=== PATIENT | female | born 1945 | race Caucasian/White ===

== ENCOUNTER → 2016-04-25 | Outpatient (CLI) | payer MEDICARE, OTHER ==
[~2016-04-25] MED LIST: ALLP100T; ALLP100T PO; ALN70T; ALN70T PO; BISO1TAB8; CHOL2000 PO; DESOXIMETASONE PO; DEXL60CA3 PO; FLC1T; FLC1T PO; HYDR-34 PO; HYDR1TAB PO; HYDR1TAB66 PO; LEFL10TA PO; LOSA100T7 PO; MTX2.5T; MTX2.5T PO; MVI; NABU500T8; NABU750T PO; NABUMETONE PO; NF-ALI300T PO; OLME1TAB22 PO; PARO20TA57; PARO25TA PO; PARO40TA2 PO; PRD10T; PRED-398 PO; PRIM50TA26 PO; PROPRANOLOL ER PO; TRAM50TA2 PO; TRIA60LO6 TOP; VERA240C2 PO; VITAMIN D; VRP240TCR
--- NOTE | 2016-04-25 10:40 | Diagnostic Imaging Report ---
3 views of the lumbar spine. INDICATION: Low back pain. FINDINGS: There is satisfactory alignment of the lumbar spine. The vertebral body heights are preserved. There is no significant disc height loss seen. There are multilevel small anterior osteophytes. No posterior osteophytes. Mild lower lumbar spine degenerative facet joint sclerotic changes seen. The sacroiliac joints demonstrate minimal degenerative changes. Surgical clips in the upper right abdomen noted. IMPRESSION: Disc and facet degenerative changes. Dictated by: Dictated on workstation # [id number]
== END ==
LOC: RAD 08:49
PROVIDERS: ATTEND Pain Medicine Pain Medicine
DX: M54.5 Low back pain (principal)
CPT/HCPCS: 72100

== ENCOUNTER → 2016-07-07 | Outpatient (CLI) | payer MEDICARE, OTHER ==
--- NOTE | 2016-07-08 08:52 | Diagnostic Imaging Report ---
Bilateral screening mammogram. The current study was also evaluated with a Computer Aided Detection (CAD) system. INDICATION: Screening. No current complaints stated on the questionnaire. COMPARISON: 06/29/2015. FINDINGS: The breasts are composed of scattered fibroglandular densities. There are occasional benign-appearing calcifications. A biopsy clip in the central aspect of the left breast is noted. There is a pacemaker projecting over the axillary tail of the left breast. No suspicious mass or calcifications noted. Allowing for technique and positional differences, no suspicious change is seen. IMPRESSION: No significant change. ACR BI-RADS Category 2: Benign findings. Result letter will be mailed to the patient. Note: At least 10% of breast cancer is not imaged by mammography. Dictated by: Dictated on workstation # [id number]
== END ==
LOC: RAD 08:58
PROVIDERS: ATTEND Nurse Practitioner
DX: Z12.31 Encounter for screening mammogram for malignant neoplasm of breast (principal)
CPT/HCPCS: 77067

== ENCOUNTER → 2016-08-25 | Outpatient (CLI) | payer MEDICARE, OTHER ==
--- NOTE | 2016-08-25 19:06 | Diagnostic Imaging Report ---
EXAMINATION: Three views of the right toes. INDICATION: Right great toe pain. FINDINGS: There is suggestion of fusion across the first MTP joint. Sclerotic changes are probably related to previous hardware and other pre-existing chronic abnormalities. The hardware has been removed. The findings are not associated with acute appearing erosive changes or bone destruction and no concerning periosteal reaction is seen to suggest infection. There is, however, adjacent soft tissue swelling. There is fusion hardware across the proximal interphalangeal joints of the second and third toes and evidence of prior osteotomy in the proximal phalanx of the fourth toe. No acute fracture. IMPRESSION: Fusion of the first metatarsophalangeal joint with background likely chronic mixed sclerotic and lucent areas with no aggressive or acute appearing bony erosion. There is prominent soft tissue swelling seen, however. Dictated by: Dictated on workstation # [id number]
== END ==
LOC: RAD 14:05
PROVIDERS: ATTEND Internal Medicine
DX: M79.674 Pain in right toe(s) (principal)
CPT/HCPCS: 73660

== ENCOUNTER → 2016-09-07 | Outpatient (CLI) | payer MEDICARE, OTHER ==
--- NOTE | 2016-09-07 17:16 | Diagnostic Imaging Report ---
PROCEDURE: CT right lower extremity without contrast. TECHNIQUE: Axially acquired CT was obtained through the right lower extremity without intravenous contrast. Coronal and sagittal reformations were also performed. INDICATION: Right great toe pain. Swelling. FINDINGS: There is advanced degenerative changes at the metatarsophalangeal joint of the great toe with complete loss of the joint space and pxid-ev-aymx appearance. There are areas of suggested joint fusion along the medial aspect with only minimal osseous bridging however seen. Background sclerosis and mixed lucent and cystic changes in the sclerotic areas around the head of the first metatarsal and proximal phalanx is seen. There are moderate osteoarthritic changes in the interphalangeal joint. There is no acute fracture. There is fusion of the proximal interphalangeal joints of the second and third and fourth toes seen with hardware in place. There is prominent osteoarthritis changes in the tarsometatarsal joints with satisfactory alignment otherwise. Prominent calcaneal spurs are seen. There is nonspecific subcutaneous tissue edema seen around the foot. IMPRESSION: There is background markedly advanced degenerative changes at the first metatarsophalangeal joints with osseous bridging seen in the medial aspect suggestive of early joint fusion. This is probably sequela to prior injury or infection. Correlate clinically. No acute fracture. Dictated by: Dictated on workstation # [id number]
== END ==
LOC: RAD 10:53
DX: M19.071 Primary osteoarthritis, right ankle and foot (principal)
CPT/HCPCS: 73700

== ENCOUNTER 2017-01-04 10:58 | Emergency (ER) | payer MEDICARE, OTHER ==
[~2017-01-04] VITALS: Ht 160 cm; Wt 94.3 kg
--- NOTE | 2017-01-04 12:01 | ED General ---
General Chief Complaint: Trauma-Non Activation Stated Complaint: FREQUENT FALLS/NEW MEDICATION Nursing Triage Note: PATIENT STARTED ON NEW MEDICATION BY NEUROLOGIST AND SINCE STARTING HAS HAD 5 FALLS IN THE LAST 2-3 DAYS R/T DIZZINESS AND LOSS OF BALANCE. Nursing Sepsis Screen: No Definite Risk Source of Information: Patient Exam Limitations: No Limitations History of Present Illness Time Seen by Provider: 11:55 Initial Comments The patient is a 71-year-old white female sent by Dr. Lewis's office/Chaim Barrera nurse practitioner. 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 This began in her 50s. She has been seeing a neurologist and was started on Klonopin last . On Monday she noted no new symptoms. On Monday she began to experience following and fell several times. She did not recall hitting her head during any of these falls. This has continued since then and she has appeared to be more intellectually slow by her . She has also hit her head and on one fall noted the onset of back pain in the lumbar region and this persists. She has continued to take the Klonopin including this morning. Timing/Duration: 4-5 Days Modifying Factors: improves with Medication Allergies and Home Medications Allergies Coded Allergies: DAVIDANo Known Allergies (Verified Allergy, Unknown, 06/24/08) Home Medications Alendronate Sodium 70 Mg Tab, 70 MG PO Mo@06, (Reported) Aliskiren Hemifumarate 300 Mg Tab, 1 TAB PO DAILY, (Reported) Allopurinol 100 Mg Tab, 100 MG PO DAILY, (Reported) Cholecalciferol 2,000 Unit Capsule, 2,000 UNIT PO DAILY, (Reported) Folic Acid 1 Mg Tab, 1 EACH PO DAILY, (Reported) Hydrocodone Bit/Acetaminophen 1 Each Tablet, 1 EACH PO NEEDED, (Reported) Hydrocodone Bit/Acetaminophen 1 Ea Tablet, 1-2 EA PO Q 4 - 6 HR PRN, #30 Ref 0 ( Reported) Leflunomide 10 Mg Tablet, 10 MG PO DAILY, (Reported) Losartan Potassium 100 Mg Tablet, 100 MG PO DAILY, (Reported) Methotrexate 2.5 Mg Tab, 2.5 MG PO Q7D, (Reported) TUES MORNING Paroxetine Hcl 40 Mg Tablet, 40 MG PO DAILY, (Reported) Prednisone 5 Mg Tablet.dr, 5 MG PO DAILY, #2 (Reported) Primidone 50 Mg Tablet, 50 MG PO BID, (Reported) Tramadol Hcl 50 Mg Tablet, 50 MG PO NEEDED, (Reported) Verapamil Hcl 240 Mg Cap24h.pel, 0.5 EACH PO BID, (Reported) [Desoximetasone] , 0.25 MG PO DAILY, (Reported) [Nabumetone] , 500 MG PO DAILY, (Reported) [Propranolol Er] , 60 MG PO DAILY, (Reported) Constitutional: see HPI EENTM: no symptoms reported Respiratory: no symptoms reported Cardiovascular: no symptoms reported Gastrointestinal: no symptoms reported Genitourinary: no symptoms reported Musculoskeletal: back pain Psychiatric/Neurological: Tremors Hematologic/Lymphatic: No Symptoms Reported Immunological/Allergic: no symptoms reported Past Txchjnu-Ojhfyx-Gkchud Hx Patient Social History Alcohol Use: Denies Use Recreational Drug Use: No Smoking Status: Never a Smoker 2nd Hand Smoke Exposure: No Recent Foreign Travel: No Contact w/Someone Who Travel: No Recent Infectious Disease Expo: No Recent Hopitalizations: No Physical Abuse: No Sexual Abuse: No Immunizations Up To Date Date of Pneumonia Vaccine: Jan 13, 2010 Date of Influenza Vaccine: Dec 23, 2011 Seasonal Allergies Seasonal Allergies: No Surgeries History of Surgeries: Yes (BUNIONECTOMY) Respiratory History of Respiratory Disorde: No Cardiovascular History of Cardiac Disorders: Yes (PACEMAKER) Reproductive System : No Hx Reproductive Disorders: Yes Genitourinary History of Genitourinary Disor: No Gastrointestinal History of Gastrointestinal Di: No Musculoskeletal History of Musculoskeletal Dis: Yes Musculoskeletal Disorders: Arthritis Endocrine History of Endocrine Disorders: No HEENT History of HEENT Disorders: No Cancer History of Cancer: No Psychosocial History of Psychiatric Problem: No Suicide Risk Score: 0 Integumentary History of Skin or Integumenta: Yes Skin/Integumentary Disorders: Psoriasis Blood Transfusions History of Blood Disorders: No Adverse Reaction to a Blood Tr: No Physical Exam Vital Signs Vital Sign - Last 12Hours 01/04/17 11:11 Pulse 62 Resp 18 B/P (MAP) 112/65 Pulse Ox 95 O2 Delivery Room Air Capillary Refill : Less Than 3 Seconds General Appearance: No Apparent Distress, WD/WN Eyes: Bilateral Eye Normal Inspection HEENT: Normal ENT Inspection Neck: Normal Inspection Respiratory: Chest Non Tender, Lungs Clear, Normal Breath Sounds, No Accessory Muscle Use, No Respiratory Distress Cardiovascular: Regular Rate, Rhythm, No Edema, No Gallop, No JVD, No Murmur, Normal Peripheral Pulses Back: No CVA Tenderness Extremity: Normal Capillary Refill, Normal Inspection, Normal Range of Motion, Non Tender, No Calf Tenderness, No Pedal Edema Neurologic/Psychiatric: Alert, Oriented x3, No Motor/Sensory Deficits, Normal Mood/Affect Skin: Normal Color, Warm/Dry Lymphatic: No Adenopathy Comments There is a tremor noted with the forearm flexed and the hands extended. This is greater on the left than the right. She is left-handed. Also noted during the course of exam was a slight head bobbing and twitching at the corners of the mouth. The voice however is not tremulous. Progress/Results/Core Measures Results/Orders My Orders Orders - RASHIDA KING MD Ct Head Wo (01/04/17 11:54) Lumbar Spine - 2-3 Views (01/04/17 11:54) Vital Signs/I&O Vital Sign - Last 12Hours 01/04/17 11:11 Pulse 62 Resp 18 B/P (MAP) 112/65 Pulse Ox 95 O2 Delivery Room Air Blood Pressure Mean: 81 Departure Impression Impression: Primary Impression: multiple falls Additional Impression: tremor disorder Disposition: 01 HOME, SELF-CARE Condition: Stable/Unchanged Departure-Patient Inst. Decision time for Depature: 13:46 Referrals: AURORA LEWIS MD (PCP/Family) Primary Care Physician Add. Discharge Instructions: All discharge instructions reviewed with patient and/or family. Voiced understanding. Stop Klonopin. See her provider next week Return here if change in condition RASHIDA KING MD Jan 04, 2017 12:00
--- NOTE | 2017-01-04 12:23 | Diagnostic Imaging Report ---
INDICATION: Recent falls. Back pain. COMPARISON: 04/25/2016 FINDINGS: Frontal and lateral radiographic views of the lumbar spine were obtained. Static alignment is preserved. There is no significant anterolisthesis or retrolisthesis. There is no evidence of jumped facets. Vertebral body heights are also maintained. There is no evidence of acute fracture. There are multilevel degenerative changes consisting of intervertebral disc height loss with multilevel endplate changes. There is also multilevel facet arthropathy. Surrounding soft tissue structures are unremarkable. Included small bowel loops are nondistended. IMPRESSION: 1. No acute fracture or dislocation lumbar spine. 2. Mild multilevel degenerative changes. Dictated by: Dictated on workstation # [id number]
--- NOTE | 2017-01-04 13:27 | Diagnostic Imaging Report ---
PROCEDURE: CT head without contrast. TECHNIQUE: Multiple contiguous axial images were obtained through the brain without the use of intravenous contrast. INDICATION: Fall. FINDINGS: There is no intracranial hemorrhage, edema or mass effect. There is periventricular and deep white hypodensities compatible with chronic microvascular ischemic changes. No hydrocephalus. No extra-axial fluid collection seen. The calvarium, the visualized portions of the paranasal sinuses and orbits appear grossly unremarkable. IMPRESSION: No acute process. Dictated by: Dictated on workstation # [id number]
[2017-01-04 14:01] VITALS: BP 126/84
== END 2017-01-04 13:56 | disposition home or self-care (01) ==
LOC: EDUNIT# 10:58 → ER 11:00
DX: R25.1 Tremor, unspecified (principal); R29.6 Repeated falls; Z95.0 Presence of cardiac pacemaker
CPT/HCPCS: 70450; 72100; 99282

== ENCOUNTER → 2017-01-05 | Outpatient (CLI) | payer MEDICARE, OTHER ==
--- NOTE | 2017-01-05 17:23 | Diagnostic Imaging Report ---
PROCEDURE: CT chest without contrast. TECHNIQUE: Multiple contiguous axial images were obtained through the chest without the use of intravenous contrast. INDICATION: Left lower chest pain, recent fall. FINDINGS: There is no pneumothorax. There is no pleural fluid or evidence for hemothorax. There is no pericardial effusion. Visualized portions of bilateral ribs revealed no identifiable fracture deformity or destructive osseous lesion. No findings of pleural hematoma. There is at least mild infrahilar and basilar partial atelectasis. No findings felt suggestive of lung contusion or pulmonary laceration. There is no mediastinal hematoma. The aorta is nonaneurysmal. The visualized upper abdomen showed no free fluid or free air. The low-density cystic nodules in the right hepatic lobe partly visualized. IMPRESSION: No acute or post-traumatic sequelae identified. Dictated by: Dictated on workstation # [id number]
--- NOTE | 2017-01-05 17:29 | Diagnostic Imaging Report ---
CLINICAL INDICATION: Patient with left ear pain, multiple falls and thoracic pain. EXAM: Axial CT scan of the thoracic spine performed without IV contrast. Sagittal and coronal reformatted images are created. COMPARISON: X-ray of the lumbar spine dated 01/04/2017. FINDINGS: The thoracic spine shows no evidence of acute fracture or dislocation. There is mild compression deformity with Schmorl's nodes involving the T10 vertebral body. There is also mild chronic appearing compression deformity of the upper endplate of the L1 vertebral body. There is a chronic appearing Schmorl's nodes seen scattered throughout the lower thoracic vertebra. There is small degenerative spurs seen throughout the mid and lower thoracic spine. There is no significant bony central spinal canal or neural foramen narrowing. Bilateral facet arthropathy is seen throughout the thoracic spine. There is no significant paraspinal soft tissue abnormality. There is mild atelectasis involving the posterior aspects of both lungs. IMPRESSION: 1: There is no evidence of acute thoracic spine fracture or dislocation. 2: There are mild chronic compression deformities of the T10 and L1 vertebral bodies which appear chronic. 3: Degenerative disease of the thoracic spine. A message regarding results of this report was left for Kathe Vazquez via the telephone on 01/05/2017 at 1725 hrs. Dictated by: Dictated on workstation # [id number]
== END ==
LOC: RAD 16:47
PROVIDERS: ATTEND Physician Assistant
DX: S29.9XXA Unspecified injury of thorax, initial encounter (principal); M47.814 Spondylosis without myelopathy or radiculopathy, thoracic region; W19.XXXA Unspecified fall, initial encounter; Y99.8 Other external cause status
CPT/HCPCS: 71250; 72128

== ENCOUNTER 2017-01-08 09:37 | Emergency (ER) | payer MEDICARE, OTHER ==
[~2017-01-08] VITALS: Ht 162.6 cm; Wt 93.0 kg
--- OUTSIDE RECORDS SUMMARY | 2017-01-08 09:41 | XMS REPORT | Continuity of Care Document ---
Author Author [employer] Organization [facility] Address Unknown Phone Unavailable Care Team Providers Care [employer] Name Role Phone [employer] Unavailable Unavailable Problems Medications Allergies, Adverse Reactions, Alerts Immunizations Results Vital Signs Encounters Location Location Details Encounter Type Encounter Number Reason For Visit Attending Provider ADM Date DC Date Status Source O Active [facility] Procedures Plan of Care Social History Assessment and Plan Family History Value Date Source Advance Directives Order Name Results Value Date Source
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
[2017-01-08] MEDS ORDERED: NS IV 500 ML 500 ML IV ONE (09:55)
--- NOTE | 2017-01-08 10:32 | ED General ---
General Chief Complaint: Dizziness/Syncope Stated Complaint: DIZZINESS/FALL Nursing Triage Note: PT REPROTS INCREASED CONFUSION, AND PT FALLING LAST NIGHT WHEN WALKING. PT IS TAKING HYDROCODONE AND BACLOFEN SINCE MONDAY FOR PREVIOUS FALL INJURY. Nursing Sepsis Screen: No Definite Risk Source of Information: Patient Exam Limitations: No Limitations History of Present Illness Time Seen by Provider: 09:49 Initial Comments Here for concerns about acting weird since about 4 a.m. this morning. Has had multiple falls including last night. Follow as night's on carpeted jurgen denies any injury or hitting head. Apparently does have a question of a hairline fracture of 2 ribs per the family. There is an old compression fracture at T10 noted on CT scan. Patient admits to feeling a little off. She was recently started on baclofen and hydrocodone for pain related to rib injury. Denies dysuria but does have constipation. Symptoms are global. reports that she's been increasingly confused this morning and this is worsening since yesterday. Timing/Duration: 12-24 Hours Severity: Moderate Associated Systoms: No Cough, No Fever/Chills, No Headaches, Malaise, Nausea/ Vomiting (small amount of vomit 1 and this morning), No Shortness of Air, Weakness Allergies and Home Medications Allergies Coded Allergies: cefazolin (Verified Allergy, Unknown, 01/08/17) latex (Verified Allergy, Unknown, 01/08/17) Home Medications Alendronate Sodium 70 Mg Tab, 70 MG PO Mo@06, (Reported) Aliskiren Hemifumarate 300 Mg Tab, 1 TAB PO DAILY, (Reported) Allopurinol 100 Mg Tab, 100 MG PO DAILY, (Reported) Cholecalciferol 2,000 Unit Capsule, 2,000 UNIT PO DAILY, (Reported) Folic Acid 1 Mg Tab, 1 EACH PO DAILY, (Reported) Hydrocodone Bit/Acetaminophen 1 Each Tablet, 1 EACH PO NEEDED, (Reported) Hydrocodone Bit/Acetaminophen 1 Ea Tablet, 1-2 EA PO Q 4 - 6 HR PRN, #30 Ref 0 ( Reported) Leflunomide 10 Mg Tablet, 10 MG PO DAILY, (Reported) Losartan Potassium 100 Mg Tablet, 100 MG PO DAILY, (Reported) Methotrexate 2.5 Mg Tab, 2.5 MG PO Q7D, (Reported) TU MORNING Paroxetine Hcl 40 Mg Tablet, 40 MG PO DAILY, (Reported) Prednisone 5 Mg Tablet.dr, 5 MG PO DAILY, #2 (Reported) Primidone 50 Mg Tablet, 50 MG PO BID, (Reported) Tramadol Hcl 50 Mg Tablet, 50 MG PO NEEDED, (Reported) Verapamil Hcl 240 Mg Cap24h.pel, 0.5 EACH PO BID, (Reported) [Desoximetasone] , 0.25 MG PO DAILY, (Reported) [Nabumetone] , 500 MG PO DAILY, (Reported) [Propranolol Er] , 60 MG PO DAILY, (Reported) Constitutional: see HPI, No chills, No fever EENTM: no symptoms reported Respiratory: no symptoms reported Cardiovascular: no symptoms reported Gastrointestinal: constipation, No diarrhea, No nausea, vomiting Genitourinary: no symptoms reported Musculoskeletal: back pain Skin: no symptoms reported Psychiatric/Neurological: See HPI, Denies Headache, Weakness All Other Systems Reviewed Negative Unless Noted: Yes Past Kqqcehw-Sqxxxh-Wpjoke Hx Patient Social History Alcohol Use: Denies Use Recreational Drug Use: No Smoking Status: Never a Smoker 2nd Hand Smoke Exposure: No Recent Foreign Travel: No Contact w/Someone Who Travel: No Recent Infectious Disease Expo: No Recent Hopitalizations: No Physical Abuse: No Sexual Abuse: No Mistreated: No Fear: No Immunizations Up To Date Date of Pneumonia Vaccine: Jan 13, 2010 Date of Influenza Vaccine: Dec 23, 2011 Seasonal Allergies Seasonal Allergies: No Surgeries History of Surgeries: Yes (BUNIONECTOMY, ROTATOR CUFF, PARATHYROID) Surgeries: Gallbladder, Hysterectomy Respiratory History of Respiratory Disorde: No Cardiovascular History of Cardiac Disorders: Yes (PACEMAKER) Cardiac Disorders: Hypertension Neurological History of Neurological Disord: Yes (TREMORS) Reproductive System Hx Reproductive Disorders: Yes Sexually Transmitted Disease: No Genitourinary History of Genitourinary Disor: No Gastrointestinal History of Gastrointestinal Di: No Musculoskeletal History of Musculoskeletal Dis: Yes Musculoskeletal Disorders: Arthritis Endocrine History of Endocrine Disorders: No HEENT History of HEENT Disorders: No Cancer History of Cancer: No Psychosocial History of Psychiatric Problem: No Suicide Risk Score: 1 Integumentary History of Skin or Integumenta: Yes Skin/Integumentary Disorders: Psoriasis Blood Transfusions History of Blood Disorders: No Adverse Reaction to a Blood Tr: No Reviewed Nursing Assessment Reviewed/Agree w Nursing PMH: Yes Family Medical History Significant Family History: No Pertinent Family Hx Physical Exam Vital Signs Vital Sign - Last 12Hours 01/08/17 10:06 Temp 97.6 Pulse 66 Resp 20 B/P (MAP) 129/73 Pulse Ox 93 Capillary Refill : Less Than 3 Seconds General Appearance: No Apparent Distress, WD/WN HEENT: PERRL/EOMI, Pharynx Normal, Other (no obvious injury noted to the head or neck.) Neck: Non Tender, Supple Respiratory: Lungs Clear, Normal Breath Sounds Cardiovascular: Regular Rate, Rhythm, No Murmur Gastrointestinal: Non Tender, Soft Back: Normal Inspection, No CVA Tenderness, No Vertebral Tenderness Extremity: Normal Range of Motion, Non Tender Neurologic/Psychiatric: Alert, Motor Weakness (mild global weakness.), Other ( flat affect and slow to answer but answers questions appropriately. Oriented to self, place but confused on time.) Skin: Normal Color, Warm/Dry Progress/Results/Core Measures Results/Orders Lab Results Laboratory Tests Test 01/08/17 10:39 01/08/17 11:21 Range/Units White Blood Count 7.1 4.3-11.0 10^3/uL Red Blood Count 3.80 L 4.35-5.85 10^6/uL Hemoglobin 12.7 11.5-16.0 G/DL Hematocrit 37 35-52 % Mean Corpuscular Volume 97 80-99 FL Mean Corpuscular Hemoglobin 33 25-34 PG Mean Corpuscular Hemoglobin Concent 34 32-36 G/DL Red Cell Distribution Width 13.9 10.0-14.5 % Platelet Count 276 130-400 10^3/uL Mean Platelet Volume 10.4 7.4-10.4 FL Neutrophils (%) (Auto) 80 H 42-75 % Lymphocytes (%) (Auto) 14 12-44 % Monocytes (%) (Auto) 5 0-12 % Eosinophils (%) (Auto) 1 0-10 % Basophils (%) (Auto) 0 0-10 % Neutrophils # (Auto) 5.7 1.8-7.8 X 10^3 Lymphocytes # (Auto) 1.0 1.0-4.0 X 10^3 Monocytes # (Auto) 0.4 0.0-1.0 X 10^3 Eosinophils # (Auto) 0.1 0.0-0.3 10^3/uL Basophils # (Auto) 0.0 0.0-0.1 10^3/uL Sodium Level 138 135-145 MMOL/L Potassium Level 3.2 L 3.6-5.0 MMOL/L Chloride Level 102 98-107 MMOL/L Carbon Dioxide Level 25 21-32 MMOL/L Anion Gap 11 5-14 MMOL/L Blood Urea Nitrogen 29 H 7-18 MG/DL Creatinine 0.98 0.60-1.30 MG/DL Estimat Glomerular Filtration Rate 56 BUN/Creatinine Ratio 30 Glucose Level 130 H 70-105 MG/DL Calcium Level 9.0 8.5-10.1 MG/DL Total Bilirubin 0.3 0.1-1.0 MG/DL Aspartate Amino Transf (AST/SGOT) 18 5-34 U/L Alanine Aminotransferase (ALT/SGPT) 18 0-55 U/L Alkaline Phosphatase 98 40-136 U/L C-Reactive Protein High Sensitivity 10.43 H 0.00-0.50 MG/DL Total Protein 7.5 6.4-8.2 GM/DL Albumin 3.7 3.2-4.5 GM/DL Urine Color YELLOW Urine Clarity CLEAR Urine pH 6.5 5-9 Urine Specific [place] 1.010 L 1.016-1.022 Urine Protein 1+ H NEGATIVE Urine Glucose (UA) NEGATIVE NEGATIVE Urine Ketones 1+ H NEGATIVE Urine Nitrite NEGATIVE NEGATIVE Urine Bilirubin 1+ H NEGATIVE Urine Urobilinogen 1 NORMAL MG/DL Urine Leukocyte Esterase 2+ H NEGATIVE Urine RBC (Auto) 1+ H NEGATIVE Urine RBC NONE /HPF Urine WBC RARE /HPF Urine Squamous Epithelial Cells RARE /HPF Urine Crystals NONE /LPF Urine Bacteria NEGATIVE /HPF Urine Casts NONE /LPF Urine Mucus NEGATIVE /LPF Urine Culture Indicated NO My Orders Orders - JENIFER CHEN MD Cbc With Automated Diff (01/08/17 09:55) Comprehensive Metabolic Panel (01/08/17 09:55) Hs C Reactive Protein (01/08/17 09:55) Ua Culture If Indicated (01/08/17 09:55) Saline Lock/Iv-Start (01/08/17 09:55) Ns Iv 500 Ml (Sodium Chloride 0.9%) (01/08/17 09:55) Chest 1 View, Ap/Pa Only (01/08/17 09:55) Monitor-Rhythm Ecg Trace Only (01/08/17 09:55) Medications Given in ED Current Medications Medications Dose Ordered Sig/Swetha Route Start Time Stop Time Status Last Admin Dose Admin Sodium Chloride 500 ml @ 0 mls/hr Q0M ONCE IV 01/08/17 09:55 01/08/17 09:56 DC 01/08/17 10:44 0 MLS/HR Vital Signs/I&O Vital Sign - Last 12Hours 01/08/17 10:06 Temp 97.6 Pulse 66 Resp 20 B/P (MAP) 129/73 Pulse Ox 93 Blood Pressure Mean: 91 Progress Note : Progress Note Seen and evaluated. IV, labs, chest x-ray, UA and normal saline 500 mL bolus ordered. Monitor patient. 1230: Overall patient is improved. Patient's CRP was elevated but there does not appear to be a focus for infection currently so we will hold on antibiotics at this time. The increasing tiredness and problems this morning may be related to back Levsin. We will stop that. Her pain has been improving. Patient does have constipation and so they will add MiraLAX to the therapy. 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 She is mentating well at this point and she and her are comfortable going home with the understanding what to return for. Discharged home with return precautions. Patient and family verbalize understanding instructions and agreement with plan. Diagnostic Imaging Diagonstic Imaging: Xray Plain Films/CT/US/NM/MRI: chest Comments NAME: [facility] REC#: [id number] PT STATUS: REG ER : 1945 PHYSICIAN: JENIFER CHEN MD ADMIT DATE: 01/08/17/ER Signed Date of Exam: 01/08/17 CHEST 1 VIEW, AP/PA ONLY INDICATION: Dizziness COMPARISON: 01/18/2016 FINDINGS: Portable view of the chest is obtained. Heart size is mildly enlarged but unchanged. Pacer device in the left chest is stable. There is no central venous congestion. There is no pneumothorax or pleural fluid suspected. There is some coarse linear atelectasis in the right midlung. The lungs are otherwise clear. IMPRESSION: There is some right-sided atelectasis, new from the prior exam. Stable borderline cardiomegaly without evidence of failure. Dictated by: Dictated on workstation # [id number] Dict: 01/08/17 1053 Trans: 01/08/171056 Interpreted by: JAMIE CAMP DO Electronically signed by: JAMIE CAMP DO 01/08/171056 Departure Impression Impression: Primary Impression: Medication side effect Qualified Codes: T88.7XXA - Unspecified adverse effect of drug or medicament, initial encounter Additional Impressions: Chest wall pain History of recent fall Disposition: HOME, SELF-CARE Condition: Improved Departure-Patient Inst. Decision time for Depature: 12:38 Referrals: AURORA CAMP MD (PCP/Family) Primary Care Physician Patient Instructions: MEDICATION REACTION Add. Discharge Instructions: All discharge instructions reviewed with patient and/or family. Voiced understanding. Stop the baclofen. Take the hydrocodone only if needed for moderate pain. Drink plenty of fluids. You may add MiraLAX or the generic one capful twice daily for the next 3 days for constipation. You may then go to once daily dosing as needed to keep stools soft. You may increase or decrease the dose to keep the stools in the normal range. Follow-up with Dr. Camp's office tomorrow. Return for worse pain, fever, vomiting, weakness, breathing problems , persistent symptoms, not getting better or other concerns as needed. Copy Copies To 1: AURORA CAMP MD, TIMOTHY D MD Jan 08, 2017 10:32
[2017-01-08 10:46] LABS: BASOPHILS % (AUTO) 0 % (0-10); EOSINOPHILS # (AUTO) 0.1 10^3/uL (0.0-0.3); EOSINOPHILS % (AUTO) 1 % (0-10); LYMPHOCYTES % (AUTO) 14 % (12-44); MEAN CORPUSCULAR HEMOGLOBIN 33 PG (25-34); MEAN CORPUSCULAR HGB CONC 34 G/DL (32-36); MEAN CORPUSCULAR VOLUME 97 FL (80-99); MEAN PLATELET VOLUME 10.4 FL (7.4-10.4); MONOCYTES # (AUTO) 0.4 X 10^3 (0.0-1.0); MONOCYTES % (AUTO) 5 % (0-12); NEUTROPHILS # (AUTO) 5.7 X 10^3 (1.8-7.8); NEUTROPHILS % (AUTO) 80 % (42-75); PLATELET COUNT 276 10^3/uL (130-400); RED CELL DISTRIBUTION WIDTH 13.9 % (10.0-14.5); WHITE BLOOD COUNT 7.1 10^3/uL (4.3-11.0)
--- NOTE | 2017-01-08 10:57 | Diagnostic Imaging Report ---
INDICATION: Dizziness COMPARISON: 01/18/2016 FINDINGS: Portable view of the chest is obtained. Heart size is mildly enlarged but unchanged. Pacer device in the left chest is stable. There is no central venous congestion. There is no pneumothorax or pleural fluid suspected. There is some coarse linear atelectasis in the right midlung. The lungs are otherwise clear. IMPRESSION: There is some right-sided atelectasis, new from the prior exam. Stable borderline cardiomegaly without evidence of failure. Dictated by: Dictated on workstation # [id number]
[2017-01-08 11:03] LABS: ALBUMIN 3.7 GM/DL (3.2-4.5); BILIRUBIN,TOTAL 0.3 MG/DL (0.1-1.0); CREATININE SERUM 0.98 MG/DL (0.60-1.30); POTASSIUM 3.2 MMOL/L (3.6-5.0); TOTAL PROTEIN 7.5 GM/DL (6.4-8.2); hs C REACTIVE PROTEIN 10.43 MG/DL (0.00-0.50)
[2017-01-08 11:27] LABS: KETONES,URINE 1+ (NEGATIVE); LEUKOCYTE ESTERASE ,URINE 2+ (NEGATIVE); NITRITE,URINE NEGATIVE (NEGATIVE); PH,URINE 6.5 (5-9); PROTEIN,URINE 1+ (NEGATIVE); UROBILINOGEN,URINE 1 MG/DL (NORMAL)
[2017-01-08 11:30] LABS: BILIRUBIN,URINE 1+ (NEGATIVE); SQUAMOUS EPITHELIAL CELL,UR RARE /HPF; WBC,URINE RARE /HPF
[2017-01-08 12:54] VITALS: BP 136/79
== END 2017-01-08 12:54 | disposition home or self-care (01) ==
LOC: EDUNIT# 09:37 → ER 09:38
DX: R07.89 Other chest pain (principal); T88.7XXA Unspecified adverse effect of drug or medicament, initial encounter; I10 Essential (primary) hypertension; Z91.81 History of falling; Z90.710 Acquired absence of both cervix and uterus; Z95.0 Presence of cardiac pacemaker
CPT/HCPCS: 36415; 71010; 80053; 81000; 85025; 86141; 93041; 96360; 96361

== ENCOUNTER → 2017-01-11 | Outpatient (CLI) | payer MEDICARE, OTHER ==
--- NOTE | 2017-01-11 11:30 | Diagnostic Imaging Report ---
EXAMINATION: Three views of the left ribs. INDICATION: Followup fracture. FINDINGS: There are minimally displaced posterior lateral left fifth and sixth rib fractures. No pneumothorax. No significant effusion. There is minimal left basilar atelectasis. A pacemaker with two cardiac leads is seen. IMPRESSION: Minimally displaced posterior lateral left fifth and sixth rib fractures. Dictated by: Dictated on workstation # [id number]
--- NOTE | 2017-01-11 11:30 | Diagnostic Imaging Report ---
EXAMINATION: PA and lateral views of the chest. INDICATION: Left rib fractures. FINDINGS: The lungs demonstrate minimal left basilar atelectasis with no focal significant consolidation. Right perihilar atelectasis previously seen on 01/08/17 exam is improved. The heart size is normal. No effusion or pneumothorax. Mediastinum and cory appear unremarkable. Pacemaker with 2 cardiac leads seen. Nondisplaced rib fracture is seen along the posterior lateral aspect of the left fifth rib. IMPRESSION: Minimal left basilar atelectasis. Dictated by: Dictated on workstation # [id number]
== END ==
LOC: RAD 10:50
PROVIDERS: ATTEND Nurse Practitioner
DX: S22.42XD Multiple fractures of ribs, left side, subsequent encounter for fracture with routine healing (principal); X58.XXXD Exposure to other specified factors, subsequent encounter; Y99.8 Other external cause status
CPT/HCPCS: 71020; 71100

== ENCOUNTER 2017-05-19 14:12 | Outpatient (RCR) | payer MEDICARE, OTHER | END 2017-05-23 | disposition home or self-care (01) | PROVIDERS: ATTEND Psychiatry & Neurology Neurology | DX: R26.9 Unspecified abnormalities of gait and mobility (principal) ==

== ENCOUNTER → 2017-12-27 | Outpatient (CLI) | payer MEDICARE, OTHER ==
[2017-12-27 10:20] LABS: CLARITY,URINE CLEAR; COLOR,URINE YELLOW; GLUCOSE, URINE (UA) NEGATIVE (NEGATIVE); KETONES,URINE 1+ (NEGATIVE); LEUKOCYTE ESTERASE ,URINE 1+ (NEGATIVE); NITRITE,URINE NEGATIVE (NEGATIVE); PH,URINE 6.5 (5-9); PROTEIN,URINE 1+ (NEGATIVE); UROBILINOGEN,URINE 1 MG/DL (NORMAL)
[2017-12-27 10:47] LABS: BACTERIA,URINE FEW /HPF; BILIRUBIN,URINE 1+ (NEGATIVE); RBC,URINE RARE /HPF; WBC,URINE 0-2 /HPF
--- NOTE | 2017-12-27 11:47 | Diagnostic Imaging Report ---
INDICATION: Preop evaluation prior to deep brain stimulator placement. TECHNIQUE: Two view chest 10:28 AM CORRELATION STUDY: 01/11/2017 FINDINGS: Right IJ Xqojfy-k-Hdlc catheter has been placed, the tip projects over the SVC. Left-sided pacemaker remains in place. Heart size and mediastinal configurations stable. The lungs are clear with no consolidating infiltrate. There is no significant pleural effusion or pneumothorax. Old left posterior lateral mid rib fracture deformities are present. Prior left rotator cuff surgery suggested with anchor screw over the humeral head. Somewhat accentuated thoracic kyphotic curvature. IMPRESSION: 1. Negative acute abnormality of the chest. Dictated by: Dictated on workstation # [id number]
== END ==
LOC: RAD 09:45
PROVIDERS: ATTEND Internal Medicine
DX: Z01.812 Encounter for preprocedural laboratory examination (principal)
CPT/HCPCS: 71046; 81000

== ENCOUNTER → 2018-05-23 | Outpatient (CLI) | payer MEDICARE, OTHER ==
--- NOTE | 2018-05-23 15:50 | Diagnostic Imaging Report ---
INDICATION: Fall with left-sided posterior rib pain. TIME OF EXAM: 03:31 p.m. Correlation is made with prior chest radiograph from 12/27/2017. FINDINGS: Cardiac pacemaker is in place. Right chest wall port with its tip overlying the SVC. There are old healed rib fractures on the left involving the left posterior fifth, sixth and seventh ribs, similar to prior examination. There also appears to be an old fracture involving the left ninth rib. No definite acute fracture is identified. No parenchymal contusion, effusion or pneumothorax is seen. IMPRESSION: Old left-sided posterior rib fractures. No acute rib fracture is detected. Dictated by: Dictated on workstation # [id number]
== END ==
LOC: RAD 15:12
PROVIDERS: ATTEND Physician Assistant
DX: R07.81 Pleurodynia (principal); W19.XXXA Unspecified fall, initial encounter; Z87.81 Personal history of (healed) traumatic fracture; Z95.828 Presence of other vascular implants and grafts
CPT/HCPCS: 71101

== ENCOUNTER → 2018-05-31 | Outpatient (CLI) | payer MEDICARE, OTHER ==
--- NOTE | 2018-06-01 08:35 | Diagnostic Imaging Report ---
PROCEDURE: CT chest without contrast. TECHNIQUE: Multiple contiguous axial images were obtained through the chest without the use of intravenous contrast. INDICATION: Fall with posterior left rib pain. FINDINGS: Left chest wall cardiac pacemaker is in place. There is also right chest wall stimulator battery pack. No pericardial or pleural fluid is detected. No pneumothorax is seen. There is some scarring or subsegmental atelectasis in the superior segment left lower lobe as well as the posterior right upper lobe. No contusions are seen. There are old healed fractures involving left 5, 6, 7, and ninth posterior ribs. No definite acute rib fracture is seen. Upper abdomen does show a cyst in the dome of the right lobe of the liver. IMPRESSION: No acute abnormality is detected. Dictated by: Dictated on workstation # [id number]
== END ==
LOC: RAD 15:56
PROVIDERS: ATTEND Physician Assistant
DX: R07.81 Pleurodynia (principal); W19.XXXA Unspecified fall, initial encounter; Z95.0 Presence of cardiac pacemaker
CPT/HCPCS: 71250

== ENCOUNTER → 2018-12-28 | Outpatient (CLI) | payer MEDICARE, OTHER ==
--- NOTE | 2018-12-28 13:01 | Diagnostic Imaging Report ---
INDICATION: Routine screening. COMPARISON: Comparison is made with prior mammograms from 07/10/2017 and 07/07/2016. TECHNIQUE: 2-D and 3-D bilateral screening mammography was performed. The current study was also evaluated with a Computer Aided Detection (CAD) system. 3-D tomosynthesis was also performed and reviewed. FINDINGS: Scattered fibroglandular densities are identified bilaterally. Battery packs overlie the axillary portions of both breasts. Benign-appearing nodules in the lateral aspect of the right breast appear stable. Biopsy clip in the central left breast and benign nodule in the lateral left breast are also noted and appear stable. No spiculated mass or malignant-appearing microcalcifications are seen. IMPRESSION: No mammographic features suspicious for malignancy are identified. ACR BI-RADS Category 2: Benign findings. Result letter will be mailed to the patient. Note: At least 10% of breast cancer is not imaged by mammography. Dictated by: Dictated on workstation # [id number]
== END ==
LOC: RAD 11:17
PROVIDERS: ATTEND Internal Medicine
DX: Z12.31 Encounter for screening mammogram for malignant neoplasm of breast (principal)
CPT/HCPCS: 77067

== ENCOUNTER 2019-02-07 09:45 | Outpatient (RCR) | payer MEDICARE, OTHER | END 2019-02-08 14:50 | disposition home or self-care (01) | PROVIDERS: ATTEND Internal Medicine | DX: N39.46 Mixed incontinence (principal) ==

== ENCOUNTER → 2019-03-11 | Outpatient (CLI) | payer MEDICARE, OTHER ==
--- NOTE | 2019-03-11 10:11 | Diagnostic Imaging Report ---
INDICATION: Chronic cough. TIME OF EXAM: 9:53 a.m. COMPARISON: Correlation is made with prior chest from 05/23/2018. FINDINGS: Cardiac pacemaker is in place. There is a battery pack overlying the lower right chest. There is a right chest wall port with tip overlying the SVC. Lungs are clear. No infiltrates are seen. There is no effusion or pneumothorax. Healed left-sided rib fractures are again noted. IMPRESSION: Stable chest. No acute cardiopulmonary process is detected. Dictated by: Dictated on workstation # [id number]
== END ==
LOC: RAD 09:32
PROVIDERS: ATTEND Nurse Practitioner
DX: R05 Cough (principal); Z95.0 Presence of cardiac pacemaker
CPT/HCPCS: 71046

== ENCOUNTER 2019-07-22 17:57 | Emergency (ER) | payer MEDICARE, OTHER ==
[~2019-07-22] VITALS: Ht 160 cm; Wt 89.4 kg
[2019-07-22] MEDS ORDERED: fentaNYL INJECTION 100 MCG/2 ML AMP IVP STA (18:21)
--- NOTE | 2019-07-22 18:32 | ED Lower Extremity ---
General Stated Complaint: L LEG PAIN Source: patient History of Present Illness Date Seen by Provider: July 22, 2019 Time Seen by Provider: 18:15 Initial Comments PT ARRIVES VIA POV FROM HOME PT STATES JUST PRIOR TO ARRIVAL, APPROXIMATELY 1730, SHE WAS SITTING AND MOVED HER LEG AND HAD SUDDEN SEVERE PAIN BEHIND LEFT KNEE NO INJURY PAIN RADIATES DOWN CALF TO ANKLE AREA NO PARESTHESIAS OR MOTOR DEFICITS, BUT HAS SEVERE PAIN WITH ANY MOVEMENT OF LEG AND CANNOT BEAR WEIGHT ON LEFT LEG NO SWELLING OF LEG NO HISTORY OF SIMILAR, BUT HAS HISTORY OF MENISCUS PROBLEMS, BUT THAT PAIN WAS NOT IN SAME AREA. ALSO HAS HISTORY OF RHEUMATOID AND PSORIATIC ARTHRITIS, AND GETS REMICADE EVERY 6 WEEKS. NO FEVER NO BRUISING OR REDNESS TO AREA. NO CHEST PAIN NO SHORTNESS OF BREATH NO DIZZINESS NO PALPITATIONS NO SYNCOPE PCP: DR. LEWIS Allergies and Home Medications Allergies Coded Allergies: cefazolin (Verified Allergy, Unknown, 01/08/17) latex (Verified Allergy, Unknown, 01/08/17) Home Medications Alendronate Sodium 70 Mg Tab, 70 MG PO Mo@06, (Reported) Aliskiren Hemifumarate 300 Mg Tab, 1 TAB PO DAILY, (Reported) Allopurinol 100 Mg Tab, 100 MG PO DAILY, (Reported) Cholecalciferol 2,000 Unit Capsule, 2,000 UNIT PO DAILY, (Reported) Folic Acid 1 Mg Tab, 1 EACH PO DAILY, (Reported) Hydrocodone Bit/Acetaminophen 1 Each Tablet, 1 EACH PO NEEDED, (Reported) Hydrocodone Bit/Acetaminophen 1 Ea Tablet, 1-2 EA PO Q 4 - 6 HR PRN, (Reported) Hydrocodone/Acetaminophen 1 Each Tablet, 1 EACH PO Q4-6 HOURS PRN for PAIN Prescribed by: LYNN BENITEZ on 07/22/191945 Leflunomide 10 Mg Tablet, 10 MG PO DAILY, (Reported) Losartan Potassium 100 Mg Tablet, 100 MG PO DAILY, (Reported) Methotrexate 2.5 Mg Tab, 2.5 MG PO Q7D, (Reported) TU MORNING Paroxetine Hcl 40 Mg Tablet, 40 MG PO DAILY, (Reported) Prednisone 5 Mg Tablet.dr, 5 MG PO DAILY, (Reported) Primidone 50 Mg Tablet, 50 MG PO BID, (Reported) Tramadol Hcl 50 Mg Tablet, 50 MG PO NEEDED, (Reported) Verapamil Hcl 240 Mg Cap24h.pel, 0.5 EACH PO BID, (Reported) [Desoximetasone] , 0.25 MG PO DAILY, (Reported) [Nabumetone] , 500 MG PO DAILY, (Reported) [Propranolol Er] , 60 MG PO DAILY, (Reported) Patient Home Medication List Home Medication List Reviewed: Yes Review of Systems Constitutional: no symptoms reported Respiratory: no symptoms reported; No dyspnea on exertion, No short of breath Cardiovascular: no symptoms reported; No chest pain, No edema, No palpitations, No syncope Gastrointestinal: no symptoms reported Musculoskeletal: see HPI; No back pain, No joint swelling, No muscle weakness, No neck pain Skin: no symptoms reported Psychiatric/Neurological: No Symptoms Reported; Denies Numbness, Denies Paresthesia, Denies Weakness Past [id number]-Ayxdaq Hx Past Med/Social Hx: Reviewed and Corrections made Patient Social History Alcohol Use: Denies Use Recreational Drug Use: No Smoking Status: Never a Smoker 2nd Hand Smoke Exposure: No Recent Foreign Travel: No Contact w/Someone Who Travel: No Recent Hopitalizations: No Immunizations Up To Date Date of Pneumonia Vaccine: Jan 13, 2010 Date of Influenza Vaccine: Dec 23, 2011 Seasonal Allergies Seasonal Allergies: No Past Medical History Surgeries: Yes (SEE BELOW) Appendectomy, Breast, Gallbladder, Hysterectomy, Oophorectomy, Orthopedic, Pacemaker, Parathyroidectomy, Thyroidectomy Respiratory: No Cardiac: Yes (PACEMAKER--NOT SURE WHY--IHSS PER [facility]) Heart Murmur, Hypertension, Syncope Neurological: Yes (TREMORS--HAS BRAIN STIMULATOR IN PLACE FOR TREMORS) Reproductive Disorders: Yes 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, Menopausal Sexually Transmitted Disease: No Genitourinary: No Gastrointestinal: Yes (MELANOSIS COLI) Chronic Constipation, Diverticulosis Musculoskeletal: Yes (RHEUMATOID AND PSORIATIC ARTHRITIS-REMICADE INFUSIONS Q 6 WEEKS) Arthritis, Rheumatoid Arthritis Endocrine: No HEENT: No Cancer: No Psychosocial: No Integumentary: Yes Psoriasis Blood Disorders: No Adverse Reaction/Blood Tranf: No Family Medical History No Pertinent Family Hx PSH: -PACEMAKER FOR SYNCOPE -PORT RIGHT CHEST FOR REMICADE INFUSIONS -RIGHT BUNIONECTOMY X 3 -PARTIAL PARATHYROIDECTOMY -THYROIDECTOMY -STEREOTACTIC LEFT BREAST BIOPSY -LAPAROSCOPIC CHOLECYSTECTOMY -HYSTERECTOMY/BILATERAL SALPINGO-OOPHORECTOMY FOR FIBROIDS -APPENDECTOMY -COLONOSCOPIES--LAST ONE 02/2012-DR. PABLO -MULTIPLE ORTHOPEDIC SURGERIES: --RIGHT KNEE SCOPE WITH PARTIAL LATERAL MENISCECTOMY/CHONDROPLASTY 03/2011 --LEFT KNEE SCOPE WITH PARTIAL LATERAL MENISCECTOMY/CHONDROPLASTY 01/2011 --LEFT SHOULDER ROTATOR CUFF REPAIR 09/2007--DR. CHÁVEZ --RIGHT ELBOW CUBITAL TUNNEL/ULNAR NERVE TRANSPOSITION SURGERY 02/[address] CHÁVEZ Physical Exam Vital Signs Vital Signs - First Documented 07/22/19 18:10 Temp 36.9 Pulse 67 Resp 20 B/P (MAP) 139/120 (126) Pulse Ox 95 O2 Delivery Room Air Capillary Refill : Height, Weight, BMI Height: 5'4.00" Weight: 205lbs. 0oz. 92.524051bi; BMI Method:Stated General Appearance: WD/WN, no apparent distress, obese, other (VERY ANXIOUS) Neck: normal inspection Cardiovascular: regular rate, rhythm, no murmur Respiratory: normal breath sounds, no respiratory distress, no accessory muscle use Hips: bilateral hip non-tender, bilateral hip normal inspection, bilateral hip normal range of motion Legs: right leg non-tender, right leg normal inspection, right leg normal range of motion, right leg no evidence of injury; left leg other (TRACE EDEMA OF LEFT LOWER LEG. TENDERNESS TO LEFT LOWER POSTERIOR/LATERAL LEG. DISTAL MOTOR/SENSORY/VASCULAR INTACT. ) Knees: right knee non-tender, right knee normal inspection, right knee normal range of motion, right knee no evidence of injury; left knee other (SEVERE TENDERNESS TO LEFT POPLITEAL AREA. NO MASSES OR SWELLING OR BRUISING OR E RYTHEMA. NO EXTERNAL EVIDENCE OF TRAUMA. LIMITED ROM DUE TO PAIN . UNABLE TO ASSESS LIGAMENT LAXITY DUE TO PAIN. TENDERNESS TO LEFT POSTERIOR/LATERAL LOWER LEG. 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 jeweler II-XII nml as tested, no motor/sensory deficits, alert, oriented x 3, other (ANXIOUS) Skin: normal color, warm/dry; No ecchymosis Procedures/Interventions Splinting and Joint Reduction : Antonio wrap: Yes Immobilizers: 24 inch Knee Progress/Results/Core Measures Results/Orders Lab Results Laboratory Tests Test 07/22/19 18:44 Range/Units White Blood Count 5.2 4.3-11.0 10^3/uL Red Blood Count 3.75 L 4.35-5.85 10^6/uL Hemoglobin 12.3 11.5-16.0 G/DL Hematocrit 37 35-52 % Mean Corpuscular Volume 98 80-99 FL Mean Corpuscular Hemoglobin 33 25-34 PG Mean Corpuscular Hemoglobin Concent 33 32-36 G/DL Red Cell Distribution Width 14.0 10.0-14.5 % Platelet Count 244 130-400 10^3/uL Mean Platelet Volume 10.4 7.4-10.4 FL Neutrophils (%) (Auto) 54 42-75 % Lymphocytes (%) (Auto) 33 12-44 % Monocytes (%) (Auto) 10 0-12 % Eosinophils (%) (Auto) 3 0-10 % Basophils (%) (Auto) 0 0-10 % Neutrophils # (Auto) 2.8 1.8-7.8 X 10^3 Lymphocytes # (Auto) 1.7 1.0-4.0 X 10^3 Monocytes # (Auto) 0.5 0.0-1.0 X 10^3 Eosinophils # (Auto) 0.1 0.0-0.3 10^3/uL Basophils # (Auto) 0.0 0.0-0.1 10^3/uL Prothrombin Time 13.5 12.2-14.7 SEC INR Comment 1.0 0.8-1.4 Activated Partial Thromboplast Time 52 H 24-35 SEC D-Dimer 0.85 H 0.00-0.49 UG/ML Sodium Level 138 135-145 MMOL/L Potassium Level 4.1 3.6-5.0 MMOL/L Chloride Level 104 98-107 MMOL/L Carbon Dioxide Level 23 21-32 MMOL/L Anion Gap 11 5-14 MMOL/L Blood Urea Nitrogen 18 7-18 MG/DL Creatinine 0.70 0.60-1.30 MG/DL Estimat Glomerular Filtration Rate > 60 BUN/Creatinine Ratio 26 Glucose Level 92 70-105 MG/DL Calcium Level 8.0 L 8.5-10.1 MG/DL Corrected Calcium 8.2 L 8.5-10.1 MG/DL Magnesium Level 1.9 1.6-2.4 MG/DL Total Bilirubin 0.3 0.1-1.0 MG/DL Aspartate Amino Transf (AST/SGOT) 18 5-34 U/L Alanine Aminotransferase (ALT/SGPT) < 6 0-55 U/L Alkaline Phosphatase 59 40-136 U/L Total Protein 6.6 6.4-8.2 GM/DL Albumin 3.8 3.2-4.5 GM/DL My Orders Orders - LYNN BENITEZ DO Ed Iv/Invasive Line Start (07/22/19 18:21) Cbc With Automated Diff (07/22/19 18:21) Comprehensive Metabolic Panel (07/22/19 18:21) Magnesium (07/22/19 18:21) Protime With Inr (07/22/19 18:21) Partial Thromboplastin Time (07/22/19 18:21) Fentanyl Injection (Sublimaze Injection (07/22/19 18:21) Fibrin Degradation Products (07/22/19 18:21) Ct Extremity Lower Left Wo (07/22/19 18:47) Knee, Left, 3 Views (07/22/19 18:47) Enoxaparin Injection (Lovenox Injection) (07/22/19 19:45) Antonio Bandage (07/22/19 19:38) Knee Immobilizer (07/22/19 19:38) Rx-Hydrocodone/Apap 5-325 Mg (Rx-Vicodin (07/22/19 20:00) Medications Given in ED Current Medications Medications Dose Ordered Sig/Swetha Route Start Time Stop Time Status Last Admin Dose Admin Acetaminophen/ Hydrocodone Bitart 1 ea Q4H PRN PO 07/22/19 20:00 07/22/19 20:02 DC 07/22/19 19:54 1 EA Enoxaparin Sodium 90 mg ONCE ONCE SC 07/22/19 19:45 07/22/19 19:46 DC 07/22/19 19:54 90 MG Vital Signs/I&O 07/22/19 07/22/19 18:10 19:56 Temp 36.9 36.9 Pulse 67 62 Resp 20 20 B/P (MAP) 139/120 (126) 151/74 (126) Pulse Ox 95 96 O2 Delivery Room Air Room Air Progress Progress Note : Progress Note GIVEN FENTANYL FOR PAIN WITH MUCH IMPROVEMENT PT STATES SHE HAS A WALKER AT HOME ANTONIO WRAP AND KNEE IMMOBILIZER PLACED, AND PT ADVISED TO USE WALKER AT ALL TIMES NO ULTRASOUND IS AVAILABLE AT THIS HOUR, WILL GIVE SINGLE DOSE OF LOVENOX AND ORDER OUTPATIENT ULTRASOUND OF LEFT LEG FOR TOMORROW. PT ADVISED TO FOLLOW UP WITH DR. LEWIS TOMORRJEANETTE FOR FURTHER CARE Diagnostic Imaging Comments CT LEFT LOWER EXTREMITY--PER RADIOLOGIST REPORT AT 1935 FINDINGS: No acute fracture is seen in the left knee. Alignment appears normal. There are severe degenerative changes in all 3 compartments. There is a joint body seen posteriorly measuring up to 1.4 cm in length. There is a small left knee joint effusion. A small cyst is seen posterior to the knee, may be ganglion or parameniscal, measuring 1.5 cm (image 97 series 2). The menisci and ligaments are not well evaluated by CT. No focal muscular atrophy is seen. IMPRESSION: 1. 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 No acute fracture is seen. 2. If there is concern for acute internal derangement of the left knee, nonemergent MRI could be considered. XRAYS LEFT KNEE--PER RADIOLOGIST REPORT AT 1943 IMPRESSION: Mild tricompartmental degenerative changes of the knee. No fracture or acute abnormality is seen. Reviewed: Reviewed by Me Departure Impression Primary Impression: Posterior left knee pain Disposition: 01 HOME, SELF-CARE Condition: Improved Departure-Patient Inst. Referrals: AURORA LEWIS MD (PCP/Family) Primary Care Physician Patient Instructions: Omalley's Cyst (DC), Knee Pain (DC) Add. Discharge Instructions: ANTONIO WRAP AND KNEE IMMOBILIZER AT ALL TIMES USE YOUR WALKER AT ALL TIMES ALTERNATE ICE AND HEAT TO AREA AT 20 MINUTE INTERVALS CALL IN THE MORNING TO SCHEDULE ULTRASOUND OF YOUR LEG FOLLOW UP WITH DR. LEWIS TOMORROW FOR FURTHER CARE--CALL IN THE MORNING FOR APPOINTMENT Scripts Hydrocodone/Acetaminophen (Hydrocodone-Acetamin 5-325 mg) 1 Each Tablet 1 EACH PO Q4-6 HOURS PRN for PAIN, #20 TAB Prov: LYNN BENITEZ DO 07/22/19 LYNN BENITEZ DO July 22, 2019 18:32
--- NOTE | 2019-07-22 18:55 | NUR ---
Recieved report from LAUREEN Gomez at this time to assume care of pt.
[2019-07-22 19:08] LABS: BASOPHILS % (AUTO) 0 % (0-10); EOSINOPHILS # (AUTO) 0.1 10^3/uL (0.0-0.3); EOSINOPHILS % (AUTO) 3 % (0-10); HEMATOCRIT 37 % (35-52); HEMOGLOBIN 12.3 G/DL (11.5-16.0); LYMPHOCYTES # (AUTO) 1.7 X 10^3 (1.0-4.0); LYMPHOCYTES % (AUTO) 33 % (12-44); MEAN CORPUSCULAR HEMOGLOBIN 33 PG (25-34); MEAN CORPUSCULAR HGB CONC 33 G/DL (32-36); MEAN CORPUSCULAR VOLUME 98 FL (80-99); MEAN PLATELET VOLUME 10.4 FL (7.4-10.4); MONOCYTES # (AUTO) 0.5 X 10^3 (0.0-1.0); MONOCYTES % (AUTO) 10 % (0-12); NEUTROPHILS # (AUTO) 2.8 X 10^3 (1.8-7.8); NEUTROPHILS % (AUTO) 54 % (42-75); PLATELET COUNT 244 10^3/uL (130-400); WHITE BLOOD COUNT 5.2 10^3/uL (4.3-11.0)
--- OUTSIDE RECORDS SUMMARY | 2019-07-22 19:14 | XMS REPORT | Clinical Summary ---
Author Author [facility] Organization [facility] Address Unknown Phone Unavailable Care Team Providers Care Gear Finisher Name Role Phone Khoa Camp MD PCP Yannick Ziegler MD Unavailable Unavailable Source Comments Some departments are not documenting in the electronic medical record. If you d o not see the information that you expected, contact Release of Information in [facility] Information Management department at [phone] for further assistan ce in locating additional records.[facility] Allergies Comments Active Allergy Reactions Severity Noted Date Per pt "felt like I was dying." Cefazolin SWOLLEN High 02/13/2017 TONGUE Falling, broke ribs Clonazepam SEE COMMENTS Low 02/13/2017 Latex RASH, ITCHING Medium 02/13/2017 Medications End Date Status Medication Sig Dispensed Refills Start Date Active folic acid (FOLVITE) 1 mg Take 1 mg by 0 11/19 tablet mouth daily. 7 Active losartan (COZAAR) 50 mg Take 50 mg by 0 tablet mouth at 7 bedtime daily. Active methotrexate sodium Take by 0 (RHEUMATREX) 2.5 mg mouth every 7 7 tablet days. Take 4 tablets (10 mg) in the morning and 4 tablets (10 mg) in the evening every 7 days on Monday. Active INFLIXIMAB (REMICADE IV) Administer 0 05/19 through vein. 8 Every 8 weeks Active PARoxetine (PAXIL) 40 mg Take 40 mg by 0 07/25 tablet mouth at 8 bedtime daily. Active propranolol LA (INDERAL Take 160 mg 0 LA) 160 mg Cs24 capsule by mouth at bedtime daily. Active primidone (MYSOLINE) 50 Take four 360 tablet 3 /201 mg tablet tablets by 9 mouth at bedtime daily. Active acetaminophen/diphenhydra Take by 0 mine (TYLENOL PM PO) mouth. Active potassium chloride Take 1 tablet 0 (K-DUR) 10 mEq tablet by mouth 0 daily. Duration for 2 weeks Active furosemide (LASIX) 20 mg Take 20 mg by 0 06/02 tablet mouth daily. 0 Duration 2 weeks Active carbidopa/levodopa Take one 120 tablet 5 02 (SINEMET) 25/100 mg tablet by 0 tablet mouth three times daily. Active Problems Problem Noted Date Essential tremor 11/06/2017 Adjustment disorder with mixed anxiety and depressed mood 10/12/2017 Encounters Care Team Description Date Type Specialty Faviola Garcia MD Essential tremor (Primary Dx); S/P deep brain stimulator placement; Gait difficulty 06/04/2019 Office Visit Neurology 06/04/2019 Travel from Last 3 Months Family History Medical History Relation Name Comments Hypertension Brother Stroke Brother Tremor Brother Cancer Father Hypertension Father Cancer Mother Hypertension Mother Parkinson's Neg Hx Relation Name Status Comments Brother Father Mother Social History Date Tobacco Use Types Packs/Day Years Used Never Smoker Smokeless Tobacco: Never Used Drinks/Week oz/Week Comments Alcohol Use No Sex Assigned at Date Recorded Female 06/04/2019 1:27 PM CDT Industry Job Start Date Occupation Not on file Not on file Not on file Travel End Travel History Travel Start No recent travel history available. Last Filed Vital Signs Reading Time Taken Comments Vital Sign 156/88 06/04/2019 1:49 PM CDT Blood Pressure 68 06/04/2019 1:49 PM CDT Pulse 37.2 C (98.9 F) 01/17/2018 12:00 PM CDT Temperature 14 06/04/2019 1:41 PM CDT Respiratory Rate 95% 01/17/2018 12:00 PM CDT Oxygen Saturation - - Inhaled Oxygen Concentration 86.5 kg (190 lb 9.6 oz) 06/04/2019 1:41 PM CDT Weight 160 cm (5' 2.99") 06/04/2019 1:41 PM CDT Height 33.77 06/04/2019 1:41 PM CDT Body Mass Index Plan of Treatment Health Maintenance Due Date Last Done Comments MEDICARE ANNUAL WELLNESS 1945 VISIT DTAP/TDAP VACCINES (1 - 07/17/1961 Tdap) HEPATITIS C SCREENING 07/17/1961 PHYSICAL (COMPREHENSIVE) 07/17/1961 EXAM COLORECTAL CANCER 07/17/1993 SCREENING SHINGLES RECOMBINANT 07/17/1993 VACCINE (1 of 2) OSTEOPOROSIS 07/17/2008 SCREENING/MONITORING PNEUMONIA (PPSV23) 07/17/2008 VACCINE (1 of 1 - PPSV23) INFLUENZA VACCINE 12/19/2019 Implants Device Identifier Shelf Expiration Date Model / Serial / L ot Implanted Type Area Manufactur er Medtronic Pacemaker 05/16/2020 [id number] / [id number] / [id number] Kit Neurostimulator 40cm Stimloc Right: Brain MEDT RONIC .5mm Space Lead - [id number] NEURO Implanted: Qty: 1 on 01/04/2018 by Carson Barcenas MD at [facility] 05/16/2020 [id number] / [id number] / [id number] Neurostimulator Implantable Stimloc Right: Skull M EDTRONIC Josué Hole Cover - [id number] NEURO Implanted: Qty: 1 on 01/04/2018 by Carson Barcenas MD at [facility] 04/16/2019 [id number] / [id number] / [id number] Neurostimulator Implantable Right: Chest MEDTRONIC 2.4inx2.2in Activa Sc 0-10.5v - NEURO [id number] Implanted: Qty: 1 on 01/17/2018 by Carson Barcenas MD at [facility] 09/18/2021 [id number] / [id number] / [id number] Extension Neurostimulator 60cm Right: Chest MEDTRO URIEL 3.8-1.3mm 1.5mm Dbs Standard - NEURO [id number] Implanted: Qty: 1 on 01/17/2018 by Carson Barcenas MD at [facility] Results Not on filefrom Last 3 Months Insurance Type Payer Benefit Subscriber ID Effective Phone Address Plan / Dates Group Medicare MEDICARE MEDICARE xxxxxxxxxxx 2008-P PART A AND resent B [employer] M[employer] OF xxxxxx-xx 2010-P REENA kelly [phone] Advance Directives 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 necessary based on Dx
--- OUTSIDE RECORDS SUMMARY | 2019-07-22 19:14 | XMS REPORT | Encounter Summary ---
Author Author [facility] Organization [facility] Address Unknown Phone Unavailable Care Team Providers Care Station Superintendent Name Role Phone Khoa Camp MD PCP Yannick Ziegler MD Unavailable Unavailable Reason for Visit * Reason Comments Tremors Encounter Details Care Team Description Date Type Department Faviola Garcia MD [address] [place] [address] Essential tremor (Primary Dx); S/P deep brain stimulator placement; Gait difficulty 06/04/2019 Office Visit [facility] [address] [place] [address] Social History Date Tobacco Use Types Packs/Day Years Used Never Smoker Smokeless Tobacco: Never Used Drinks/Week oz/Week Comments Alcohol Use No Sex Assigned at Date Recorded Female 06/04/2019 1:27 PM CDT Industry Job Start Date Occupation Not on file Not on file Not on file Travel End Travel History Travel Start No recent travel history available. documented as of this encounter Last Filed Vital Signs Reading Time Taken Comments Vital Sign 156/88 06/04/2019 1:49 PM CDT Blood Pressure 68 06/04/2019 1:49 PM CDT Pulse - - Temperature 14 06/04/2019 1:41 PM CDT Respiratory Rate - - Oxygen Saturation - - Inhaled Oxygen Concentration 86.5 kg (190 lb 9.6 oz) 06/04/2019 1:41 PM CDT Weight 160 cm (5' 2.99") 06/04/2019 1:41 PM CDT Height 33.77 06/04/2019 1:41 PM CDT Body Mass Index documented in this encounter Functional Status Date of Assessment Functional Status Response 12/06/2018 Does the patient have a hearing impairment: Yes 12/06/2018 Does the patient have a visual impairment: Yes 12/06/2018 Does the patient have impaired ambulation: Yes 12/06/2018 Does the patient have an activity of daily living No (ADL) impairment: 12/06/2018 Does the patient have an instrumental activity of No daily living (IADL) impairment: Date of Assessment Cognitive Status Response 12/06/2018 Does the patient have a cognitive impairment: No documented as of this encounter Patient Instructions * Patient Instructions* Faviola Garcia MD - 06/04/2019 2:00 PM CDT Monitor for improvement on new programming parameters on eating, drinking, writi ng. After 1 week, start sinemet 25/100 1/2 tab three times per day for 1 week, then 1 tab three times per day. Monitor for side effects including nausea, lightheadedness, drowsiness. Stay on the dose which provides benefit and is well tolerated. Take each dose of medication with full glass of water. Please call [phone] for any questions or concerns. Follow up in 4 months or early if needed documented in this encounter Progress Notes * Faviola Garcia MD - 06/04/2019 2:00 PM CDT DBS follow up: Surgeon: Dr Barcenas Device/ Location: Lead Location Lead Type Date IPG Type Date Right VIM 3389 01/04/2018 [facility] 01/17/2018 Diagnosis: Essential tremor s/p right VIM Interval history: Since last visit she has noticed increase in left hand tremor, right hand tremor is about the same. She has difficulty writing with left hand. She is noticing tremor with eating , holding a cup when drinking. Her head tremor has improved o verall. She denies gait changes, speech changes, no falls. Primidone 200 mg bedtime Propranolol 120 mg daily She gets remicade infusion for RA and psoriatic arthritis. History: Ms Hannah Romo is a 73 y.o. old female who presented today DBS progr [facility]. She has hand tremors for around 20 years, tremor is present with action and also has rest tremor. Her tremor did not respond to primidone, propranolol, topiramate and clonazepam. No improvement with sinemet up 2 tab TID which was tr ied due to her rest component. There is strong family history of tremor. She underwent DBS surgery, post surgery she has mild improvement in tremor. She denies gait or speech changes. Medications tried: Her tremor did not respond to primidone, propranolol, topiram ate and clonazepam. No improvement with sinemet up 2 tab TID which was tried due to her rest component. Medications: Reviewed in medical record Current Outpatient Medications Medication Sig Dispense Refill acetaminophen/diphenhydramine (TYLENOL PM PO) Take by mouth. folic acid (FOLVITE) 1 mg tablet Take 1 mg by mouth daily. furosemide (LASIX) 20 mg tablet Take 20 mg by mouth daily. Duration 2 weeks INFLIXIMAB (REMICADE IV) Administer through vein. Every 8 weeks losartan (COZAAR) 50 mg tablet Take 50 mg by mouth at bedtime daily. methotrexate sodium (RHEUMATREX) 2.5 mg tablet Take by mouth every 7 days. Take 4 tablets (10 mg) in the morning and 4 tablets (10 mg) in the evening every 7 days on Monday. PARoxetine (PAXIL) 40 mg tablet Take 40 mg by mouth at bedtime daily. potassium chloride (K-DUR) 10 mEq tablet Take 1 tablet by mouth daily. Durat ion for 2 weeks primidone (MYSOLINE) 50 mg tablet Take four tablets by mouth at bedtime adalgisa y. 360 tablet 3 propranolol LA (INDERAL LA) 160 mg Cs24 capsule Take 160 mg by mouth at bedt sarah daily. No current facility-administered medications for this visit. Allergies: Reviewed and unchanged since last visit Past Medical History: Reviewed and unchanged since last visit. Social History: Reviewed and unchanged since last visit Family History: Reviewed and unchanged since last visit Review of systems: Respiratory: Positive for choking. Musculoskeletal: Positive for back pain and joint swelling. Neurological: Positive for tremors and headaches. All other systems reviewed and are negative. GENERAL EXAM: Vitals: 06/04/19 1349 BP: (!) 156/88 Pulse: 68 Resp: GENERAL: well developed, well nourished, comfortable. CV: RRR Incision sites: Scalp and chest incision sites clean/dry/intact, no erythema or discharge NEUROLOGICAL EXAM: MS: Alert and oriented x 3, fluent speech, comprehension intact CN: EOMI, sensation intact over face to light touch bilaterally, face symmetric ,tongue midline, shoulder shrug symmetric MOTOR: Tone - is normal in UE and LE, No pronator drift Tremor: There is no right hand rest tremor, there is mild left hand rest tremor, she has moderate postural tremor in right hand and slight in left hand , moder ate kinetic tremor in RUE and mild in LUE Spirals: mildly tremulousness with left hand, difficulty writing and there is tr emor when she writes Mild head tremor intermittently Handwriting: write slowly with tremor SENSATION: Intact to light touch COORDINATION: Intact to FTN in UE bilaterally GAIT: Able to stand up without difficulty, equal arm swing, difficulty with tand em walking Upon interrogation of the R DBS the battery voltage was 2.98 V and impedances a re all within normal limits. Monopolar Thresholds: RIGHT Contact 0: 3.0 V (described dizziness on 06/04/2017) Contact 1: 4.0 ( no SE) Contact 2: 4.0 ( no SE) Contact 3: 4.0 ( no SE) R/L Amps (V) Pulse Width Pulse rate Comments R 0- C+ 2.5 60 130 Baseline tremor 3.0 60 130 Feeling dizzy which improved on reduced stimulation Switched to contact 1 1- C+ 2.5 60 130 Tremor not suppressed 3.0 60 130 Not much improvement 3.5 60 130 About the same 4.0 60 130 No change in tremor, feeling numbness in mouth and tongue Change stimulation to bipolar stimulation 3+0- 0- 3+ 2.5 60 160 Tremor better than baseline, but still having difficulty with writing 3.0 60 160 Tremor improved 3.5 60 160 Handwriting improved , no SE 3.5 70 160 Handwriting same, no SE 3.5 80 160 Handwriting same, spirals near normal, no postural tremor 4.0 80 160 Handwriting with further improvement slightly, no SE 4.0 90 160 Spirals better, no SE 4.5 90 160 About the same, no SE , reduced stimulation to 4.0 mA 4.0 90 185 Tremor improved - postural tremor 0, spirals - near normal, writi ng - improved able to write her name without tremor but still has issues with wo rd formation Change her to 3+0-1- 0-1- 3+ 2.5 90 160 Mild tremor , handwriting better but still having difficult y with word formation 3.0 90 160 Handwriting is better but still writing slowly 3.5 90 160 Handwriting - no tremor, but having diffiuclty with word formatio n, no clear capsular response , finger tapping is worse Reducing stimulation to 3.0 improves finger tapping 3.0 60 160 Tremor is worse , switched back to 90 PW 3.0 90 160 Tremor is better , handwriting is better Switched to group A 0- 3+ 4.0 90 185 Feeling dizzy 4.0 70 185 Dizziness resolved, handwriting smaller, no tremor DBS Initial Right: C+0-, 2.5 V , 60 , 130 Hz, DBS Final Right: Group A: 3+0-, 4.0 V ,70 , 185 Hz, range +-0.6 Volts, 1.592 oh ms, 2.6 mA Group B: 3+0-1-, 3.0 V, 90 PW, 160 Hz DBS was interrogated , total time in programming 45 mins. IMPRESSION: Essential tremor s/p right VIM DBS - Tremor has worsened in left hand and is hav ing difficulty with writing. Today multiple parameters were tried which improves her tremor but she still has difficulty with writing. Difficulty with writing p ersisted even after good tremor control as she still had difficulty with word fo rmation when she had no tremor with writing. Her handwriting was smaller. I danny mmend to try new parameters to see how she does with eating, drinking and writin g. If handwriting doesn't improve advised to try sinemet as she also had bradyki nesia in left hand although overall suspicion for parkinsonism is low. All quest ions were answered. RECOMMENDATIONS: Monitor for improvement on new programming parameters on eating, drinking, writi ng. After 1 week, start sinemet 25/100 1/2 tab three times per day for 1 week, then 1 tab three times per day. Monitor for side effects including nausea, lightheadedness, drowsiness. Stay on the dose which provides benefit and is well tolerated. Take each dose of medication with full glass of water. Please call [phone] for any questions or concerns. Follow up in 4 months or early if needed Faviola Garcia MD documented in this encounter Plan of Treatment Not on filedocumented as of this encounter Visit Diagnoses Diagnosis Essential tremor Essential and other specified forms of tremor S/P deep brain stimulator placement Gait difficulty Abnormality of gait documented in this encounter
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
--- OUTSIDE RECORDS SUMMARY | 2019-07-22 19:14 | XMS REPORT ---
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 [employer] Address [address] [place] [address] Care Team Providers Care It Infrastructure Engineer Name Role Phone AURORA LEWIS Unavailable JAMARI HOANG, MILAGRO Garcia Unavailable Unavailable GUSTAVO HOANG, JENIFER Ramirez Unavailable Unavailable MARCOS SHI, DANIELE Lau Unavailable Unavailable OTHER, UNLISTED Unavailable Unavailable AURORA LEWIS MD Unavailable Unavailable AURORA LEWIS MD Unavailable Unavailable AURORA LEWIS PCP RAMAKRISHNA DIAS APRN Unavailable Unavailable Unavailable Unavailable Unavailable Unavailable Unavailable Unavailable Allergies Normalized Allergy Reported Date of Reaction(s) Care Provider Facility Allergy Type classification allergen Allergy Onset MA (19 Unclassified NKANo Known 06-24-2008 - no information MILAGRO KAUFFMAN , Not Available sources.) Allergies (10811) Medications Medication Ingredient Drug Dose Dates Status Sig Sig Care Class(es) (Normalized) (Original) Provid er no Bisoprolol no 09-25-19 Complete no Bisoprolol no information Fumarate/Hc information 10 d information Fu marate/Hct name (1 source.) tz z Discontinued NOT APPLICABLE September 24, 2009 no Cholecalcif Vitamin D no no Cholecalcife no information sanaz informat information rol Active name (1 source.) ion 2000 ORAL Daily no dexlansopra Proton Pump 01-27-20 Complete no Dexlanso praz no information zole Inhibitor 11 d information ole n janae (1 source.) Discontinued 1 ORAL Daily January 26, 2011 no Hydrocodone no no no Hydrocodone no information Bit/Acetami information informat information Bit/A cetamin name (1 source.) nophen ion ophen Active 1 ORAL As Needed no Mvi no 01-11-20 Complete no Mvi no information information 11 d information Disconti nued name (1 source.) NOT APPLICABLE January 10, 2011 no Olmesartn/H no 01-11-20 Complete no Olmesartn/Hy no information ydrochlorot information [address] foster name (1 source.) hiazide azide Discontinued 0.5 ORAL Daily January 10, 2011 no predniSONE no no no Prednisone no information information informat information Active 5 name (2 ion ORAL Daily 2 sources.) 09-24-2009 Completed no Predniso no name inform ne ation Disconti nued NOT APPLICAB LE September 24, 2009 no Triamcinolo Corticoster 01-11-20 Complete no Triamcin olon no information ne oid 11 d information e Acetonide name (1 source.) Discontinued 0 TOPICAL Twice A Day January 10, 2011 no Vitamin D no 900 mg 01-11-20 Complete no Vitamin D no information 900MG information 11 d information 900MG name (1 source.) Discontinued NOT APPLICABLE January 10, 2011 Problems Active Problems Problem Normalized Date Last Normalized Normalized Provider Fa cility Classification Problem(s) Recorded Problem Problem Sta tus Duration Unclassified Acquired Episodic Active JENIFER Not Availa ble (4 sources.) absence of MD GUSTAVO (80769) both cervix and uterus Other lower Cough Episodic Active RAMAKRISHNA LARISSA [facility] Via respiratory , MELI Walker disease (5 Hospital - sources.) [place] ([address]35) Other lower Cough Episodic Active RAMAKRISHNA LARISSA Not Concepc[place] ilable respiratory (24589) disease (2 sources.) Diverticulosis Diverticulosis Chronic Active TAKAAKI KIDO , Not Available and of colon (33808) diverticulitis (without (1 source.) mention of hemorrhage) Conditions Dizziness and Episodic Active RASHIDA ODGERS Not Available associated giddMD josephine (84505) with dizziness or vertigo (9 sources.) Other Encounter for Episodic Active AURORA LEWIS [facility] Via screening for screening MD Walker suspected mammogram for Hospital - conditions malignant [place] (not mental neoplasm of (49386) disorders or breast infectious Translations: disease) (26 [ OTH SCREEN sources.) MAMMO-MALIGN NEOPLASM OF SARITA] Essential Essential Chronic Active JENIFER Not Availabl e hypertension (primary) MD GUSTAVO (23919) (4 sources.) hypertension Other injuries History of Episodic Active JENIFER Not Av ailable and conditions falling MD GUSTAVO (91895) due to external causes (4 sources.) Other Hypercalcemia Chronic Active RAMAKRISHNA DAJUAN , Not Available nutritional; DO (01641) endocrine; and metabolic disorders (1 source.) Other Hyperparathyro Chronic Active RAMAKRISHNA GRAFF , No t Available endocrine idism, DO (90549) disorders (1 unspecified source.) Spondylosis; Low back pain Episodic Active MILAGRO KAUFFMAN , Not Available intervertebral (13234) disc disorders; other back problems (5 sources.) Genitourinary Mixed Chronic Active AURORA LEWIS [facility] V ia symptoms and incontinence MD Walker ill-defined Hospital - conditions (8 [place] sources.) (99349) Other Multiple Episodic Active RAMAKRISHNA LARISSA Not Avail able fractures (5 fractures of (58732) sources.) ribs, left side, subsequent encounter for fracture with routine healing Other Pain in right Episodic Active AURORA LEWIS , Not Available connective toe(s) (01240) tissue disease (4 sources.) Other injuries Personal Episodic Active CALI Not Avai lable and conditions history of LONI CASTRO (21384) due to (healed) external traumatic causes (2 fracture sources.) Other lower Pleurodynia Episodic Active CALI Not Avai lable respiratory LONI CASTRO (91332) disease (4 sources.) Conduction Presence of Chronic Active RASHIDA ODGERS Not A vailable disorders (14 cardiac , (22446) sources.) pacemaker Other Presence of Chronic Active CALI Not Availa ble circulatory other vascular LONI CASTRO (08277) disease (2 implants and sources.) grafts Osteoarthritis Primary Chronic Active DANIELE RODRÍGUEZ Not Available (8 sources.) osteoarthritis , DPM (96123) , right ankle and foot Other Repeated falls Episodic Active RASHIDA ODGERS Not Available MD mary (36334) tissue disease (5 sources.) Spondylosis; Spondylosis Chronic Active CALI Not Concepc[place] ilable intervertebral without LONI CASTRO (63083) disc myelopathy or disorders; radiculopathy, other back thoracic problems (5 region sources.) Other nervous Tremor, Episodic Active RASHIDA ODGERS Not A vailable system unspecified , (32191) disorders (5 sources.) NEGATED Unspecified Episodic Active VIBHASH BELTRAN Not A vailable no abnormalities MD (80089) information of gait and (20 sources.) mobility Complications Unspecified Episodic Active JENIFER Not Av ailable of surgical adverse effect MD GUSTAVO (75529) procedures or of drug or medical care medicament, (4 sources.) initial encounter Other injuries Unspecified Episodic Active CALI Not A vailable and conditions injury of LONI CASTRO (10927) due to thorax, external initial causes (5 encounter sources.) Past or Other Problems Problem Normalized Date Last Normalized Normalized Provider Fa cility Classification Problem(s) Recorded Problem Problem Sta tus Duration Other Encounter for Episodic Completed MEY LUCERO Not Available aftercare (1 therapeutic , (72098) source.) drug monitoring External Exposure to no information no information RAMAKRISHNA LYDIA ON Not Available Injury - other (39695) Natural / specified Environment (5 factors, sources.) subsequent encounter Hemorrhoids (1 Internal Episodic Completed TAKAAKI KIDO , Not Available source.) hemorrhoids (83182) without mention of complication Translations: [ EXT HEMORRHOID W/O COMPL] Other Long-term Episodic Completed MEY LUCERO Not Avai lable aftercare (1 (current) use , (12721) source.) of other medications External Other external no information no information CALI Not Available Injury - cause status LONI CASTRO (91532) Unspecified (10 sources.) Other Other Episodic Completed TAKPA ÁLVAREZO , Not Avai lable gastrointestin specified (85678) al disorders disorders of (1 source.) intestine External Unspecified no information no information CALI Not Available Injury - Fall fall, initial LONI CASTRO (18144) (9 sources.) encounter Procedures The data below is from unstructured sourcesNo procedure information available. Immunizations Normalized Immunization Date Notes Care Provider Facili ty Immunization no information 01-04-2017 no information AURORA LEWIS [id number] [address] [facility] [facility] ([address]39[address]) Results The data below is from unstructured sourcesNo known relevant diagnostic tests and/or laboratory data. Vital Signs The data below is from unstructured sources Vital Response Date/Time Temperature (Fahrenheit) 97.6 degree s F (97.6 - 99.5) 01/08/2017 10:06am Temperature (Calculated Celsius) 36. 18883 degrees C (36.4 - 37.5) 01/08/2017 10:06am Temperature Source Temporal 01/08/2017 10:06am Pulse Rate (adult) 66 bpm (60 - 90) 01/08/2017 10:06am Respiratory Rate 20 bpm (12 - 24) 01/08/2017 10:06am O2 Sat by Pulse Oximetry 93 % (88 - 100) 01/08/2017 10:06am Blood Pressure 129/73 mm Hg 01/08/2017 10:06am Blood Pressure Mean 91 mm Hg 01/08/2017 10:06am Pain Numeric Pain Scale 5-Moderate Pain 01/08/2017 10:06am Height (Feet) 5 feet 10:06am Height (Inches) 4.00 inches 01/08/2017 10:06am Height (Calculated Centimeters) 162. 160376 cm 01/08/2017 10:06am Height Method Stated 10:06am Weight (Pounds) 205 pounds 01/08/2017 10:06am Weight (Ounces) 0 oz 11:11am Weight (Calculated Kilograms) 92.986 437 kilograms 01/08/2017 10:06am Weight Method Stated 10:06am Capillary Refill Capillary Refill Less Than 3 Seconds 01/08/2017 10:06am Height 5 ft 4 in 017 10:06am Weight 205 lb 01/08/2017 10:06am Body Mass Index 35.2 kg/m^2 01/08/2017 10:06am No vital signs result information available. Interventions No Information Plan of Treatment The data below is from unstructured sources Discharge Date 01/08/17 12:54pm Disposition 01 HOME, SELF-CARE Condition at Discharge Improved Instructions/Education Provided MEDI CATION REACTION Prescriptions See Medication Section Referrals AURORA LEWIS MD Order Date: Primary Care Physician Address: [address] [place] [id number] Additional Instructions/Education Al l discharge instructions reviewed with patient and/or family. Voiced understanding. Stop the baclofen. Take the hydrocodone only if needed for moderate pain. Drink plenty of fluids. You may add MiraLAX or the generic one capful twice daily for the next 3 days for constipation. You may then go to once daily dosing as needed to keep stools soft. You may increase or decrease the dose to keep the stools in the normal range. Follow-up with Dr. Lewis's office tomorrow. Return for worse pain, fever, vomiting, weakness, breathing problems, persistent symptoms, not getting better or other concerns as needed. Goals Patient Goal Desired Goal no information no information Social History Normalized Code Original Code Date Value no information no information 04-13-2011 No Sex Assigned At Sex Assigned At no information F emale Functional Status The data below is from unstructured sources Query Response Date Charly rded Comprehension Ability Understands Co ncepts January 08, 2017 10:06am No Functional Status information available Mental Status The data below is from unstructured sourcesNo Mental Status Information Available Encounters Encounter Normalized Encounter Encounter Diagnosis Care Provi irma Organization Date Type 12-27-2017 Patient encounter no information no name no or ganization name 07-10-2017 Patient encounter no information no name no or ganization name NEGATED Patient encounter no information no name no or ganization name 05-24-2017 NEGATED Patient encounter no information no name no or ganization name 05-19-2017 - 05-23-2017 05-05-2017 Patient encounter no information no name no or ganization name 05-02-2017 Patient encounter no information no name no or ganization name 04-25-2017 Patient encounter no information no name no or ganization name 04-21-2017 Patient encounter no information no name no or ganization name NEGATED Patient encounter no information no name no or ganization name 04-18-2017 03-31-2017 Patient encounter no information no name no or ganization name 03-27-2017 Patient encounter no information no name no or ganization name 03-24-2017 Patient encounter no information no name no or ganization name 02-27-2017 Patient encounter no information no name no or ganization name 02-23-2017 Patient encounter no information no name no or ganization name 02-22-2017 Patient encounter no information no name no or ganization name 01-11-2017 Patient encounter no information no name no or ganization name 09-07-2016 Patient encounter no information no name no or ganization name 08-25-2016 Patient encounter no information no name no or ganization name NEGATED Patient encounter no information no name no or ganization name 07-07-2016 04-25-2016 Patient encounter no information no name no or ganization name 01-18-2016 Patient encounter no information no name no or ganization name 06-29-2015 Patient encounter no information no name no or ganization name 06-09-2014 Patient encounter no information no name no or ganization name 05-12-2014 Patient encounter no information no name no or ganization name 05-06-2013 Patient encounter no information no name no or ganization name 02-22-2012 Patient encounter no information no name no or ganization name 02-15-2012 Patient encounter no information no name no or ganization name 01-17-2012 Patient encounter no information no name no or ganization name 07-27-2011 Patient encounter no information no name no or ganization name 03-11-2019 Patient encounter no information no name no or ganization name procedure 02-07-2019 Patient encounter no information no name no or ganization name - procedure 02-08-2019 01-22-2019 Patient encounter no information no name no or ganization name procedure 01-14-2019 Patient encounter no information no name no or ganization name procedure 12-28-2018 Patient encounter no information no name no or ganization name procedure 12-28-2018 Patient encounter no information no name no or ganization name procedure 05-31-2018 Patient encounter no information no name no or ganization name procedure 05-23-2018 Patient encounter no information no name no or ganization name procedure 03-17-2017 Patient encounter no information no name no or ganization name procedure 03-14-2017 Patient encounter no information no name no or ganization name procedure 03-07-2017 Patient encounter no information no name no or ganization name procedure 03-03-2017 Patient encounter no information no name no or ganization name procedure 01-04-2017 Patient encounter no information no name no or ganization name procedure 02-07-2019 Registered Recurring no information (no phone) As [facility]ension [facility] (no phone) no information Pre-operative no name no organization name examination, unspecified no information Encounter for no name no organization name preprocedural laboratory examination Medical Equipment The data below is from unstructured sourcesNo Medical Equipment Information available Payers Normalized Payer Value Private Health Insurance no information ([id number]) Medicare no information ([id number]) Evaluation note Note Type Note Facility Evaluation No Assessments Information Available A scension note [facility] ([address]) Advance Directives Directive Response Recor ded Date/Time Advance Directives No 10:03am Health Care Power of Health And Safety Technician Y - HU SBAND KRISTYN 01/04/17 11:19am Organ Donor No 01/04/17 11:19am Resuscitation Status Full Code 01/08/17 10:03am Advance Directive Response Recorded Date/Time Advance Directives No Gonzalez calix 2016 10:03am Health Care Power of Health And Safety Technician Andrew SIMONS January 04, 2017 11:19am Organ Donor No December 182016 11:19am Discharge Instructions No hospital discharge instruction information available. Additional Source Comments This clinical document has been generated using [employer] software that has been certified by the Office of the National Coordinator for Health Information Technology (ONC 15.99.04.3023.Diam.31.00.0.247327) and the National Committee for [place] Guide (NCQA, as an eMeasure certified technology). FOR RECORDS PERTAINING TO PATIENTS WHO ARE OR HAVE BEEN ENROLLED IN A CHEMICAL D EPENDENCY/SUBSTANCE ABUSE PROGRAM, SOME INFORMATION MAY BE OMITTED. This clinica l summary was aggregated from multiple sources. Caution should be exercised in using it in the provision of clinical care. This summary normalizes information from multiple sources, and as a consequence, information in this document may ma terially change the coding, format and clinical context of patient data. In delio tion, data may be omitted in some cases. CLINICAL DECISIONS SHOULD BE BASED ON T HE PRIMARY CLINICAL RECORDS. [employer] provides no warranty or guara ntee of the accuracy or completeness of information in this document.The followi ng information is based on time limited clinical information
--- OUTSIDE RECORDS SUMMARY | 2019-07-22 19:14 | XMS REPORT | Encounter Summary ---
Author Author [facility] Organization [facility] Address Unknown Phone Unavailable Care Team Providers Care Intensive Care Nurse Name Role Phone Khoa Camp MD PCP Yannick Ziegler MD Unavailable Unavailable Encounter Details Care Team Description Date Type Department 06/04/2019 Travel Social History Date Tobacco Use Types Packs/Day Years Used Never Smoker Smokeless Tobacco: Never Used Drinks/Week oz/Week Comments Alcohol Use No Sex Assigned at Date Recorded Female 06/04/2019 1:27 PM [employer] Industry Job Start Date Occupation Not on file Not on file Not on file Travel End Travel History Travel Start No recent travel history available. documented as of this encounter Functional Status Date of Assessment [...] impairment: No documented as of this encounter Plan of Treatment Not on filedocumented as of this encounter Visit Diagnoses Not on filedocumented in this encounter
[2019-07-22 19:18] LABS: ALBUMIN 3.8 GM/DL (3.2-4.5); FIBRIN DEGRADATION PRODUCTS 0.85 UG/ML (0.00-0.49); PROTHROMBIN TIME PATIENT 13.5 SEC (12.2-14.7)
[2019-07-22 19:19] LABS: CHLORIDE 104 MMOL/L (98-107); POTASSIUM 4.1 MMOL/L (3.6-5.0); SODIUM 138 MMOL/L (135-145)
[2019-07-22 19:21] LABS: GLUCOSE 92 MG/DL (70-105); TOTAL PROTEIN 6.6 GM/DL (6.4-8.2)
[2019-07-22 19:22] LABS: CARBON DIOXIDE 23 MMOL/L (21-32)
[2019-07-22 19:23] LABS: BILIRUBIN,TOTAL 0.3 MG/DL (0.1-1.0)
[2019-07-22 19:24] LABS: ALKALINE PHOSPHATASE 59 U/L (40-136)
[2019-07-22 19:25] LABS: GFR ESTIMATED > 60
[2019-07-22 19:26] LABS: BUN/CREATININE RATIO 26
[2019-07-22 19:27] LABS: MAGNESIUM 1.9 MG/DL (1.6-2.4)
[2019-07-22 19:28] LABS: ALANINE AMINOTRANSFERASE < 6 U/L (0-55)
--- NOTE | 2019-07-22 19:30 | Diagnostic Imaging Report ---
PROCEDURE: CT left lower extremity without contrast. TECHNIQUE: Multiple contiguous axial images were obtained through the left lower extremity without the use of intravenous contrast. Sagittal and coronal reformations were then performed. Auto Exposure Controls were utilized during the CT exam to meet ALARA standards for radiation dose reduction. INDICATION: Sudden onset of pain in the left knee. No known injury COMPARISON: None FINDINGS: No acute fracture is seen in the left knee. Alignment appears normal. There are severe degenerative changes in all 3 compartments. There is a joint body seen posteriorly measuring up to 1.4 cm in length. There is a small left knee joint effusion. A small cyst is seen posterior to the knee, may be ganglion or parameniscal, measuring 1.5 cm (image 97 series 2). The menisci and ligaments are not well evaluated by CT. No focal muscular atrophy is seen. IMPRESSION: 1. 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 No acute fracture is seen. 2. If there is concern for acute internal derangement of the left knee, nonemergent MRI could be considered. Dictated by: Dictated on workstation # [id number]
--- NOTE | 2019-07-22 19:38 | Diagnostic Imaging Report ---
INDICATION: Left knee pain FINDINGS: 3 views of the left knee show small osteophytes forming at the margin of the intraarticular surfaces. There is slight joint space narrowing. There is no fracture or dislocation. IMPRESSION: Mild tricompartmental degenerative changes of the knee. No fracture or acute abnormality is seen. Dictated by: Dictated on workstation # [id number]
[2019-07-22] MEDS ORDERED: ENOXAPARIN 100 MG/1 ML (LOVENOX) SYR SC ONE (19:45)
[2019-07-22] MEDS ORDERED: HYDR-83 PO (19:46)
[2019-07-22 19:56] VITALS: BP 151/74
[2019-07-22] MEDS ORDERED: RX-HYDROCODONE/APAP 5/325 MG #4 TAB PK PO PRN (20:00)
== END 2019-07-22 20:01 | disposition home or self-care (01) ==
LOC: EDUNIT# 17:57 → ER 17:58
DX: M25.562 Pain in left knee (principal); M06.9 Rheumatoid arthritis, unspecified; L40.50 Arthropathic psoriasis, unspecified; R25.1 Tremor, unspecified; Z95.0 Presence of cardiac pacemaker; I10 Essential (primary) hypertension; K59.09 Other constipation; Z87.19 Personal history of other diseases of the digestive system; Z79.899 Other long term (current) drug therapy
CPT/HCPCS: 36415; 73562; 73700; 80053; 83735; 85025; 85379; 85610; 85730

== ENCOUNTER → 2019-07-23 | Outpatient (CLI) | payer MEDICARE, OTHER ==
[~2019-07-23] MED LIST changes: +HYDR-83 PO
--- NOTE | 2019-07-23 11:08 | Diagnostic Imaging Report ---
PROCEDURE: US left lower extremity venous. TECHNIQUE: Multiple real-time grayscale images were obtained over the left lower extremity in various projections. Additional duplex Doppler and color Doppler images were also obtained. INDICATION: Leg pain and swelling The previous bilateral lower extremity venous Doppler exam of 07/08/2011 failed to show any sign of a deep venous stenosis of either lower extremity. There is generally good blood flow and compressibility at all levels. There is no evidence for a deep venous thrombosis. IMPRESSION: There is no evidence for a deep venous thrombosis of the left lower extremity. Dictated by: Dictated on workstation # [id number]
== END ==
LOC: RAD 09:45
PROVIDERS: ATTEND Emergency Medicine
DX: M79.662 Pain in left lower leg (principal); M25.562 Pain in left knee

== ENCOUNTER → 2020-01-15 | Outpatient (CLI) | payer MEDICARE, OTHER ==
[~2020-01-15] MED LIST changes: +ACHD5005 PO; -HYDR-83 PO
--- NOTE | 2020-01-15 12:40 | Diagnostic Imaging Report ---
INDICATION: Routine screening. COMPARISON: 12/28/2018 and 07/10/2017. TECHNIQUE: 2D and 3D bilateral screening mammography was performed with CAD. FINDINGS: Scattered fibroglandular densities are identified bilaterally. Bilateral pacemaker battery packs are again noted obscuring portions of the breasts. There is a marker clip in the left breast. The nodular density in the outer left breast is stable. No new mass or malignant appearing microcalcifications are seen. IMPRESSION: No mammographic features suspicious for malignancy are identified. ACR BI-RADS Category 2: Benign findings. Result letter will be mailed to the patient. Note: At least 10% of breast cancer is not imaged by mammography. Dictated by: Dictated on workstation # [id number]
== END ==
LOC: RAD 11:10
PROVIDERS: ATTEND Internal Medicine
DX: Z12.31 Encounter for screening mammogram for malignant neoplasm of breast (principal)
CPT/HCPCS: 77063; 77067

== ENCOUNTER → 2020-09-30 | Outpatient (CLI) | payer MEDICARE, OTHER | LOC: CARD 15:00 | PROVIDERS: ATTEND Internal Medicine Cardiovascular Disease | DX: I11.9 Hypertensive heart disease without heart failure (principal); I34.8 Other nonrheumatic mitral valve disorders; I25.10 Atherosclerotic heart disease of native coronary artery without angina pectoris | CPT/HCPCS: 93306 ==

== ENCOUNTER → 2020-11-13 | Outpatient (CLI) | payer MEDICARE, OTHER ==
--- NOTE | 2020-11-13 14:07 | Diagnostic Imaging Report ---
INDICATION: Chronic back pain. TIME OF EXAM: 1:44 p.m. Frontal, lateral and coned lumbosacral views of the lumbar spine were obtained. Curvature of the lumbar spine is normal. There is minimal anterolisthesis of L4 on L5. Vertebral body heights are maintained. No acute compression fracture is seen. There is generalized degenerative disc and facet disease. There is variable disc space narrowing and marginal spurring. No fractures are identified. IMPRESSION: Generalized lumbar spondylosis. No acute bony abnormality is detected. Dictated by: Dictated on workstation # [id number]
== END ==
LOC: RAD 13:01
PROVIDERS: ATTEND Internal Medicine Rheumatology
DX: M47.816 Spondylosis without myelopathy or radiculopathy, lumbar region (principal)
CPT/HCPCS: 72100

== ENCOUNTER → 2020-12-09 | Outpatient (CLI) | payer MEDICARE, OTHER ==
[~2020-12-09] MED LIST changes: +CATHETER FLUSH 10 ML SYR IV PRN; +REGADENOSON 0.4 MG/5 ML SYR (LEXISCAN) IV ONE
[2020-12-09 09:36] VITALS: BP 160/96
--- NOTE | 2020-12-09 15:13 | Cardiology Stress Test Report ---
Stress Test Report Date of Procedure/Referring: Date of Procedure: Dec 09, 2020 PCP J Luis Garcia MD Admitting Physician Khoa Camp MD Indications: CP Baseline Heart Rate: 71 Baseline Blood Pressure: Blood Pressure Systolic: 160 Blood Pressure Diastolic: 96 Baseline Vitals Vital Signs Date Time Temp Pulse Resp B/P (MAP) Pulse Ox O2 Delivery O2 Flow Rate FiO2 12/09/20 09:36 62 18 160/96 (117) 98 Room Air Baseline EKG: Baseline EKG: NSR Summary After explaining the procedure to the patient, she signed a consent and then brought to the stress nuclear laboratory. Patient received 0.4 mg Lexiscan for stress test, ECG, heart rate and blood pressure were monitored continuously. Resting and stress dose of radio tracer w ere injected, imaging was acquired and reviewed in short axis, horizontal long axis and vertical long axis views. TID: 0.96 SSS: 4 SDS: 1 EF: 61 1. Patient tolerated Lexiscan well 2. Mild decrease uptake at the basal to mid anterior septum which is fixed, no significant ischemia or infarction on SPECT images 3. Normal left ventricular size, EF 61% J LUIS GARCIA MD Dec 09, 2020 15:13
== END ==
LOC: CARD 08:30
PROVIDERS: ATTEND Internal Medicine Cardiovascular Disease
DX: I25.10 Atherosclerotic heart disease of native coronary artery without angina pectoris (principal); I10 Essential (primary) hypertension
CPT/HCPCS: 78452; 93017; A9502

== ENCOUNTER → 2021-01-27 | Outpatient (CLI) | payer MEDICARE, OTHER ==
[~2021-01-27] MED LIST changes: -CATHETER FLUSH 10 ML SYR IV PRN; -REGADENOSON 0.4 MG/5 ML SYR (LEXISCAN) IV ONE
--- NOTE | 2021-01-27 14:21 | Diagnostic Imaging Report ---
INDICATION: Routine screening. Comparison is made with prior mammogram 01/15/2020 and 12/28/2018. 2-D and 3-D bilateral screening mammography was performed with CAD. Both breasts are heterogeneously dense, limiting the sensitivity of mammography. Benign nodule in the outer left breast is stable. Marker clip left breast is again noted. No new mass or malignant-appearing microcalcifications are seen. Pacemaker battery packs overlie the axillae bilaterally. IMPRESSION: BI-RADS Category 2 No mammographic features suspicious for malignancy are identified. ACR BI-RADS Category 2: Benign findings. Result letter will be mailed to the patient. Note: At least 10% of breast cancer is not imaged by mammography. Dictated by: Dictated on workstation # [id number]
== END ==
LOC: RAD 11:00
PROVIDERS: ATTEND Internal Medicine
DX: Z12.31 Encounter for screening mammogram for malignant neoplasm of breast (principal)
CPT/HCPCS: 77063; 77067

== ENCOUNTER 2021-05-26 12:37 | Emergency (ER) | payer MEDICARE, OTHER ==
[~2021-05-26] VITALS: Ht 162 cm; Wt 92.0 kg
--- NOTE | 2021-05-26 13:44 | ED Neurological Problem ---
General Chief Complaint: Neurological Problems Stated Complaint: SHAKING Nursing Triage Note: PT HAS A IMPLANTED BRAIN STIMULATOR FOR TREMMORS. TODAY SHE WAS TALKING ON THE PHONE AND STATES SHE JUST STARTED HAVING TREMMORS UNCONTROLABLY. PT THINKS THE STIMULATOR IS MALFUNCTIONING. Source: patient, spouse Exam Limitations: no limitations (SHANELLE WOMACK STUDENT) History of Present Illness Date Seen by Provider: May 26, 2021 Time Seen by Provider: 01:20 Initial Comments Patient is a 75 year old female who presents to the ED with spouse with comp laints of shakiness. Reports that she was at home speaking on the phone one hour prior to presenting to the ED and starting shaking upon hanging up. Reports that she has a deep brain stimulator placed in 2018 at [facility] and follows with Dr. Garcia at . Brain stimulator placed due to essential tremors. Reports that the tremulousness is not causing her any pain. Denies chest pain, SOB, fever, dysuria, and headache. Is having some difficulty speaking due to the shaking. Reports that the battery is probably dying as lasts 3-4 years. Trying to establish care at [facility] with a new neurologist. Timing/Duration: 1-3 hours Severity: severe Associated Symptoms: denies symptoms (SHANELLE WOMACK STUDENT) Allergies and Home Medications Allergies Coded Allergies: cefazolin (Verified Allergy, Unknown, 01/08/17) latex (Verified Allergy, Unknown, 01/08/17) Patient Home Medication List Home Medication List Reviewed: Yes (MEY FIGUEREDO MD) Alendronate Sodium (Fosamax) 70 Mg Tab, 70 MG PO Mo@06, (Reported) Entered as Reported by: ANDREY SOLITARIO on 01/10/11847 Aliskiren Hemifumarate (Tekturna) 300 Mg Tab, 1 TAB PO DAILY, (Reported) Entered as Reported by: ANDREY SOLITARIO on 01/10/11847 Allopurinol (Zyloprim) 100 Mg Tab, 100 MG PO DAILY, (Reported) Entered as Reported by: ANDREY SOLITARIO on 01/10/11847 Cholecalciferol (Vitamin D) 2,000 Unit Capsule, 2,000 UNIT PO DAILY, (Reported) Entered as Reported by: ANDREY SOLITARIO on 01/10/11847 Folic Acid (Folic Acid Tab) 1 Mg Tab, 1 EACH PO DAILY, (Reported) Entered as Reported by: ANDREY SOLITARIO on 01/10/11 0848 Hydrocodone Bit/Acetaminophen (Hydrocodon-Acetaminophen 5-500) 1 Each Tablet, 1 EACH PO NEEDED, (Reported) Entered as Reported by: ANDREY SOLITARIO on 01/10/11847 Hydrocodone Bit/Acetaminophen (Lortab 7.5 Mg Tablet) 1 Ea Tablet, 1-2 EA PO Q 4 - 6 HR PRN, (Reported) Entered as Reported by: GODFREY AHN on 04/13/11 1208 Hydrocodone/Acetaminophen (Hydrocodone-Acetamin 5-325 mg) 1 Each Tablet, 1 EACH PO Q4-6 HOURS PRN for PAIN Prescribed by: LYNN BENITEZ on 07/22/191945 Leflunomide (Leflunomide) 10 Mg Tablet, 10 MG PO DAILY, (Reported) Entered as Reported by: RAHEL RAMIREZ on 02/22/12 08 Losartan Potassium (Losartan Potassium) 100 Mg Tablet, 100 MG PO DAILY, (Reported) Entered as Reported by: MAICOL HARDIN on 01/26/11 0644 Methotrexate (Methotrexate) 2.5 Mg Tab, 2.5 MG PO Q7D, (Reported) Entered as Reported by: ANDREY SOLITARIO on 01/10/1148 Paroxetine Hcl (Paroxetine Hcl) 40 Mg Tablet, 40 MG PO DAILY, (Reported) Entered as Reported by: RAHEL RAMIREZ on 02/22/12 0854 Prednisone (Pedrito) 5 Mg Tablet.dr, 5 MG PO DAILY, (Reported) Entered as Reported by: RAHEL RAMIREZ on 02/22/12 0854 Primidone (Primidone) 50 Mg Tablet, 50 MG PO BID, (Reported) Entered as Reported by: ANDREY SOLITARIO on 01/10/11 0848 Tramadol Hcl (Tramadol Hcl) 50 Mg Tablet, 50 MG PO NEEDED, (Reported) Entered as Reported by: ANDREY SOLITARIO on 01/10/11847 Verapamil Hcl (Verapamil Sr 240 Mg) 240 Mg Cap24h.pel, 0.5 EACH PO BID, (Reported) Entered as Reported by: ANDREY SOLITARIO on 01/10/11 0848 [Desoximetasone] , 0.25 MG PO DAILY, (Reported) Entered as Reported by: RAHEL RAMIREZ on 02/22/12853 [Nabumetone] , 500 MG PO DAILY, (Reported) Entered as Reported by: RAHEL RAMIREZ on 02/22/12853 [Propranolol Er] , 60 MG PO DAILY, (Reported) Entered as Reported by: RAHEL RAMIREZ on 02/22/12853 Review of Systems Review of Systems Constitutional: no symptoms reported; No chills, No diaphoresis, No fever Eyes: No Symptoms Reported; Denies Blurred Vision, Denies Pain Ears, Nose, Mouth, Throat: no symptoms reported; denies ear discharge, denies mouth pain Respiratory: no symptoms reported; No cough, No short of breath Cardiovascular: no symptoms reported; No chest pain, No edema; other Gastrointestinal: no symptoms reported; No abdominal pain, No nausea, No vomiting Genitourinary: no symptoms reported; No dysuria, No frequency Musculoskeletal: no symptoms reported; No back pain, No joint pain Skin: no symptoms reported; No change in color, No change in hair/nails Psychiatric/Neurological: No Symptoms Reported; Denies Anxiety, Denies Depressed Endocrine: No Symptoms Reported; Denies Excessive Sweating, Denies Flushing Hematologic/Lymphatic: No Symptoms Reported; Denies Easy Bleeding, Denies Easy Bruising (VUNyxoah) All Other Systems Reviewed Negative Unless Noted: Yes ([employer]UM[employer]) Past Orbllpz-Fooxnv-Rblzmr Hx Patient Social History Tobacco Use?: No Smoking Status: Never a Smoker Use of E-Cig and/or Vaping dev: No Use of E-Cig and/or Vaping Ang: Never a User Substance use?: No Alcohol Use?: No ([employer]) Immunizations Up To Date Tetanus Booster (TDap): Unknown PED Vaccines UTD: Yes First/Initial COVID19 Vaccinat: Apr 2020 modernbrittany Second COVID19 Vaccination Rock: Apr 2020 moderna COVID19 Vaccine Educational Guidance Counselor: LAUREN ([employer]) Seasonal Allergies Seasonal Allergies: No ([employer]) Past Medical History Surgeries: Yes (SEE BELOW) Appendectomy, Breast, Gallbladder, Hysterectomy, Oophorectomy, Orthopedic, Pacemaker, Parathyroidectomy, Thyroidectomy Respiratory: No Cardiac: Yes (PACEMAKER--NOT SURE WHY--IHSS PER [facility]) Heart Murmur, Hypertension, Syncope Neurological: Yes (TREMORS--HAS BRAIN STIMULATOR IN PLACE FOR TREMORS) 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: Hysterectomy, Menopausal Sexually Transmitted Disease: No Genitourinary: No Gastrointestinal: Yes (MELANOSIS COLI) Chronic Constipation, Diverticulosis Musculoskeletal: Yes (RHEUMATOID AND PSORIATIC ARTHRITIS-REMICADE INFUSIONS Q 6 WEEKS) Arthritis, Rheumatoid Arthritis Endocrine: No HEENT: No Loss of Vision: Denies Hearing Impairment: Denies Cancer: No Psychosocial: No Integumentary: Yes Psoriasis Blood Disorders: No Adverse Reaction/Blood Tranf: No (SHANELLE WOMACK MED STUDENT) Family Medical History No Pertinent Family Hx PSH: -PACEMAKER FOR SYNCOPE -PORT RIGHT CHEST FOR REMICADE INFUSIONS -RIGHT BUNIONECTOMY X 3 -PARTIAL PARATHYROIDECTOMY -THYROIDECTOMY -STEREOTACTIC LEFT BREAST BIOPSY -LAPAROSCOPIC CHOLECYSTECTOMY -HYSTERECTOMY/BILATERAL SALPINGO-OOPHORECTOMY FOR FIBROIDS -APPENDECTOMY -COLONOSCOPIES--LAST ONE 02/2012-DR. PABLO -MULTIPLE ORTHOPEDIC SURGERIES: --RIGHT KNEE SCOPE WITH PARTIAL LATERAL MENISCECTOMY/CHONDROPLASTY 03/2011 --LEFT KNEE SCOPE WITH PARTIAL LATERAL MENISCECTOMY/CHONDROPLASTY 01/2011 --LEFT SHOULDER ROTATOR CUFF REPAIR 09/2007--DR. CHÁVEZ --RIGHT ELBOW CUBITAL TUNNEL/ULNAR NERVE TRANSPOSITION SURGERY 02/[address] CHÁVEZ (SHANELLE WOMACK MED STUDENT) Physical Exam Vital Signs Vital Signs - First Documented 05/26/21 12:45 Temp 36.0 Pulse 86 Resp 16 B/P (MAP) 166/101 (122) Pulse Ox 96 O2 Delivery Room Air (MEY FIGUEREDO MD) Vital Signs Capillary Refill : Less Than 3 Seconds (SHANELLE WOMACK MED STUDENT) Height, Weight, BMI Height: 5'4.00" Weight: 205lbs. 0oz. [id number]; 35.00 BMI Method:Stated General Appearance: WD/WN, mild distress HEENT: PERRL/EOMI, pharynx normal Neck: non-tender, full range of motion Respiratory: normal breath sounds, no respiratory distress Cardiovascular: no edema, no murmur, other (100% paced rhythm per bedside monitor) Peripheral Pulses: 2+ Radial Pulses (R), 2+ Radial Pulses (L) Gastrointestinal: normal bowel sounds, soft Back: normal inspection, no vertebral tenderness Extremities: normal range of motion, non-tender, no pedal edema Neurologic/Psychiatric: alert, oriented x 3, other (Tremulosness bilateral upper extremities. Some difficulty with speeh due to tremors. ) Crainal Nerves: normal hearing Motor/Sensory: no sensory deficit Skin: normal color, warm/dry Lymphatic: no adenopathy (SHANELLE WOMACK MED STUDENT) Progress/Results/Core Measures Results/Orders Vital Signs/I&O 05/26/21 05/26/21 12:45 14:11 Temp 36.0 36.0 Pulse 86 86 Resp 16 16 B/P (MAP) 166/101 (122) 166/101 Pulse Ox 96 96 O2 Delivery Room Air Room Air (MEY FIGUEREDO MD) Blood Pressure Mean: 122 Progress Progress Note : Time: 14:00 Progress Note 75yo female with a complaint of sudden onset of tremors, significant about 30min to an hour prior to arrival. Had a deep brain stimulator placed about 3 1/2 yr ago at . In december of last year battery was down to about 35%. States sudden onset of symptoms today. No recent illness, f/c/n/v/d or urinary complaints prior to onset. No falls or trauma. No gradual worsening of tremors. I spoke with Dr Garcia's nurse - Julieta - and advised of the issue. She states he is currently out of the country but will talk to physicians covering and contact the patient later today about an appointment/referral to Neurosurgery. The patient did ask me if I would call [facility] and see if any of their Neurosurgeons take care of DBS - they do not. Advised the patient to continue her Primidone and wait for Dr Garcia's office to call. Return precautions given. (MEY FIGUEREDO MD) Departure Impression Primary Impression: Coarse tremors Additional Impression: End of battery life of deep brain stimulator Disposition: 01 HOME, SELF-CARE Condition: Stable Departure-Patient Inst. Decision time for Depature: 14:03 (MEY FIGUEREDO MD) Referrals: ROB TAPIA DO (PCP/Family) Primary Care Physician Patient Instructions: Tremor Add. Discharge Instructions: Continue all of your previously prescribed medications - especially your Primidone. Use care not to fall while you are experiencing the tremors. Dr Garcia's office should call you today by 4:30. I spoke with "Julieta" one of the nurses today about your stimulator battery. They will be putting in a a referral to Neurosurgery to schedule a battery replacement. Please come back to the ER for any new, concerning or emergent complaints. Verification and Attestation of Medical Student E/M Service A medical student performed and documented this service in my presence. I reviewed and verified all information documented by the medical student and made modifications to such information, when appropriate. I personally performed the physical exam and medical decision making. Mey Figueredo, May 26, 2021,14:06 (MEY FIGUEREDO MD) Copy Copies To 1: ROB TAPIA LUKE MED STUDENT May 26, 2021 13:44 MEY FIGUEREDO MD May 26, 2021 14:05
[2021-05-26 14:11] VITALS: BP 166/101
== END 2021-05-26 14:11 | disposition home or self-care (01) ==
LOC: EDUNIT# 12:37 → ER 12:39
DX: R25.1 Tremor, unspecified (principal); Z45.42 Encounter for adjustment and management of neurostimulator; Z91.040 Latex allergy status
CPT/HCPCS: 99281

== ENCOUNTER 2021-06-24 05:31 | Outpatient (CLI) | payer MEDICARE, OTHER ==
[~2021-06-24] VITALS: Ht 160 cm; Wt 92.3 kg
[2021-06-25] MEDS ORDERED: CALC-308 PO (09:01)
[2021-06-25] MEDS ORDERED: AMLO-250 PO (09:01)
[2021-06-25] MEDS ORDERED: LOSA100T57 PO (09:01)
[2021-06-25] MEDS ORDERED: PROP80TA3 PO (09:01)
[2021-06-25] MEDS ORDERED: [UNRECOGNIZED DRUG - OTHER] BC (09:01)
[2021-06-25] MEDS ORDERED: FOLI1TAB33 PO (09:01)
[2021-06-25] MEDS ORDERED: FLAX100032 PO (09:01)
[2021-06-25] MEDS ORDERED: [UNRECOGNIZED DRUG - OTHER] (09:03)
== END 2021-06-25 09:12 | disposition home or self-care (01) ==
LOC: PREOP 05:31
PROVIDERS: ATTEND Orthopaedic Surgery
DX: Z01.818 Encounter for other preprocedural examination (principal)

== ENCOUNTER 2021-06-30 09:25 | Day surgery (SDC) | payer MEDICARE, OTHER ==
--- NOTE | 2021-06-24 07:36 | HISTORY AND PHYSICAL ---
DATE OF SERVICE: ADMISSION HISTORY AND PHYSICAL DATE OF ADMISSION: 06/30/2021. This will be for outpatient surgery for left knee arthroscopy on 06/30/2021. HISTORY OF PRESENT ILLNESS: The patient is a 75-year-old female with complaints of progressively worsening left knee pain. She has a history of rheumatoid arthritis as well as psoriatic arthritis. She has undergone treatment with injections in the left knee without relief. She reports pain on the anterior aspect of the knee, which has been progressive in nature and is activity limiting. She does not desire total knee arthroplasty. Radiographs do reveal some significant degenerative changes in her knee and the patient understands an arthroscopy can help with her mechanical symptoms but will not alleviate her arthritic symptoms. REVIEW OF SYSTEMS: No chest pain, no shortness of breath, no dysuria. PAST MEDICAL HISTORY: Hypercalcemia, osteoarthritis, psoriatic arthritis, rheumatoid arthritis, osteopenia, essential tremor, gout, hypertension, IHSS, nephrolithiasis, coronary artery disease, and hypertension. PAST SURGICAL HISTORY: Hysterectomy, appendectomy, cholecystectomy, left rotator cuff, bilateral knee arthroscopy, ethanol ablation for IHSS, right parathyroidectomy, partial thyroidectomy, Medtronic pacemaker, right bunionectomy, right cubital tunnel, and brain stimulator for tremors. FAMILY HISTORY: Significant for stroke, arthritis, breast cancer, hypertension, and hypercholesterolemia. PRIMARY CARE PROVIDER: Dr. Garcia. MEDICATIONS: Biotin, vitamin D, calcium, verapamil, nabumetone, losartan, paroxetine, methotrexate, folic acid, inderal, triamterene/hydrochlorothiazide, Mysoline, Topamax, clonazepam, prednisone, leflunomide, tramadol, propranolol. ALLERGIES: ANCEF, CLONAZEPAM, and LATEX. SOCIAL HISTORY: The patient drinks wine socially. Denies tobacco use. PHYSICAL EXAMINATION: GENERAL: The patient is well developed, well nourished, in no acute distress. HEENT: Normocephalic and atraumatic. Pupils are equal, round and reactive to light. Oropharynx is clear. NECK: Supple, with no lymphadenopathy. LUNGS: Clear to auscultation bilaterally. HEART: Regular rate and rhythm. ABDOMEN: Soft, nontender, nondistended. EXTREMITIES: The left knee demonstrates a large effusion. She is tender along her medial femoral condyle and has pain with patellar loading. There is patellofemoral crepitus noted. Range of motion is 0/2/120. 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 PLAN: Left knee arthroscopy with partial meniscectomy and chondroplasty. The risks, benefits, options, ramifications and recovery were discussed at length with the patient. She understands and wishes to proceed. Job ID: [id number] DocumentID: [id number] Dictated Date: 06/22/2021 11:24:02 Tree Faller Date: 06/22/2021 11:50:00 Dictated By: YAHIR CHÁVEZ MD
[~2021-06-30] VITALS: Ht 160 cm; Wt 92.3 kg
[2021-06-30] VITALS (10 sets, daily range): BP systolic 86–151; BP diastolic 55–97
[~2021-06-30 09:25] MED LIST changes: +AMLO-250 PO; +CALC-308 PO; +FLAX100032 PO; +FOLI1TAB33 PO; +HYDROcodone/APAP 5 MG/325 MG (LORTAB) TAB PO PRN; +LOSA100T57 PO; +PROP80TA3 PO; +[UNRECOGNIZED DRUG - OTHER]; +[UNRECOGNIZED DRUG - OTHER] BC
--- NOTE | 2021-06-30 09:40 | Progress Note-Pre Operative ---
Pre-Operative Progress Note H&P Reviewed The H&P was reviewed, patient examined and no changes noted. Date Seen by Provider: Jun 30, 2021 Time Seen by Provider: 09:39 Date H&P Reviewed: Jun 30, 2021 Time H&P Reviewed: 07:11 Pre-Operative Diagnosis: left knee medial meniscus tear and chondromalacia YAHIR CHÁVEZ MD Jun 30, 2021 09:40
--- NOTE | 2021-06-30 09:43 | Progress Note-Post Operative ---
Post-Operative Progess Note Surgeon (s)/Plant Engineer (s) Surgeon YAHIR CHÁVEZ MD Plant Engineer: Jaiden Rodriguez Pre-Operative Diagnosis left knee medial meniscus tear and chondromalacia Post-Operative Diagnosis left knee medial meniscus tear and chondromalacia Procedure & Operative Findings Date of Procedure 06/30/21 Procedure Performed/Findings left knee arthroscopic partial medial meniscectomy and chondroplasty of Anesthesia Type GETA Estimated Blood Loss Estimated blood loss (mL): minimal Specimens/Packing Specimens Removed none Packing: none YAHIR CHÁVEZ MD Jun 30, 2021 09:43
[2021-06-30] MEDS ORDERED: CLINDAMYCIN 600 MG/50 ML IVPB 50 ML IV ONE ×2 (10:00)
[2021-06-30] MEDS ORDERED: LACTATED RINGERS 1,000 ML IV PRN (10:00)
[2021-06-30] MEDS ORDERED: morphine PF (DURAMORPH) 10 MG/10 ML AMP ONE (10:38)
[2021-06-30] MEDS ORDERED: BUPIVACAINE 0.25% 10 ML (SENSORCAINE) VIAL ONE (10:39)
[2021-06-30] MEDS ORDERED: proPOfol 200 MG/20 ML (DIPRIVAN) VIAL IV ONE (10:51)
[2021-06-30] MEDS ORDERED: LIDOCAINE PF 2% 5 ML (XYLOCAINE) VIAL ONE (10:51)
[2021-06-30] MEDS ORDERED: fentaNYL INJ 100 MCG/2 ML AMP ONE (10:51)
[2021-06-30] MEDS ORDERED: ONDANSETRON 4 MG/2 ML (SDV) Z0FRAN ONE (11:38)
[2021-06-30] MEDS ORDERED: SEVOFLURANE (ULTANE) 15 ML INHAL SOLN ONE (11:54)
[2021-06-30] MEDS ORDERED: ONDANSETRON 4 MG/2 ML (SDV) Z0FRAN IVP PRN (12:15)
[2021-06-30] MEDS ORDERED: morphine INJ 10 MG/ML 1ML (SYR OR VIAL) IVP ONE (12:15)
--- NOTE | 2021-06-30 12:45 | Anesthesia-General Post-Op ---
General Patient Condition Mental Status/LOC: Same as Preop Cardiovascular: Satisfactory Nausea/Vomiting: Absent Respiratory: Satisfactory Pain: Controlled Complications: Absent Post Op Complications Complications None Follow Up Care/Instructions Patient Instructions None needed. Anesthesia/Patient Condition Patient Condition Patient is doing well, no complaints, stable vital signs, no apparent adverse anesthesia problems. TRACE SANDOVAL DO Jun 30, 2021 12:45
--- NOTE | 2021-06-30 14:01 | Physical Therapy Ortho Eval ---
PT Orthopedic Evaluation Type of Surgery Knee Scope Prior Level of Function Current Living Status: Spouse Locomotion (Upon Admit): Independent Established Durable Medical Eq: Front Wheeled Walker Subjective Subjective Patient reports 0/10 pain currently. Reports she has a FWW at home and will have at least two "strong guys" to help her into the house. Entry Into Home: Stairs With Railing Steps Into Home: 3 Steps Accessories: Railing Present Motor Control Motor Control: Motor Control WNL ROM ROM: WFL, except focal deficit Strength Strength: Gen Weak,No Focal Deficit Transfer SCALE: Activities may be completed with or without assistive devices. 6-Czhtjxsjeq-kmlqrpp completes the activity by him/herself with no assistance from a helper. 5-Set-up or Clean-up Assistance-helper sets up or cleans up; patient completes activity. Clay assists only prior to or following the activity. 4-Supervision or Touching Assistance-helper provides verbal cues and/or touching/steadying and/or contact guard assistance as patient completes activity. Assistance may be provided throughout the activity or intermittently. 3-Partial/Moderate Assistance-helper does LESS THAN HALF the effort. Clay lifts, holds or supports trunk or limbs, but provides less than half the effort. 2-Substantial/Maximal Assistance-helper does MORE THAN HALF the effort. Clay lifts or holds trunk or limbs and provides more than half the effort. 9-Lwifkarfz-ggampf does ALL the effort. Patient does none of the effort to complete the activity. Or, the assistance of 2 or more helpers is required for the patient to complete the activity. If activity was not attempted, code reason: 7-Patient Refused. 9-Not Applicable-not attempted and the patient did not perform the activity before the current illness, exacerbation or injury. 10-Not Attempted due to Environmental Limitations-(lack of equipment, weather restraints, etc.). 88-Not Attempted due to Medical Conditions or Safety Concerns. Transfers (B, C, W/C) (QC): 4 Gait Gait Assistive Device: FWW Right Lower Extremity: Right Weight Bearing Status RLE: Full Weight Bearing Left Lower Extremity: Left Weight Bearing Status LLE: Weight Bearing/Tolerated Gait (QC): 4 Distance (QC): 1=up to 49 ft Distance: 40 Gait Level of Assist: 4 Treatment Rendered Treatment: Step Train Patient ascended/descended 1 step 3 times with FWW and Min A from PT. Assessment/Goals Goal Time Frame: 1 Visit Understands HEP: Yes Safe Ambulation: Yes Plan Treatment Plan: Discharge Time Time In: 1326 Time Out: 1350 Total Billed Treatment Time: 24 Billed Treatment Time Visit, Bev RAMÍREZ JOHN A PT Jun 30, 2021 14:01
--- NOTE | 2021-06-30 16:49 | OPERATIVE REPORT ---
DATE OF SERVICE: 06/30/2021 PREOPERATIVE DIAGNOSES: 1. Left knee medial meniscus tear. 2. Left knee chondromalacia of the medial femoral condyle. 3. Left knee chondromalacia of patella. POSTOPERATIVE DIAGNOSES: 1. Left knee medial meniscus tear. 2. Left knee lateral meniscus tear. 3. Left knee chondromalacia of the medial femoral condyle. 4. Left knee chondromalacia of the medial tibial plateau. PROCEDURES: 1. Left knee arthroscopic partial medial meniscectomy. 2. Left knee arthroscopic partial lateral meniscectomy. 3. Left knee arthroscopic chondroplasty of the medial femoral condyle. 4. Left knee arthroscopic chondroplasty of the medial tibial plateau. SURGEON: Serge Chávez MD MONUMENT CARVER: Jaiden Rodriguez, who assisted throughout the procedure and closed the incisions. ANESTHESIA: General endotracheal by Dr. Jacome. TOURNIQUET TIME: Not applicable. ESTIMATED BLOOD LOSS: Minimal. DRAINS: None. COMPLICATIONS: None. POSTOPERATIVE PLAN: Routine arthroscopy protocol. The patient was transferred to the recovery room awake and stable condition. STATEMENT OF MEDICAL NECESSITY: The patient is a 75-year-old female with complaints of left knee pain, catching, locking and swelling. The patient had known osteoarthritis of her left knee. The patient was counseled that arthroscopy would not alleviate her arthritic symptoms, but could help with her mechanical symptoms. The patient elected to proceed with surgical intervention. Examination under anesthesia revealed range of motion of 0/2/130 with negative Mela, negative anterior and posterior drawer. No varus or valgus laxity and a negative pivot shift. Arthroscopic findings, the patella demonstrated complete loss of articular cartilage throughout as did the trochlea. There was an inferior patellar osteophyte. The medial and lateral gutters were clear. The ACL and PCL were intact. The medial compartment demonstrated grade II chondral flaps of the central portion of the tibial plateau in a 10 x 10 area and grade II to III chondral flaps over the central portion of the femoral condyle medially in a 20 x 20 area. The medial meniscus demonstrated a complex tear of the posterior horn and body involving approximately 1/2 posterior horn and body. The lateral compartment demonstrated grade IV chondral loss of the posterior aspect of the tibial plateau in a 10 x 10 area with grade III chondral loss over the femoral condyle in 20 x 20 area with no unstable chondral flaps. The lateral meniscus demonstrated a degenerative tear of the posterior horn and body involving approximately 20% posterior horn and body. DESCRIPTION OF PROCEDURE: After risks and benefits of the procedure were discussed and questions were answered, an informed consent was signed and placed on chart, the operative site was confirmed in the preoperative holding area initialed by the surgeon. The patient was then transferred to the operating room and after adequate levels of general endotracheal anesthetic were obtained, a timeout was called, confirming the operative site. An examination under anesthesia was performed with above findings noted. The left lower extremity was prepped and draped in the usual sterile fashion. The knee joint was injected with 60 mL fluid and standard inferolateral portals placed with the arthroscope under direct visualization, inferior medial portal was created. The menisci and cruciates carefully probed with the above findings noted. Then, stable chondral flaps in the medial femoral condyle and medial tibial plateau were debrided with a shaver back to a stable edge. The posterior horn and body of the medial meniscus were debrided with a biter and shaver back to a stable edge. This was carefully probed with no further tearing or instability noted. The scope was then redirected into the lateral compartment where the lateral meniscus tear was debrided with a shaver back to a stable edge. This was carefully probed with no further tearing or instability noted. The knee was copiously irrigated. The portal sites were closed with 4-0 nylon in simple interrupted fashion. Knee was injected with Duramorph. Portal sites were infiltrated with plain Marcaine and soft dressing was applied. The patient was transferred to the recovery room awake and in stable condition. Job ID: [id number] DocumentID: [id number] Dictated Date: 06/30/2021 12:05:10 Telephone Lineman Date: 06/30/2021 16:49:12 Dictated By: SERGE CHÁVEZ MD
== END 2021-06-30 14:15 | disposition home or self-care (01) ==
LOC: SDC 09:25
PROVIDERS: ATTEND Orthopaedic Surgery
DX: S83.282A Other tear of lateral meniscus, current injury, left knee, initial encounter (principal); S83.242A Other tear of medial meniscus, current injury, left knee, initial encounter; M17.12 Unilateral primary osteoarthritis, left knee; L40.50 Arthropathic psoriasis, unspecified; M94.262 Chondromalacia, left knee; M10.9 Gout, unspecified; M06.9 Rheumatoid arthritis, unspecified
CPT/HCPCS: 87081

== ENCOUNTER → 2021-08-09 | Outpatient (CLI) | payer MEDICARE, OTHER ==
[~2021-08-09] VITALS: Wt 92.3 kg
[~2021-08-09] MED LIST changes: +ACETAMINOPHEN 325 MG TABLET ONE; -HYDROcodone/APAP 5 MG/325 MG (LORTAB) TAB PO PRN; +INFLIXIMAB FOR IV SCH; +NORMAL SALINE IV SCH; +diphenhydrAMINE 25 MG TAB (BENADRYL) PO ONE
[2021-08-09 10:20] VITALS: BP 109/83
[2021-08-09 10:46] LABS: BASOPHILS % (AUTO) 1 % (0-10); EOSINOPHILS # (AUTO) 0.2 10^3/uL (0.0-0.3); EOSINOPHILS % (AUTO) 3 % (0-10); HEMATOCRIT 36 % (35-52); HEMOGLOBIN 12.2 g/dL (11.5-16.0); LYMPHOCYTES # (AUTO) 1.5 10^3/uL (1.0-4.0); LYMPHOCYTES % (AUTO) 28 % (12-44); MEAN CORPUSCULAR HEMOGLOBIN 34 pg (25-34); MEAN CORPUSCULAR HGB CONC 34 g/dL (32-36); MEAN CORPUSCULAR VOLUME 100 fL (80-99); MEAN PLATELET VOLUME 9.9 fL (9.0-12.2); MONOCYTES # (AUTO) 0.5 10^3/uL (0.0-1.0); MONOCYTES % (AUTO) 10 % (0-12); NEUTROPHILS # (AUTO) 3.2 10^3/uL (1.8-7.8); NEUTROPHILS % (AUTO) 59 % (42-75); PLATELET COUNT 239 10^3/uL (130-400); WHITE BLOOD COUNT 5.4 10^3/uL (4.3-11.0)
[2021-08-09 11:09] LABS: ALBUMIN 3.6 GM/DL (3.2-4.5); BILIRUBIN,TOTAL 0.7 MG/DL (0.1-1.0); CALCIUM 8.5 MG/DL (8.5-10.1); CREATININE SERUM 0.71 MG/DL (0.60-1.30); POTASSIUM 3.7 MMOL/L (3.6-5.0); TOTAL PROTEIN 6.4 GM/DL (6.4-8.2)
[2021-08-09 12:10] VITALS: BP 109/83
[2021-08-09 13:50] VITALS: BP 151/72
== END ==
LOC: SDC 10:00
PROVIDERS: ATTEND Internal Medicine Rheumatology
DX: Z51.81 Encounter for therapeutic drug level monitoring (principal); L40.50 Arthropathic psoriasis, unspecified
CPT/HCPCS: 36415; 36591; 80053; 85025; 86141; 96365; 96366

== ENCOUNTER 2021-08-12 15:06 | Outpatient (RCR) | payer MEDICARE, OTHER ==
[~2021-08-12 15:06] MED LIST changes: -ACETAMINOPHEN 325 MG TABLET ONE; -INFLIXIMAB FOR IV SCH; -NORMAL SALINE IV SCH; -diphenhydrAMINE 25 MG TAB (BENADRYL) PO ONE
== END 2021-08-17 | disposition home or self-care (01) ==
PROVIDERS: ATTEND Orthopaedic Surgery
DX: M23.262 Derangement of other lateral meniscus due to old tear or injury, left knee (principal)

== ENCOUNTER → 2021-09-16 | Outpatient (RCR) | payer MEDICARE, OTHER | END | disposition home or self-care (01) | PROVIDERS: ATTEND Orthopaedic Surgery | DX: M23.262 Derangement of other lateral meniscus due to old tear or injury, left knee (principal); I10 Essential (primary) hypertension; Z95.0 Presence of cardiac pacemaker ==

== ENCOUNTER → 2021-10-04 | Outpatient (CLI) | payer MEDICARE, OTHER ==
[~2021-10-04] MED LIST changes: +ACETAMINOPHEN 325 MG TABLET PO ONE; +EPINEPHrine INJECTION 1 MG/ML AMP SC PRN; +diphenhydrAMINE 25 MG TAB (BENADRYL) PO ONE; +diphenhydrAMINE 50 MG/ML INJ (BENADRYL) IV PRN; +inFLIXimab 500 MG/NS 250 ML (EXCEL) IV SCH; +methylPREDNISolone 125 MG (Solu-MEDROL) VIAL IV PRN
[2021-10-04 10:28] LABS: BASOPHILS % (AUTO) 1 % (0-10); EOSINOPHILS # (AUTO) 0.1 10^3/uL (0.0-0.3); EOSINOPHILS % (AUTO) 3 % (0-10); HEMATOCRIT 38 % (35-52); HEMOGLOBIN 12.5 g/dL (11.5-16.0); LYMPHOCYTES # (AUTO) 1.5 10^3/uL (1.0-4.0); LYMPHOCYTES % (AUTO) 35 % (12-44); MEAN CORPUSCULAR HEMOGLOBIN 33 pg (25-34); MEAN CORPUSCULAR HGB CONC 33 g/dL (32-36); MEAN CORPUSCULAR VOLUME 99 fL (80-99); MEAN PLATELET VOLUME 10.2 fL (9.0-12.2); MONOCYTES # (AUTO) 0.3 10^3/uL (0.0-1.0); MONOCYTES % (AUTO) 8 % (0-12); NEUTROPHILS # (AUTO) 2.4 10^3/uL (1.8-7.8); NEUTROPHILS % (AUTO) 54 % (42-75); PLATELET COUNT 247 10^3/uL (130-400); WHITE BLOOD COUNT 4.4 10^3/uL (4.3-11.0)
[2021-10-04 10:30] VITALS: BP 128/68
[2021-10-04 10:45] LABS: ALBUMIN 3.6 GM/DL (3.2-4.5); BILIRUBIN,TOTAL 0.5 MG/DL (0.1-1.0); CALCIUM 8.6 MG/DL (8.5-10.1); CREATININE SERUM 0.77 MG/DL (0.60-1.30); POTASSIUM 3.9 MMOL/L (3.6-5.0); TOTAL PROTEIN 6.5 GM/DL (6.4-8.2)
== END ==
LOC: SDC 09:52
PROVIDERS: ATTEND Internal Medicine Rheumatology
DX: Z51.81 Encounter for therapeutic drug level monitoring (principal); L40.50 Arthropathic psoriasis, unspecified
CPT/HCPCS: 36415; 80053; 85025; 86141; 96365; 96366

== ENCOUNTER 2021-10-05 15:03 | Outpatient (RCR) | payer MEDICARE, OTHER ==
[~2021-10-05 15:03] MED LIST changes: -ACETAMINOPHEN 325 MG TABLET PO ONE; -EPINEPHrine INJECTION 1 MG/ML AMP SC PRN; -diphenhydrAMINE 25 MG TAB (BENADRYL) PO ONE; -diphenhydrAMINE 50 MG/ML INJ (BENADRYL) IV PRN; -inFLIXimab 500 MG/NS 250 ML (EXCEL) IV SCH; -methylPREDNISolone 125 MG (Solu-MEDROL) VIAL IV PRN
== END 2021-10-17 | disposition home or self-care (01) ==
PROVIDERS: ATTEND Orthopaedic Surgery
DX: M23.262 Derangement of other lateral meniscus due to old tear or injury, left knee (principal); I10 Essential (primary) hypertension; Z95.0 Presence of cardiac pacemaker

== ENCOUNTER 2021-10-25 13:45 | Outpatient (RCR) | payer MEDICARE, OTHER ==
[2021-11-04] MEDS ORDERED: VITA1CAP PO (15:12)
[2021-11-04] MEDS ORDERED: METH2.5T PO (15:12)
[2021-11-04] MEDS ORDERED: PARO40TA3 PO (15:12)
[2021-11-04] MEDS ORDERED: PRIM50TA33 PO (15:12)
[2021-11-17] MEDS ORDERED: CALC200T40 PO (06:21)
[2021-11-17] MEDS ORDERED: LOSA100T57 PO (06:21)
[2021-11-17] MEDS ORDERED: FLAX100032 PO (06:21)
[2021-11-17] MEDS ORDERED: BACL10TA PO (06:21)
[2021-11-17] MEDS ORDERED: PRIM50TA33 PO (06:21)
[2021-11-17] MEDS ORDERED: ENXP30I.3 SC (06:21)
[2021-11-17] MEDS ORDERED: VITA1CAP PO (06:21)
[2021-11-17] MEDS ORDERED: PARO40TA3 PO (06:21)
[2021-11-17] MEDS ORDERED: ASPI-1238 PO (06:21)
[2021-11-17] MEDS ORDERED: SENN1TAB76 PO (06:21)
[2021-11-17] MEDS ORDERED: ALPR.25T PO (06:21)
[2021-11-17] MEDS ORDERED: LACT20SO2 PO (06:21)
[2021-11-17] MEDS ORDERED: ACET325T49 PO (06:21)
[2021-11-17] MEDS ORDERED: OXC5T PO (06:21)
[2021-11-17] MEDS ORDERED: POTA-160 PO (06:21)
[2021-11-17] MEDS ORDERED: FOLI1TAB33 PO (06:21)
[2021-11-17] MEDS ORDERED: METH2.5T PO (06:21)
[2021-11-17] MEDS ORDERED: PROP80TA3 PO (06:21)
[2021-11-17] MEDS ORDERED: AMLO-250 PO (06:21)
== END 2021-11-17 | disposition home or self-care (01) ==
PROVIDERS: ATTEND Orthopaedic Surgery
DX: M23.262 Derangement of other lateral meniscus due to old tear or injury, left knee (principal); I10 Essential (primary) hypertension

== ENCOUNTER 2021-10-27 08:49 | Outpatient (RCR) | payer MEDICARE, OTHER ==
[~2021-10-27] VITALS: Ht 162.5 cm; Wt 93.8 kg
[2021-10-27 09:41] LABS: BASOPHILS # (AUTO) 0.1 10^3/uL (0.0-0.1); BASOPHILS % (AUTO) 1 % (0-10); EOSINOPHILS # (AUTO) 0.2 10^3/uL (0.0-0.3); EOSINOPHILS % (AUTO) 3 % (0-10); HEMATOCRIT 39 % (35-52); HEMOGLOBIN 12.9 g/dL (11.5-16.0); LYMPHOCYTES # (AUTO) 1.8 10^3/uL (1.0-4.0); LYMPHOCYTES % (AUTO) 31 % (12-44); MEAN CORPUSCULAR HEMOGLOBIN 33 pg (25-34); MEAN CORPUSCULAR HGB CONC 34 g/dL (32-36); MEAN CORPUSCULAR VOLUME 100 fL (80-99); MEAN PLATELET VOLUME 10.3 fL (9.0-12.2); MONOCYTES # (AUTO) 0.5 10^3/uL (0.0-1.0); MONOCYTES % (AUTO) 9 % (0-12); NEUTROPHILS # (AUTO) 3.2 10^3/uL (1.8-7.8); NEUTROPHILS % (AUTO) 56 % (42-75); PLATELET COUNT 264 10^3/uL (130-400); WHITE BLOOD COUNT 5.7 10^3/uL (4.3-11.0)
[2021-10-27 09:49] LABS: ALBUMIN 3.8 GM/DL (3.2-4.5); POTASSIUM 3.9 MMOL/L (3.6-5.0)
[2021-10-27 09:50] LABS: CALCIUM 8.7 MG/DL (8.5-10.1)
[2021-10-27 09:51] LABS: TOTAL PROTEIN 6.8 GM/DL (6.4-8.2)
[2021-10-27 09:53] LABS: BILIRUBIN,TOTAL 0.5 MG/DL (0.1-1.0)
[2021-10-27 09:55] LABS: CREATININE SERUM 0.82 MG/DL (0.60-1.30)
[2021-10-27 09:55] LABS: BILIRUBIN,URINE NEGATIVE (NEGATIVE); CLARITY,URINE CLEAR; COLOR,URINE YELLOW; GLUCOSE, URINE (UA) NEGATIVE (NEGATIVE); KETONES,URINE NEGATIVE (NEGATIVE); LEUKOCYTE ESTERASE ,URINE NEGATIVE (NEGATIVE); NITRITE,URINE NEGATIVE (NEGATIVE); PROTEIN,URINE NEGATIVE (NEGATIVE)
[2021-10-27 09:59] VITALS: BP 132/71
[2021-10-27 10:01] LABS: ERYTHROCYTE SEDIMENTATION RATE 11 MM/HR (0-30); INR 0.9 (0.8-1.4); PROTHROMBIN TIME PATIENT 12.9 SEC (12.2-14.7)
[2021-10-27 10:16] LABS: BACTERIA,URINE NEGATIVE /HPF; SQUAMOUS EPITHELIAL CELL,UR RARE /HPF; WBC,URINE RARE /HPF
--- NOTE | 2021-10-27 10:21 | Diagnostic Imaging Report ---
INDICATION: Preop left knee osteoarthritis PA and lateral chest There is a dual-chamber pacemaker. Right IJ Port-A-Cath tip projects over the SVC. Heart size and pulmonary vascularity are normal. Lungs are clear. There are no effusions or pneumothoraces. IMPRESSION: No acute abnormalities in the chest. Dictated by: Dictated on workstation # [id number]
== END 2021-10-28 13:31 | disposition home or self-care (01) ==
LOC: PREOP 08:49 → EDSTATUS 09:30 → PREOP 10-28 13:31
PROVIDERS: ATTEND Orthopaedic Surgery
DX: Z01.812 Encounter for preprocedural laboratory examination (principal); Z01.810 Encounter for preprocedural cardiovascular examination; M17.12 Unilateral primary osteoarthritis, left knee
CPT/HCPCS: 36415; 71046; 80053; 81000; 82308; 85025; 85610; 85652; 86850; 86900; 86901; 87081; 93005

== ENCOUNTER 2021-11-03 05:47 | Inpatient (IN) | payer MEDICARE, OTHER ==
--- NOTE | 2021-10-26 20:38 | HISTORY AND PHYSICAL ---
DATE OF SERVICE: ADMISSION HISTORY AND PHYSICAL This will be for inpatient admission on 11/03/2021 for left total knee arthroplasty. The patient will require regular inpatient admission due to pain management, need for physical therapy and her comorbidities. HISTORY OF PRESENT ILLNESS: The patient is a 76-year-old female with longstanding progressive left knee pain. She has undergone treatment with injections as well as arthroscopy, but has continued pain and activity limitations because of the knee. She has known tricompartmental osteoarthritis with complete loss of medial and patellofemoral joint spaces radiographically. Due to functional impairment and failure to improve with conservative measures, the patient elected to proceed with surgical intervention. REVIEW OF SYSTEMS: No chest pain, no shortness of breath and no dysuria. PAST MEDICAL HISTORY: Hypercalcemia, osteoarthritis, psoriatic arthritis, rheumatoid arthritis, osteopenia, essential tremor, gout, hypertension, IHSS, kidney stone, coronary artery disease, hypertension, osteoporosis, hearing. PAST SURGICAL HISTORY: Hysterectomy, appendectomy, cholecystectomy, left rotator cuff repair, bilateral knee arthroscopy. Ethanol ablation for IHSS, right parathyroidectomy, thyroid isthmusectomy, Medtronic pacemaker placement, right bunionectomy x3, right cubital tunnel release, brain stimulator for tremors, left knee arthroscopy. FAMILY HISTORY: Cerebrovascular accident, breast cancer, hypertension, hypercholesterolemia. PRIMARY CARE PROVIDER: Dr. Garcia. MEDICATIONS: Biotin, vitamin D3, calcium, verapamil, nabumetone, losartan, paroxetine, methotrexate, folic acid, Inderal, hydrochlorothiazide, Mysoline, Topamax, prednisone, leflunomide, tramadol, propranolol. ALLERGIES: ANCEF, CLONAZEPAM, AND LATEX. SOCIAL HISTORY: The patient drinks alcohol rarely and denies tobacco use. PHYSICAL EXAMINATION: GENERAL: The patient is well-developed, well-nourished, in no acute distress. HEENT: Normocephalic, atraumatic. Pupils are equal, round and reactive to light. Oropharynx is clear. NECK: Supple, no lymphadenopathy. LUNGS: Clear to auscultation bilaterally. HEART: Regular rate and rhythm. ABDOMEN: Soft, nontender, nondistended. EXTREMITIES: The left knee demonstrates varus alignment. She has a slight effusion. There is no erythema or warmth. She is tender along the medial femoral epicondyle. She has pain medially with Edinson's. There is no varus valgus laxity. Negative anterior and posterior drawer. Range of motion 0/5/120. IMPRESSION: Severe left knee osteoarthritis, unresponsive to conservative measures. PLAN: Left total knee arthroplasty. The risks, benefits, options, ramifications and recovery have been discussed at length with the patient. She understands and wishes to proceed. Job ID: [id number] DocumentID: [id number] Dictated Date: 10/18/2021 13:54:14 Physical Therapy Aides Teacher Date: 10/18/2021 14:07:53 Dictated By: YAHIR CHÁVEZ MD
[~2021-11-03] VITALS: Ht 162 cm; Wt 93.8 kg
[2021-11-03] VITALS (14 sets, daily range): BP systolic 88–186; BP diastolic 59–94
[2021-11-03] MEDS: LACTATED RINGERS 1,000 ML IV PRN ×2 (06:30→08:50)
[2021-11-03] MEDS ORDERED: ONDANSETRON 4 MG/2 ML (SDV) Z0FRAN IVP PRN ×2 (07:15→09:30)
[2021-11-03] MEDS ORDERED: morphine PCA 100 MG/100 ML BAG IV PRN (07:15)
[2021-11-03] MEDS ORDERED: diphenhydrAMINE 50 MG/ML INJ (BENADRYL) IVP PRN (07:15)
[2021-11-03] MEDS ORDERED: TRANEXAMIC ACID 100 MG/ML 10 ML INJECTION ONE (07:16)
[2021-11-03] MEDS ORDERED: fentaNYL INJ 100 MCG/2 ML AMP ONE ×2 (07:16→08:13)
[2021-11-03] MEDS ORDERED: proPOfol 200 MG/20 ML (DIPRIVAN) VIAL IV ONE (07:16)
[2021-11-03] MEDS ORDERED: SEVOFLURANE (ULTANE) 15 ML INHAL SOLN ONE ×3 (07:16→09:06)
[2021-11-03] MEDS ORDERED: CLINDAMYCIN 900 MG/50 ML IVPB 50 ML IV ONE ×2 (07:19→07:30)
[2021-11-03] MEDS ORDERED: INTRA-ARTICULAR IU ONE ×5 (07:30)
--- NOTE | 2021-11-03 07:34 | Progress Note-Pre Operative ---
Pre-Operative Progress Note Date of Available H&P: Nov 03, 2021 Date H&P Reviewed: Nov 03, 2021 Time H&P Reviewed: 07:11 Changes from last HP none Pre-Operative Diagnosis: left knee primary osteoarthritis YAHIR CHÁVEZ MD Nov 03, 2021 07:34
--- NOTE | 2021-11-03 07:35 | Progress Note-Post Operative ---
Post-Operative Progess Note Surgeon (s)/Die Out Worker (s) Surgeon YAHIR CHÁVEZ MD Die Out Worker: Jaiden Rodriguez Pre-Operative Diagnosis left knee primary osteoarthritis Post-Operative Diagnosis left knee primary osteoarthritis Procedure & Operative Findings Date of Procedure 11/03/21 Procedure Performed/Findings left total knee arthroplasty Anesthesia Type GETA Estimated Blood Loss Estimated blood loss (mL): minimal Specimens/Packing Specimens Removed none Packing: none YAHIR CHÁVEZ MD Nov 03, 2021 07:35
--- NOTE | 2021-11-03 07:37 | D/C HH Face to Face Order ---
D/C Face to Face Orders Reconcile Patient Problems Problems Reviewed?: Yes Instructions for Patient Via Denise Silverado, Patient Instructions/FollowUp: three weeks Physician to follow Patient: three weeks Discharge Diet for Home: Regular Diet Patient Data-Allergies,Ht & Wt Patient Allergies: Coded Allergies: cefazolin (Verified Allergy, Unknown, TONGUE SWELLING, 10/27/21) latex (Verified Allergy, Unknown, RASH, 10/27/21) Height (Feet): 5 Height (Inches): 4.00 Weight (Pounds): 205 Weight (Ounces): 0 Home Health Need/Face to Face Date of Face to Face: Nov 03, 2021 Clinical Findings: Muscle weakness, Pain with ambulation, Unsteady gait I have seen Pt [id number]: Yes Discharged To: Home Diagnosis/Conditions: left total knee arthroplasty Patient is Homebound due to: Muscle weakness, Pain w/ambulation Homebound Status Due to the above stated illness, injury or surgical procedure (medical condition or diagnosis) and associated clinical findings, the patient is homebound because of his/her inability to leave home except with aid of a supportive device and/or person AND leaving the home requires a considerable and taxing effort or is medically contraindicated. Pt req the following assistanc: Walker Home Health Nursing Orders Home Health Services Order: Physical Therapy-Evaluate & Treat DC left knee scooetr and apply steri strips 11/17/21 Home Health Infusion Therapy Line Start Date: Nov 03, 2021 Therapy Orders Therapy Orders: Physical Therapy, PT to assess for OT Therapy Specific Orders: Eval assistive deivces, Teach enviro modific ations/safety, Gait training, Increase strength/endurance, Provider maintenance therapy, Restore ROM Certify Stmt I certify that this patient is under my care and that I, a nurse practitioner or a physician; a sales operations assistant working with me, had a face to face encounter that - meets the physician face to face encounter requirements with this patient as dated. YAHIR CHÁVEZ MD Nov 03, 2021 07:37
[2021-11-03] MEDS ORDERED: HYDROmorphone 2 MG/ML VIAL (DILAUDID) ONE (09:24)
[2021-11-03] MEDS ORDERED: morphine INJ 10 MG/ML 1ML (SYR OR VIAL) IVP ONE (09:30)
[2021-11-03] MEDS ORDERED: HYDROmorphone 2 MG/ML VIAL (DILAUDID) IV ONE (09:30)
[2021-11-03] MEDS ORDERED: PROMETHAZINE INJ 25 MG/ML (PHENERGAN) AMP IVP ONE (09:30)
[2021-11-03] MEDS ORDERED: MEPERIDINE (DEMEROL) INJ 50 MG/ML IVP ONE (09:30)
[2021-11-03] MEDS: SENNA W/DOCUSATE (SENOKOT S) TABLET PO SCH ×2 (10:15→21:04)
[2021-11-03] MEDS ORDERED: NS IV 1000 ML 1,000 ML ONE (11:24)
[2021-11-03] MEDS: NS IV 1000 ML 1,000 ML IV SCH ×3 (11:35→22:57)
--- NOTE | 2021-11-03 12:31 | Progress Note ---
Standard Progress Note Progress Notes/Assess & Plan Date Seen by a Provider: Nov 03, 2021 Time Seen by a Provider: 11:35 Progress/Assessment & Plan post op check no complaints radiographs--HW well positioned without fracture LLE--dressing intact intact DF and PF of toes and ankle with intact sensation throughout 2 plus DP pulse with brisk cap refill s/p L TKA mobilize as able YAHIR CHVÁEZ MD Nov 03, 2021 12:31
--- NOTE | 2021-11-03 13:22 | Diagnostic Imaging Report ---
CLINICAL HISTORY: Postop left total knee arthroplasty. COMPARISON: 07/22/2019. TECHNIQUE: 2 views of the left knee. FINDINGS: Postsurgical changes of left total knee arthroplasty are visualized. The femoral and tibial components appear well seated. No periprostatic fracture. Alignment is anatomic. Skin scooter are seen overlying the left knee. IMPRESSION: 1. Expected postsurgical changes of left total knee arthroplasty. Dictated by: Dictated on workstation # [id number]
--- NOTE | 2021-11-03 13:32 | Consultation ---
PATRICIA BO 11/03/21 1332: HPI History of Present Illness: HPI/Chief Complaint 76 F with hx of OA, RA, psoriatic arthritis, and tremor s/p Lt TKA by Dr. Guzman on day one of admission. Pt was difficult to arouse due to post-op medications. She claims she is in no pain and remains comfortable sleeping in bed. PT/OT has started but cannot do much today due to sedation. Unable to obtain any other information. Per family, pt has not has any voids or BM since procedure. Source: patient, family Exam Limitations: other (post-op medication delerium ) Date Seen 11/03/21 Attending Physician Aminta Tapia DO PCP Admitting Physician: Serge Guzman MD Attending Physician: Serge Guzman MD Referring Physician Date of Admission Nov 03, 2021 at 05:47 Home Medications & Allergies Home Medications Reviewed patient Home Medication Reconciliation performed by pharmacy medication reconciliations instrument and control technician and/or nursing. Patients Allergies have been reviewed. Allergies Allergies Coded Allergies cefazolin (Verified Allergy, Unknown, TONGUE SWELLING, 10/27/21) latex (Verified Allergy, Unknown, RASH, 10/27/21) Past [place]-Ymrwoz-Stwdxp Hx Patient Social History Tobacco Use?: No Smoking Status: Never a Smoker Substance use?: No Alcohol Use?: No Pt feels they are or have been: No Immunizations Up To Date Date of Influenza Vaccine: Dec 25, 2020 First/Initial COVID19 Vaccinat: 06/2020 Second COVID19 Vaccination Rock: 06/2020 Tetanus Booster (TDap): Unknown PED Vaccines UTD: Yes Date of Pneumonia Vaccine: Jan 13, 2010 Seasonal Allergies Seasonal Allergies: No Current Status status: No status: No Advance Directives: Yes Communicates: Verbally Primary Language: Yakut Preferred Spoken Language: Yakut Is interpretation needed?: Yes Sensory deficits: Vision impairment Implanted or Applied Medical D: Pacemaker, Port-a-cath, Other Past Medical History Surgeries: Appendectomy, Breast, Gallbladder, Hysterectomy, Oophorectomy, Ort hopedic, Pacemaker, Parathyroidectomy, Thyroidectomy Currently Using CPAP: No Currently Using BIPAP: No Coronary Artery Disease, Heart Murmur, Hypertension, Syncope 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 History: Hysterectomy, Menopausal Sexually Transmitted Disease: No Chronic Constipation, Diverticulosis, Gall Bladder Disease Arthritis, Rheumatoid Arthritis Parathyroid Disease Loss of Vision: Denies Hearing Impairment: Denies Anxiety Psoriasis Blood Disorders: No Adverse Reaction/Blood Tranf: No Family Medical History No Pertinent Family Hx PSH: -PACEMAKER FOR SYNCOPE -PORT RIGHT CHEST FOR REMICADE INFUSIONS -RIGHT BUNIONECTOMY X 3 -PARTIAL PARATHYROIDECTOMY -THYROIDECTOMY -STEREOTACTIC LEFT BREAST BIOPSY -LAPAROSCOPIC CHOLECYSTECTOMY -HYSTERECTOMY/BILATERAL SALPINGO-OOPHORECTOMY FOR FIBROIDS -APPENDECTOMY -COLONOSCOPIES--LAST ONE 02/2012-DR. PABLO -MULTIPLE ORTHOPEDIC SURGERIES: --RIGHT KNEE SCOPE WITH PARTIAL LATERAL MENISCECTOMY/CHONDROPLASTY 03/2011 --LEFT KNEE SCOPE WITH PARTIAL LATERAL MENISCECTOMY/CHONDROPLASTY 01/2011 --LEFT SHOULDER ROTATOR CUFF REPAIR 09/2007--DR. GUZMAN --RIGHT ELBOW CUBITAL TUNNEL/ULNAR NERVE TRANSPOSITION SURGERY 02/[address] GUZMAN Review of Systems Constitutional: see HPI (unable to obtain ROS due to sedation) Physical Exam Physical Exam Vital Signs Vital Signs - First Documented Capillary Refill : Less Than 3 Seconds Height, Weight, BMI Height: 5'4.00" Weight: 205lbs. 0oz. 92.025482tj; 35.74 BMI Method:Stated General Appearance: No Apparent Distress, WD/WN Neck: Normal Inspection, Non Tender, Supple Respiratory: Lungs Clear, Normal Breath Sounds, No Accessory Muscle Use, No Respiratory Distress Cardiovascular: Regular Rate, Rhythm, No Edema, No Gallop, No JVD, No Murmur, Normal Peripheral Pulses Gastrointestinal: Normal Bowel Sounds, No Organomegaly, No Pulsatile Mass, Non Tender, Soft Extremity: Normal Capillary Refill, Normal Inspection, No Pedal Edema Neurologic/Psychiatric: Alert (sedation), Oriented x3 (sedation) Skin: Normal Color, Warm/Dry Results Results/Procedures Labs Patient resulted labs reviewed. Assessment/Plan Assessment and Plan Assess & Plan/Chief Complaint Continue supportive care Control pain manage comorbities monitor BP PT/OT F/U with Nasir in 3 wks Continue O2 TAPIACANDE RIVASArmando SANDERS 11/03/216: HPI History of Present Illness: Source: patient, family Exam Limitations: clinical condition Referring Physician luis eduardo Past Nkohvwe-Pmezap-Cccrgy Hx Patient Social History Marrital Status: Employed/Student: retired Smoking Status: Former Smoker Current Status Sensory deficits: Vision impairment Implanted or Applied Medical D: Pacemaker, Port-a-cath, Other Review of Systems Constitutional: see HPI (unable to obtain ROS due to sedation) Physical Exam Physical Exam General Appearance: No Apparent Distress, WD/WN, Chronically ill, Other (sedated) Respiratory: Lungs Clear, Normal Breath Sounds Cardiovascular: Regular Rate, Rhythm Neurologic/Psychiatric: Alert (sedation), Disoriented Assessment/Plan Assessment and Plan Assess & Plan/Chief Complaint Assessment: s/p knee replacement RA Essential tremor Plan: monitor labs Supervisory-Addendum Brief Verification & Attestation Participated in pt care: history, MDM, physical Personally performed: exam, history, MDM, supervision of care Care discussed with: Medical Student Procedures: n/a Results interpretation: Verified all documentation Verification and Attestation of Medical Student E/M Service A medical student performed and documented this service in my presence. I reviewed and verified all information documented by the medical student and made modifications to such information, when appropriate. I personally performed the physical exam and medical decision making. Aminta Tapia, Nov 03, 2021,21:05 PATRICIA BO Nov 03, 2021 13:32 AMINTA TAPIA DO Nov 03, 2021 21:06
--- NOTE | 2021-11-03 13:47 | Physical Therapy Evaluation ---
PT Evaluation-General Medical Diagnosis Admission Date Nov 03, 2021 at 05:47 Medical Diagnosis: left TKA Onset Date: Nov 03, 2021 Therapy Diagnosis Therapy Diagnosis: impaired mobility, ROM Height/Weight Height (Feet): 5 Height (Inches): 4.00 Weight (Pounds): 205 Weight (Ounces): 0 Weight Bear Status Left Lower Extremity: Left Weight Bearing/Tolerated Referral Physician: Michael Reason for Referral: Evaluation/Treatment Medical History Additional Medical History PAST MEDICAL HISTORY: Hypercalcemia, osteoarthritis, psoriatic arthritis, rheumatoid arthritis, osteopenia, essential tremor, gout, hypertension, IHSS, kidney stone, coronary artery disease, hypertension, osteoporosis, hearing. PAST SURGICAL HISTORY: Hysterectomy, appendectomy, cholecystectomy, left rotator cuff repair, bilateral knee arthroscopy. Ethanol ablation for IHSS, right parathyroidectomy, thyroid isthmusectomy, Medtronic pacemaker placement, right bunionectomy x3, right cubital tunnel release, brain stimulator for tremors, left knee arthroscopy. Reviewed History: Yes Social History Current Living Status: Spouse Entry Into Home: Stairs With Railing PT Steps Into Home: 2 Prior Prior Level of Function SCALE: Activities may be completed with or without assistive devices. 0-Zkhzzetevs-cmlpkrs completes the activity by him/herself with no assistance from a helper. 5-Set-up or Clean-up Assistance-helper sets up or cleans up; patient completes activity. [place] assists only prior to or following the activity. 4-Supervision or Touching Assistance-helper provides verbal cues and/or touching/steadying and/or contact guard assistance as patient completes activity. Assistance may be provided throughout the activity or intermittently. 3-Partial/Moderate Assistance-helper does LESS THAN HALF the effort. [place] lifts, holds or supports trunk or limbs, but provides less than half the effort. 2-Substantial/Maximal Assistance-helper does MORE THAN HALF the effort. [place] lifts or holds trunk or limbs and provides more than half the effort. 5-Mydbsxhgb-enaujj does ALL the effort. Patient does none of the effort to complete the activity. Or, the assistance of 2 or more helpers is required for the patient to complete the activity. If activity was not attempted, code reason: 7-Patient Refused. 9-Not Applicable-not attempted and the patient did not perform the activity before the current illness, exacerbation or injury. 10-Not Attempted due to Environmental Limitations-(lack of equipment, weather restraints, etc.). 88-Not Attempted due to Medical Conditions or Safety Concerns. Bed Mobility: 6 Transfers (B,C,W/C): 6 Gait: 6 Stairs: 6 Prior Devices Use: Walker PT Evaluation-Current Subjective Patient in bed pre tx, can wake up for a few seconds at a time but no more than that. She cannot answer any questions because she cannot stay awake long enough to answer and she has garbled speech. Her provides some info. Pt/Family Goals none stated Objective Patient Orientation: Unable to Assess ROM/Strength Strength Lower Extremities LLE knee flexion 75 degrees, extension +4 degrees Treatment LLE total knee protocol x10 (AP, QS, HS, SAQ, SLR). Mostly PROM except for AP and QS which required therapist to repeatedly wake up patient to perform 1-2 before she goes back to sleep again. Assessment/Needs Patient in bed post tx with nurse call, phone, tray, all needs met. Patient is too drowsy to really participate at all. Rehab Potential: Fair PT Penitentiary Goals Penitentiary Goals PT Suture Polisher Goals Time Frame: Nov 10, 2021 Roll Left & Right (QC): 4 Sit to Lying (QC): 4 Lying-Sitting on Side/Bed(QC): 4 Sit to Stand (QC): 4 Chair/Odn-mx-Koodl Xfer(QC): 4 Walk 10 feet (QC): 4 Walk 50ft with 2 Turns (QC): 4 PT Plan Problem List Problem List: Activity Tolerance, Functional Strength, Safety, Balance, Gait, Transfer, Bed Mobility, ROM Treatment/Plan Treatment Plan: Continue Plan of Care Treatment Plan: Bed Mobility, Education, Functional Activity Anya, Functional Strength, Gait, Safety, Therapeutic Exercise, Transfers Treatment Duration: Nov 10, 2021 Frequency: 11 times per week Estimated Hrs Per Day: .25 hour per day Patient and/or Family Agrees t: Yes Safety Risks/Education Patient Education: Correct Positioning, Safety Issues Teaching Recipient: Patient Teaching Methods: Demonstration, Discussion Response to Teaching: Reinforcement Needed Discharge Recommendations Plan Patient will perform bed mobility and transfer training, balance and endurance training, functional strengthening, stair training, gait training, and education, to improve functional mobility and independence at home. Therapy Discharge Recommendati: Home & Family, Post Acute PT Time/GCodes Time In: 1310 Time Out: 1320 Total Billed Treatment Time: 10 Total Billed Treatment 1 visit SCOTT MILES PT Nov 03, 2021 13:46
--- NOTE | 2021-11-03 13:50 | OPERATIVE REPORT ---
DATE OF SERVICE: 11/03/2021 PREOPERATIVE DIAGNOSIS: Left knee primary osteoarthritis. POSTOPERATIVE DIAGNOSIS: Left knee primary osteoarthritis. PROCEDURE: Left total knee arthroplasty. SURGEON: Serge Chávez MD TOXICS PROGRAM OFFICER: Jaiden Rodriguez, who assisted throughout the procedure and closed the incision. ANESTHESIA: General endotracheal by Darvin Rodgers CRNA. TOURNIQUET TIME: Approximately 65 minutes at 300 mmHg. ESTIMATED BLOOD LOSS: Minimal. DRAINS: None. COMPLICATIONS: None. POSTOPERATIVE PLAN: Routine total knee arthroplasty protocol. The patient was transferred to the recovery room awake and in stable condition. MATERIALS: Microport cemented size 3 femur, cemented size 3 tibia with a 12 mm insert and cemented size 29 patellar button. STATEMENT OF MEDICAL NECESSITY: The patient is a 76-year-old female with longstanding progressive left knee pain. She has undergone treatment with multiple injections as well as arthroscopy without relief. Radiographs revealed severe tricompartmental osteoarthritis. Due to functional impairment and failure to improve with conservative measures, the patient elected to proceed with surgical intervention. DESCRIPTION OF PROCEDURE: After risks and benefits of procedure were discussed and questions were answered, an informed consent was signed and placed on chart, the operative site was confirmed in the preoperative holding area initialed by the surgeon. The patient was then transferred to the operating room and after adequate levels of general endotracheal anesthetic were obtained, a timeout was called, confirming the operative site. The left lower extremity was prepped and draped in the usual sterile fashion with the leg elevated. The tourniquet was inflated to 300 mmHg. Standard anterior approach was utilized. Hemostasis was obtained with cautery. Medial parapatellar arthrotomy was performed leaving 1 cm cuff on the patella for later reattachment. A portion of the fat pad was resected. Subperiosteal release was performed on the proximal medial tibia being careful to stay on the bony surface. The ACL was resected. The intramedullary guide was passed into the femur. The distal cutting block was placed. Distal cut was made, the femur sized to a size 3. The 3 cutting block was placed parallel to the epicondylar axis and cuts were made from posterior to anterior. Subperiosteal release was then carefully performed on the posterior distal femur, being careful to stay on the bony surface. The intramedullary guide was then passed into the tibia. The cutting block was placed. The drop da transected the intermalleolar axis, and the cut was made. The three baseplate was placed and the drop da transected the intermalleolar axis. This was then prepared with the drill and keel punch. The femoral trial was placed, and the trochlear cut was made. The 12 mm insert was placed, and the patella was prepared by resecting 10 mm off the undersurface. Peg guide was placed, and peg holes were drilled. The 29 trial was placed. Knee was taken through range of motion. Full extension was easily obtained, 120 degrees of flexion with gravity was obtained. The patella tracked well. There was no anterior/posterior or medial/lateral laxity in flexion or extension. The trials were removed. The joint was irrigated with pulse lavage. The periarticular block was placed in the posterior capsule, medial and lateral retinaculum, extensor mechanism, and subcutaneous tissues. The bone ends were irrigated and dried and the tibial baseplate was cemented into position. Excessive cement was removed. The superior surface was irrigated and dried and the polyethylene insert was placed. The distal femur was irrigated and dried. The femoral prosthesis was cemented into position. Excessive cement was removed. The knee was brought out into full extension until cement had cured. The undersurface of the patella was irrigated and dried and the patella button was cemented into position. Excessive cement was removed. Once the cement had cured, the knee was taken through range of motion. Full extension was easily obtained, 120 degrees of flexion with gravity was easily obtained. The patella tracked well. There was no anterior/posterior or medial/lateral laxity in flexion or extension. The joint was further irrigated with pulse lavage. The arthrotomy was closed with #2 Tevdek in xtaanv-ux-nhsto interrupted fashion. The knee was flexed. The repair was stable. The patella tracked well. The subcutaneous tissues were irrigated using a total of 6 liters throughout the procedure. A 0 Vicryl was used for deep subcutaneous layer, 2-0 Vicryl for the superficial subcutaneous layer, scooter used on the skin. A soft dressing was applied. The patient was transferred to recovery room awake and in stable condition. Job ID: [id number] DocumentID: [id number] Dictated Date: 11/03/2021 09:17:34 Tuber Machine Cutter Date: 11/03/2021 13:49:34 Dictated By: SERGE CHÁVEZ MD
[2021-11-03] MEDS: CLINDAMYCIN 900 MG/50 ML IVPB 50 ML IV SCH (16:36)
[2021-11-03] MEDS: oxyCODONE/APAP 5/325MG (PERCOCET 5) TABLET PO PRN ×2 (17:55→23:13)
[2021-11-03] MEDS ORDERED: NS IV 500 ML 500 ML IV ONE (22:30)
[2021-11-04] VITALS (7 sets, daily range): BP systolic 103–127; BP diastolic 53–73
[2021-11-04] MEDS: CLINDAMYCIN 900 MG/50 ML IVPB 50 ML IV SCH (00:20)
[2021-11-04] MEDS: oxyCODONE/APAP 5/325MG (PERCOCET 5) TABLET PO PRN ×7 (06:31→20:45)
[2021-11-04 06:44] LABS: ALBUMIN 3.2 GM/DL (3.2-4.5); POTASSIUM 4.3 MMOL/L (3.6-5.0)
[2021-11-04 06:45] LABS: CALCIUM 7.3 MG/DL (8.5-10.1)
[2021-11-04 06:46] LABS: TOTAL PROTEIN 5.7 GM/DL (6.4-8.2)
[2021-11-04 06:48] LABS: BILIRUBIN,TOTAL 0.5 MG/DL (0.1-1.0)
[2021-11-04 06:50] LABS: CREATININE SERUM 1.26 MG/DL (0.60-1.30)
[2021-11-04 06:51] LABS: BASOPHILS % (AUTO) 0 % (0-10); EOSINOPHILS # (AUTO) 0.1 10^3/uL (0.0-0.3); EOSINOPHILS % (AUTO) 2 % (0-10); HEMATOCRIT 31 % (35-52); HEMOGLOBIN 10.1 g/dL (11.5-16.0); LYMPHOCYTES # (AUTO) 0.8 10^3/uL (1.0-4.0); LYMPHOCYTES % (AUTO) 10 % (12-44); MEAN CORPUSCULAR HEMOGLOBIN 34 pg (25-34); MEAN CORPUSCULAR HGB CONC 33 g/dL (32-36); MEAN CORPUSCULAR VOLUME 103 fL (80-99); MEAN PLATELET VOLUME 10.5 fL (9.0-12.2); MONOCYTES % (AUTO) 13 % (0-12); NEUTROPHILS % (AUTO) 75 % (42-75); PLATELET COUNT 183 10^3/uL (130-400); WHITE BLOOD COUNT 8.1 10^3/uL (4.3-11.0)
--- NOTE | 2021-11-04 08:12 | Progress Note ---
Standard Progress Note Progress Notes/Assess & Plan Date Seen by a Provider: Nov 04, 2021 Time Seen by a Provider: 08:11 Progress/Assessment & Plan post op check no complaints radiographs--HW well positioned without fracture LLE--dressing intact intact DF and PF of toes and ankle with intact sensation throughout 2 plus DP pulse with brisk cap refill s/p L TKA mobilize as able Final Diagnosis better today c/o groin pain Vital Signs Date Time Temp Pulse Resp B/P (MAP) Pulse Ox O2 Delivery O2 Flow Rate FiO2 11/04/21 03:30 36.5 63 18 112/57 (75) 95 Nasal Cannula 3.00 11/04/21 00:21 64 18 104/54 (71) 97 Nasal Cannula 3.00 11/03/21 23:12 36.0 66 20 88/62 (71) 98 Nasal Cannula 3.00 11/03/21 21:00 Nasal Cannula 3.00 11/03/21 20:00 18 11/03/21 19:35 36.7 64 20 94/62 (73) 97 Nasal Cannula 3.00 11/03/21 19:20 97 Nasal Cannula 3.00 11/03/21 15:35 36.5 70 18 125/59 (81) 97 Nasal Cannula 3.00 11/03/21 12:00 35.5 61 16 99/64 (76) 95 Nasal Cannula 3.00 11/03/21 10:30 36.5 60 17 98/65 (76) 93 Nasal Cannula 3.00 11/03/21 10:15 Nasal Cannula 3.00 11/03/21 10:15 36.7 20 114/80 (91) 95 Nasal Cannula 3.00 11/03/21 10:15 99 Nasal Cannula 3.00 11/03/21 10:10 20 120/69 (86) 95 Nasal Cannula 3.00 11/03/21 10:00 20 120/69 (86) 95 Nasal Cannula 3.00 11/03/21 10:00 Nasal Cannula 3.00 11/03/21 09:50 20 111/69 (83) 95 OxyMask 3.00 11/03/21 09:45 OxyMask 10.00 11/03/21 09:40 20 136/65 (88) 99 OxyMask 10.00 11/03/21 09:30 OxyMask 10.00 11/03/21 09:30 20 163/94 (117) 99 OxyMask 10.00 11/03/21 09:20 20 186/93 (124) 100 OxyMask 10.00 11/03/21 09:15 OxyMask 10.00 11/03/21 09:13 OxyMask 10.00 11/03/21 09:13 36.7 20 138/89 (105) 100 OxyMask 10.00 I & O 11/04/21 07:00 Intake Total 2750 ml Output Total 300 ml Balance 2450 ml Laboratory Tests Test 11/04/21 06:30 Range/Units White Blood Count 8.1 4.3-11.0 10^3/uL Red Blood Count 2.97 L 3.80-5.11 10^6/uL Hemoglobin 10.1 L 11.5-16.0 g/dL Hematocrit 31 L 35-52 % Mean Corpuscular Volume 103 H 80-99 fL Mean Corpuscular Hemoglobin 34 25-34 pg Mean Corpuscular Hemoglobin Concent 33 32-36 g/dL Red Cell Distribution Width 14.3 10.0-14.5 % Platelet Count 183 130-400 10^3/uL Mean Platelet Volume 10.5 9.0-12.2 fL Immature Granulocyte % (Auto) 1 % Neutrophils (%) (Auto) 75 42-75 % Lymphocytes (%) (Auto) 10 L 12-44 % Monocytes (%) (Auto) 13 H 0-12 % Eosinophils (%) (Auto) 2 0-10 % Basophils (%) (Auto) 0 0-10 % Neutrophils # (Auto) 6.0 1.8-7.8 10^3/uL Lymphocytes # (Auto) 0.8 L 1.0-4.0 10^3/uL Monocytes # (Auto) 1.0 0.0-1.0 10^3/uL Eosinophils # (Auto) 0.1 0.0-0.3 10^3/uL Basophils # (Auto) 0.0 0.0-0.1 10^3/uL Immature Granulocyte # (Auto) 0.0 0.0-0.1 10^3/uL Sodium Level 140 135-145 MMOL/L Potassium Level 4.3 3.6-5.0 MMOL/L Chloride Level 108 H 98-107 MMOL/L Carbon Dioxide Level 23 21-32 MMOL/L Anion Gap 9 5-14 MMOL/L Blood Urea Nitrogen 28 H 7-18 MG/DL Creatinine 1.26 0.60-1.30 MG/DL Estimat Glomerular Filtration Rate 44 BUN/Creatinine Ratio 22 Glucose Level 124 H 70-105 MG/DL Calcium Level 7.3 L 8.5-10.1 MG/DL Corrected Calcium 7.9 L 8.5-10.1 MG/DL Total Bilirubin 0.5 0.1-1.0 MG/DL Aspartate Amino Transf (AST/SGOT) 37 H 5-34 U/L Alanine Aminotransferase (ALT/SGPT) 33 0-55 U/L Alkaline Phosphatase 59 40-136 U/L Total Protein 5.7 L 6.4-8.2 GM/DL Albumin 3.2 3.2-4.5 GM/DL LLE--dresssing intact no calf tenderness neg Bautista's s/p LTKA PT/OT to IRU tomorrow? YAHIR CHÁVEZ MD Nov 04, 2021 08:12
[2021-11-04] MEDS: ENOXAPARIN INJECTION 30 MG/0.3 ML SYR SC SCH ×2 (09:11→20:45)
[2021-11-04] MEDS: SENNA W/DOCUSATE (SENOKOT S) TABLET PO SCH ×3 (09:12→20:44)
[2021-11-04] MEDS: ASPIRIN E.C. 81 MG (ECOTRIN) TAB PO SCH (09:12)
--- NOTE | 2021-11-04 09:35 | Physical Therapy Daily Note ---
PT Daily Note-Current Subjective Patient agrees to PT. Patient is very lethargic. Pain Numeric Pain Scale: 8 Location: Left Location Body Site: Knee Pain Description: Acute Mental Status Patient Orientation: Normal For Age Attachments: Oxygen, Angulo Catheter, IV Transfers SCALE: Activities may be completed with or without assistive devices. 0-Iopcqxmkwp-nnzsunc completes the activity by him/herself with no assistance from a helper. 5-Set-up or Clean-up Assistance-helper sets up or cleans up; patient completes activity. [place] assists only prior to or following the activity. 4-Supervision or Touching Assistance-helper provides verbal cues and/or touching/steadying and/or contact guard assistance as patient completes activity. Assistance may be provided throughout the activity or intermittently. 3-Partial/Moderate Assistance-helper does LESS THAN HALF the effort. [place] lifts, holds or supports trunk or limbs, but provides less than half the effort. 2-Substantial/Maximal Assistance-helper does MORE THAN HALF the effort. [place] lifts or holds trunk or limbs and provides more than half the effort. 1-Afvohgziv-gucyov does ALL the effort. Patient does none of the effort to complete the activity. Or, the assistance of 2 or more helpers is required for the patient to complete the activity. If activity was not attempted, code reason: 7-Patient Refused. 9-Not Applicable-not attempted and the patient did not perform the activity before the current illness, exacerbation or injury. 10-Not Attempted due to Environmental Limitations-(lack of equipment, weather restraints, etc.). 88-Not Attempted due to Medical Conditions or Safety Concerns. Lying to Sitting/Side of Bed(Q: 4 Sit to Stand (QC): 4 Chair/Kfw-fb-Zycck Xfer(QC): 4 Weight Bearing Left Lower Extremity: Left Weight Bearing/Tolerated Gait Training Distance: 15' Walk 10 feet (QC): 4 Gait Assistive Device: FWW slow and antalgic Exercises Supine Ex: Ankle pumps, Quad Set, Heel Slides, Straight leg raise Supine Reps: 12 Seated Therapy Exercises: Long arc quads Seated Reps: 12 Assessment Patient requires time to complete all functional tasks. Patient up in recliner with needs met. ROM improving slowly. Pain medication has been issued prior. Education on use of pain pills and MEDICAL DIRECTOR/HEAD TEAM PHYSICIAN to patient and spouse. PT Long-Term Goals Long-Term Goals PT Long-Term Goals Time Frame: Nov 10, 2021 Roll Left & Right (QC): 4 Sit to Lying (QC): 4 Lying-Sitting on Side/Bed(QC): 4 Sit to Stand (QC): 4 Chair/Cfx-vt-Jlacu Xfer(QC): 4 Walk 10 feet (QC): 4 Walk 50ft with 2 Turns (QC): 4 PT Plan Treatment/Plan Treatment Plan: Continue Plan of Care Treatment Plan: Bed Mobility, Education, Functional Activity Anya, Functional Strength, Gait, Safety, Therapeutic Exercise, Transfers Treatment Duration: Nov 10, 2021 Frequency: 11 times per week Estimated Hrs Per Day: .25 hour per day Patient and/or Family Agrees t: Yes Time/GCodes Time In: 801 Time Out: 830 Total Billed Treatment Time: 29 Total Billed Treatment 1 visit EX 20 min GT 9 min JACINTA LEMUS PT Nov 04, 2021 09:35
--- NOTE | 2021-11-04 10:24 | Anesthesia-General Post-Op ---
General Patient Condition Mental Status/LOC: Same as Preop Cardiovascular: Satisfactory Nausea/Vomiting: Absent Respiratory: Satisfactory Pain: Controlled Complications: Absent Post Op Complications Complications None Follow Up Care/Instructions Patient Instructions None needed. Anesthesia/Patient Condition Patient Condition Patient is doing well, no complaints, stable vital signs, no apparent adverse anesthesia problems. No complications reported per nursing. VIMAL ROWELL CRNA Nov 04, 2021 10:24
[2021-11-04] MEDS ORDERED: LACTULOSE SYRUP 10GM/15ML (ENULOSE) 30ML UDC PO NR (11:00)
[2021-11-04] MEDS ORDERED: SENNA W/DOCUSATE (SENOKOT S) TABLET PO NR (11:00)
[2021-11-04] MEDS: BETHANECHOL 25 MG (URECHOLINE) TAB PO SCH ×3 (11:14→20:44)
--- NOTE | 2021-11-04 11:48 | Occupational Therapy Eval ---
OT Evaluation-General/PLF Medical Diagnosis Admission Date Nov 03, 2021 at 05:47 Medical Diagnosis: left TKA Onset Date: Nov 03, 2021 Therapy Diagnosis Therapy Diagnosis: reduced adl status Height/Weight Height (Feet): 5 Height (Inches): 4.00 Weight (Pounds): 205 Weight (Ounces): 0 Precautions Precautions/Isolations: Fall Prevention, Standard Precautions Referral Physician: Michael Referral Reason: Evaluation/Treatment Medical History Additional Medical History pacemaker, brain stimulator (for tremors), Current History s/p L TKA Per patient, she lives in a single story home with her spouse, 2 steps to enter. She was indep with adls and her spouse completes all iadls. Pt is required to do all of the driving since her spouse has peripheral visual deficits. Pt was using a walker at baseline. Reviewed History: Yes Social History Home: Single Level Current Living Status: Spouse Entry Into Home: Stairs Without Railing Steps Into Home: 2 ADL-Prior Level of Function SCALE: Activities may be completed with or without assistive devices. 8-Bagydzlcgx-amybghd completes the activity by him/herself with no assistance from a helper. 5-Set-up or Clean-up Assistance-helper sets up or cleans up; patient completes activity. [place] assists only prior to or following the activity. 4-Supervision or Touching Assistance-helper provides verbal cues and/or touching/steadying and/or contact guard assistance as patient completes activity. Assistance may be provided throughout the activity or intermittently. 3-Partial/Moderate Assistance-helper does LESS THAN HALF the effort. [place] lifts, holds or supports trunk or limbs, but provides less than half the effort. 2-Substantial/Maximal Assistance-helper does MORE THAN HALF the effort. [place] lifts or holds trunk or limbs and provides more than half the effort. 8-Qyzqytuad-gstsmx does ALL the effort. Patient does none of the effort to complete the activity. Or, the assistance of 2 or more helpers is required for the patient to complete the activity. If activity was not attempted, code reason: 7-Patient Refused. 9-Not Applicable-not attempted and the patient did not perform the activity before the current illness, exacerbation or injury. 10-Not Attempted due to Environmental Limitations-(lack of equipment, weather restraints, etc.). 88-Not Attempted due to Medical Conditions or Safety Concerns. Self Care: Independent Functional Cognition: Needed Some Help DME/Equipment: Bath Chair, Grab Bars, Shower Drive Self: Yes OT Current Status Subjective Pt crying out in pain at OT arrival. reports pain as 9/10. RN in to give pain meds. Appearance Pt returned to sitting in recliner, all needs within reach. Spouse in the room. Mental Status/Objective Patient Orientation: Person, Place, Situation Attachments: IV, Oxygen Current Glasses/Contacts: Yes Hearing Aids: Yes Dentures/Partials: No Hand Dominance: Right Upper Extremity ROM WFL Upper Extremity Strength 3+/5 grossly ADL-Treatment On/Off Footwear (QC): 1 Toileting Hygiene (QC): 1 (ferrer catheter) Pt reclined in chair at OT arrival. She is crying out in pain. When OT positions chair with feet down, pt verbalizes a significant increase in pain. At this time, pt unable to tolerate Left knee in flexed position. Secondary to pain and reduced knee ROM, pt is dependent to don/doff bilateral socks. Due to pain, feet returned to elevated position. Limited assessment completed. Education to family/patient on rehab expectations as pt has been accepted to ARU. Education OT Patient Education: Correct positioning, Modified ADL techniques, Purpose of tx/functional activities, Reviewed precautions, Rehab process, Safety issues, Transfer techniques Teaching Recipient: Patient, Family Teaching Methods: Discussion Response to Teaching: Verbalize Understanding, Reinforcement Needed OT Retirement Goals Grout Pump Operator Goals Time Frame: Nov 18, 2021 Eating (QC): 5 Oral Hygiene (QC): 5 Toileting Hygiene (QC): 4 Shower/Bathe Self (QC): 4 Upper Body Dressing (QC): 5 Lower Body Dressing (QC): 4 On/Off Footwear (QC): 4 1=Demonstrate adherence to instructed precautions during ADL tasks. 2=Patient will verbalize/demonstrate understanding of assistive devices/modifications for ADL. 3=Patient will improve strength/tolerance for activity to enable patient to perform ADL's. OT Education/Plan Problem List/Assessment Assessment: Decreased Activ Tolerance, Decreased Safety Aware, Decreased UE Strength, Impaired Funct Balance, Impaired Self-Care Skills Discharge Recommendations Plan/Recommendations: Continue POC Therapy Discharge Recommendati: Post Acute OT Treatment Plan/Plan of Care Treatment,Training & Education: Yes Patient would benefit from OT for education, treatment and training to promote independence in ADL's, mobility, safety and/or upper extremity function for ADL's. Plan of Care: ADL Retraining, Functional Mobility, Group Exercise/Act as Ind, UE Funct Exercise/Act Treatment Duration: Nov 18, 2021 Frequency: 5 times per week Estimated Hrs Per Day: .25 hour per day Agreement: Yes Rehab Potential: Fair Time/GCodes Start Time: 11:09 Stop Time: 11:23 Total Time Billed (hr/min): 14 Billed Treatment Time 1 visit Itzel Burns OT Nov 04, 2021 11:48
--- NOTE | 2021-11-04 13:22 | Progress Note ---
PATRICIA BO 11/04/21 1322: Subjective Date Seen by a Provider: Nov 04, 2021 Time Seen by a Provider: 10:30 Subjective/Events-last exam 76 F with hx of OA, RA, psoriatic arthritis, and tremor s/p Lt TKA by Dr. Guzman on day 2 of admission s/p Lt TKA. Pt had a ferrer catheter place on 11/03 due to retention. Pt claims they are in pain at 8/10 for entire Lt LE and worse with ambulation. Physical therapy has started. No BM since procedure. Plans to transfer to in-pt rehab tomorrow to improve mobility and strength. Review of Systems General: No Chills, No Night Sweats HEENT: No Head Aches Pulmonary: Dyspnea, Cough Cardiovascular: No: Chest Pain, Palpitations Gastrointestinal: Constipation; No: Nausea, Vomiting Genitourinary: Retention Musculoskeletal: leg pain (Lt ) Neurological: No: Numbness, Change in speech Objective Exam Last Set of Vital Signs Vital Signs Date Time Temp Pulse Resp B/P (MAP) Pulse Ox O2 Delivery O2 Flow Rate FiO2 11/04/21 11:44 36.9 71 20 127/73 (91) 96 Nasal Cannula 3.00 Capillary Refill : Less Than 3 Seconds I&O Intake and Output 11/04/21 00:00 Intake Total 2600 ml Output Total 0 ml Balance 2600 ml Intake Oral 50 ml IV Total 2550 ml Output Urine Total 0 ml Daily Weight Change No General: Alert, Oriented X3, Cooperative, Moderate Distress HEENT: Atraumatic Neck: Supple Lungs: Other (Wheezes on expiration) Heart: Regular Rate, No Murmurs Abdomen: Soft, No Tenderness Extremities: Normal Pulses, Other (Lt LE tender to light palpation) Skin: No Rashes Neuro: Normal Speech, Normal Tone Psych/Mental Status: Mental Status NL, Mood NL Results Lab Laboratory Tests 11/04/21 06:30: White Blood Count 8.1, Red Blood Count 2.97L, Hemoglobin 10.1L, Hematocrit 31L, Mean Corpuscular Volume 103H, Mean Corpuscular Hemoglobin 34, Mean Corpuscular Hemoglobin Concent 33, Red Cell Distribution Width 14.3, Platelet Count 183, Mean Platelet Volume 10.5, Immature Granulocyte % (Auto) 1, Neutrophils (%) (Auto) 75, Lymphocytes (%) (Auto) 10L, Monocytes (%) (Auto) 13H, Eosinophils (%) (Auto) 2, Basophils (%) (Auto) 0, Neutrophils # (Auto) 6.0, Lymphocytes # (Auto) 0.8L, Monocytes # (Auto) 1.0, Eosinophils # (Auto) 0.1, Basophils # (Auto) 0.0, Immature Granulocyte # (Auto) 0.0, Sodium Level 140, Potassium Level 4.3, Chl oride Level 108H, Carbon Dioxide Level 23, Anion Gap 9, Blood Urea Nitrogen 28H, Creatinine 1.26, Estimat Glomerular Filtration Rate 44, BUN/Creatinine Ratio 22, Glucose Level 124H, Calcium Level 7.3L, Corrected Calcium 7.9L, Total Bilirubin 0.5, Aspartate Amino Transf (AST/SGOT) 37H, Alanine Aminotransferase (ALT/SGPT) 33, Alkaline Phosphatase 59, Total Protein 5.7L, Albumin 3.2 Assessment/Plan Assessment/Plan Assess & Plan/Chief Complaint Continue supportive care Control pain continue DVT prophylaxis monitor BP PT/OT Continue O2 started on senna, Bethanecol, and lactulose to relieve urinary retention and constipation Tx to in-pt rehab tomorrow AMINTA TAPIA DO 11/04/212129: Subjective Subjective/Events-last exam Labs reviewed Ferrer catheter maintained Urecholine we will start Supervisory-Addendum Brief Verification & Attestation Participated in pt care: history, MDM, physical Personally performed: exam, history, MDM, supervision of care Care discussed with: Medical Student Procedures: n/a Results interpretation: Verified all documentation Verification and Attestation of Medical Student E/M Service A medical student performed and documented this service in my presence. I reviewed and verified all information documented by the medical student and made modifications to such information, when appropriate. I personally performed the physical exam and medical decision making. Aminta Tapia Nov 04, 2021,21:30 PATRICIA BO Nov 04, 2021 13:22 AMINTA TAPIA DO Nov 04, 2021 21:30
--- NOTE | 2021-11-04 14:30 | Physical Therapy Daily Note ---
PT Daily Note-Current Subjective Patient reports she is moving to rehab tomorrow. Agrees to PT. Pain Numeric Pain Scale: 10-Worst Possible Pain Location: Left Location Body Site: Knee Pain Description: Acute Mental Status Patient Orientation: Normal For Age Attachments: Angulo Catheter, Polar Pack, IV Transfers SCALE: Activities may be completed with or without assistive devices. 9-Pwoklblqiu-cjxzfok completes the activity by him/herself with no assistance from a helper. 5-Set-up or Clean-up Assistance-helper sets up or cleans up; patient completes activity. [place] assists only prior to or following the activity. 4-Supervision or Touching Assistance-helper provides verbal cues and/or touching/steadying and/or contact guard assistance as patient completes activit y. Assistance may be provided throughout the activity or intermittently. 3-Partial/Moderate Assistance-helper does LESS THAN HALF the effort. [place] lifts, holds or supports trunk or limbs, but provides less than half the effort. 2-Substantial/Maximal Assistance-helper does MORE THAN HALF the effort. [place] lifts or holds trunk or limbs and provides more than half the effort. 5-Tntvzuyqt-fbpdki does ALL the effort. Patient does none of the effort to complete the activity. Or, the assistance of 2 or more helpers is required for the patient to complete the activity. If activity was not attempted, code reason: 7-Patient Refused. 9-Not Applicable-not attempted and the patient did not perform the activity before the current illness, exacerbation or injury. 10-Not Attempted due to Environmental Limitations-(lack of equipment, weather restraints, etc.). 88-Not Attempted due to Medical Conditions or Safety Concerns. Lying to Sitting/Side of Bed(Q: 3 Sit to Stand (QC): 3 Weight Bearing Left Lower Extremity: Left Weight Bearing/Tolerated Gait Training Distance: 50' Walk 10 feet (QC): 3 Walk 50 ft with 2 Turns(QC): 3 Gait Assistive Device: FWW very slow, antalgic, step to gait sequence Exercises Supine Ex: Ankle pumps, Quad Set, Heel Slides, Straight leg raise Supine Reps: 12 (AAROM) Seated Therapy Exercises: Long arc quads Seated Reps: 12 (AAROM) Assessment Patient progressing very slowly with treatment. Patient limits weight bearing and ROM left knee due to pain. PT to increase activity as tolerated by patient. PT Kiln Placer Goals Kiln Placer Goals PT Custodial Goals Time Frame: Nov 10, 2021 Roll Left & Right (QC): 4 Sit to Lying (QC): 4 Lying-Sitting on Side/Bed(QC): 4 Sit to Stand (QC): 4 Chair/Obf-hj-Lcgdl Xfer(QC): 4 Walk 10 feet (QC): 4 Walk 50ft with 2 Turns (QC): 4 PT Plan Treatment/Plan Treatment Plan: Continue Plan of Care Treatment Plan: Bed Mobility, Education, Functional Activity Anya, Functional Strength, Gait, Safety, Therapeutic Exercise, Transfers Treatment Duration: Nov 10, 2021 Frequency: 11 times per week Estimated Hrs Per Day: .25 hour per day Patient and/or Family Agrees t: Yes Time/GCodes Time In: 1300 Time Out: 1330 Total Billed Treatment Time: 30 Total Billed Treatment 1 visit GT 17 min EX 13 min JACINTA LEMUS PT Nov 04, 2021 14:30
[2021-11-04] MEDS ORDERED: METH2.5T PO (15:12)
[2021-11-04] MEDS ORDERED: PRIM50TA33 PO (15:12)
[2021-11-04] MEDS ORDERED: VITA1CAP PO (15:12)
[2021-11-04] MEDS ORDERED: PARO40TA3 PO (15:12)
[2021-11-04] MEDS: LACTULOSE SYRUP 10GM/15ML (ENULOSE) 30ML UDC PO SCH (20:44)
[2021-11-04] MEDS: NS IV 1000 ML 1,000 ML IV SCH ×2 (20:47→23:28)
[2021-11-05] MEDS: oxyCODONE/APAP 5/325MG (PERCOCET 5) TABLET PO PRN ×3 (02:52→09:55)
[2021-11-05 04:00] VITALS: BP 121/67
--- NOTE | 2021-11-05 04:06 | DISCHARGE SUMMARY ---
DATE OF SERVICE: DATE OF DISCHARGE: 11/05/2021 . DIAGNOSES: 1. Left knee primary osteoarthritis. 2. Hypercalcemia. 3. Psoriatic arthritis. 4. Rheumatoid arthritis. 5. Osteopenia. 6. Essential tremor. 7. Gout. 8. Hypertension. 9. IHSS. 10. Kidney stone. 11. Coronary artery disease. 12. Hypertension. 13. Hearing loss. PROCEDURE: Left total knee arthroplasty. SUMMARY: The patient is a 76-year-old female who underwent a left total knee arthroplasty on the day of admission. Postoperatively, she progressed well, but slowly. At time of discharge, her wound was clean and dry. She had no calf tenderness. Negative Homans sign. CONDITION AT DISCHARGE: Good. DISCHARGE DIET: Regular. DISPOSITION: Transferred to the inpatient rehabilitation unit for continued physical and occupational therapy. Job ID: [id number] DocumentID: [id number] Dictated Date: 11/04/2021 19:02:38 Cloth Worker Date: 11/05/2021 04:06:03 Dictated By: YAHIR CHÁVEZ MD
[2021-11-05] MEDS: BETHANECHOL 25 MG (URECHOLINE) TAB PO SCH ×2 (05:31→09:55)
[2021-11-05 05:53] LABS: BASOPHILS % (AUTO) 0 % (0-10); EOSINOPHILS # (AUTO) 0.2 10^3/uL (0.0-0.3); EOSINOPHILS % (AUTO) 2 % (0-10); HEMATOCRIT 28 % (35-52); HEMOGLOBIN 9.3 g/dL (11.5-16.0); LYMPHOCYTES % (AUTO) 11 % (12-44); MEAN CORPUSCULAR HEMOGLOBIN 34 pg (25-34); MEAN CORPUSCULAR HGB CONC 34 g/dL (32-36); MEAN CORPUSCULAR VOLUME 103 fL (80-99); MEAN PLATELET VOLUME 10.6 fL (9.0-12.2); MONOCYTES # (AUTO) 1.6 10^3/uL (0.0-1.0); MONOCYTES % (AUTO) 16 % (0-12); NEUTROPHILS # (AUTO) 6.8 10^3/uL (1.8-7.8); NEUTROPHILS % (AUTO) 71 % (42-75); PLATELET COUNT 161 10^3/uL (130-400); WHITE BLOOD COUNT 9.6 10^3/uL (4.3-11.0)
[2021-11-05 06:10] LABS: POTASSIUM 3.5 MMOL/L (3.6-5.0)
[2021-11-05 06:11] LABS: CALCIUM 7.3 MG/DL (8.5-10.1)
[2021-11-05 06:12] LABS: TOTAL PROTEIN 5.5 GM/DL (6.4-8.2)
[2021-11-05 06:14] LABS: BILIRUBIN,TOTAL 0.6 MG/DL (0.1-1.0)
[2021-11-05 06:16] LABS: CREATININE SERUM 0.84 MG/DL (0.60-1.30)
--- NOTE | 2021-11-05 07:03 | Progress Note ---
Standard Progress Note Progress Notes/Assess & Plan Date Seen by a Provider: Nov 05, 2021 Time Seen by a Provider: 07:02 Progress/Assessment & Plan post op check no complaints radiographs--HW well positioned without fracture LLE--dressing intact intact DF and PF of toes and ankle with intact sensation throughout 2 plus DP pulse with brisk cap refill s/p L TKA mobilize as able Final Diagnosis feeling better Vital Signs Date Time Temp Pulse Resp B/P (MAP) Pulse Ox O2 Delivery O2 Flow Rate FiO2 11/05/21 04:00 35.8 77 18 121/67 (85) 94 Nasal Cannula 1.00 11/04/21 23:28 36.7 75 18 105/63 (77) 97 Nasal Cannula 3.00 11/04/21 21:00 Nasal Cannula 2.00 11/04/21 21:00 18 11/04/21 19:03 37.4 69 18 115/53 (73) 96 Nasal Cannula 3.00 11/04/21 16:36 37.3 11/04/21 15:40 37.3 73 18 116/54 (74) 96 Nasal Cannula 3.00 11/04/21 11:44 36.9 71 20 127/73 (91) 96 Nasal Cannula 3.00 11/04/21 10:07 Nasal Cannula 2.00 11/04/21 09:00 95 Nasal Cannula 2.00 11/04/21 08:34 37.1 74 17 103/65 (78) 95 Nasal Cannula 3.00 I & O 11/05/21 07:00 Intake Total 1520 ml Output Total 1050 ml Balance 470 ml Laboratory Tests Test 11/05/21 05:34 11/05/21 05:55 Range/Units Sodium Level 139 135-145 MMOL/L Potassium Level 3.5 L 3.6-5.0 MMOL/L Chloride Level 109 H 98-107 MMOL/L Carbon Dioxide Level 20 L 21-32 MMOL/L Anion Gap 10 5-14 MMOL/L Blood Urea Nitrogen 22 H 7-18 MG/DL Creatinine 0.84 0.60-1.30 MG/DL Estimat Glomerular Filtration Rate 71 BUN/Creatinine Ratio 26 Glucose Level 112 H 70-105 MG/DL Calcium Level 7.3 L 8.5-10.1 MG/DL Corrected Calcium 8.1 L 8.5-10.1 MG/DL Total Bilirubin 0.6 0.1-1.0 MG/DL Aspartate Amino Transf (AST/SGOT) 29 5-34 U/L Alanine Aminotransferase (ALT/SGPT) 27 0-55 U/L Alkaline Phosphatase 47 40-136 U/L Total Protein 5.5 L 6.4-8.2 GM/DL Albumin 3.0 L 3.2-4.5 GM/DL White Blood Count 9.6 4.3-11.0 10^3/uL Red Blood Count 2.71 L 3.80-5.11 10^6/uL Hemoglobin 9.3 L 11.5-16.0 g/dL Hematocrit 28 L 35-52 % Mean Corpuscular Volume 103 H 80-99 fL Mean Corpuscular Hemoglobin 34 25-34 pg Mean Corpuscular Hemoglobin Concent 34 32-36 g/dL Red Cell Distribution Width 14.1 10.0-14.5 % Platelet Count 161 130-400 10^3/uL Mean Platelet Volume 10.6 9.0-12.2 fL Immature Granulocyte % (Auto) 0 % Neutrophils (%) (Auto) 71 42-75 % Lymphocytes (%) (Auto) 11 L 12-44 % Monocytes (%) (Auto) 16 H 0-12 % Eosinophils (%) (Auto) 2 0-10 % Basophils (%) (Auto) 0 0-10 % Neutrophils # (Auto) 6.8 1.8-7.8 10^3/uL Lymphocytes # (Auto) 1.0 1.0-4.0 10^3/uL Monocytes # (Auto) 1.6 H 0.0-1.0 10^3/uL Eosinophils # (Auto) 0.2 0.0-0.3 10^3/uL Basophils # (Auto) 0.0 0.0-0.1 10^3/uL Immature Granulocyte # (Auto) 0.0 0.0-0.1 10^3/uL LLE--incision clean and dry. No calf tenderness. Neg Karime's s/p LTKA reinforced the importance of mobility/PT/OT need to DC Angulo NICOLE medically To IR\U today YAHIR CHÁVEZ MD Nov 05, 2021 07:03
[2021-11-05] MEDS ORDERED: morphine INJ 4 MG/ML 1 ML (VIAL/SYRINGE) IVP PRN (07:15)
[2021-11-05] MEDS: ENOXAPARIN INJECTION 30 MG/0.3 ML SYR SC SCH (07:57)
[2021-11-05] MEDS: ASPIRIN E.C. 81 MG (ECOTRIN) TAB PO SCH (07:57)
[2021-11-05] MEDS: SENNA W/DOCUSATE (SENOKOT S) TABLET PO SCH ×2 (07:57)
[2021-11-05] MEDS: LACTULOSE SYRUP 10GM/15ML (ENULOSE) 30ML UDC PO SCH (07:57)
[2021-11-05 08:00] VITALS: BP 104/54
[2021-11-05 10:00] VITALS: BP 104/54
[2021-11-05] MEDS ORDERED: ONDANSETRON 4 MG/2 ML (SDV) Z0FRAN ONE (10:14)
--- NOTE | 2021-11-05 13:31 | Progress Note ---
PATRICIA BO 11/05/21 1331: Progress Note 76 F with hx of OA, RA, psoriatic arthritis, and tremor s/p Lt TKA by Dr. Guzman on 11/02/2021 was admitted for further monitoring and PT/OT. Angulo cath was placed post-op due to retention with plans to DC when no longer needed medically. Pt complained on diffuse Lt LE pain post op that has limited therapy. DVT prophylaxis labs fluidsO2 and pain control were monitored for length of stay. Per ortho, x-ray confirmed good placement and sufficient wound healing. Pt was transferred to in-pt rehab for a short course of therapy on 11/05/2021 to improve strength and ambulation.Plans to dc to home in near future. AMINTA TAPIA DO 11/05/214: Supervisory-Addendum Brief Verification & Attestation Participated in pt care: history, MDM, physical Personally performed: exam, history, MDM, supervision of care Care discussed with: Medical Student Procedures: n/a Results interpretation: Verified all documentation Verification and Attestation of Medical Student E/M Service A medical student performed and documented this service in my presence. I reviewed and verified all information documented by the medical student and made modifications to such information, when appropriate. I personally performed the physical exam and medical decision making. Aminta Tapia, Nov 05, 2021,21:14 PATRICIA BO Nov 05, 2021 13:31 AMINTA TAPIA DO Nov 05, 2021 21:14
== END 2021-11-05 10:00 | disposition home health service (06) | DRG 470 ==
LOC: 4TH 05:47 → SURG 05:48 → 4TH 11:10
PROVIDERS: ADMIT Orthopaedic Surgery; ATTEND Orthopaedic Surgery
PROC: 0SRD0J9 Replacement of Left Knee Joint with Synthetic Substitute, Cemented, Open Approach (ICD-10-PCS; principal; 2021-11-03 07:34)
DX: M17.12 Unilateral primary osteoarthritis, left knee (principal); M10.9 Gout, unspecified; I10 Essential (primary) hypertension; I25.10 Atherosclerotic heart disease of native coronary artery without angina pectoris; M81.0 Age-related osteoporosis without current pathological fracture; M06.9 Rheumatoid arthritis, unspecified; F41.9 Anxiety disorder, unspecified; K57.90 Diverticulosis of intestine, part unspecified, without perforation or abscess without bleeding; E89.0 Postprocedural hypothyroidism; G25.0 Essential tremor; E83.52 Hypercalcemia; L40.50 Arthropathic psoriasis, unspecified; M85.80 Other specified disorders of bone density and structure, unspecified site; N20.0 Calculus of kidney; H91.90 Unspecified hearing loss, unspecified ear
CPT/HCPCS: 36415; 73560; 80053; 85025; 94664

== ENCOUNTER 2021-11-05 09:45 | Inpatient (IN) | payer MEDICARE, OTHER ==
[~2021-11-05] VITALS: Ht 160 cm; Wt 95.0 kg
[~2021-11-05 09:45] MED LIST changes: +ACETAMINOPHEN 325 MG TABLET PO PRN; +BISACODYL 10 MG SUPP (DULCOLAX) PR PRN; +CALCIUM CARBONATE 500 MG (TUMS) TAB.CHEW PO PRN; +DOCUSATE SODIUM 100 MG (COLACE) CAP PO PRN; +FLEET ENEMA ADULT 1 EA BTL PR PRN; +LACTULOSE SYRUP 10GM/15ML (ENULOSE) 30ML UDC PO PRN; +LOPERAMIDE 2 MG (IMODIUM) TABLET PO PRN; +MELATONIN 3 MG TABLET PO PRN; +METH2.5T PO; +ONDANSETRON 4 MG (ZOFRAN) ORAL DISSOLVE TAB PO PRN; +PARO40TA3 PO; +PRIM50TA33 PO; +SENNA W/DOCUSATE (SENOKOT S) TABLET PO SCH; +VITA1CAP PO; +diphenhydrAMINE 25 MG TAB (BENADRYL) PO PRN; +guaiFENesin/CODEINE (ROBITUSSIN AC) 10ML UDC PO PRN
--- NOTE | 2021-11-05 10:32 | Physical Therapy Evaluation ---
PT Evaluation-General Medical Diagnosis Admission Date Medical Diagnosis: left TKA Onset Date: Nov 03, 2021 Therapy Diagnosis Therapy Diagnosis: impaired mobility, ROM Height/Weight Height (Feet): 5 Height (Inches): 4.00 Weight (Pounds): 205 Weight (Ounces): 0 Weight Bear Status Left Lower Extremity: Left Weight Bearing/Tolerated Referral Physician: Aminta Garcia DO Reason for Referral: Evaluation/Treatment Medical History Additional Medical History PAST MEDICAL HISTORY: Hypercalcemia, osteoarthritis, psoriatic arthritis, rheumatoid arthritis, osteopenia, essential tremor, gout, hypertension, IHSS, kidney stone, coronary artery disease, hypertension, osteoporosis, hearing. PAST SURGICAL HISTORY: Hysterectomy, appendectomy, cholecystectomy, left rotator cuff repair, bilateral knee arthroscopy. Ethanol ablation for IHSS, right parathyroidectomy, thyroid isthmusectomy, Medtronic pacemaker placement, right bunionectomy x3, right cubital tunnel release, brain stimulator for tremors, left knee arthroscopy. Reviewed History: Yes Social History Current Living Status: Spouse Entry Into Home: Stairs With Railing PT Steps Into Home: 2 Prior Prior Level of Function SCALE: Activities may be completed with or without assistive devices. 0-Zyebcocytg-kjgmmyv completes the activity by him/herself with no assistance from a helper. 5-Set-up or Clean-up Assistance-helper sets up or cleans up; patient completes activity. [place] assists only prior to or following the activity. 4-Supervision or Touching Assistance-helper provides verbal cues and/or touching/steadying and/or contact guard assistance as patient completes activity. Assistance may be provided throughout the activity or intermittently. 3-Partial/Moderate Assistance-helper does LESS THAN HALF the effort. [place] lifts, holds or supports trunk or limbs, but provides less than half the effort. 2-Substantial/Maximal Assistance-helper does MORE THAN HALF the effort. [place] lifts or holds trunk or limbs and provides more than half the effort. 2-Vwoeapcke-dxkljy does ALL the effort. Patient does none of the effort to complete the activity. Or, the assistance of 2 or more helpers is required for the patient to complete the activity. If activity was not attempted, code reason: 7-Patient Refused. 9-Not Applicable-not attempted and the patient did not perform the activity before the current illness, exacerbation or injury. 10-Not Attempted due to Environmental Limitations-(lack of equipment, weather restraints, etc.). 88-Not Attempted due to Medical Conditions or Safety Concerns. Bed Mobility: 6 Transfers (B,C,W/C): 6 Gait: 6 Stairs: 6 Indoor Mobility (Ambulation): Independent Stairs: Independent Prior Devices Use: Walker PT Evaluation-Current Subjective Patient in bed pre tx, agrees to PT, has 8/10 pain in left knee, nurse gives pain meds. Pt/Family Goals to be independent at home Objective Patient Orientation: Person, Place, Situation Attachments: Oxygen, Angulo Catheter ROM/Strength ROM Lower Extremities left knee extension +10 degrees, flexion 75 degrees Sensory Vision: Wears Glasses Hearing: Functional Sensation Right Lower Extremit: Intact Sensation Left Lower Extremity: Intact Transfers Roll Left & Right (QC): 3 Sit to Lying (QC): 3 Lying to Sitting/Side of Bed(Q: 3 Sit to Stand (QC): 3 Chair/Mum-wx-Xvntl Xfer(QC): 3 Toilet Transfer (QC): 3 Car Transfer (QC): 88 Patient can perform rolling and supine <-> sit mod assist, sit <-> stand and transfers min assist. Patient is not able to perform a car transfer at this time due to pain and not being able to bend her knee far enough to get into the car simulator. Patient can not bear much if any weight on her left knee and cannot bear all of her weight on her arms so has a hard time taking steps during transfers. Gait Does the Patient Walk?: Yes Mode of Locomotion: Both Anticipated Mode of Locomotion: Walk Walk 10 feet (QC): 88 Walk 50 ft with 2 Turns(QC): 88 Walk 150 ft (QC): 88 Walking 10ft/uneven surface-QC: 88 Distance: 6' Gait Assistive Device: FWW Comments/Gait Description Patient can ambulate 6' with a rolling walker with min assist, gait is very antalgic, cannot bear much weight on left leg, poor step through and foot clearance Wheelchair Training Wheel 50 ft with 2 turns (QC): 1 Wheel 150 ft (QC): 1 Stairs 1 Step (curb) (QC): 88 4 Steps (QC): 88 12 Steps (QC): 88 Balance Sitting Static: Fair Sitting Dynamic: Fair Standing Static: Fair Standing Dynamic: Poor Picking up an Object (QC): 88 Treatment seated LLE exercises x10 (LAQ, HS, AP) Assessment/Needs Patient in WC at bedside post tx, has OT right after PT, has nurse call Rehab Potential: Fair PT Short Term Goals Short Term Goals Time Frame: Nov 12, 2021 Roll Left & Right: 3 (Yovani) Sit to lyin (Yovani) Lying to sitting on side of be: 3 (Yovani) Sit to stand: 4 (CGA) Chair/zxq-gl-pdlnf transfer: 4 (CGA) Walk 10 feet: 4 (CGA) Walk 50 feet with two turns: 4 (CGA) PT Penitentiary Goals Penitentiary Goals PT Penitentiary Goals Time Frame: Nov 26, 2021 Roll Left & Right (QC): 4 (SBA) Sit to Lying (QC): 4 (SBA) Lying-Sitting on Side/Bed(QC): 4 (SBA) Sit to Stand (QC): 4 (SBA) Chair/Ezi-bo-Zrguw Xfer(QC): 4 (SBA) Toilet Transfer (QC): 4 (SBA) Car Transfer (QC): 3 (Yovani) Does the Patient Walk: Yes Walk 10 feet (QC): 4 (SBA) Walk 50ft with 2 Turns (QC): 4 (SBA) Walk 150 ft (QC): 4 (SBA) Walking 10ft on Uneven Surface: 4 (SBA) 1 Step (curb) (QC): 3 (Yovani) 4 Steps (QC): 3 (Yovani) 12 Steps (QC): 88 Picking up an Object (QC): 4 (SBA) Wheel 50 feet with 2 turns (QC: 9 Wheel 150 feet: 9 PT Plan Problem List Problem List: Activity Tolerance, Functional Strength, Safety, Balance, Gait, Transfer, Bed Mobility, ROM Treatment/Plan Treatment Plan: Continue Plan of Care Treatment Plan: Bed Mobility, Education, Functional Activity Anya, Functional Strength, Group Therapy, Gait, Safety, Therapeutic Exercise, Transfers Treatment Duration: Nov 26, 2021 Frequency: At least 5 of 7 days/Wk (IRF) Estimated Hrs Per Day: 1.5 hours per day Patient and/or Family Agrees t: Yes Safety Risks/Education Patient Education: Gait Training, Transfer Techniques, Correct Positioning, Safety Issues Teaching Recipient: Patient Teaching Methods: Demonstration, Discussion Response to Teaching: Reinforcement Needed Discharge Recommendations Plan Patient will perform bed mobility and transfer training, balance and endurance training, functional strengthening, stair training, gait training, and education, to improve functional mobility and independence at home. Therapy Discharge Recommendati: Scheduled Assistance, Home & Family, Post Acute PT Time/GCodes Time In: 45 Time Out: 1030 Total Billed Treatment Time: 45 Total Billed Treatment 1 visit EVM 15' FA 30' SCOTT MARRERO PT Nov 05, 2021 10:32
[2021-11-05 10:35] VITALS: BP 127/60
[2021-11-05 10:36] VITALS: BP 127/60
--- NOTE | 2021-11-05 11:26 | Occupational Therapy Eval ---
OT Evaluation-General/PLF Medical Diagnosis Admission Date Nov 05, 2021 at 09:45 Medical Diagnosis: left TKA Onset Date: Nov 03, 2021 Therapy Diagnosis Therapy Diagnosis: reduced adl status Height/Weight Height (Feet): 5 Height (Inches): 4.00 Weight (Pounds): 205 Weight (Ounces): 0 Precautions Precautions/Isolations: Fall Prevention, Standard Precautions Weight Bear Status Weight Bearing Restriction: Weight Bearing/Tolerated Referral Physician: Aminta Garcia DO Referral Reason: Evaluation/Treatment Medical History Pertinent Medical History: CAD, HTN, OA, Rheumatoid Arthritis Additional Medical History pacemaker, brain stimulator (for essential tremors), Current History s/p L TKA Per patient, she lives in a single story home with her spouse, 2 steps to enter. She was indep with adls and her spouse completes all iadls. Pt is required to do all of the driving since her spouse has peripheral visual deficits. Pt was using a walker at baseline. Reviewed History: Yes Social History Home: Single Level Current Living Status: Spouse Entry Into Home: Stairs Without Railing Steps Into Home: 2 ADL-Prior Level of Function SCALE: Activities may be completed with or without assistive devices. 7-Amsnoxtkea-sclzgqw completes the activity by him/herself with no assistance from a helper. 5-Set-up or Clean-up Assistance-helper sets up or cleans up; patient completes activity. [place] assists only prior to or following the activity. 4-Supervision or Touching Assistance-helper provides verbal cues and/or touching/steadying and/or contact guard assistance as patient completes activity. Assistance may be provided throughout the activity or intermittently. 3-Partial/Moderate Assistance-helper does LESS THAN HALF the effort. [place] lifts, holds or supports trunk or limbs, but provides less than half the effort. 2-Substantial/Maximal Assistance-helper does MORE THAN HALF the effort. [place] lifts or holds trunk or limbs and provides more than half the effort. 5-Ofnucgvzg-bcvepc does ALL the effort. Patient does none of the effort to complete the activity. Or, the assistance of 2 or more helpers is required for the patient to complete the activity. If activity was not attempted, code reason: 7-Patient Refused. 9-Not Applicable-not attempted and the patient did not perform the activity before the current illness, exacerbation or injury. 10-Not Attempted due to Environmental Limitations-(lack of equipment, weather restraints, etc.). 88-Not Attempted due to Medical Conditions or Safety Concerns. Self Care: Independent Functional Cognition: Needed Some Help DME/Equipment: Bath Chair, Grab Bars, Shower Drive Self: Yes OT Current Status Subjective Pt reports 9/10 pain in L knee. Reports pain meds given ~1 hour prior Appearance Pt left sitting in w/c, all needs within reach at OT departure. Mental Status/Objective Patient Orientation: Person, Place, Situation Attachments: Ferrer Catheter, IV, Oxygen (1L) Current Glasses/Contacts: Yes Hearing Aids: Yes Dentures/Partials: No Hand Dominance: Right Upper Extremity ROM WFL Upper Extremity Strength 3+/5 grossly ADL-Treatment Eating (QC): 5 Oral Hygiene (QC): 4 Shower/Bathe Self (QC): 3 Upper Body Dressing (QC): 4 Lower Body Dressing (QC): 2 On/Off Footwear (QC): 1 Toileting Hygiene (QC): 1 (ferrer catheter) Pt Requests to defer shower at this time secondary to nausea and 9/10 pain in L knee. Agreeable to sponge bath. Majority of task completed seated at sink. Pt able to wash upper body, front gaby area, and down to mid calf. Assist needed to wash from calf to toes secondary to pain and impaired knee ROM. Mod a to stand at grab bars. Pt able to alternate one hand on grab bar as other washed buttocks. Poor standing tolerance and limited weight bearing through LLE observed. Min a for balance in standing with unilateral UE support. Clothing donned seated in w/c. Max a to thread BLE's into brief/pants. Pt could benefit from instruction on use of AE until pain subsides and ROM improves. Again, pt alternated hand on grab bar when managing clothing up to waist, however due to tight fit, mod-max a required to pull up in the back. Dependent to don bilateral socks. Grooming tasks performed at w/c level, supervision/set up. Education OT Patient Education: Correct positioning, Modified ADL techniques, Purpose of tx/functional activities, Reviewed precautions, Rehab process, Safety issues, Tr ansfer techniques, W/C management Teaching Recipient: Patient Teaching Methods: Demonstration, Discussion Response to Teaching: Verbalize Understanding, Return Demonstration, Reinforcement Needed OT Short Term Goals Short Term Goals Time Frame: Nov 12, 2021 Eatin Oral hygiene: 5 Toileting hygiene: 3 Shower/bathe self: 3 Upper body dressin Lower body dressin Putting on/taking off footwear: 3 OT Marble Cutter Goals Senior Care Goals Time Frame: Nov 24, 2021 Eating (QC): 6 Oral Hygiene (QC): 6 Toileting Hygiene (QC): 6 Shower/Bathe Self (QC): 5 Upper Body Dressing (QC): 5 Lower Body Dressing (QC): 5 On/Off Footwear (QC): 4 1=Demonstrate adherence to instructed precautions during ADL tasks. 2=Patient will verbalize/demonstrate understanding of assistive devices/modifications for ADL. 3=Patient will improve strength/tolerance for activity to enable patient to perform ADL's. OT Education/Plan Problem List/Assessment Assessment: Decreased Activ Tolerance, Decreased Safety Aware, Decreased UE Strength, Edema, Impaired Cognition, Impaired Funct Balance, Impaired Self-Care Skills Discharge Recommendations Plan/Recommendations: Continue POC Therapy Discharge Recommendati: Post Acute OT Equpiment Recommendations-D/C: Residential Program Coordinator, Sock Aide, [place] Treatment Plan/Plan of Care Treatment,Training & Education: Yes Patient would benefit from OT for education, treatment and training to promote independence in ADL's, mobility, safety and/or upper extremity function for ADL's. Plan of Care: ADL Retraining, Caregiver Training, Concurrent Therapy, Functional Mobility, Group Exercise/Act as Ind, UE Funct Exercise/Act Treatment Duration: Nov 24, 2021 Frequency: At least 5 of 7 days/Wk (IRF) Estimated Hrs Per Day: 1.5 hours per day (75-90 min/day ) Agreement: Yes Rehab Potential: Fair Time/GCodes Start Time: 10:30 Stop Time: 11:30 Total Time Billed (hr/min): 60 Billed Treatment Time 1 visit EVM (10 min) ADL x3 (50 min) Itzel Lopez OT Nov 05, 2021 11:26
[2021-11-05] MEDS: DOCUSATE SODIUM 100 MG (COLACE) CAP PO SCH ×2 (12:03→20:16)
[2021-11-05] MEDS: polyethylene glycoL POWDER 17 GM (MIRALAX) PACK PO SCH ×2 (12:03→20:16)
--- NOTE | 2021-11-05 12:13 | PM&R Post Admission Assessment ---
PM&R HP Date of Visit: Nov 05, 2021 Time of Visit: 13:00 History of Present Illness CC: Left total knee replacement HPI: This is a 76yo[facility] clinic patient of mine who presents to ARU in need of strengthening following left TKR uncomplicated by Dr Guzman. Catheter remains and we will continue Urecholine another day prior to DC. Pain is severe and pain meds restarted. PLOF was independent. CC: Lt TKA HPI: 76 F day 3 post -op of TKA for continued monitoring and PT/OT. Pt climas that she has had improvemnt in her pain, but still claims its 09/26 and localized to lt knee joint. Pt is continued on fluids O2 DVT prophylaxis cathartics diuretics and pain medication . Ferrer cath still in place due to limited mobility.Denies any fever chills SOB N/V. Has not had a BM since procedure. Pt and OT are continued and pt was tx to in-pt rehab today for further therapy. ROS: no SOB/chest pain, numbness in extremities, or fever PMH: Hypercalcemia, osteoarthritis, psoriatic arthritis, rheumatoid arthritis, osteopenia, essential tremor, gout, hypertension, IHSS, kidney stone, coronary artery disease, hypertension, osteoporosis, hearing. Surg: Hysterectomy, appendectomy, cholecystectomy, left rotator cuff repair, bilateral knee arthroscopy. Ethanol ablation for IHSS, right parathyroidectomy, thyroid isthmusectomy, Medtronic pacemaker placement, right bunionectomy x3, right cubital tunnel release, brain stimulator for tremors, left knee arthroscopy. FH Cerebrovascular accident, breast cancer, hypertension, hypercholesterolemia. Meds: morphine 2mg IV PRn Urecholine 25mg ACHS PO Lactulose 10gm BID PO Senna 1 BID PO Percocet Q2HR PRN PO Lovenox 30mg Q 12H SC Aspirin 81 mg PO daily Benadryly 25 mg Q4H IV PRN Zofran 4 mg IV PRN Xanax 0.25mg Q8H PRN PO All: ANCEF, CLONAZEPAM, AND LATEX. SOCIAL HISTORY: The patient drinks alcohol rarely and denies tobacco use. PE: Vitals T: 37.0 HR 73, BP 104/54, RR 16, PO2 88 on RA General: mild distress, in pain Cardio: HRRR no murmors gallops or rubs Pulm: CTAB normal air flow, mild wheezing on expiration Abd: soft non-tender MSk: lt LE pain localized to knee. echymosis and edema noted on inspection. Dorsalis pedis pulse 2+ BL, - Homans sign Labs: CBC: Hgb 9.3 CMP: K 3.5, glucose 112 X-ray: confirmed good placement of device per ortho and radiology A/P Continue O2, pain meds, fluids, diuretics and cathartics monitor labs Increase PT/OT BETH BOULTON Nov 05, 2021 13:50 Past Dsxzqoe-Xpsevn-Klhqia Hx Past Med/Social Hx: Reviewed Nursing Past Med/Soc Hx, Reviewed and Corrections made Patient Social History Marrital Status: Employed/Student: retired Smoking Status: Former Smoker 2nd Hand Smoke Exposure: No Recent Hopitalizations: No Immunizations Up To Date Tetanus Booster (TDap): Unknown Pediatric: Yes Date of Pneumonia Vaccine: Jan 13, 2010 Date of Influenza Vaccine: Dec 25, 2020 Seasonal Allergies Seasonal Allergies: No Past Medical History Surgeries: Appendectomy, Breast, Gallbladder, Hysterectomy, Oophorectomy, Orthopedic, Pacemaker, Parathyroidectomy, Thyroidectomy Currently Using CPAP: No Currently Using BIPAP: No Cardiac: Coronary Artery Disease, Heart Murmur, Hypertension, Syncope Reproductive: No Sexually Transmitted Disease: No Hysterectomy, Menopausal Gastrointestinal: Chronic Constipation, Diverticulosis, Gall Bladder Disease Musculoskeletal: Arthritis, Rheumatoid Arthritis Endocrine: Parathyroid Disease Loss of Vision: Denies Hearing Impairment: Denies Psychosocial: Anxiety Skin/Integumentary: Psoriasis History of Blood Disorders: No Adverse Reaction to Blood Sanchez: No Family History No Pertinent Family Hx PSH: -PACEMAKER FOR SYNCOPE -PORT RIGHT CHEST FOR REMICADE INFUSIONS -RIGHT BUNIONECTOMY X 3 -PARTIAL PARATHYROIDECTOMY -THYROIDECTOMY -STEREOTACTIC LEFT BREAST BIOPSY -LAPAROSCOPIC CHOLECYSTECTOMY -HYSTERECTOMY/BILATERAL SALPINGO-OOPHORECTOMY FOR FIBROIDS -APPENDECTOMY -COLONOSCOPIES--LAST ONE 02/2012-DR. PABLO -MULTIPLE ORTHOPEDIC SURGERIES: --RIGHT KNEE SCOPE WITH PARTIAL LATERAL MENISCECTOMY/CHONDROPLASTY 03/2011 --LEFT KNEE SCOPE WITH PARTIAL LATERAL MENISCECTOMY/CHONDROPLASTY 01/2011 --LEFT SHOULDER ROTATOR CUFF REPAIR 09/2007--DR. GUZMAN --RIGHT ELBOW CUBITAL TUNNEL/ULNAR NERVE TRANSPOSITION SURGERY 02/[address] GUZMAN Prior Level of Function Bed Mobility: 6 Transfers: 6 Gait: 6 Stairs: 6 Indoor Mobility (Ambulation): Independent Stairs: Independent Prior Devices Use: Walker Self Care: Independent Functional Cognition: Needed Some Help Drive Self: Yes Current Level of Fuctioning Roll Left to Right: 3 Sit to Lyin Lying to Sitting/Side of Bed: 3 Sit to Stand: 3 Chair/Aad-hn-Iulnf Xfer: 3 Car Transfer: 88 Does the Patient Walk: Yes Mode of Locomotion: Both Anticipated Mode of Locomotion: Walk Walk 10 feet: 88 Walk 50 ft with 2 Turns: 88 Walk 150 ft: 88 Walking 10ft on uneven surface: 88 Gait Assistive Device: FWW Wheel 50 ft with 2 turns: 1 Wheel 150 ft: 1 1 Step (curb): 88 4 Steps: 88 12 Steps: 88 Picking up an Object: 88 Eatin Oral Hygiene: 4 Shower/Bathe Self: 3 Upper Body Dressin Lower Body Dressin On/Off Footwear: 1 Toileting Hygiene: 1 (ferrer catheter) PM&R Allergy/Meds/Data Review Allergies Coded Allergies: cefazolin (Verified Allergy, Unknown, TONGUE SWELLING, 10/27/21) latex (Verified Allergy, Unknown, RASH, 10/27/21) Home Medications Scheduled Amlodipine Besylate (Amlodipine Besylate), 5 MG PO DAILY, (Reported) Calcium Carbonate (Calcium), 1,000 MG PO BID, (Reported) Flaxseed Oil (Flaxseed), 1,000 MG PO BID, (Reported) Folic Acid (Folic Acid), 1 MG PO DAILY, (Reported) Losartan Potassium (Losartan Potassium), 100 MG PO HS, (Reported) Methotrexate Sodium (Methotrexate), 10 MG PO BID ON MONDAY, (Reported) Paroxetine HCl (Paroxetine HCl), 40 MG PO DAILY, (Reported) Primidone (Mysoline), 200 MG PO HS, (Reported) Propranolol HCl (Propranolol HCl), 160 MG PO BID, (Reported) Vitamin B Complex (Vitamin B Complex), 1 EACH PO DAILY, (Reported) Discontinued Medications Methotrexate (Methotrexate), 2.5 MG PO Q7D, (Reported) Discontinued Reason: Duplicate Order Paroxetine Hcl (Paroxetine Hcl), 40 MG PO DAILY, (Reported) Discontinued Reason: Duplicate Order [Tremadone], Unknown Dose, (Reported) Discontinued Reason: No Longer Taking Current Medications Current Medications Reviewed Review of Systems Constitutional: see HPI, malaise, weakness EENTM: no symptoms reported Respiratory: no symptoms reported Cardiovascular: no symptoms reported Gastrointestinal: constipation Genitourinary: other (retention ) Musculoskeletal: back pain, joint pain Skin: no symptoms reported Psychiatric/Neurological: Depressed All Other Systems Reviewed Negative Unless Noted: Yes Physical Exam Physical Exam Vital Signs Vital Signs - First Documented 11/05/21 10:36 Temp 35.6 Pulse 78 Resp 20 B/P (MAP) 127/60 (82) Pulse Ox 92 Capillary Refill : Height, Weight, BMI Height: 5'4.00" Weight: 205lbs. 0oz. [id number]; 36.48 BMI Method:Stated General Appearance: No Apparent Distress, WD/WN, Chronically ill Eyes: Bilateral Eye Normal Inspection, Bilateral Eye PERRL HEENT: PERRL/EOMI, Normal ENT Inspection, Pharynx Normal Neck: Full Range of Motion, Normal Inspection, Non Tender, Supple, Carotid Bruit Respiratory: Chest Non Tender, Lungs Clear, Normal Breath Sounds, No Accessory Muscle Use, No Respiratory Distress Cardiovascular: Regular Rate, Rhythm, No Edema, No Gallop, No JVD, No Murmur, Normal Peripheral Pulses Gastrointestinal: Normal Bowel Sounds, No Organomegaly, No Pulsatile Mass, Non Tender, Soft Back: Normal Inspection, No CVA Tenderness, No Vertebral Tenderness Extremity: Normal Capillary Refill, Normal Inspection, Normal Range of Motion, Non Tender, No Calf Tenderness, No Pedal Edema Neurologic/Psychiatric: Alert, Oriented x3, No Motor/Sensory Deficits, prn occupational therapist II- XII Norm as Tested, Abnormal Gait, Depressed Affect, Motor Weakness (left leg) Skin: Normal Color, Warm/Dry Lymphatic: No Adenopathy PM&R Medical Assessment & Plan REHAB/MEDICAL ASSESSMENT AND PLAN: REHAB IMPAIRMENT GROUP: Debility following left knee replacement ETIOLOGIC DIAGNOSIS: Debility following left knee replacement The comorbidities that impact the patients function and/or functional outcome by: advanced age, RA, Pacemaker, tremor REHAB PLAN: The patient is being admitted to our comprehensive inpatient rehabilitation facility and can tolerate the intensity of service consisting of at least: 180 minutes of therapy a day, 5 out of 7 days a week Rehab treatment will consist of: PT OT will focus on regaining function with assistive devices in order to return home to independent living The patient/family has a good understanding of our discharge process and will benefit from an interdisciplinary inpatient rehabilitation program. The patient has potential to make improvement and is in need of at least two of the following multidisciplinary therapies including but not limited to physical, occupational, speech, and prosthetics and orthotics. Additionally the patient will need services from respiratory, nutritional services, wound care, psychology, etc. (Customize this to each patient). Given the patients complex condition and risk of further medical complications, rehabilitation services cannot be safely or effectively provided at a lower level of care such as a fpc facility. BARRIERS TO DISCHARGE: tremors ESTIMATED LOS: 7 days DISPOSITION: Home RELEVANT CHANGES SINCE PREADMISSION SCREENING: I have compared the patients medical and functional status at the time of the preadmission screening and there are: no changes PROGNOSIS: Good REHABILITATION GOALS: 1. PT OT will focus on regaining function with assistive devices in order to return home to independent living All the above goals were reviewed with the patient and he/she is in agreement. By signing this document, I acknowledge that I have personally performed a full physical examination on this patient within 24 hours of admission to this inpatient rehabilitation facility and have determined the patient to be able to tolerate the above course of treatment at an intensive level for a reasonable period of time. I will be completing a detailed individualized Plan of Care for this patient by day #4 of the patients stay based upon the Preadmission Screen, the Post-Admission Evaluation, and the therapy evaluations. Admission Dx/Comorbidities: (1) History of arthroplasty of left knee ICD Codes: Z96.652 - Presence of left artificial knee joint Assessment/Plan Assessment and Plan Assess & Plan/Chief Complaint Assessment: Left total knee replacement Pacemaker HLP HTN Tremor essential type Urinary retention Ferrer cath in place Plan: Urecholine PT OT BM regimen ROB TAPIA DO Nov 05, 2021 12:13
--- NOTE | 2021-11-05 13:11 | ST Cognitive Linguistic Eval ---
Speech Evaluation-General Medical Diagnosis Left TKA Onset Date: Nov 03, 2021 Therapy Diagnosis Therapy Diagnosis: Intact Neurocognitive Impairment Precautions Precautions: Fall Precautions/Isolations: Fall Prevention, Standard Precautions Referral Referring Physician: Dr. Aminta Garcia Reason for Referral: Evaluation/Treatment Medical History Pertinent Medical History: CAD, HTN, OA, Rheumatoid Arthritis Current History The patient is a 76 year-old female with a past medical history significant for CAD, HTN, OA, and deep brain stimulator (tremors), who presented to ARU following a left total knee replacement. Reviewed History: Yes Social History Current Living Status: Spouse Speech PLF-Current Status Prior Level of Function The patient denied prior challenges with her speech, language, or cognition. The patient stated she felt "a little foggy after all that medicine" (for her procedure), however, feels she has returned to baseline. The patient's was present who confirmed the patient is functioning at baseline. Subjective The patient was seated upright in her recliner, awake and alert upon entrance to her room. The patient greeted the clinician appropriately and was agreeable to participation in the cognitive linguistic assessment. Language Eval: Auditory Comprehends Simple Yes/No Ques: Functional Indent/Objects Multiple Larry: Functional Ident/Pics in Multiple Larry: Functional Follows 1-Step Commands: Functional Follows General Conversations: Functional Language Eval: Verbal Language Completes Spontaneous Greeting: Functional Produces Auto, Serial Info: Functional Imitates Simple Words/Phrases: Functional Word Finding: Functional Requests Basic Needs: Functional States Basic Personal Info: Functional Language Evaluation: Reading Follows Simple Written Direct: Functional Cognitive Patient Orientation The patient was independently oriented to self, location, month, day of the week, date and year. Objective Cognitive Domain Attention: Mild Memory: WNL Problem Solving: Mild Composite Severity Rating: WNL Objective Formal/Standardized Tests [facility] Mental Status Exam (UMS) Results The patient demonstrated a result of +27/20 correlating to a score within normal limits for the SLUMS. Oral Motor/Speech Production The patient does not display dysarthria or apraxia of speech at this time. The patient is 100% intelligible in known and unknown contexts. Impression The patient demonstrated neurocognitive skills within normal limits. The patient did report a slight decline in processing speeds immediately following her procedure, however, does report she has improved and returned to baseline. Speech Patient Assess Expression of Ideas/Wants: Expression (4) Understanding Verbal Content: Understands (4) Brief Interview-Mental Status: Yes Repetition of Three Words: Three (3) Temporal Orientation: Year: Correct (3) Temporal Orientation: Month: Accurate within 5 days(2) Temporal Orientation: Day: Correct (1) Recall : Wear to say "Sock": Yes, no cue required (2) Recall : Color: Yes, no cue required (2) Recall : Bed: Yes,after cueing (1) Memory/Recall Ability: Current season, That he or she is in a hsp/hsp unit Speech-Plan Treatment Plan Speech Therapy Treatment Plan: Discontinue ST Treatment Duration: Nov 05, 2021 Frequency: 1 time per week Estimated Hrs Per Day: .5 hour per day Rehab Potential: Fair Safety Risks/Education Teaching Recipient: Patient Teaching Methods: Discussion Response to Teaching: Verbalize Understanding Education Topics Provided: Results of GORGE, Plan of Care Time Speech Therapy Time In: 12:00 Speech Therapy Time Out: 12:30 Total Billed Time: 30 Billed Treatment Time 1, THAI PRIDE ELIZAB[facility] ST Nov 05, 2021 13:11
[2021-11-05] MEDS ORDERED: diphenhydrAMINE 50 MG/ML INJ (BENADRYL) IVP PRN (13:30)
[2021-11-05] MEDS ORDERED: ONDANSETRON 4 MG/2 ML (SDV) Z0FRAN IVP PRN (13:30)
[2021-11-05] MEDS ORDERED: oxyCODONE/APAP 5/325MG (PERCOCET 5) TABLET ONE (13:36)
[2021-11-05] MEDS: oxyCODONE/APAP 5/325MG (PERCOCET 5) TABLET PO PRN ×2 (13:42→16:12)
--- NOTE | 2021-11-05 13:50 | Progress Note ---
PATRICIA BO 11/05/21 1350: Progress Note CC: Lt TKA HPI: 76 F day 3 post -op of TKA for continued monitoring and PT/OT. Pt climas that she has had improvemnt in her pain, but still claims its 09/26 and localized to lt knee joint. Pt is continued on fluids O2 DVT prophylaxis cathartics diuretics and pain medication . Angulo cath still in place due to limited mobility.Denies any fever chills SOB N/V. Has not had a BM since procedure. Pt and OT are continued and pt was tx to in-pt rehab today for further therapy. ROS: no SOB/chest pain, numbness in extremities, or fever PMH: Hypercalcemia, osteoarthritis, psoriatic arthritis, rheumatoid arthritis, osteopenia, essential tremor, gout, hypertension, IHSS, kidney stone, coronary artery disease, hypertension, osteoporosis, hearing. Surg: Hysterectomy, appendectomy, cholecystectomy, left rotator cuff repair, bilateral knee arthroscopy. Ethanol ablation for IHSS, right parathyroidectomy, thyroid isthmusectomy, Medtronic pacemaker placement, right bunionectomy x3, right cubital tunnel release, brain stimulator for tremors, left knee arthroscopy. FH Cerebrovascular accident, breast cancer, hypertension, hypercholesterolemia. Meds: morphine 2mg IV PRn Urecholine 25mg ACHS PO Lactulose 10gm BID PO Senna 1 BID PO Percocet Q2HR PRN PO Lovenox 30mg Q 12H SC Aspirin 81 mg PO daily Benadryly 25 mg Q4H IV PRN Zofran 4 mg IV PRN Xanax 0.25mg Q8H PRN PO All: ANCEF, CLONAZEPAM, AND LATEX. SOCIAL HISTORY: The patient drinks alcohol rarely and denies tobacco use. PE: Vitals T: 37.0 HR 73, BP 104/54, RR 16, PO2 88 on RA General: mild distress, in pain Cardio: HRRR no murmors gallops or rubs Pulm: CTAB normal air flow, mild wheezing on expiration Abd: soft non-tender MSk: lt LE pain localized to knee. echymosis and edema noted on inspection. Dorsalis pedis pulse 2+ BL, - Homans sign Labs: CBC: Hgb 9.3 CMP: K 3.5, glucose 112 X-ray: confirmed good placement of device per ortho and radiology A/P Continue O2, pain meds, fluids, diuretics and cathartics monitor labs Increase PT/OT AMINTA GARCIA DO 11/05/212114: Supervisory-Addendum Brief Verification & Attestation Participated in pt care: history, MDM, physical Personally performed: exam, history, MDM, supervision of care Care discussed with: Medical Student Procedures: n/a Results interpretation: Verified all documentation Verification and Attestation of Medical Student E/M Service A medical student performed and documented this service in my presence. I reviewed and verified all information documented by the medical student and made modifications to such information, when appropriate. I personally performed the physical exam and medical decision making. Aminta Garcia, Nov 05, 2021,21:15 PATRICIA BO Nov 05, 2021 13:50 AMINTA GARCIA DO Nov 05, 2021 21:15
--- NOTE | 2021-11-05 14:20 | Therapy Group Daily Note ---
Therapy Daily Group Note Patient Education Topic Other List Below (ARU orientation, adaptive equip, TRF skills) Exercises LE Seated Exercise, Sit to/from Stand, UE Exercise Session Ratio (pt:therapist): 3:1 Goal of Session: Education on ARU Expectations, UE/LE Strengthing, Safety with Transfers, Use of Adaptive Equipment Goal Met for this Session: Yes Pt Benefit of Group: Increased Functional Safety, Increased Functional Strength, Socialization Other/Notes Pt. participated in group PT OT session this date. Pt. required mod asst for TRFs and came via w/c. Pts. introduced themselves to one another and shared ad francisco, pts participated in seated U&L ext exercises . Demonstration and instruction was given with equipment for bed TRFs, car TRFs, shower/bath TRFs ad sit to stand from chair TRFs. Pt. in room after group with assist and moffett at hand Start Time: 13:00 Stop Time: 14:00 Total Billed Treatment Time: 60 Total Billed Treatment 1,GRP 60m DELTA BERRY TRAVELING REPRESENTATIVE Nov 05, 2021 14:20
[2021-11-05] MEDS: morphine INJ 4 MG/ML 1 ML (VIAL/SYRINGE) IVP PRN (15:17)
[2021-11-05] MEDS: BETHANECHOL 25 MG (URECHOLINE) TAB PO SCH ×2 (16:12→20:16)
[2021-11-05] MEDS: LACTULOSE SYRUP 10GM/15ML (ENULOSE) 30ML UDC PO SCH (20:16)
[2021-11-05] MEDS: SENNA W/DOCUSATE (SENOKOT S) TABLET PO SCH (20:16)
[2021-11-05] MEDS: ENOXAPARIN INJECTION 30 MG/0.3 ML SYR SC SCH (20:16)
[2021-11-05 20:30] VITALS: BP 127/71
[2021-11-06] MEDS: oxyCODONE/APAP 5/325MG (PERCOCET 5) TABLET PO PRN ×6 (02:35→22:06)
[2021-11-06] MEDS: BETHANECHOL 25 MG (URECHOLINE) TAB PO SCH ×4 (06:01→20:02)
[2021-11-06] MEDS: BISACODYL 10 MG SUPP (DULCOLAX) PR ONE ×2 (06:26→06:41)
[2021-11-06 07:12] VITALS: BP 128/69
[2021-11-06 07:43] LABS: BASOPHILS % (AUTO) 0 % (0-10); EOSINOPHILS # (AUTO) 0.1 10^3/uL (0.0-0.3); EOSINOPHILS % (AUTO) 1 % (0-10); HEMATOCRIT 31 % (35-52); HEMOGLOBIN 10.2 g/dL (11.5-16.0); LYMPHOCYTES # (AUTO) 0.8 10^3/uL (1.0-4.0); LYMPHOCYTES % (AUTO) 8 % (12-44); MEAN CORPUSCULAR HEMOGLOBIN 33 pg (25-34); MEAN CORPUSCULAR HGB CONC 33 g/dL (32-36); MEAN CORPUSCULAR VOLUME 103 fL (80-99); MEAN PLATELET VOLUME 10.7 fL (9.0-12.2); MONOCYTES % (AUTO) 10 % (0-12); NEUTROPHILS # (AUTO) 7.8 10^3/uL (1.8-7.8); NEUTROPHILS % (AUTO) 80 % (42-75); PLATELET COUNT 207 10^3/uL (130-400); WHITE BLOOD COUNT 9.7 10^3/uL (4.3-11.0)
[2021-11-06 07:53] LABS: ALBUMIN 3.3 GM/DL (3.2-4.5); POTASSIUM 3.2 MMOL/L (3.6-5.0)
[2021-11-06 07:55] LABS: CALCIUM 8.2 MG/DL (8.5-10.1)
[2021-11-06 07:56] LABS: TOTAL PROTEIN 6.5 GM/DL (6.4-8.2)
[2021-11-06 07:58] LABS: BILIRUBIN,TOTAL 0.8 MG/DL (0.1-1.0)
[2021-11-06 07:59] LABS: CREATININE SERUM 0.76 MG/DL (0.60-1.30)
--- NOTE | 2021-11-06 07:59 | Individualized Plan of Care ---
Individualized Plan of Care Rehab Nursing IPOC Order Admission Date Nov 05, 2021 at 09:45 Current Orders Orders Admission Order(Inpt,Obs,Sdc) (11/04/21 21:39) Vital Signs: Per Unit Policy ( 16,00 (11/04/21 21:39) Mundo Hwang (11/04/21 21:39) Sequential Compression Device (11/04/21 21:39) Barrel Lathe Operator Inside-Inpt Rehab Con (11/04/21 21:39) Rehab Nursing Orders-Ipoc (11/04/21 21:39) Physical Therapy Rehab Orders (11/04/21 21:39) Occupational Therapy Rehab Ord (11/04/21 21:39) Speech Therapy Rehab Orders (11/04/21 21:39) Cbc With Automated Diff (11/06/21 06:00) Comprehensive Metabolic Panel (11/06/21 06:00) Precautions (Aru) (11/04/21 21:39) Weekly Weight WEEK (11/04/21 21:39) Rehab-Intensity Of Therapy (11/04/21 21:39) Initiate Admission Nursing Pro .admission (11/04/21 21:39) Alprazolam Tablet (Xanax Tablet) (11/04/21 21:45) Calcium Carbonate Chew Tablet (Antacid C (11/04/21 21:45) Diphenhydramine Tablet (Benadryl Tablet) (11/04/21 21:45) Docusate Sodium Capsule (Colace Capsule) (11/05/21 09:00) Docusate Sodium Capsule (Colace Capsule) (11/04/21 21:45) Bisacodyl Suppository (Dulcolax Supposit (11/04/21 21:45) Lactulose Oral Solution (Enulose Oral So (11/04/21 21:45) Na Phos/Na Biphos Enema (Fleet Enema Umer (11/04/21 21:45) Guaifenesin/Codeine Syrup (Robitussin Ac (11/04/21 21:45) Loperamide Tablet (Imodium Tablet) (11/04/21 21:45) Melatonin Tablet (Melatonin Tablet) (11/04/21 21:45) Polyethylene Glycol Powder Pkt (Miralax (11/05/21 09:00) Ondansetron Oral Dissolve Tab (Zofran (11/04/21 21:45) Senna S Tablet (Senokot S Tablet) (11/05/21 09:00) Acetaminophen Tablet/Caplet (Tylenol T (11/04/21 21:45) Code/Resuscitation (11/04/21 21:39) Transfer - Bed/Room/Location (11/05/21 10:05) General/Regular (11/05/21 Lunch) Patient Visit (11/05/21 ) Speech Sound Lang Comp (11/05/21 ) Treat. Speech/Lang/Voice (11/05/21 ) Dressing Order (Intervention) DAILY (11/05/21 13:24) Incentive Spirometry (Nursing) Q2H (11/05/21 13:24) Oxygen-Administer (11/05/21 13:24) Mundo Hose , (11/05/21 13:24) Aspirin Enteric Coated Tablet (Ecotrin T (11/06/21 09:00) Bethanechol Tablet (Urecholine Tablet) (11/05/21 16:00) Enoxaparin Injection (Lovenox Injection) (11/05/21 20:00) Lactulose Oral Solution (Enulose Oral So (11/05/21 21:00) Senna S Tablet (Senokot S Tablet) (11/05/21 21:00) Ondansetron Injection (Zofran Injectio (11/05/21 13:30) Diphenhydramine Injection (Benadryl Inje (11/05/21 13:30) Morphine Injection (Morphine Injection (11/05/21 13:30) Oxycodone/Apap 5/325mg Tablet (Percocet (11/05/21 13:30) Catheter(Uri) To Dependent Marisela (11/05/21 13:24) Request Pt Additional Orders (11/05/21 13:24) Oxycodone/Apap 5/325mg Tablet (Percocet (11/05/21 13:36) Patient Visit (11/05/21 ) Pt Eval Moderate Complexity (11/05/21 ) Functional Activities, Ea 15 (11/05/21 ) Patient Visit (11/05/21 ) Therapeutic, Group (11/05/21 ) Bisacodyl Suppository (Dulcolax Supposit (11/06/21 06:00) Soap Suds Enema Until Clear (11/06/21 05:56) Catheter(Urinary) Discontinue (11/06/21 06:09) Potassium Chloride (Tablet) (Klor Con Ta (11/06/21 10:45) Iron Test (Fe) (11/06/21 10:38) Vitamin B 12 (11/06/21 10:38) Rehab Nursing Orders: Ongoing Assess. of Function Status, Bladder Management, Bladder Scan, Bladder Training, Bowel Management, Bowel Training, Disease Management & Educaiton, DVT Prophylaxis, Fall Prevention, Fluid/Electrolyte/Nutrition Mgmt, Infection Prevention, Medication Management & Education, Management of Risks & Complications, Nutrition Management, Pain Management, Patient/Family Support, Safety Management, Weight Bearing Precaution Intensity of Therapy to be met Patient to be seen: Min.3h per day/5 of 7d PT IPOC Problem List: Activity Tolerance, Functional Strength, Safety, Balance, Gait, Transfer, Bed Mobility, ROM Treatment Plan: Continue Plan of Care Bed Mobility, Education, Functional Activity Anya, Functional Strength, Group Therapy, Gait, Safety, Therapeutic Exercise, Transfers Treatment Duration: Nov 26, 2021 Frequency: At least 5 of 7 days/Wk (IRF) Estimated Hrs Per Day: 1.5 hours per day OT IPOC Problems: Decreased Activ Tolerance, Decreased Safety Aware, Decreased UE Strength, Edema, Impaired Cognition, Impaired Funct Balance, Impaired Self-Care Skills OT Treatment, Training and Edu: Yes Plan of Care: ADL Retraining, Caregiver Training, Concurrent Therapy, Functional Mobility, Group Exercise/Act as Ind, UE Funct Exercise/Act Treatment Duration: Nov 24, 2021 Frequency: At least 5 of 7 days/Wk (IRF) Estimated Hrs Per Day: 1.5 hours per day (75-90 min/day ) ST IPOC Speech Therapy Treatment Plan: Discontinue ST Treatment Duration: Nov 05, 2021 Frequency: 1 time per week Estimated Hrs Per Day: .5 hour per day Barrel Lathe Operator Inside/Case Mgmt Barrel Lathe Operator Inside/Case Managemen: Discharge Planning Dietitian/Cryptologic Technician Dietitian/Cryptologic Technician to monitor nutritional status and make changes and/or recommendations as needed and work with speech pathology on dietary upgrades as the occur. Physician IPOC Medical Issues being managed closely and that require the 24 hour availability of a physician: Recent major orthopedic surgery with multiple risk factors for decompensation with immunosuppression from biological immunosuppressives will monitor closely and manage urinary retention postop constipation will require close physician supervision Medical Issues: Bowel/Bladder Function, DVT Prophylaxis, Falls Precautions, Fluid/Electrolyte/Nutrition Balance, Infection Protection, Pain Management, Weight Bearing Precautions, Wound Care Brief Synthesis of Preadmission Screen, Post-Admission Evaluation, and Therapy Evaluations: PT and OT will focus on regaining function to increase strength and return back to independent living with use of assistive devices and techniques to conserve energy and increase stamina Medical Prognosis: Good Anticipated Length of Stay: 7 days ROB TAPIA DO Nov 06, 2021 07:59
--- NOTE | 2021-11-06 07:59 | PM&R Progress Note ---
Subjective HPI/CC On Admission Date Seen by Provider: Nov 06, 2021 Time Seen by Provider: 06:15 Subjective/Events-last exam 11/06/2021: Patient having a slow recovery Pain is intense Needs her home meds restarted Blood pressure still borderline low We will discontinue catheter today Bowels have not moved so starting more aggressive regimen Review of Systems General: Fatigue, Malaise Gastrointestinal: Constipation Genitourinary: Retention Musculoskeletal: leg pain Objective Exam Vital Signs Vital Signs Date Time Temp Pulse Resp B/P (MAP) Pulse Ox O2 Delivery O2 Flow Rate FiO2 11/06/21 07:23 96 Nasal Cannula 1.00 11/06/21 07:12 36.7 82 18 128/69 (88) Capillary Refill : General Appearance: No Apparent Distress, WD/WN, Chronically ill HEENT: PERRL/EOMI, Normal ENT Inspection, Pharynx Normal Neck: Full Range of Motion, Normal Inspection, Non Tender, Supple, Carotid Bruit Respiratory: Chest Non Tender, Lungs Clear, Normal Breath Sounds, No Accessory Muscle Use, No Respiratory Distress Cardiovascular: Regular Rate, Rhythm, No Edema, No Gallop, No JVD, No Murmur, Normal Peripheral Pulses Gastrointestinal: Normal Bowel Sounds, No Organomegaly, No Pulsatile Mass, Non Tender, Soft Back: Normal Inspection, No CVA Tenderness, No Vertebral Tenderness Extremity: Normal Capillary Refill, Normal Inspection, Normal Range of Motion, Non Tender, No Calf Tenderness, No Pedal Edema Neurologic/Psychiatric: Alert, Oriented x3, No Motor/Sensory Deficits, drama critic II- XII Norm as Tested, Abnormal Gait, Depressed Affect, Motor Weakness (left leg) Skin: Normal Color, Warm/Dry Lymphatic: No Adenopathy Results/Procedures Lab Laboratory Tests 11/06/21 07:09 Patient resulted labs reviewed. FIM Transfers Therapy Code Descriptions/Definitions Functional [place] Measure: 0=Not Assessed/NA 4=Minimal Assistance 1=Total Assistance 5=Supervision or Setup 2=Maximal Assistance 6=Modified [place] 3=Moderate Assistance 7=Complete IndependenceSCALE: Activities may be completed with or without assistive devices. 2-Nzjwaojbag-czuuomd completes the activity by him/herself with no assistance from a helper. 5-Set-up or Clean-up Assistance-helper sets up or cleans up; patient completes activity. [place] assists only prior to or following the activity. 4-Supervision or Touching Assistance-helper provides verbal cues and/or nury trav/steadying and/or contact guard assistance as patient completes activity. Assistance may be provided throughout the activity or intermittently. 3-Partial/Moderate Assistance-helper does LESS THAN HALF the effort. [place] lifts, holds or supports trunk or limbs, but provides less than half the effort. 2-Substantial/Maximal Assistance-helper does MORE THAN HALF the effort. [place] lifts or holds trunk or limbs and provides more than half the effort. 4-Rfiffagxr-grjynb does ALL the effort. Patient does none of the effort to complete the activity. Or, the assistance of 2 or more helpers is required for the patient to complete the activity. If activity was not attempted, code reason: 7-Patient Refused. 9-Not Applicable-not attempted and the patient did not perform the activity b efore the current illness, exacerbation or injury. 10-Not Attempted due to Environmental Limitations-(lack of equipment, weather restraints, etc.). 88-Not Attempted due to Medical Conditions or Safety Concerns. Roll Left to Right (QC): 3 Sit to Lying (QC): 3 Sit to Stand (QC): 3 Chair/Gcg-oz-Laelz Xfer(QC): 3 Car Transfer (QC): 88 Gait Training Does the Patient Walk?: Yes Walk 10 feet (QC): 88 Walk 50 ft with 2 Turns(QC): 88 Walk 150 ft (QC): 88 Walking 10ft/uneven surface-QC: 88 Gait Assistive Device: FWW Wheelchair Training Wheel 50 ft with 2 turns (QC): 1 Wheel 150 ft (QC): 1 Stair Training 1 Step (curb) (QC): 88 4 Steps (QC): 88 12 Steps (QC): 88 Balance Picking up an Object (QC): 88 ADL-Treatment Eating (QC): 5 Oral Hygiene (QC): 4 Shower/Bathe Self (QC): 3 Upper Body Dressing (QC): 4 Lower Body Dressing (QC): 2 On/Off Footwear (QC): 1 Toileting Hygiene (QC): 1 (ferrer catheter) Assessment/Plan Assessment and Plan Assess & Plan/Chief Complaint Assessment: Left total knee replacement Pacemaker HLP HTN Tremor essential type Urinary retention discontinue catheter 11/[address] discontinued 11/06 Postop constipation 8/20 Plan: Urecholine PT OT BM regimen 11/06/2021: DC catheter Increased bowel regimen (1) History of arthroplasty of left knee ROB TAPIA DO Nov 06, 2021 07:59
[2021-11-06] MEDS: morphine INJ 4 MG/ML 1 ML (VIAL/SYRINGE) IVP PRN (08:41)
[2021-11-06] MEDS: DOCUSATE SODIUM 100 MG (COLACE) CAP PO SCH ×2 (09:00→20:04)
[2021-11-06] MEDS: LACTULOSE SYRUP 10GM/15ML (ENULOSE) 30ML UDC PO SCH ×2 (09:00→20:04)
[2021-11-06] MEDS: SENNA W/DOCUSATE (SENOKOT S) TABLET PO SCH ×2 (09:00→20:05)
[2021-11-06] MEDS: polyethylene glycoL POWDER 17 GM (MIRALAX) PACK PO SCH ×2 (09:00→20:05)
[2021-11-06] MEDS: ENOXAPARIN INJECTION 30 MG/0.3 ML SYR SC SCH ×2 (09:27→20:02)
[2021-11-06] MEDS: ASPIRIN E.C. 81 MG (ECOTRIN) TAB PO SCH (09:27)
--- NOTE | 2021-11-06 11:38 | Physical Therapy Daily Note ---
PT Daily Note-Current Subjective Pt. and present in room. Pt. expresses she is in 7/10 pain left knee. Pt. agrees to Rx and then into bed with polar pack. Pain Numeric Pain Scale: 7 Location: Left Location Body Site: Knee Pain Description: Stabbing Appearance pt. in recliner with LLE knee flexed and hip laterally rotated, pt. states she cannot keep toes pointed to ceiling and needs assist, noted head tremor Mental Status Patient Orientation: Normal For Age Attachments: Polar Pack Transfers SCALE: Activities may be completed with or without assistive devices. 3-Homzkvbuee-rfoihwa completes the activity by him/herself with no assistance from a helper. 5-Set-up or Clean-up Assistance-helper sets up or cleans up; patient completes activity. [place] assists only prior to or following the activity. 4-Supervision or Touching Assistance-helper provides verbal cues and/or touching/steadying and/or contact guard assistance as patient completes activity. Assistance may be provided throughout the activity or intermittently. 3-Partial/Moderate Assistance-helper does LESS THAN HALF the effort. [place] lifts, holds or supports trunk or limbs, but provides less than half the effort. 2-Substantial/Maximal Assistance-helper does MORE THAN HALF the effort. [place] lifts or holds trunk or limbs and provides more than half the effort. 0-Ssedebdbd-osavde does ALL the effort. Patient does none of the effort to complete the activity. Or, the assistance of 2 or more helpers is required for the patient to complete the activity. If activity was not attempted, code reason: 7-Patient Refused. 9-Not Applicable-not attempted and the patient did not perform the activity before the current illness, exacerbation or injury. 10-Not Attempted due to Environmental Limitations-(lack of equipment, weather restraints, etc.). 88-Not Attempted due to Medical Conditions or Safety Concerns. Sit to Lying (QC): 3 Sit to Stand (QC): 4 Weight Bearing Left Lower Extremity: Left Weight Bearing/Tolerated Gait Training Does the Patient Walk?: Yes Gait Assistive Device: FWW 25ft x 2, pt. needs mod to min assist for stability. and sequence cuing for s teps Exercises Supine Ex: Quad Set, Heel Slides, Hip abd/add Supine Reps: 12 Seated Therapy Exercises: Ankle pumps, Sit to stand, Long arc quads, Hamstring Curls Seated Reps: 12 Treatments seated and sup LTKR ex, TRF training, gait in room as pt. desires to walk without mask on , having some SOB at times, polar pack prepared and donned as pt. states she is having pain Assessment Current Status: Fair Progress limited lynn for gait dist. , fatigues quickly PT Short Term Goals Short Term Goals Time Frame: Nov 12, 2021 Roll Left & Right: 3 (Yovani) Sit to lyin (Yovani) Lying to sitting on side of be: 3 (Yovani) Sit to stand: 4 (CGA) Chair/fva-vr-ofiqt transfer: 4 (CGA) Walk 10 feet: 4 (CGA) Walk 50 feet with two turns: 4 (CGA) PT [employer] W[employer] Etcher Stripper Goals Correction Goals PT [employer] W[employer] Etcher Stripper Goals Time Frame: Nov 26, 2021 Roll Left & Right (QC): 4 (SBA) Sit to Lying (QC): 4 (SBA) Lying-Sitting on Side/Bed(QC): 4 (SBA) Sit to Stand (QC): 4 (SBA) Chair/Rca-eu-Jlvvj Xfer(QC): 4 (SBA) Toilet Transfer (QC): 4 (SBA) Car Transfer (QC): 3 (Yovani) Does the Patient Walk: Yes Walk 10 feet (QC): 4 (SBA) Walk 50ft with 2 Turns (QC): 4 (SBA) Walk 150 ft (QC): 4 (SBA) Walking 10ft on Uneven Surface: 4 (SBA) 1 Step (curb) (QC): 3 (Yovani) 4 Steps (QC): 3 (Yovani) 12 Steps (QC): 88 Picking up an Object (QC): 4 (SBA) Wheel 50 feet with 2 turns (QC: 9 Wheel 150 feet: 9 PT Plan Treatment/Plan Treatment Plan: Continue Plan of Care Treatment Plan: Bed Mobility, Education, Functional Activity Anya, Functional Strength, Group Therapy, Gait, Safety, Therapeutic Exercise, Transfers Treatment Duration: Nov 26, 2021 Frequency: At least 5 of 7 days/Wk (IRF) Estimated Hrs Per Day: 1.5 hours per day Patient and/or Family Agrees t: Yes Safety Risks/Education Patient Education: Gait Training, Transfer Techniques, Correct Positioning, Disease Process, Safety Issues Teaching Recipient: Patient Teaching Methods: Demonstration, Discussion Response to Teaching: Verbalize Understanding, Return Demonstration, Reinforcement Needed Time/GCodes Time In: 925 Time Out: 1000 Total Billed Treatment Time: 35 Total Billed Treatment 1,EX15,GT20 DELTA BERRY ELECTRICAL SUPERINTENDENT Nov 06, 2021 11:38
[2021-11-06] MEDS: KCL 10 MEQ TAB (MICRO K) PO SCH (11:40)
[2021-11-06 19:49] VITALS: BP 144/70
[2021-11-07] MEDS: oxyCODONE/APAP 5/325MG (PERCOCET 5) TABLET PO PRN ×3 (00:48→08:22)
[2021-11-07] MEDS: BETHANECHOL 25 MG (URECHOLINE) TAB PO SCH ×2 (05:00→12:19)
[2021-11-07] MEDS: KCL 10 MEQ TAB (MICRO K) PO SCH (06:21)
[2021-11-07 07:07] VITALS: BP 156/70
--- NOTE | 2021-11-07 07:42 | Progress Note ---
Standard Progress Note Progress Notes/Assess & Plan Date Seen by a Provider: Nov 07, 2021 Time Seen by a Provider: 07:41 Progress/Assessment & Plan feeling better Vital Signs Date Time Temp Pulse Resp B/P (MAP) Pulse Ox O2 Delivery O2 Flow Rate FiO2 11/07/21 07:07 36.8 71 20 156/70 (98) 96 Room Air 11/06/21 20:15 Nasal Cannula 1.00 11/06/21 20:05 96 Room Air 11/06/21 19:49 37.2 79 18 144/70 (94) 96 Room Air 11/06/21 09:00 97 Nasal Cannula 2.00 Laboratory Tests Test 11/06/21 16:40 Range/Units LLE--incision clean and dry. No calf tenderness. Neg Karime's s/p LTKA PT/OT YAHIR CHÁVEZ MD Nov 07, 2021 07:42
[2021-11-07] MEDS: LACTULOSE SYRUP 10GM/15ML (ENULOSE) 30ML UDC PO SCH ×2 (08:03→21:22)
[2021-11-07] MEDS: DOCUSATE SODIUM 100 MG (COLACE) CAP PO SCH ×3 (08:03→21:19)
[2021-11-07] MEDS: SENNA W/DOCUSATE (SENOKOT S) TABLET PO SCH ×3 (08:03→21:19)
[2021-11-07] MEDS: polyethylene glycoL POWDER 17 GM (MIRALAX) PACK PO SCH ×2 (08:03→21:22)
--- NOTE | 2021-11-07 08:05 | PM&R Progress Note ---
Subjective HPI/CC On Admission Date Seen by Provider: Nov 07, 2021 Time Seen by Provider: 12:30 Subjective/Events-last exam 11/07/2021: Doing much better MTX and home meds restarted No pain at this time if she doesn't move BM large x 3 yesterday Voiding well after DC cath DC Urecholine 11/06/2021: Patient having a slow recovery Pain is intense Needs her home meds restarted Blood pressure still borderline low We will discontinue catheter today Bowels have not moved so starting more aggressive regimen Review of Systems General: Fatigue, Malaise Musculoskeletal: leg pain Objective Exam Vital Signs Vital Signs Date Time Temp Pulse Resp B/P (MAP) Pulse Ox O2 Delivery O2 Flow Rate FiO2 11/07/21 09:55 Room Air 0.00 11/07/21 09:00 97 11/07/21 07:07 36.8 71 20 156/70 (98) Capillary Refill : General Appearance: No Apparent Distress, WD/WN, Chronically ill HEENT: PERRL/EOMI, Normal ENT Inspection, Pharynx Normal Neck: Full Range of Motion, Normal Inspection, Non Tender, Supple, Carotid Bruit Respiratory: Chest Non Tender, Lungs Clear, Normal Breath Sounds, No Accessory Muscle Use, No Respiratory Distress Cardiovascular: Regular Rate, Rhythm, No Edema, No Gallop, No JVD, No Murmur, Normal Peripheral Pulses Gastrointestinal: Normal Bowel Sounds, No Organomegaly, No Pulsatile Mass, Non Tender, Soft Back: Normal Inspection, No CVA Tenderness, No Vertebral Tenderness Extremity: Normal Capillary Refill, Normal Inspection, Normal Range of Motion, Non Tender, No Calf Tenderness, No Pedal Edema Neurologic/Psychiatric: Alert, Oriented x3, No Motor/Sensory Deficits, 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 FIM Transfers Therapy Code Descriptions/Definitions Functional [place] Measure: 0=Not Assessed/NA 4=Minimal Assistance 1=Total Assistance 5=Supervision or Setup 2=Maximal Assistance 6=Modified [place] 3=Moderate Assistance 7=Complete IndependenceSCALE: Activities may be completed with or without assistive devices. 6-Asixgbzkbb-vsyedft completes the activity by him/herself with no assistance from a helper. 5-Set-up or Clean-up Assistance-helper sets up or cleans up; patient completes activity. [place] assists only prior to or following the activity. 4-Supervision or Touching Assistance-helper provides verbal cues and/or touching/steadying and/or contact guard assistance as patient completes activity. Assistance may be provided throughout the activity or intermittently. 3-Partial/Moderate Assistance-helper does LESS THAN HALF the effort. [place] lifts, holds or supports trunk or limbs, but provides less than half the effort. 2-Substantial/Maximal Assistance-helper does MORE THAN HALF the effort. [place] lifts or holds trunk or limbs and provides more than half the effort. 5-Gvqhejzkf-ygbwns does ALL the effort. Patient does none of the effort to complete the activity. Or, the assistance of 2 or more helpers is required for the patient to complete the activity. If activity was not attempted, code reason: 7-Patient Refused. 9-Not Applicable-not attempted and the patient did not perform the activity b efore the current illness, exacerbation or injury. 10-Not Attempted due to Environmental Limitations-(lack of equipment, weather restraints, etc.). 88-Not Attempted due to Medical Conditions or Safety Concerns. Roll Left to Right (QC): 3 Sit to Lying (QC): 3 Sit to Stand (QC): 4 Chair/Jms-qj-Csqse Xfer(QC): 3 Car Transfer (QC): 88 Gait Training Does the Patient Walk?: Yes Walk 10 feet (QC): 88 Walk 50 ft with 2 Turns(QC): 88 Walk 150 ft (QC): 88 Walking 10ft/uneven surface-QC: 88 Gait Assistive Device: FWW Wheelchair Training Wheel 50 ft with 2 turns (QC): 1 Wheel 150 ft (QC): 1 Stair Training 1 Step (curb) (QC): 88 4 Steps (QC): 88 12 Steps (QC): 88 Balance Picking up an Object (QC): 88 ADL-Treatment Eating (QC): 5 Oral Hygiene (QC): 4 Shower/Bathe Self (QC): 3 Upper Body Dressing (QC): 4 Lower Body Dressing (QC): 2 On/Off Footwear (QC): 1 Toileting Hygiene (QC): 1 (ferrer catheter) Assessment/Plan Assessment and Plan Assess & Plan/Chief Complaint Assessment: Left total knee replacement Pacemaker HLP HTN Tremor essential type Urinary retention discontinue catheter 11/[address] discontinued 11/06 Postop constipation 11/06 Plan: Urecholine PT OT BM regimen 11/06/2021: DC catheter Increased bowel regimen 11/07/2021: Voiding well Home meds restart (1) History of arthroplasty of left knee ROB TAPIA DO Nov 07, 2021 08:05
[2021-11-07] MEDS: ENOXAPARIN INJECTION 30 MG/0.3 ML SYR SC SCH ×2 (08:15→21:18)
[2021-11-07] MEDS: ASPIRIN E.C. 81 MG (ECOTRIN) TAB PO SCH (08:15)
[2021-11-07] MEDS: BACLOFEN 10 MG (LIORESAL) TAB PO PRN ×2 (14:25→23:52)
[2021-11-07 19:45] VITALS: BP 174/75
[2021-11-07] MEDS ORDERED: PROPRANOLOL 20 MG (INDERAL) TABLET PO SCH (21:00)
[2021-11-07] MEDS ORDERED: FLAXSEED OIL 1000 MG PO SCH (21:00)
[2021-11-07] MEDS: PRIMIDONE 50 MG TAB (MYSOLINE) PO SCH (21:18)
[2021-11-07] MEDS: CALCIUM CARBONATE 500 MG (TUMS) TAB.CHEW PO SCH (21:18)
[2021-11-07] MEDS: LOSARTAN 100 MG (COZAAR) TABLET PO SCH (21:19)
[2021-11-07 22:30] VITALS: BP 136/74
--- NOTE | 2021-11-08 05:33 | PM&R Progress Note ---
Subjective HPI/CC On Admission Date Seen by Provider: Nov 08, 2021 Time Seen by Provider: 08:30 Subjective/Events-last exam 11/08/2021: Pt is doing well Bowels moved 2 days ago Incontinence last night of bladder Just didn't have enough time to get to the bathroom Overall doing well otherwise 11/07/2021: Doing much better MTX and home meds restarted No pain at this time if she doesn't move BM large x 3 yesterday Voiding well after DC cath DC Urecholine 11/06/2021: Patient having a slow recovery Pain is intense Needs her home meds restarted Blood pressure still borderline low We will discontinue catheter today Bowels have not moved so starting more aggressive regimen Review of Systems General: Fatigue, Malaise Objective Exam Vital Signs Vital Signs Date Time Temp Pulse Resp B/P (MAP) Pulse Ox O2 Delivery O2 Flow Rate FiO2 11/08/21 21:35 95 Room Air 11/08/21 19:17 36.6 67 20 154/79 (104) 11/07/21 09:55 0.00 Capillary Refill : General Appearance: No Apparent Distress, WD/WN, Chronically ill HEENT: PERRL/EOMI, Normal ENT Inspection, Pharynx Normal Neck: Full Range of Motion, Normal Inspection, Non Tender, Supple, Carotid B ruit Respiratory: Chest Non Tender, Lungs Clear, Normal Breath Sounds, No Accessory Muscle Use, No Respiratory Distress Cardiovascular: Regular Rate, Rhythm, No Edema, No Gallop, No JVD, No Murmur, Normal Peripheral Pulses Gastrointestinal: Normal Bowel Sounds, No Organomegaly, No Pulsatile Mass, Non Tender, Soft Back: Normal Inspection, No CVA Tenderness, No Vertebral Tenderness Extremity: Normal Capillary Refill, Normal Inspection, Normal Range of Motion, Non Tender, No Calf Tenderness, No Pedal Edema Neurologic/Psychiatric: Alert, Oriented x3, No Motor/Sensory Deficits, 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 FIM Transfers Therapy Code Descriptions/Definitions Functional [place] Measure: 0=Not Assessed/NA 4=Minimal Assistance 1=Total Assistance 5=Supervision or Setup 2=Maximal Assistance 6=Modified [place] 3=Moderate Assistance 7=Complete IndependenceSCALE: Activities may be completed with or without assistive devices. 4-Tismrmoppx-pzdcvrk completes the activity by him/herself with no assistance from a helper. 5-Set-up or Clean-up Assistance-helper sets up or cleans up; patient completes activity. [place] assists only prior to or following the activity. 4-Supervision or Touching Assistance-helper provides verbal cues and/or touching/steadying and/or contact guard assistance as patient completes activity. Assistance may be provided throughout the activity or intermittently. 3-Partial/Moderate Assistance-helper does LESS THAN HALF the effort. [place] lifts, holds or supports trunk or limbs, but provides less than half the effort. 2-Substantial/Maximal Assistance-helper does MORE THAN HALF the effort. [place] lifts or holds trunk or limbs and provides more than half the effort. 8-Ztomdyogs-vixiwc does ALL the effort. Patient does none of the effort to complete the activity. Or, the assistance of 2 or more helpers is required for the patient to complete the activity. If activity was not attempted, code reason: 7-Patient Refused. 9-Not Applicable-not attempted and the patient did not perform the activity before the current illness, exacerbation or injury. 10-Not Attempted due to Environmental Limitations-(lack of equipment, weather restraints, etc.). 88-Not Attempted due to Medical Conditions or Safety Concerns. Roll Left to Right (QC): 3 Sit to Lying (QC): 3 Sit to Stand (QC): 4 Chair/Doh-tn-Gflxf Xfer(QC): 3 Car Transfer (QC): 88 Gait Training Does the Patient Walk?: Yes Walk 10 feet (QC): 88 Walk 50 ft with 2 Turns(QC): 88 Walk 150 ft (QC): 88 Walking 10ft/uneven surface-QC: 88 Gait Assistive Device: FWW Wheelchair Training Wheel 50 ft with 2 turns (QC): 1 Wheel 150 ft (QC): 1 Stair Training 1 Step (curb) (QC): 88 4 Steps (QC): 88 12 Steps (QC): 88 Balance Picking up an Object (QC): 88 ADL-Treatment Eating (QC): 5 Oral Hygiene (QC): 4 Shower/Bathe Self (QC): 3 Upper Body Dressing (QC): 4 Lower Body Dressing (QC): 2 On/Off Footwear (QC): 1 Toileting Hygiene (QC): 1 (ferrer catheter) Assessment/Plan Assessment and Plan Assess & Plan/Chief Complaint Assessment: Left total knee replacement Pacemaker HLP HTN Tremor essential type Urinary retention discontinue catheter 11/06 resolved Ferrer cath in place discontinued 11/06 Postop constipation 11/06 resolved Plan: Urecholine PT OT BM regimen 11/06/2021: DC catheter Increased bowel regimen 11/07/2021: Voiding well Home meds restart 11/08/2021: BM regimen Restart MTX (1) History of arthroplasty of left knee ROB TAPIA DO Nov 08, 2021 05:33
[2021-11-08] MEDS: KCL 10 MEQ TAB (MICRO K) PO SCH (06:30)
[2021-11-08] MEDS: MULTIVIT W/MINERALS TAB (THERAGRAN M) PO SCH (06:30)
[2021-11-08 08:00] VITALS: BP 185/80
[2021-11-08] MEDS: PARoxetine 20 MG (PAXIL) TAB PO SCH (08:14)
[2021-11-08] MEDS: ASPIRIN E.C. 81 MG (ECOTRIN) TAB PO SCH (08:14)
[2021-11-08] MEDS: FOLIC ACID 1 MG TAB PO SCH (08:14)
[2021-11-08] MEDS: SENNA W/DOCUSATE (SENOKOT S) TABLET PO SCH ×2 (08:15→21:52)
[2021-11-08] MEDS: CALCIUM CARBONATE 500 MG (TUMS) TAB.CHEW PO SCH ×2 (08:15→21:51)
[2021-11-08] MEDS: DOCUSATE SODIUM 100 MG (COLACE) CAP PO SCH ×2 (08:15→21:52)
[2021-11-08] MEDS: amLODIPine 5 MG (NORVASC) TAB PO SCH (08:15)
[2021-11-08] MEDS: ENOXAPARIN INJECTION 30 MG/0.3 ML SYR SC SCH ×2 (08:15→19:41)
[2021-11-08] MEDS: PROPRANOLOL ER 80 MG CAP (INDERAL LA) PO SCH ×2 (08:19→21:51)
[2021-11-08] MEDS: polyethylene glycoL POWDER 17 GM (MIRALAX) PACK PO SCH ×2 (08:20→21:50)
[2021-11-08] MEDS: LACTULOSE SYRUP 10GM/15ML (ENULOSE) 30ML UDC PO SCH ×2 (08:20→21:50)
--- NOTE | 2021-11-08 09:54 | Physical Therapy Daily Note ---
PT Daily Note-Current Subjective Patient in bed pre tx, agrees to PT, voices no complaints of pain at rest. Will be co-treating with OT due to poor patient mobility, strength, endurance, severe debility, coordinate UE and LE during activity, safety and reduce risk of falls. Appearance Patient in WC at bedside post tx with nurse call, phone, tray, all needs met. Mental Status Patient Orientation: Person, Place, Situation Transfers SCALE: Activities may be completed with or without assistive devices. 2-Dvpsqlaphv-hkgofql completes the activity by him/herself with no assistance from a helper. 5-Set-up or Clean-up Assistance-helper sets up or cleans up; patient completes activity. [place] assists only prior to or following the activity. 4-Supervision or Touching Assistance-helper provides verbal cues and/or touching/steadying and/or contact guard assistance as patient completes activity . Assistance may be provided throughout the activity or intermittently. 3-Partial/Moderate Assistance-helper does LESS THAN HALF the effort. [place] lifts, holds or supports trunk or limbs, but provides less than half the effort. 2-Substantial/Maximal Assistance-helper does MORE THAN HALF the effort. [place] lifts or holds trunk or limbs and provides more than half the effort. 1-Iemthfbge-ilzwgl does ALL the effort. Patient does none of the effort to complete the activity. Or, the assistance of 2 or more helpers is required for the patient to complete the activity. If activity was not attempted, code reason: 7-Patient Refused. 9-Not Applicable-not attempted and the patient did not perform the activity before the current illness, exacerbation or injury. 10-Not Attempted due to Environmental Limitations-(lack of equipment, weather restraints, etc.). 88-Not Attempted due to Medical Conditions or Safety Concerns. Roll Left & Right (QC): 4 Lying to Sitting/Side of Bed(Q: 3 Sit to Stand (QC): 3 Chair/Ste-uc-[place]buha Xfer(QC): 4 Toilet Transfer (QC): 4 Patient needs min assist with left leg during supine to sit, min assist to stand from lower surfaces. Patient sits to the side of the bed and dresses upper and cleans off a bit, ambulates to restroom to toilet, min assist to stand from toilet and sits in WC at sink for ADL's. Weight Bearing Left Lower Extremity: Left Weight Bearing/Tolerated Gait Training Distance: 20', 50'x2 Walk 10 feet (QC): 4 Walk 50 ft with 2 Turns(QC): 4 Gait Assistive Device: FWW WC follow, patient has trouble bearing weight on left leg, keeps a flexed left knee during ambulation, cannot keep left heel on the floor when stepping through with the right leg Treatments PT performed bed mobility and transfers, standing and positioning during dressing and bathing and toileting and ADL's, ambulation, OT performed dressing, bathing, ADL's, assisted with toileting, UE positioning and safety during activity. Assessment Current Status: Fair Progress patient still has trouble bearing weight on LLE and poor quad control PT Short Term Goals Short Term Goals Time Frame: Nov 12, 2021 Roll Left & Right: 3 (Yovani) Sit to lyin (Yovani) Lying to sitting on side of be: 3 (Yovani) Sit to stand: 4 (CGA) Chair/yiu-ef-qxkio transfer: 4 (CGA) Walk 10 feet: 4 (CGA) Walk 50 feet with two turns: 4 (CGA) PT Longterm Goals Longterm Goals PT Longterm Goals Time Frame: Nov 26, 2021 Roll Left & Right (QC): 4 (SBA) Sit to Lying (QC): 4 (SBA) Lying-Sitting on Side/Bed(QC): 4 (SBA) Sit to Stand (QC): 4 (SBA) Chair/Vvj-bc-Yfyhk Xfer(QC): 4 (SBA) Toilet Transfer (QC): 4 (SBA) Car Transfer (QC): 3 (Yovani) Does the Patient Walk: Yes Walk 10 feet (QC): 4 (SBA) Walk 50ft with 2 Turns (QC): 4 (SBA) Walk 150 ft (QC): 4 (SBA) Walking 10ft on Uneven Surface: 4 (SBA) 1 Step (curb) (QC): 3 (Yovani) 4 Steps (QC): 3 (Yovani) 12 Steps (QC): 88 Picking up an Object (QC): 4 (SBA) Wheel 50 feet with 2 turns (QC: 9 Wheel 150 feet: 9 PT Plan Problem List Problem List: Activity Tolerance, Functional Strength, Safety, Balance, Gait, Transfer, Bed Mobility, ROM Treatment/Plan Treatment Plan: Continue Plan of Care Treatment Plan: Bed Mobility, Education, Functional Activity Anya, Functional Strength, Group Therapy, Gait, Safety, Therapeutic Exercise, Transfers Treatment Duration: Nov 26, 2021 Frequency: At least 5 of 7 days/Wk (IRF) Estimated Hrs Per Day: 1.5 hours per day Patient and/or Family Agrees t: Yes Safety Risks/Education Patient Education: Gait Training, Transfer Techniques, Correct Positioning, Safety Issues Teaching Recipient: Patient Teaching Methods: Demonstration, Discussion Response to Teaching: Reinforcement Needed Time/GCodes Time In: 0900 Time Out: 1000 Total Billed Treatment Time: 60 Total Billed Treatment 1 visit FA 60' co-treated for 60' SCOTT MARRERO PT Nov 08, 2021 09:54
--- NOTE | 2021-11-08 09:55 | Occupational Ther Daily Note ---
OT Current Status-Daily Note Subjective Pt reports "not doing well" secondary to pain and "bladder issues" She rates pain in L knee as 7/10 Co-treat with PT secondary to poor mobility, high pain levels, poor activity tolerance, poor endurance, and need of 2 skilled clinicians to progress indep and safety with adls and functional mobility. Appearance Pt left sitting in w/c, all needs within reach at therapy departure. Mental Status/Objective Patient Orientation: Person, Place, Situation Attachments: IV ADL-Treatment Therapy Code Descriptions/Definitions Functional [place] Measure: 0=Not Assessed/NA 4=Minimal Assistance 1=Total Assistance 5=Supervision or Setup 2=Maximal Assistance 6=Modified [place] 3=Moderate Assistance 7=Complete IndependenceSCALE: Activities may be completed with or without assistive devices. 0-Denwyxbxzf-gznrcua completes the activity by him/herself with no assistance from a helper. 5-Set-up or Clean-up Assistance-helper sets up or cleans up; patient completes activity. [place] assists only prior to or following the activity. 4-Supervision or Touching Assistance-helper provides verbal cues and/or touching/steadying and/or contact guard assistance as patient completes activity. Assistance may be provided throughout the activity or intermittently. 3-Partial/Moderate Assistance-helper does LESS THAN HALF the effort. [place] lifts, holds or supports trunk or limbs, but provides less than half the effort. 2-Substantial/Maximal Assistance-helper does MORE THAN HALF the effort. [place] lifts or holds trunk or limbs and provides more than half the effort. 2-Cjakalivz-youazb does ALL the effort. Patient does none of the effort to complete the activity. Or, the assistance of 2 or more helpers is required for the patient to complete the activity. If activity was not attempted, code reason: 7-Patient Refused. 9-Not Applicable-not attempted and the patient did not perform the activity b efore the current illness, exacerbation or injury. 10-Not Attempted due to Environmental Limitations-(lack of equipment, weather restraints, etc.). 88-Not Attempted due to Medical Conditions or Safety Concerns. Oral Hygiene (QC): 6 (at seated level) Upper Body Dressing (QC): 5 On/Off Footwear: 1 Toileting Hygiene (QC): 4 (gaby care completed in sitting. Steadying assist required as she stood to pull clothing up to waist.) Toilet Transfer (QC): 3 Pt appears apprehensive to taking a shower. Education provided, attempt tomorrow . Partial sponge bath completed seated on side of bed. Post set up, pt washed upper body and donned shirt. She declines changing pants due to "putting on yesterday." Mod a to stand, min a once upright. She ambulated to bathroom with walker and min a. Very slow with all mobility and adls, verbal and visual cues on improved gait. Grooming tasks performed at w/c level, no assist. Other Treatment Pt ambulated within halls with CGA-Min a and use of walker. Reduced weight bearing noted through LLE. Poor step through (pt does step together gait sequence). Cues for correction. 25 feet x2. Fatigues easily, very slow gait. Education OT Patient Education: Correct positioning, Energy conservation, Modified ADL techniques, Progress toward Goal/Update tx plan, Purpose of tx/functional activities, Reviewed precautions, Rehab process, Safety issues, Transfer techniques Teaching Recipient: Patient Teaching Methods: Demonstration, Discussion Response to Teaching: Verbalize Understanding, Return Demonstration, Reinforcement Needed OT Short Term Goals Short Term Goals Time Frame: Nov 12, 2021 Eatin Oral hygiene: 5 Toileting hygiene: 3 Shower/bathe self: 3 Upper body dressin Lower body dressin Putting on/taking off footwear: 3 OT Correction Goals Correction Goals Time Frame: Nov 24, 2021 Eating (QC): 6 Oral Hygiene (QC): 6 Toileting Hygiene (QC): 6 Shower/Bathe Self (QC): 5 Upper Body Dressing (QC): 5 Lower Body Dressing (QC): 5 On/Off Footwear (QC): 4 1=Demonstrate adherence to instructed precautions during ADL tasks. 2=Patient will verbalize/demonstrate understanding of assistive devices/modifications for ADL. 3=Patient will improve strength/tolerance for activity to enable patient to perform ADL's. OT Education/Plan Problem List/Assessment Assessment: Decreased Activ Tolerance, Decreased Safety Aware, Decreased UE Strength, Impaired Bed Mobility, Impaired Funct Balance, Impaired I ADL's, Impaired Self-Care Skills Discharge Recommendations Plan/Recommendations: Continue POC Therapy Discharge Recommendati: Post Acute OT Treatment Plan/Plan of Care Treatment,Training & Education: Yes Patient would benefit from OT for education, treatment and training to promote independence in ADL's, mobility, safety and/or upper extremity function for ADL's. Plan of Care: ADL Retraining, Caregiver Training, Concurrent Therapy, Functional Mobility, Group Exercise/Act as Ind, UE Funct Exercise/Act Treatment Duration: Nov 24, 2021 Frequency: At least 5 of 7 days/Wk (IRF) Estimated Hrs Per Day: 1.5 hours per day (75-90 min/day ) Agreement: Yes Rehab Potential: Fair Time/GCodes Start Time: 08:55 Stop Time: 10:00 Total Time Billed (hr/min): 65 Billed Treatment Time 1 visit ADL x3 (45 min) FA (20 min) Itzel Lopez OT Nov 08, 2021 09:55
[2021-11-08 11:05] VITALS: BP 144/67
--- NOTE | 2021-11-08 11:21 | Physical Therapy Daily Note ---
PT Daily Note-Current Subjective Patient in bed sleeping pre tx, agrees to PT, voices no complaints of pain at rest. Appearance Patient in bed post tx with nurse call, phone, tray, all needs met. Mental Status Patient Orientation: Person, Place, Situation Transfers SCALE: Activities may be completed with or without assistive devices. 0-Unckoxwuho-gnlgiwu completes the activity by him/herself with no assistance from a helper. 5-Set-up or Clean-up Assistance-helper sets up or cleans up; patient completes activity. [place] assists only prior to or following the activity. 4-Supervision or Touching Assistance-helper provides verbal cues and/or touching/steadying and/or contact guard assistance as patient completes activity. Assistance may be provided throughout the activity or intermittently. 3-Partial/Moderate Assistance-helper does LESS THAN HALF the effort. [place] lifts, holds or supports trunk or limbs, but provides less than half the effort. 2-Substantial/Maximal Assistance-helper does MORE THAN HALF the effort. [place] lifts or holds trunk or limbs and provides more than half the effort. 8-Nnekkuslq-beqsbu does ALL the effort. Patient does none of the effort to complete the activity. Or, the assistance of 2 or more helpers is required for the patient to complete the activity. If activity was not attempted, code reason: 7-Patient Refused. 9-Not Applicable-not attempted and the patient did not perform the activity before the current illness, exacerbation or injury. 10-Not Attempted due to Environmental Limitations-(lack of equipment, weather restraints, etc.). 88-Not Attempted due to Medical Conditions or Safety Concerns. Roll Left & Right (QC): 4 Sit to Lying (QC): 3 Lying to Sitting/Side of Bed(Q: 3 Sit to Stand (QC): 3 Chair/Snx-ff-Ibjwb Xfer(QC): 4 min assist to stand from lowered bed Weight Bearing Left Lower Extremity: Left Weight Bearing/Tolerated Gait Training Distance: 100' Walk 10 feet (QC): 4 Walk 50 ft with 2 Turns(QC): 4 Gait Persons Needed: 1 Gait Assistive Device: FWW Patient ambulates very slowly, flexed left knee, cannot bear much weight on left leg due to pain Exercises Supine Ex: Ankle pumps, Quad Set, Glut sets, Heel Slides (AAROM), Short Arc Quads (AAROM), Straight leg raise (AAROM) Treatments bed mobility and transfers, LE ROM Assessment Current Status: Poor Progress Patient has poor quad control, left knee flexion 80 degrees, extension +10 degrees PT Short Term Goals Short Term Goals Time Frame: Nov 12, 2021 Roll Left & Right: 3 (Yovani) Sit to lyin (Yovani) Lying to sitting on side of be: 3 (Yovani) Sit to stand: 4 (CGA) Chair/aeu-wc-ihtko transfer: 4 (CGA) Walk 10 feet: 4 (CGA) Walk 50 feet with two turns: 4 (CGA) PT Team Lead Goals Team Lead Goals PT Team Lead Goals Time Frame: Nov 26, 2021 Roll Left & Right (QC): 4 (SBA) Sit to Lying (QC): 4 (SBA) Lying-Sitting on Side/Bed(QC): 4 (SBA) Sit to Stand (QC): 4 (SBA) Chair/Hrd-qt-Xyccw Xfer(QC): 4 (SBA) Toilet Transfer (QC): 4 (SBA) Car Transfer (QC): 3 (Yovani) Does the Patient Walk: Yes Walk 10 feet (QC): 4 (SBA) Walk 50ft with 2 Turns (QC): 4 (SBA) Walk 150 ft (QC): 4 (SBA) Walking 10ft on Uneven Surface: 4 (SBA) 1 Step (curb) (QC): 3 (Yovani) 4 Steps (QC): 3 (Yovani) 12 Steps (QC): 88 Picking up an Object (QC): 4 (SBA) Wheel 50 feet with 2 turns (QC: 9 Wheel 150 feet: 9 PT Plan Problem List Problem List: Activity Tolerance, Functional Strength, Safety, Balance, Gait, Transfer, Bed Mobility, ROM Treatment/Plan Treatment Plan: Continue Plan of Care Treatment Plan: Bed Mobility, Education, Functional Activity Anya, Functional Strength, Group Therapy, Gait, Safety, Therapeutic Exercise, Transfers Treatment Duration: Nov 26, 2021 Frequency: At least 5 of 7 days/Wk (IRF) Estimated Hrs Per Day: 1.5 hours per day Patient and/or Family Agrees t: Yes Safety Risks/Education Patient Education: Gait Training, Transfer Techniques, Correct Positioning, Safety Issues Teaching Recipient: Patient Teaching Methods: Demonstration, Discussion Response to Teaching: Reinforcement Needed Time/GCodes Time In: 1100 Time Out: 1130 Total Billed Treatment Time: 30 Total Billed Treatment 1 visit GT 15' EX 15' SCOTT MARRERO PT Nov 08, 2021 11:21
[2021-11-08] MEDS: BACLOFEN 10 MG (LIORESAL) TAB PO PRN ×2 (12:45→19:41)
--- NOTE | 2021-11-08 13:40 | Occupational Ther Daily Note ---
OT Current Status-Daily Note Subjective Pt was asleep, woke to name easily. Pt agreed to therapy. Pt had c/o pain. Mental Status/Objective Patient Orientation: Person, Place, Time, Situation ADL-Treatment Pt supine to EOB with HOB raised, min A to move L LE OOB. Pt transferred EOB to [facility] with FWW, CGA. Pt completed toilet hygiene with CGA for balance while standing. Pt ambulated from BS to recliner, [facility]. Pt completed 4 B UE exercise,1 set 10 reps, to increase B UE strength for daily functional tasks. Skilled instructions for correct technique. Pt opened packages and set up meal by self. Pt is using regular utensils and cups. Pt left in recliner with call light. Visitor in room. All needs met. Therapy Code Descriptions/Definitions Functional [place] Measure: 0=Not Assessed/NA 4=Minimal Assistance 1=Total Assistance 5=Supervision or Setup 2=Maximal Assistance 6=Modified [place] 3=Moderate Assistance 7=Complete IndependenceSCALE: Activities may be completed with or without assistive devices. 2-Wrepetmsoi-nczcacj completes the activity by him/herself with no assistance from a helper. 5-Set-up or Clean-up Assistance-helper sets up or cleans up; patient completes activity. [place] assists only prior to or following the activity. 4-Supervision or Touching Assistance-helper provides verbal cues and/or touching/steadying and/or contact guard assistance as patient completes activity. Assistance may be provided throughout the activity or intermittently. 3-Partial/Moderate Assistance-helper does LESS THAN HALF the effort. [place] lifts, holds or supports trunk or limbs, but provides less than half the effort. 2-Substantial/Maximal Assistance-helper does MORE THAN HALF the effort. [place] lifts or holds trunk or limbs and provides more than half the effort. 9-Qvatrchxh-gilpai does ALL the effort. Patient does none of the effort to complete the activity. Or, the assistance of 2 or more helpers is required for the patient to complete the activity. If activity was not attempted, code reason: 7-Patient Refused. 9-Not Applicable-not attempted and the patient did not perform the activity before the current illness, exacerbation or injury. 10-Not Attempted due to Environmental Limitations-(lack of equipment, weather restraints, etc.). 88-Not Attempted due to Medical Conditions or Safety Concerns. Eating (QC): 6 Toileting Hygiene (QC): 4 (CGA) Toilet Transfer (QC): 4 (CGA) OT Short Term Goals Short Term Goals Time Frame: Nov 12, 2021 Eatin Oral hygiene: 5 Toileting hygiene: 3 Shower/bathe self: 3 Upper body dressin Lower body dressin Putting on/taking off footwear: 3 OT Penitentiary Goals Penitentiary Goals Time Frame: Nov 24, 2021 Eating (QC): 6 Oral Hygiene (QC): 6 Toileting Hygiene (QC): 6 Shower/Bathe Self (QC): 5 Upper Body Dressing (QC): 5 Lower Body Dressing (QC): 5 On/Off Footwear (QC): 4 1=Demonstrate adherence to instructed precautions during ADL tasks. 2=Patient will verbalize/demonstrate understanding of assistive devices/modifications for ADL. 3=Patient will improve strength/tolerance for activity to enable patient to perform ADL's. OT Education/Plan Problem List/Assessment Assessment: Decreased Activ Tolerance, Decreased UE Strength, Impaired Bed Mobility, Impaired Self-Care Skills Discharge Recommendations Plan/Recommendations: Continue POC Treatment Plan/Plan of Care Patient would benefit from OT for education, treatment and training to promote independence in ADL's, mobility, safety and/or upper extremity function for ADL's. Plan of Care: ADL Retraining, Caregiver Training, Concurrent Therapy, Functional Mobility, Group Exercise/Act as Ind, UE Funct Exercise/Act Treatment Duration: Nov 24, 2021 Frequency: At least 5 of 7 days/Wk (IRF) Estimated Hrs Per Day: 1.5 hours per day (75-90 min/day ) Agreement: Yes Rehab Potential: Fair Time/GCodes Start Time: 01:00 Stop Time: 13:00 Total Time Billed (hr/min): 30 Billed Treatment Time 1 visit- ADL 1 (22 min) EX 1 (8 min) TONNY STAFFORD Nov 08, 2021 13:39
[2021-11-08 19:17] VITALS: BP 154/79
[2021-11-08] MEDS: LOSARTAN 100 MG (COZAAR) TABLET PO SCH (21:52)
[2021-11-08] MEDS: PRIMIDONE 50 MG TAB (MYSOLINE) PO SCH (21:52)
[2021-11-09] MEDS: KCL 10 MEQ TAB (MICRO K) PO SCH ×3 (05:22→17:06)
[2021-11-09] MEDS: MULTIVIT W/MINERALS TAB (THERAGRAN M) PO SCH (05:22)
--- NOTE | 2021-11-09 06:14 | PM&R Progress Note ---
Subjective HPI/CC On Admission Date Seen by Provider: Nov 09, 2021 Time Seen by Provider: 09:00 Subjective/Events-last exam 11/09/2021: Pt is doing a lot better Sleeping a lot Told her to minimize the Oxycodone Bowels haven't moved so will initiate more laxatives 11/08/2021: Pt is doing well Bowels moved 2 days ago Incontinence last night of bladder Just didn't have enough time to get to the bathroom Overall doing well otherwise 11/07/2021: Doing much better MTX and home meds restarted No pain at this time if she doesn't move BM large x 3 yesterday Voiding well after DC cath DC Urecholine 11/06/2021: Patient having a slow recovery Pain is intense Needs her home meds restarted Blood pressure still borderline low We will discontinue catheter today Bowels have not moved so starting more aggressive regimen Review of Systems General: Fatigue, Malaise Objective Exam Vital Signs Vital Signs Date Time Temp Pulse Resp B/P (MAP) Pulse Ox O2 Delivery O2 Flow Rate FiO2 11/09/21 09:00 94 Room Air 11/09/21 07:33 36.6 65 18 155/72 (99) 11/07/21 09:55 0.00 Capillary Refill : General Appearance: No Apparent Distress, WD/WN, Chronically ill HEENT: PERRL/EOMI, Normal ENT Inspection, Pharynx Normal Neck: Full Range of Motion, Normal Inspection, Non Tender, Supple, Carotid Bruit Respiratory: Chest Non Tender, Lungs Clear, Normal Breath Sounds, No Accessory Muscle Use, No Respiratory Distress Cardiovascular: Regular Rate, Rhythm, No Edema, No Gallop, No JVD, No Murmur, Normal Peripheral Pulses Gastrointestinal: Normal Bowel Sounds, No Organomegaly, No Pulsatile Mass, Non Tender, Soft Back: Normal Inspection, No CVA Tenderness, No Vertebral Tenderness Extremity: Normal Capillary Refill, Normal Inspection, Normal Range of Motion, Non Tender, No Calf Tenderness, No Pedal Edema Neurologic/Psychiatric: Alert, Oriented x3, No Motor/Sensory Deficits, yarding supervisor II- XII Norm as Tested, Abnormal Gait, Depressed Affect, Motor Weakness (left leg) Skin: Normal Color, Warm/Dry Lymphatic: No Adenopathy Results/Procedures Lab Patient resulted labs reviewed. FIM Transfers Therapy Code Descriptions/Definitions Functional [place] Measure: 0=Not Assessed/NA 4=Minimal Assistance 1=Total Assistance 5=Supervision or Setup 2=Maximal Assistance 6=Modified [place] 3=Moderate Assistance 7=Complete IndependenceSCALE: Activities may be completed with or without assistive devices. 9-Ptlzivzqvc-efnrafj completes the activity by him/herself with no assistance from a helper. 5-Set-up or Clean-up Assistance-helper sets up or cleans up; patient completes activity. [place] assists only prior to or following the activity. 4-Supervision or Touching Assistance-helper provides verbal cues and/or touching/steadying and/or contact guard assistance as patient completes activity. Assistance may be provided throughout the activity or intermittently. 3-Partial/Moderate Assistance-helper does LESS THAN HALF the effort. [place] lifts, holds or supports trunk or limbs, but provides less than half the effort. 2-Substantial/Maximal Assistance-helper does MORE THAN HALF the effort. [place] lifts or holds trunk or limbs and provides more than half the effort. 6-Ntshjzylm-nkweet does ALL the effort. Patient does none of the effort to complete the activity. Or, the assistance of 2 or more helpers is required for the patient to complete the activity. If activity was not attempted, code reason: 7-Patient Refused. 9-Not Applicable-not attempted and the patient did not perform the activity before the current illness, exacerbation or injury. 10-Not Attempted due to Environmental Limitations-(lack of equipment, weather restraints, etc.). 88-Not Attempted due to Medical Conditions or Safety Concerns. Roll Left to Right (QC): 4 Sit to Lying (QC): 3 Sit to Stand (QC): 3 Chair/Zfa-ek-Qeqig Xfer(QC): 4 Car Transfer (QC): 88 Gait Training Does the Patient Walk?: Yes Distance: 100' Walk 10 feet (QC): 4 Walk 50 ft with 2 Turns(QC): 4 Walk 150 ft (QC): 88 Walking 10ft/uneven surface-QC: 88 Gait Persons Needed: 1 Gait Assistive Device: FWW Wheelchair Training Wheel 50 ft with 2 turns (QC): 1 Wheel 150 ft (QC): 1 Stair Training 1 Step (curb) (QC): 88 4 Steps (QC): 88 12 Steps (QC): 88 Balance Picking up an Object (QC): 88 ADL-Treatment Eating (QC): 6 Oral Hygiene (QC): 6 (at seated level) Shower/Bathe Self (QC): 3 Upper Body Dressing (QC): 5 Lower Body Dressing (QC): 2 On/Off Footwear (QC): 1 Toileting Hygiene (QC): 4 (CGA) Toilet Transfer (QC): 4 (CGA) Assessment/Plan Assessment and Plan Assess & Plan/Chief Complaint Assessment: Left total knee replacement Pacemaker HLP HTN Tremor essential type Urinary retention discontinue catheter 11/06 resolved Angulo cath in place discontinued 11/06 Postop constipation 11/06 resolved Plan: Urecholine PT OT BM regimen 11/06/2021: DC catheter Increased bowel regimen 11/07/2021: Voiding well Home meds restart 11/08/2021: BM regimen Restart MTX 11/09/2021: Minimize pain meds BM regimen (1) History of arthroplasty of left knee ROB TAPIA DO Nov 09, 2021 06:14
[2021-11-09 07:33] VITALS: BP 155/72
[2021-11-09] MEDS: ENOXAPARIN INJECTION 30 MG/0.3 ML SYR SC SCH ×2 (08:48→20:58)
[2021-11-09] MEDS: PROPRANOLOL ER 80 MG CAP (INDERAL LA) PO SCH ×2 (08:49→20:59)
[2021-11-09] MEDS: CALCIUM CARBONATE 500 MG (TUMS) TAB.CHEW PO SCH ×3 (08:49→21:00)
[2021-11-09] MEDS: DOCUSATE SODIUM 100 MG (COLACE) CAP PO SCH ×2 (08:50→20:58)
[2021-11-09] MEDS: amLODIPine 5 MG (NORVASC) TAB PO SCH (08:50)
[2021-11-09] MEDS: SENNA W/DOCUSATE (SENOKOT S) TABLET PO SCH ×2 (08:50→20:59)
[2021-11-09] MEDS: FOLIC ACID 1 MG TAB PO SCH (08:50)
[2021-11-09] MEDS: ASPIRIN E.C. 81 MG (ECOTRIN) TAB PO SCH (08:50)
[2021-11-09] MEDS: PARoxetine 20 MG (PAXIL) TAB PO SCH (08:51)
[2021-11-09] MEDS: polyethylene glycoL POWDER 17 GM (MIRALAX) PACK PO SCH ×2 (08:52→21:00)
[2021-11-09] MEDS: LACTULOSE SYRUP 10GM/15ML (ENULOSE) 30ML UDC PO SCH ×2 (08:52→21:00)
--- NOTE | 2021-11-09 09:58 | Physical Therapy Daily Note ---
PT Daily Note-Current Subjective Patient in bed pre tx, agrees to PT, has 8/10 pain in left knee, has already had pain meds. Will be co-treating with OT for part of tx due to poor patient mobility, endurance, strength, severe pain with activity, coordinate UE and LE with activity, safety and reduce risk of falls. Patient dressed LE with assist from therapist to get it on her legs. Appearance Patient in room to continue with OT for a while. Mental Status Patient Orientation: Person, Place, Situation Transfers SCALE: Activities may be completed with or without assistive devices. 7-Nzxjglfcev-odzsyld completes the activity by him/herself with no assistance from a helper. 5-Set-up or Clean-up Assistance-helper sets up or cleans up; patient completes activity. [place] assists only prior to or following the activity. 4-Supervision or Touching Assistance-helper provides verbal cues and/or touching/steadying and/or contact guard assistance as patient completes activity. Assistance may be provided throughout the activity or intermittently. 3-Partial/Moderate Assistance-helper does LESS THAN HALF the effort. [place] lifts, holds or supports trunk or limbs, but provides less than half the effort. 2-Substantial/Maximal Assistance-helper does MORE THAN HALF the effort. [place] lifts or holds trunk or limbs and provides more than half the effort. 3-Duzmdgjir-crjvco does ALL the effort. Patient does none of the effort to complete the activity. Or, the assistance of 2 or more helpers is required for the patient to complete the activity. If activity was not attempted, code reason: 7-Patient Refused. 9-Not Applicable-not attempted and the patient did not perform the activity before the current illness, exacerbation or injury. 10-Not Attempted due to Environmental Limitations-(lack of equipment, weather restraints, etc.). 88-Not Attempted due to Medical Conditions or Safety Concerns. Roll Left & Right (QC): 4 Lying to Sitting/Side of Bed(Q: 3 Sit to Stand (QC): 4 Chair/Ssq-tu-Qbtro Xfer(QC): 4 Weight Bearing Left Lower Extremity: Left Weight Bearing/Tolerated Gait Training Distance: 60'x4 Walk 10 feet (QC): 4 Walk 50 ft with 2 Turns(QC): 4 Gait Persons Needed: 1 Very slow ambulation, antalgic, keeps a flexed left knee and seems to be in valgus, poor foot clearance and step through, has trouble bearing weight on LLE. Exercises standing activity in parallel bars trying to bear equal weight on legs while performing UE activity Treatments PT performed bed mobility and transfers, ambulation, standing activity, OT pe rformed UE activity, UE safety and positioning during activity. Assessment Current Status: Poor Progress Patient has persistent inability to bear more than minimal amount of weight on LLE PT Short Term Goals Short Term Goals Time Frame: Nov 12, 2021 Roll Left & Right: 3 (Yovani) Sit to lyin (Yovani) Lying to sitting on side of be: 3 (Yovani) Sit to stand: 4 (CGA) Chair/tnq-yv-gcgfh transfer: 4 (CGA) Walk 10 feet: 4 (CGA) Walk 50 feet with two turns: 4 (CGA) PT [facility] Goals Ch[facility] Goals PT Painter Apprentice Goals Time Frame: Nov 26, 2021 Roll Left & Right (QC): 4 (SBA) Sit to Lying (QC): 4 (SBA) Lying-Sitting on Side/Bed(QC): 4 (SBA) Sit to Stand (QC): 4 (SBA) Chair/Idl-oa-Ltpit Xfer(QC): 4 (SBA) Toilet Transfer (QC): 4 (SBA) Car Transfer (QC): 3 (Yovani) Does the Patient Walk: Yes Walk 10 feet (QC): 4 (SBA) Walk 50ft with 2 Turns (QC): 4 (SBA) Walk 150 ft (QC): 4 (SBA) Walking 10ft on Uneven Surface: 4 (SBA) 1 Step (curb) (QC): 3 (Yovani) 4 Steps (QC): 3 (Yovani) 12 Steps (QC): 88 Picking up an Object (QC): 4 (SBA) Wheel 50 feet with 2 turns (QC: 9 Wheel 150 feet: 9 PT Plan Problem List Problem List: Activity Tolerance, Functional Strength, Safety, Balance, Gait, Transfer, Bed Mobility, ROM Treatment/Plan Treatment Plan: Continue Plan of Care Treatment Plan: Bed Mobility, Education, Functional Activity Anya, Functional Strength, Group Therapy, Gait, Safety, Therapeutic Exercise, Transfers Treatment Duration: Nov 26, 2021 Frequency: At least 5 of 7 days/Wk (IRF) Estimated Hrs Per Day: 1.5 hours per day Patient and/or Family Agrees t: Yes Safety Risks/Education Patient Education: Gait Training, Transfer Techniques, Correct Positioning, Safety Issues Teaching Recipient: Patient Teaching Methods: Demonstration, Discussion Response to Teaching: Reinforcement Needed Time/GCodes Time In: 0900 Time Out: 1000 Total Billed Treatment Time: 60 Total Billed Treatment 1 visit FA 60' co-treated with OT from [id number] SCOTT MARRERO PT Nov 09, 2021 09:58
--- NOTE | 2021-11-09 10:09 | Occupational Ther Daily Note ---
OT Current Status-Daily Note Subjective Pt reports pain in L knee as 8/10. RN notified. Co-treat with PT for part of treatment secondary to poor mobility, high fall risk, poor endurance, high pain levels and need of 2 skilled clinicians to progress indep and safety with adls and functional mobility. Mental Status/Objective Patient Orientation: Person, Place, Situation Attachments: IV ADL-Treatment Therapy Code Descriptions/Definitions Functional [place] Measure: 0=Not Assessed/NA 4=Minimal Assistance 1=Total Assistance 5=Supervision or Setup 2=Maximal Assistance 6=Modified [place] 3=Moderate Assistance 7=Complete IndependenceSCALE: Activities may be completed with or without assistive devices. 6-Qzznqhxjpj-grvoyeq completes the activity by him/herself with no assistance from a helper. 5-Set-up or Clean-up Assistance-helper sets up or cleans up; patient completes activity. [place] assists only prior to or following the activity. 4-Supervision or Touching Assistance-helper provides verbal cues and/or touching/steadying and/or contact guard assistance as patient completes activity. Assistance may be provided throughout the activity or intermittently. 3-Partial/Moderate Assistance-helper does LESS THAN HALF the effort. [place] lifts, holds or supports trunk or limbs, but provides less than half the effort. 2-Substantial/Maximal Assistance-helper does MORE THAN HALF the effort. [place] lifts or holds trunk or limbs and provides more than half the effort. 4-Ojwhhsebs-cjemyn does ALL the effort. Patient does none of the effort to complete the activity. Or, the assistance of 2 or more helpers is required for the patient to complete the activity. If activity was not attempted, code reason: 7-Patient Refused. 9-Not Applicable-not attempted and the patient did not perform the activity before the current illness, exacerbation or injury. 10-Not Attempted due to Environmental Limitations-(lack of equipment, weather restraints, etc.). 88-Not Attempted due to Medical Conditions or Safety Concerns. Oral Hygiene (QC): 6 Lower Body Dressing (QC): 2 (Per PT) On/Off Footwear: 1 Toileting Hygiene (QC): 4 (steaying assist during clothing management.) Toilet Transfer (QC): 4 Pt already dressed for the day. PT reports max a to thread BLE's into pants. Pt able to pull clothing up to waist with steadying assist. Grooming tasks performe d independently at w/c level, pt declines attempt to stand at sink. Extra time required for all activities. Other Treatment Pt ambulating in halls with PT at OT arrival. Very slow speed, L knee remains flexed and inverted (knock knee). Poor weight bearing exhibited through LLE. Pt often having difficulty with step through. Cues for improved foot clearance and safety with walker, especially when turning to sit. Pt only able to ambulate short distances at a time before requesting to sit. While in therapy gym, pt participated in standing activity with focus on improving posture, weight bearing, balance, standing tolerance/endurance, UE coordination/FM and reducing UE support needed for functional tasks. Pt stacked 1/2 inch blocks (3 vertically and then 3 horizontally). Single UE support on parallel bar throughout activity. Pt declines using L hand to complete as she reports tremors are much worse in LUE. Several verbal and visual cues for posture, MACARE[place], and weight bearing through both LE's when standing. Pt often offloading onto RLE with L knee/foot inverted in towards RLE. Pt only able to stack 6 rows of 3 at a time before needing a sitting rest break. Education OT Patient Education: Correct positioning, Modified ADL techniques, Purpose of tx/functional activities, Reviewed precautions, Safety issues, Transfer techniques, W/C management Teaching Recipient: Patient Teaching Methods: Demonstration, Discussion Response to Teaching: Verbalize Understanding, Return Demonstration, Reinforcement Needed OT Short Term Goals Short Term Goals Time Frame: Nov 12, 2021 Eatin Oral hygiene: 5 Toileting hygiene: 3 Shower/bathe self: 3 Upper body dressin Lower body dressin Putting on/taking off footwear: 3 OT Underwriting Manager Goals Half-Way Goals Time Frame: Nov 24, 2021 Eating (QC): 6 Oral Hygiene (QC): 6 Toileting Hygiene (QC): 6 Shower/Bathe Self (QC): 5 Upper Body Dressing (QC): 5 Lower Body Dressing (QC): 5 On/Off Footwear (QC): 4 1=Demonstrate adherence to instructed precautions during ADL tasks. 2=Patient will verbalize/demonstrate understanding of assistive devices/modifications for ADL. 3=Patient will improve strength/tolerance for activity to enable patient to perform ADL's. OT Education/Plan Problem List/Assessment Assessment: Decreased Activ Tolerance, Decreased Safety Aware, Decreased UE Strength, Impaired Coordination, Impaired Funct Balance, Impaired Self-Care Skills Discharge Recommendations Plan/Recommendations: Continue POC Treatment Plan/Plan of Care Treatment,Training & Education: Yes Patient would benefit from OT for education, treatment and training to promote independence in ADL's, mobility, safety and/or upper extremity function for A DL's. Plan of Care: ADL Retraining, Caregiver Training, Concurrent Therapy, Functional Mobility, Group Exercise/Act as Ind, UE Funct Exercise/Act Treatment Duration: Nov 24, 2021 Frequency: At least 5 of 7 days/Wk (IRF) Estimated Hrs Per Day: 1.5 hours per day (75-90 min/day ) Agreement: Yes Rehab Potential: Fair Time/GCodes Start Time: 09:15 Stop Time: 10:15 Total Time Billed (hr/min): 60 Billed Treatment Time 1 visit ADL (20 min) FA x3 (40 min) Itzel Lopez OT Nov 09, 2021 10:08
--- NOTE | 2021-11-09 14:26 | Therapy Group Daily Note ---
Therapy Daily Group Note Patient Education Topic Other List Below (energy conservation, community access) Exercises LE Seated Exercise, UE Exercise Session Ratio (pt:therapist): 3:1 Goal of Session: Education on ARU Expectations, Energy Conservation Tech., UE/LE Strengthing Goal Met for this Session: Yes Pt Benefit of Group: Contributions to Others, F/U Use of Strategies @Home, Increased Functional Safety, Increased Functional Strength, Improved Cognition, Recognition of Peers, Socialization Other/Notes Pt ambulated assisted to [facility] then used w/c to arrive due to fatigue/pain. OT/PT group consisted of introductions (name, place living, favorite restaurant), socialization, B UE/LE seated exercises and educational topics of energy conservation/community access. Pt actively listened to peers and appropriately introduced self. Pt was able to complete B UE/LE seated exercises correctly with skilled instruction. Pt was able to demonstrate understanding of educational topics by giving own personal strategies and routines. After therapy, pt lying in bed with call light/phone in reach. All needs met in room. Start Time: 13:00 Stop Time: 14:00 Total Billed Treatment Time: 60 Total Billed Treatment 1-GRP TONNY STAFFORD Nov 09, 2021 14:26
[2021-11-09 20:00] VITALS: BP 125/57
[2021-11-09] MEDS: PRIMIDONE 50 MG TAB (MYSOLINE) PO SCH (20:59)
[2021-11-09] MEDS: LOSARTAN 100 MG (COZAAR) TABLET PO SCH (20:59)
[2021-11-10] MEDS: BACLOFEN 10 MG (LIORESAL) TAB PO PRN ×3 (00:14→20:27)
--- NOTE | 2021-11-10 06:14 | PM&R Progress Note ---
Subjective HPI/CC On Admission Date Seen by Provider: Nov 10, 2021 Time Seen by Provider: 08:30 Subjective/Events-last exam 11/10/2021: Pt is having a slow recovery Monday discharge date Improved night overall Oxycontin and Baclofen really helping 11/09/2021: Pt is doing a lot better Sleeping a lot Told her to minimize the Oxycodone Bowels haven't moved so will initiate more laxatives 11/08/2021: Pt is doing well Bowels moved 2 days ago Incontinence last night of bladder Just didn't have enough time to get to the bathroom Overall doing well otherwise 11/07/2021: Doing much better MTX and home meds restarted No pain at this time if she doesn't move BM large x 3 yesterday Voiding well after DC cath DC Urecholine 11/06/2021: Patient having a slow recovery Pain is intense Needs her home meds restarted Blood pressure still borderline low We will discontinue catheter today Bowels have not moved so starting more aggressive regimen Review of Systems General: Fatigue, Malaise Musculoskeletal: leg pain Objective Exam Vital Signs Vital Signs Date Time Temp Pulse Resp B/P (MAP) Pulse Ox O2 Delivery O2 Flow Rate FiO2 11/10/21 19:57 36.4 63 16 104/58 (73) 95 Room Air 11/07/21 09:55 0.00 Capillary Refill : General Appearance: No Apparent Distress, WD/WN, Chronically ill HEENT: PERRL/EOMI, Normal ENT Inspection, Pharynx Normal Neck: Full Range of Motion, Normal Inspection, Non Tender, Supple, Carotid Bruit Respiratory: Chest Non Tender, Lungs Clear, Normal Breath Sounds, No Accessory Muscle Use, No Respiratory Distress Cardiovascular: Regular Rate, Rhythm, No Edema, No Gallop, No JVD, No Murmur, Normal Peripheral Pulses Gastrointestinal: Normal Bowel Sounds, No Organomegaly, No Pulsatile Mass, Non Tender, Soft Back: Normal Inspection, No CVA Tenderness, No Vertebral Tenderness Extremity: Normal Capillary Refill, Normal Inspection, Normal Range of Motion, Non Tender, No Calf Tenderness, No Pedal Edema Neurologic/Psychiatric: Alert, Oriented x3, No Motor/Sensory Deficits, lumber racker II- XII Norm as Tested, Abnormal Gait, Depressed Affect, Motor Weakness (left leg) Skin: Normal Color, Warm/Dry Lymphatic: No Adenopathy Results/Procedures Lab Patient resulted labs reviewed. FIM Transfers Therapy Code Descriptions/Definitions Functional [place] Measure: 0=Not Assessed/NA 4=Minimal Assistance 1=Total Assistance 5=Supervision or Setup 2=Maximal Assistance 6=Modified [place] 3=Moderate Assistance 7=Complete IndependenceSCALE: Activities may be completed with or without assistive devices. 7-Xwikrafihb-gpncnzb completes the activity by him/herself with no assistance from a helper. 5-Set-up or Clean-up Assistance-helper sets up or cleans up; patient completes activity. [place] assists only prior to or following the activity. 4-Supervision or Touching Assistance-helper provides verbal cues and/or touchin g/steadying and/or contact guard assistance as patient completes activity. Assistance may be provided throughout the activity or intermittently. 3-Partial/Moderate Assistance-helper does LESS THAN HALF the effort. [place] lifts, holds or supports trunk or limbs, but provides less than half the effort. 2-Substantial/Maximal Assistance-helper does MORE THAN HALF the effort. [place] lifts or holds trunk or limbs and provides more than half the effort. 6-Ilebyxnqn-nritru does ALL the effort. Patient does none of the effort to complete the activity. Or, the assistance of 2 or more helpers is required for the patient to complete the activity. If activity was not attempted, code reason: 7-Patient Refused. 9-Not Applicable-not attempted and the patient did not perform the activity before the current illness, exacerbation or injury. 10-Not Attempted due to Environmental Limitations-(lack of equipment, weather restraints, etc.). 88-Not Attempted due to Medical Conditions or Safety Concerns. Roll Left to Right (QC): 4 Sit to Lying (QC): 3 Sit to Stand (QC): 4 Chair/Ncp-ga-Mqhnf Xfer(QC): 4 Car Transfer (QC): 88 Gait Training Does the Patient Walk?: Yes Distance: 60'x4 Walk 10 feet (QC): 4 Walk 50 ft with 2 Turns(QC): 4 Walk 150 ft (QC): 88 Walking 10ft/uneven surface-QC: 88 Gait Persons Needed: 1 Gait Assistive Device: FWW Wheelchair Training Does the Pt Use a Wheelchair?: No Wheel 50 ft with 2 turns (QC): 1 Wheel 150 ft (QC): 1 Type of Wheelchair: N/A Stair Training 1 Step (curb) (QC): 88 4 Steps (QC): 88 12 Steps (QC): 88 Balance Picking up an Object (QC): 88 ADL-Treatment Eating (QC): 6 Oral Hygiene (QC): 6 Shower/Bathe Self (QC): 3 Upper Body Dressing (QC): 5 Lower Body Dressing (QC): 2 On/Off Footwear (QC): 1 Toileting Hygiene (QC): 4 Toilet Transfer (QC): 4 Assessment/Plan Assessment and Plan Assess & Plan/Chief Complaint Assessment: Left total knee replacement Pacemaker HLP HTN Tremor essential type Urinary retention discontinue catheter 11/06 resolved Angulo cath in place discontinued 11/06 Postop constipation 11/06 resolved Plan: Urecholine PT OT BM regimen 11/06/2021: DC catheter Increased bowel regimen 11/07/2021: Voiding well Home meds restart 11/08/2021: BM regimen Restart MTX 11/09/2021: Minimize pain meds BM regimen 11/10/2021: Slow recovery Continue aggressive rehab (1) History of arthroplasty of left knee ROB TAPIA DO Nov 10, 2021 06:14
[2021-11-10] MEDS: KCL 10 MEQ TAB (MICRO K) PO SCH ×3 (06:48→18:20)
[2021-11-10] MEDS: MULTIVIT W/MINERALS TAB (THERAGRAN M) PO SCH (06:49)
--- NOTE | 2021-11-10 07:34 | Progress Note ---
Standard Progress Note Progress Notes/Assess & Plan Date Seen by a Provider: Nov 09, 2021 Time Seen by a Provider: 16:23 Progress/Assessment & Plan feeling better Vital Signs Date Time Temp Pulse Resp B/P (MAP) Pulse Ox O2 Delivery O2 Flow Rate FiO2 11/07/21 07:07 36.8 71 20 156/70 (98) 96 Room Air 11/06/21 20:15 Nasal Cannula 1.00 11/06/21 20:05 96 Room Air 11/06/21 19:49 37.2 79 18 144/70 (94) 96 Room Air 11/06/21 09:00 97 Nasal Cannula 2.00 Laboratory Tests Test 11/06/21 16:40 Range/Units LLE--incision clean and dry. No calf tenderness. Neg Karime's s/p LTKA PT/OT Final Diagnosis no complaints havaing difficulty bearing weight LLE--incision clean and dry. Stable to varus and valgus stress s/p LTKA with poor motivation reinforced to the patient the importance of working through the discomfort YAHIR CHÁEVZ MD Nov 10, 2021 07:34
[2021-11-10 07:55] VITALS: BP 157/70
[2021-11-10] MEDS: ASPIRIN E.C. 81 MG (ECOTRIN) TAB PO SCH (09:14)
[2021-11-10] MEDS: PROPRANOLOL ER 80 MG CAP (INDERAL LA) PO SCH ×2 (09:14→20:27)
[2021-11-10] MEDS: amLODIPine 5 MG (NORVASC) TAB PO SCH (09:15)
[2021-11-10] MEDS: CALCIUM CARBONATE 500 MG (TUMS) TAB.CHEW PO SCH ×2 (09:15→20:17)
[2021-11-10] MEDS: FOLIC ACID 1 MG TAB PO SCH (09:15)
[2021-11-10] MEDS: PARoxetine 20 MG (PAXIL) TAB PO SCH (09:15)
[2021-11-10] MEDS: ENOXAPARIN INJECTION 30 MG/0.3 ML SYR SC SCH ×2 (09:17→20:27)
[2021-11-10] MEDS: LACTULOSE SYRUP 10GM/15ML (ENULOSE) 30ML UDC PO SCH ×2 (10:19→20:28)
[2021-11-10] MEDS: SENNA W/DOCUSATE (SENOKOT S) TABLET PO SCH ×2 (10:19→20:27)
[2021-11-10] MEDS: DOCUSATE SODIUM 100 MG (COLACE) CAP PO SCH ×2 (10:19→20:27)
[2021-11-10] MEDS: polyethylene glycoL POWDER 17 GM (MIRALAX) PACK PO SCH ×2 (10:19→20:28)
--- NOTE | 2021-11-10 10:52 | Occupational Ther Daily Note ---
OT Current Status-Daily Note Subjective Pt reports significant pain in L knee, 11/27. Rn aware. Pt still agreeable to shower. Appearance Pt left sitting in w/c, all needs within reach at Ot departure. Mental Status/Objective Patient Orientation: Person, Place, Situation Attachments: IV ADL-Treatment Therapy Code Descriptions/Definitions Functional [place] Measure: 0=Not Assessed/NA 4=Minimal Assistance 1=Total Assistance 5=Supervision or Setup 2=Maximal Assistance 6=Modified [place] 3=Moderate Assistance 7=Complete IndependenceSCALE: Activities may be completed with or without assistive devices. 3-Yfegjibkyr-iktkscf completes the activity by him/herself with no assistance from a helper. 5-Set-up or Clean-up Assistance-helper sets up or cleans up; patient completes activity. [place] assists only prior to or following the activity. 4-Supervision or Touching Assistance-helper provides verbal cues and/or t ouching/steadying and/or contact guard assistance as patient completes activity. Assistance may be provided throughout the activity or intermittently. 3-Partial/Moderate Assistance-helper does LESS THAN HALF the effort. [place] lifts, holds or supports trunk or limbs, but provides less than half the effort. 2-Substantial/Maximal Assistance-helper does MORE THAN HALF the effort. [place] lifts or holds trunk or limbs and provides more than half the effort. 7-Yzinpkwhq-hdvnuy does ALL the effort. Patient does none of the effort to complete the activity. Or, the assistance of 2 or more helpers is required for the patient to complete the activity. If activity was not attempted, code reason: 7-Patient Refused. 9-Not Applicable-not attempted and the patient did not perform the activity before the current illness, exacerbation or injury. 10-Not Attempted due to Environmental Limitations-(lack of equipment, weather restraints, etc.). 88-Not Attempted due to Medical Conditions or Safety Concerns. Eating (QC): 6 Oral Hygiene (QC): 6 Shower/Bathe Self (QC): 3 Upper Body Dressing (QC): 5 Lower Body Dressing (QC): 3 On/Off Footwear: 3 Toileting Hygiene (QC): 4 Toilet Transfer (QC): 4 Shower performed; 100% completed in sitting. Port and dressing covered by OT prior to bathing. C/D/I post activity. OT issued and instructed pt on LHS for improved independence when washing feet. Post instruction, pt able to wash without assist. Min a to wash buttocks as pt leaned anteriorly and laterally. Clothing donned seated in w/c. OT instructed pt on use of school transportation director. Due to pain and weakness, assist needed to lift LLE off floor as she utilized school transportation director to thread clothing over her foot. Mod verbal cues for school transportation director use throughout task. When standing, cues needed to initiate clothing management. CGA for safety when standing. OT also instructed pt on use of sock aid. Post education, min a to don sock over tool. Pt able to complete all other steps with verbal cues only. Extra time to complete grooming tasks seated at sink. Education OT Patient Education: Correct positioning, Energy conservation, Modified ADL techniques, Progress toward Goal/Update tx plan, Purpose of tx/functional activities, Reviewed precautions, Rehab process, Safety issues, Transfer techniques, Use of adapted equipment, W/C management Teaching Recipient: Patient Teaching Methods: Demonstration, Discussion Response to Teaching: Verbalize Understanding, Return Demonstration, Reinforcement Needed OT Short Term Goals Short Term Goals Time Frame: Nov 12, 2021 Eatin Oral hygiene: 5 Toileting hygiene: 3 Shower/bathe self: 3 Upper body dressin Lower body dressin Putting on/taking off footwear: 3 OT Natural Resources Extension Educator Goals Natural Resources Extension Educator Goals Time Frame: Nov 24, 2021 Eating (QC): 6 Oral Hygiene (QC): 6 Toileting Hygiene (QC): 6 Shower/Bathe Self (QC): 5 Upper Body Dressing (QC): 5 Lower Body Dressing (QC): 5 On/Off Footwear (QC): 4 1=Demonstrate adherence to instructed precautions during ADL tasks. 2=Patient will verbalize/demonstrate understanding of assistive devices/modifications for ADL. 3=Patient will improve strength/tolerance for activity to enable patient to perform ADL's. OT Education/Plan Problem List/Assessment Assessment: Decreased Activ Tolerance, Decreased UE Strength, Edema, Impaired Cognition, Impaired Funct Balance, Impaired I ADL's, Impaired Self-Care Skills Discharge Recommendations Plan/Recommendations: Continue POC Equpiment Recommendations-D/C: Rotary Filter Operator, Sock Aide Treatment Plan/Plan of Care Treatment,Training & Education: Yes Patient would benefit from OT for education, treatment and training to promote independence in ADL's, mobility, safety and/or upper extremity function for ADL's. Plan of Care: ADL Retraining, Caregiver Training, Concurrent Therapy, Functional Mobility, Group Exercise/Act as Ind, UE Funct Exercise/Act Treatment Duration: Nov 24, 2021 Frequency: At least 5 of 7 days/Wk (IRF) Estimated Hrs Per Day: 1.5 hours per day (75-90 min/day ) Agreement: Yes Rehab Potential: Fair Time/GCodes Start Time: 09:30 Stop Time: 11:00 Total Time Billed (hr/min): 90 Billed Treatment Time 1 visit ADL x6 Itzel Lopez OT Nov 10, 2021 10:52
--- NOTE | 2021-11-10 13:15 | Physical Therapy Daily Note ---
PT Daily Note-Current Subjective Pt. and present in room. Pt. states she is still plagued by pain at 8- 9/10 in left knee. and both express concern that he will not be able to care for her at DC at home. Pt. and mention skilled care after DC. Pain Numeric Pain Scale: 8 Location: Left Location Body Site: Knee Pain Description: Ache Appearance left knee valgum with left hip internal salesperson rotation poor to no heel strike , scoots and lifts forefoot Mental Status Patient Orientation: Normal For Age Attachments: Polar Pack pt. needs frequent reminders and explanations for all tasks and endeavors Transfers SCALE: Activities may be completed with or without assistive devices. 0-Rxbikmmqyy-dsuhnwt completes the activity by him/herself with no assistance from a helper. 5-Set-up or Clean-up Assistance-helper sets up or cleans up; patient completes activity. [place] assists only prior to or following the activity. 4-Supervision or Touching Assistance-helper provides verbal cues and/or touching/steadying and/or contact guard assistance as patient completes activity. Assistance may be provided throughout the activity or intermittently. 3-Partial/Moderate Assistance-helper does LESS THAN HALF the effort. [place] lifts, holds or supports trunk or limbs, but provides less than half the effort. 2-Substantial/Maximal Assistance-helper does MORE THAN HALF the effort. [place] lifts or holds trunk or limbs and provides more than half the effort. 9-Ivmusiqku-hgaefu does ALL the effort. Patient does none of the effort to complete the activity. Or, the assistance of 2 or more helpers is required for the patient to complete the activity. If activity was not attempted, code reason: 7-Patient Refused. 9-Not Applicable-not attempted and the patient did not perform the activity before the current illness, exacerbation or injury. 10-Not Attempted due to Environmental Limitations-(lack of equipment, weather restraints, etc.). 88-Not Attempted due to Medical Conditions or Safety Concerns. Roll Left & Right (QC): 4 Sit to Lying (QC): 4 Lying to Sitting/Side of Bed(Q: 4 Sit to Stand (QC): 4 Chair/Hub-mh-Tpzwf Xfer(QC): 4 Weight Bearing Left Lower Extremity: Left Weight Bearing/Tolerated Gait Training Does the Patient Walk?: Yes Walk 10 feet (QC): 4 Gait Persons Needed: 1 Gait Assistive Device: FWW ambulated 25ft, 30 ft x2 FWW, very slow, heavy wt bearing on FWW, poor alignment LLE , valgum with hip int rotation, poor heel strike Wheelchair Training Does the Pt Use a Wheelchair?: Yes Wheel 50 ft with 2 turns (QC): 3 Type of Wheelchair: Manual pt. can brake w/c but needs instruction for all of w/c mob, pt. gives up when it is not easy, has difficulty sequencing and propelling and turning w/c Exercises Supine Ex: Ankle pumps, Quad Set, Heel Slides Supine Reps: 12 (x2) Seated Therapy Exercises: Ankle pumps, Sit to stand, Long arc quads Seated Reps: 1 NuStep Minutes: 10 NuStep Workload: 2 Treatments TRFs, w/c mob, gait, L knee TKR protocol,PM gait, toileting, TKR ex, in bed after Rxs with polar pack insitu, moffett at hand, at side Assessment Current Status: Fair Progress pain limits function , cognitive and perhaps hearing issues also limit function PT Short Term Goals Short Term Goals Time Frame: Nov 12, 2021 Roll Left & Right: 3 (Yovani) Sit to lyin (Yovani) Lying to sitting on side of be: 3 (Yovani) Sit to stand: 4 (CGA) Chair/sgo-bj-fqkjr transfer: 4 (CGA) Walk 10 feet: 4 (CGA) Walk 50 feet with two turns: 4 (CGA) PT Care Home Goals Care Home Goals PT Care Home Goals Time Frame: Nov 26, 2021 Roll Left & Right (QC): 4 (SBA) Sit to Lying (QC): 4 (SBA) Lying-Sitting on Side/Bed(QC): 4 (SBA) Sit to Stand (QC): 4 (SBA) Chair/Oey-fq-Dhthy Xfer(QC): 4 (SBA) Toilet Transfer (QC): 4 (SBA) Car Transfer (QC): 3 (Yovani) Does the Patient Walk: Yes Walk 10 feet (QC): 4 (SBA) Walk 50ft with 2 Turns (QC): 4 (SBA) Walk 150 ft (QC): 4 (SBA) Walking 10ft on Uneven Surface: 4 (SBA) 1 Step (curb) (QC): 3 (Yovani) 4 Steps (QC): 3 (Yovani) 12 Steps (QC): 88 Picking up an Object (QC): 4 (SBA) Wheel 50 feet with 2 turns (QC: 9 Wheel 150 feet: 9 PT Plan Treatment/Plan Treatment Plan: Continue Plan of Care Treatment Plan: Bed Mobility, Education, Functional Activity Anya, Functional Strength, Group Therapy, Gait, Safety, Therapeutic Exercise, Transfers Treatment Duration: Nov 26, 2021 Frequency: At least 5 of 7 days/Wk (IRF) Estimated Hrs Per Day: 1.5 hours per day Patient and/or Family Agrees t: Yes Safety Risks/Education Patient Education: Gait Training, Transfer Techniques, Correct Positioning, Disease Process, Safety Issues Teaching Recipient: Patient Teaching Methods: Demonstration, Discussion Response to Teaching: Verbalize Understanding, Reinforcement Needed Time/GCodes Time In: 1100 (1320) Time Out: 1200 (1350) Total Billed Treatment Time: 60 (30) Total Billed Treatment 1x2,EXx35m,WC15m,GT40m total AM and PM Rxs DELTA BERRY LACQUER POLISHER Nov 10, 2021 13:15
[2021-11-10] MEDS: ALPRAZolam 0.25 MG (XANAX) TAB PO PRN (14:47)
[2021-11-10 19:57] VITALS: BP 104/58
[2021-11-10] MEDS: LOSARTAN 100 MG (COZAAR) TABLET PO SCH (20:27)
[2021-11-10] MEDS: PRIMIDONE 50 MG TAB (MYSOLINE) PO SCH (20:27)
--- NOTE | 2021-11-11 05:59 | PM&R Progress Note ---
Subjective HPI/CC On Admission Date Seen by Provider: Nov 11, 2021 Time Seen by Provider: 11:00 Subjective/Events-last exam 11/11/2021: Patient doing a lot better Slow recovery Pain is improving Bowels are moving Tried to reassure 11/10/2021: Pt is having a slow recovery Monday discharge date Improved night overall Oxycontin and Baclofen really helping 11/09/2021: Pt is doing a lot better Sleeping a lot Told her to minimize the Oxycodone Bowels haven't moved so will initiate more laxatives 11/08/2021: Pt is doing well Bowels moved 2 days ago Incontinence last night of bladder Just didn't have enough time to get to the bathroom Overall doing well otherwise 11/07/2021: Doing much better MTX and home meds restarted No pain at this time if she doesn't move BM large x 3 yesterday Voiding well after DC cath DC Urecholine 11/06/2021: Patient having a slow recovery Pain is intense Needs her home meds restarted Blood pressure still borderline low We will discontinue catheter today Bowels have not moved so starting more aggressive regimen Review of Systems General: Fatigue, Malaise Musculoskeletal: leg pain Objective Exam Vital Signs Vital Signs Date Time Temp Pulse Resp B/P (MAP) Pulse Ox O2 Delivery O2 Flow Rate FiO2 11/11/21 21:00 Room Air 11/11/21 20:06 36.9 65 24 127/78 (94) 95 11/07/21 09:55 0.00 Capillary Refill : General Appearance: No Apparent Distress, WD/WN, Chronically ill HEENT: PERRL/EOMI, Normal ENT Inspection, Pharynx Normal Neck: Full Range of Motion, Normal Inspection, Non Tender, Supple, Carotid Bruit Respiratory: Chest Non Tender, Lungs Clear, Normal Breath Sounds, No Accessory Muscle Use, No Respiratory Distress Cardiovascular: Regular Rate, Rhythm, No Edema, No Gallop, No JVD, No Murmur, Normal Peripheral Pulses Gastrointestinal: Normal Bowel Sounds, No Organomegaly, No Pulsatile Mass, Non Tender, Soft Back: Normal Inspection, No CVA Tenderness, No Vertebral Tenderness Extremity: Normal Capillary Refill, Normal Inspection, Normal Range of Motion, Non Tender, No Calf Tenderness, No Pedal Edema Neurologic/Psychiatric: Alert, Oriented x3, No Motor/Sensory Deficits, ribbon lap machine tender II- XII Norm as Tested, Abnormal Gait, Depressed Affect, Motor Weakness (left leg) Skin: Normal Color, Warm/Dry Lymphatic: No Adenopathy Results/Procedures Lab Patient resulted labs reviewed. FIM Transfers Therapy Code Descriptions/Definitions Functional [place] Measure: 0=Not Assessed/NA 4=Minimal Assistance 1=Total Assistance 5=Supervision or Setup 2=Maximal Assistance 6=Modified [place] 3=Moderate Assistance 7=Complete IndependenceSCALE: Activities may be completed with or without assistive devices. 4-Wmdsczhqrf-alsalrf completes the activity by him/herself with no assistance from a helper. 5-Set-up or Clean-up Assistance-helper sets up or cleans up; patient completes activity. [place] assists only prior to or following the activity. 4-Supervision or Touching Assistance-helper provides verbal cues and/or nury trav/steadying and/or contact guard assistance as patient completes activity. Assistance may be provided throughout the activity or intermittently. 3-Partial/Moderate Assistance-helper does LESS THAN HALF the effort. [place] lifts, holds or supports trunk or limbs, but provides less than half the effort. 2-Substantial/Maximal Assistance-helper does MORE THAN HALF the effort. [place] lifts or holds trunk or limbs and provides more than half the effort. 5-Yqmognidx-qjkfrn does ALL the effort. Patient does none of the effort to complete the activity. Or, the assistance of 2 or more helpers is required for the patient to complete the activity. If activity was not attempted, code reason: 7-Patient Refused. 9-Not Applicable-not attempted and the patient did not perform the activity before the current illness, exacerbation or injury. 10-Not Attempted due to Environmental Limitations-(lack of equipment, weather restraints, etc.). 88-Not Attempted due to Medical Conditions or Safety Concerns. Roll Left to Right (QC): 4 Sit to Lying (QC): 4 Sit to Stand (QC): 4 Chair/Orh-ge-Ksnno Xfer(QC): 4 Car Transfer (QC): 88 Gait Training Does the Patient Walk?: Yes Distance: 60'x4 Walk 10 feet (QC): 4 Walk 50 ft with 2 Turns(QC): 4 Walk 150 ft (QC): 88 Walking 10ft/uneven surface-QC: 88 Gait Persons Needed: 1 Gait Assistive Device: FWW Wheelchair Training Does the Pt Use a Wheelchair?: Yes Wheel 50 ft with 2 turns (QC): 3 Wheel 150 ft (QC): 1 Type of Wheelchair: Manual Stair Training 1 Step (curb) (QC): 88 4 Steps (QC): 88 12 Steps (QC): 88 Balance Picking up an Object (QC): 88 ADL-Treatment Eating (QC): 6 Oral Hygiene (QC): 6 Shower/Bathe Self (QC): 3 Upper Body Dressing (QC): 5 Lower Body Dressing (QC): 3 On/Off Footwear (QC): 3 Toileting Hygiene (QC): 4 Toilet Transfer (QC): 4 Assessment/Plan Assessment and Plan Assess & Plan/Chief Complaint Assessment: Left total knee replacement Pacemaker HLP HTN Tremor essential type Urinary retention discontinue catheter 11/06 resolved Angulo cath in place discontinued 11/06 Postop constipation 11/06 resolved Plan: Urecholine PT OT BM regimen 11/06/2021: DC catheter Increased bowel regimen 11/07/2021: Voiding well Home meds restart 11/08/2021: BM regimen Restart MTX 11/09/2021: Minimize pain meds BM regimen 11/10/2021: Slow recovery Continue aggressive rehab 11/11/2021: Slow recovery Continue aggressive rehab (1) History of arthroplasty of left knee ROB TAPIA DO Nov 11, 2021 05:58
[2021-11-11] MEDS: MULTIVIT W/MINERALS TAB (THERAGRAN M) PO SCH (06:43)
[2021-11-11] MEDS: KCL 10 MEQ TAB (MICRO K) PO SCH ×3 (06:43→17:59)
[2021-11-11 07:10] VITALS: BP 155/71
--- NOTE | 2021-11-11 07:57 | Progress Note ---
Standard Progress Note Progress Notes/Assess & Plan Date Seen by a Provider: Nov 11, 2021 Time Seen by a Provider: 07:56 Progress/Assessment & Plan feeling better Vital Signs Date Time Temp Pulse Resp B/P (MAP) Pulse Ox O2 Delivery O2 Flow Rate FiO2 11/07/21 07:07 36.8 71 20 156/70 (98) 96 Room Air 11/06/21 20:15 Nasal Cannula 1.00 11/06/21 20:05 96 Room Air 11/06/21 19:49 37.2 79 18 144/70 (94) 96 Room Air 11/06/21 09:00 97 Nasal Cannula 2.00 Laboratory Tests Test 11/06/21 16:40 Range/Units LLE--incision clean and dry. No calf tenderness. Neg Karime's s/p LTKA PT/OT Final Diagnosis patient reports that she was a "baby" yesterday Vital Signs Date Time Temp Pulse Resp B/P (MAP) Pulse Ox O2 Delivery O2 Flow Rate FiO2 11/11/21 07:10 63 16 155/71 (99) 95 Room Air 11/10/21 20:00 95 Room Air 11/10/21 19:57 36.4 63 16 104/58 (73) 95 Room Air 11/10/21 09:15 Room Air L knee without varus or valgus laxity no calf tenderness Neg Karime's s/p LTKA once again reinforced importance of PT/OT YAHIR CHÁVEZ MD Nov 11, 2021 07:57
[2021-11-11] MEDS: PARoxetine 20 MG (PAXIL) TAB PO SCH (08:34)
[2021-11-11] MEDS: FOLIC ACID 1 MG TAB PO SCH (08:34)
[2021-11-11] MEDS: DOCUSATE SODIUM 100 MG (COLACE) CAP PO SCH ×2 (08:34→21:20)
[2021-11-11] MEDS: PROPRANOLOL ER 80 MG CAP (INDERAL LA) PO SCH ×2 (08:34→21:18)
[2021-11-11] MEDS: SENNA W/DOCUSATE (SENOKOT S) TABLET PO SCH ×2 (08:34→21:20)
[2021-11-11] MEDS: ASPIRIN E.C. 81 MG (ECOTRIN) TAB PO SCH (08:34)
[2021-11-11] MEDS: amLODIPine 5 MG (NORVASC) TAB PO SCH (08:34)
[2021-11-11] MEDS: LACTULOSE SYRUP 10GM/15ML (ENULOSE) 30ML UDC PO SCH ×2 (08:35→21:19)
[2021-11-11] MEDS: CALCIUM CARBONATE 500 MG (TUMS) TAB.CHEW PO SCH ×2 (08:35→21:19)
[2021-11-11] MEDS: ENOXAPARIN INJECTION 30 MG/0.3 ML SYR SC SCH ×2 (08:35→21:19)
[2021-11-11] MEDS: polyethylene glycoL POWDER 17 GM (MIRALAX) PACK PO SCH ×2 (08:35→21:20)
--- NOTE | 2021-11-11 09:13 | Occupational Ther Daily Note ---
OT Current Status-Daily Note Subjective Pt continues to report pain in L knee as 10/27. RN aware. Mental Status/Objective Patient Orientation: Person, Place, Situation Attachments: IV (port) ADL-Treatment Therapy Code Descriptions/Definitions Functional [place] Measure: 0=Not Assessed/NA 4=Minimal Assistance 1=Total Assistance 5=Supervision or Setup 2=Maximal Assistance 6=Modified [place] 3=Moderate Assistance 7=Complete IndependenceSCALE: Activities may be completed with or without assistive devices. 2-Rvwmqkqfln-mzyubyv completes the activity by him/herself with no assistance from a helper. 5-Set-up or Clean-up Assistance-helper sets up or cleans up; patient completes activity. [place] assists only prior to or following the activity. 4-Supervision or Touching Assistance-helper provides verbal cues and/or touching/steadying and/or contact guard assistance as patient completes activity. Assistance may be provided throughout the activity or intermittently. 3-Partial/Moderate Assistance-helper does LESS THAN HALF the effort. [place] lifts, holds or supports trunk or limbs, but provides less than half the effort. 2-Substantial/Maximal Assistance-helper does MORE THAN HALF the effort. [place] lifts or holds trunk or limbs and provides more than half the effort. 0-Koksazyow-peklhf does ALL the effort. Patient does none of the effort to complete the activity. Or, the assistance of 2 or more helpers is required for the patient to complete the activity. If activity was not attempted, code reason: 7-Patient Refused. 9-Not Applicable-not attempted and the patient did not perform the activity before the current illness, exacerbation or injury. 10-Not Attempted due to Environmental Limitations-(lack of equipment, weather restraints, etc.). 88-Not Attempted due to Medical Conditions or Safety Concerns. Oral Hygiene (QC): 6 Upper Body Dressing (QC): 5 Lower Body Dressing (QC): 3 On/Off Footwear: 4 (OT donned juancarlos hose, pt able to don socks with use of sock aid and min verbal cues) Toileting Hygiene (QC): 4 Toilet Transfer (QC): 6 (from taller toilet (commode placed over)) Dressing tasks performed seated in chair. Mod verbal cues on correct education professor use. Due to pain and LLE weakness, min a needed to lift L foot off floor as she threaded foot into clothing with use of education professor. Pt able to stand and manage cl othing up to waist with supervision for safety. Min verbal cues/reminders on use of sock aid. Post cues, no physical assistance needed. Grooming tasks performed independently at seated level, extra time only. Other Treatment Pt completed UE exercises with 2# dumbbell. Focus on improving strength, endurance, and coordination needed for functional tasks/mobility. Intermittent tactile cues for L UE secondary to impaired coordination/motor planning. Pt is able to perform all joints to full range but requires cues to complete. 1x12 all planes. Cues for slow/controlled movement, more cues at shoulder. Education OT Patient Education: Correct positioning, Energy conservation, Exercise program, Modified ADL techniques, Progress toward Goal/Update tx plan, Purpose of tx/functional activities, Reviewed precautions, Safety issues, Use of adapted equipment Teaching Recipient: Patient, Family Teaching Methods: Demonstration, Discussion Response to Teaching: Verbalize Understanding, Return Demonstration, Reinforcement Needed OT Short Term Goals Short Term Goals Time Frame: Nov 12, 2021 Eatin Oral hygiene: 5 Toileting hygiene: 3 Shower/bathe self: 3 Upper body dressin Lower body dressin Putting on/taking off footwear: 3 OT Prison Goals Laser Machine Operator Goals Time Frame: Nov 24, 2021 Eating (QC): 6 Oral Hygiene (QC): 6 Toileting Hygiene (QC): 6 Shower/Bathe Self (QC): 5 Upper Body Dressing (QC): 5 Lower Body Dressing (QC): 5 On/Off Footwear (QC): 4 1=Demonstrate adherence to instructed precautions during ADL tasks. 2=Patient will verbalize/demonstrate understanding of assistive devices/modifications for ADL. 3=Patient will improve strength/tolerance for activity to enable patient to perform ADL's. OT Education/Plan Problem List/Assessment Assessment: Decreased Activ Tolerance, Decreased UE Strength, Edema, Impaired Cognition, Impaired Funct Balance, Impaired I ADL's, Impaired Self-Care Skills Discharge Recommendations Plan/Recommendations: Continue POC Equpiment Recommendations-D/C: Legal Contracts Specialist, Sock Aide Treatment Plan/Plan of Care Treatment,Training & Education: Yes Patient would benefit from OT for education, treatment and training to promote independence in ADL's, mobility, safety and/or upper extremity function for ADL's. Plan of Care: ADL Retraining, Caregiver Training, Concurrent Therapy, Functional Mobility, Group Exercise/Act as Ind, UE Funct Exercise/Act Treatment Duration: Nov 24, 2021 Frequency: At least 5 of 7 days/Wk (IRF) Estimated Hrs Per Day: 1.5 hours per day (75-90 min/day ) Agreement: Yes Rehab Potential: Fair Time/GCodes Start Time: 08:15 Stop Time: 09:45 Total Time Billed (hr/min): 90 Billed Treatment Time 1 visit ADL x4 (60 min) EX x2 (30 min) Itzel Lopez OT Nov 11, 2021 09:13
[2021-11-11] MEDS: BACLOFEN 10 MG (LIORESAL) TAB PO PRN ×2 (10:41→21:19)
--- NOTE | 2021-11-11 12:04 | Physical Therapy Daily Note ---
PT Daily Note-Current Subjective Pt. states she feels perhaps a tiny bit better today. with her not around pt,. expresses that she is concerned about her husbands health and her own and is concerned about being DCd too soon . Pt. also shares she can afford to hire help at home if needed. pain in knee at 6/10 today Pain Numeric Pain Scale: 6 Location: Left Location Body Site: Knee Pain Description: [place] Transfers SCALE: Activities may be completed with or without assistive devices. 1-Ampgjihhup-aeadwsy completes the activity by him/herself with no assistance from a helper. 5-Set-up or Clean-up Assistance-helper sets up or cleans up; patient completes activity. [place] assists only prior to or following the activity. 4-Supervision or Touching Assistance-helper provides verbal cues and/or touching/steadying and/or contact guard assistance as patient completes activity. Assistance may be provided throughout the activity or intermittently. 3-Partial/Moderate Assistance-helper does LESS THAN HALF the effort. [place] lifts, holds or supports trunk or limbs, but provides less than half the effort. 2-Substantial/Maximal Assistance-helper does MORE THAN HALF the effort. [place] lifts or holds trunk or limbs and provides more than half the effort. 1-Thsqwjceu-acjkin does ALL the effort. Patient does none of the effort to complete the activity. Or, the assistance of 2 or more helpers is required for the patient to complete the activity. If activity was not attempted, code reason: 7-Patient Refused. 9-Not Applicable-not attempted and the patient did not perform the activity before the current illness, exacerbation or injury. 10-Not Attempted due to Environmental Limitations-(lack of equipment, weather restraints, etc.). 88-Not Attempted due to Medical Conditions or Safety Concerns. Roll Left & Right (QC): 5 Sit to Lying (QC): 6 Lying to Sitting/Side of Bed(Q: 6 Sit to Stand (QC): 4 Chair/Fcv-zy-Qtaay Xfer(QC): 4 Toilet Transfer (QC): 4 at mat table in gym with firmer surface pt. was able to TRF sit to sup and sup to sit with much instruction and encouragement Weight Bearing Left Lower Extremity: Left Weight Bearing/Tolerated Gait Training Does the Patient Walk?: Yes Walk 10 feet (QC): 4 Walk 50 ft with 2 Turns(QC): 4 Gait Persons Needed: 1 Gait Assistive Device: FWW gait somewhat improved , better heel strike, better step through Wheelchair Training Does the Pt Use a Wheelchair?: Yes Wheel 50 ft with 2 turns (QC): 4 Type of Wheelchair: Manual does better with different w/c Exercises Supine Ex: Ankle pumps, Quad Set, Glut sets, Heel Slides, Short Arc Quads, Straight leg raise (assisted) Supine Reps: 15 Seated Therapy Exercises: Ankle pumps, Sit to stand, Long arc quads Seated Reps: 15 NuStep Minutes: 10 NuStep Workload: 2 Treatments gait , TRFs, TKR ex, nustep, w/c mob, toileting Assessment Current Status: Good Progress seems imprved today, ,ess pain c/o, more lynn for gait and activity PT Short Term Goals Short Term Goals Time Frame: Nov 12, 2021 Roll Left & Right: 3 (Yovani) Sit to lyin (Yovani) Lying to sitting on side of be: 3 (Yovani) Sit to stand: 4 (CGA) Chair/kcl-uc-rqqeh transfer: 4 (CGA) Walk 10 feet: 4 (CGA) Walk 50 feet with two turns: 4 (CGA) PT Fiber Technologist Goals Fpc Goals PT Fpc Goals Time Frame: Nov 26, 2021 Roll Left & Right (QC): 4 (SBA) Sit to Lying (QC): 4 (SBA) Lying-Sitting on Side/Bed(QC): 4 (SBA) Sit to Stand (QC): 4 (SBA) Chair/Keg-pd-Ielrl Xfer(QC): 4 (SBA) Toilet Transfer (QC): 4 (SBA) Car Transfer (QC): 3 (Yovani) Does the Patient Walk: Yes Walk 10 feet (QC): 4 (SBA) Walk 50ft with 2 Turns (QC): 4 (SBA) Walk 150 ft (QC): 4 (SBA) Walking 10ft on Uneven Surface: 4 (SBA) 1 Step (curb) (QC): 3 (Yovani) 4 Steps (QC): 3 (Yovani) 12 Steps (QC): 88 Picking up an Object (QC): 4 (SBA) Wheel 50 feet with 2 turns (QC: 9 Wheel 150 feet: 9 PT Plan Treatment/Plan Treatment Plan: Continue Plan of Care Treatment Plan: Bed Mobility, Education, Functional Activity Anya, Functional Strength, Group Therapy, Gait, Safety, Therapeutic Exercise, Transfers Treatment Duration: Nov 26, 2021 Frequency: At least 5 of 7 days/Wk (IRF) Estimated Hrs Per Day: 1.5 hours per day Patient and/or Family Agrees t: Yes Safety Risks/Education Patient Education: Gait Training, Transfer Techniques, Correct Positioning, Disease Process, Safety Issues Teaching Recipient: Patient Teaching Methods: Demonstration, Discussion Response to Teaching: Verbalize Understanding, Return Demonstration, Reinforcement Needed pt. requires repeated instruction, partly hearing issue Time/GCodes Time In: 1100 Time Out: 1200 Total Billed Treatment Time: 60 Total Billed Treatment 1,EX35m,GT15m,FA10m DELTA BERRY OCCUP THERAPIST Nov 11, 2021 12:04
--- NOTE | 2021-11-11 14:01 | Physical Therapy Daily Note ---
PT Daily Note-Current Subjective Agrees to Rx. Pain Location: No Pain Reported Mental Status needs many reminders for safe techniques for TRFs in out chair and bed Transfers SCALE: Activities may be completed with or without assistive devices. 7-Xdmpwhzrea-yzpslsk completes the activity by him/herself with no assistance from a helper. 5-Set-up or Clean-up Assistance-helper sets up or cleans up; patient completes activity. [place] assists only prior to or following the activity. 4-Supervision or Touching Assistance-helper provides verbal cues and/or touching/steadying and/or contact guard assistance as patient completes activity. Assistance may be provided throughout the activity or intermittently. 3-Partial/Moderate Assistance-helper does LESS THAN HALF the effort. [place] lifts, holds or supports trunk or limbs, but provides less than half the effort. 2-Substantial/Maximal Assistance-helper does MORE THAN HALF the effort. [place] lifts or holds trunk or limbs and provides more than half the effort. 9-Nvjzioqmn-yvqiki does ALL the effort. Patient does none of the effort to complete the activity. Or, the assistance of 2 or more helpers is required for the patient to complete the activity. If activity was not attempted, code reason: 7-Patient Refused. 9-Not Applicable-not attempted and the patient did not perform the activity before the current illness, exacerbation or injury. 10-Not Attempted due to Environmental Limitations-(lack of equipment, weather restraints, etc.). 88-Not Attempted due to Medical Conditions or Safety Concerns. sit to stand CGA, sit to sup min to mod assist LEs Weight Bearing Left Lower Extremity: Left Weight Bearing/Tolerated Gait Training Does the Patient Walk?: Yes Gait Assistive Device: FWW gait 30ft x 2 FWW CGA, same gait pattern as AM Exercises Supine Ex: Quad Set, Heel Slides, Straight leg raise Supine Reps: 15 Seated Therapy Exercises: Long arc quads Seated Reps: 10 Treatments gait, TRFs, ex, pt. in bed after with polar pack and call moffett at hand Assessment Current Status: Good Progress PT Short Term Goals Short Term Goals Time Frame: Nov 12, 2021 Roll Left & Right: 3 (Yovani) Sit to lyin (Yovani) Lying to sitting on side of be: 3 (Yovani) Sit to stand: 4 (CGA) Chair/wqt-tx-pcsab transfer: 4 (CGA) Walk 10 feet: 4 (CGA) Walk 50 feet with two turns: 4 (CGA) PT Mcc Goals Mcc Goals PT Mcc Goals Time Frame: Nov 26, 2021 Roll Left & Right (QC): 4 (SBA) Sit to Lying (QC): 4 (SBA) Lying-Sitting on Side/Bed(QC): 4 (SBA) Sit to Stand (QC): 4 (SBA) Chair/Hfg-rq-Dpvjf Xfer(QC): 4 (SBA) Toilet Transfer (QC): 4 (SBA) Car Transfer (QC): 3 (Yovani) Does the Patient Walk: Yes Walk 10 feet (QC): 4 (SBA) Walk 50ft with 2 Turns (QC): 4 (SBA) Walk 150 ft (QC): 4 (SBA) Walking 10ft on Uneven Surface: 4 (SBA) 1 Step (curb) (QC): 3 (Yovani) 4 Steps (QC): 3 (Yovani) 12 Steps (QC): 88 Picking up an Object (QC): 4 (SBA) Wheel 50 feet with 2 turns (QC: 9 Wheel 150 feet: 9 PT Plan Treatment/Plan Treatment Plan: Continue Plan of Care Treatment Plan: Bed Mobility, Education, Functional Activity Anya, Functional Strength, Group Therapy, Gait, Safety, Therapeutic Exercise, Transfers Treatment Duration: Nov 26, 2021 Frequency: At least 5 of 7 days/Wk (IRF) Estimated Hrs Per Day: 1.5 hours per day Patient and/or Family Agrees t: Yes Safety Risks/Education Patient Education: Gait Training, Transfer Techniques, Correct Positioning, Safety Issues Teaching Recipient: Patient Response to Teaching: Reinforcement Needed Time/GCodes Time In: 1330 Time Out: 1400 Total Billed Treatment Time: 30 Total Billed Treatment 1,GT15m,EX15m DELTA BERRY RN FIRST ASSISTANT Nov 11, 2021 14:01
[2021-11-11 20:06] VITALS: BP 127/78
[2021-11-11] MEDS: PRIMIDONE 50 MG TAB (MYSOLINE) PO SCH (21:19)
[2021-11-11] MEDS: LOSARTAN 100 MG (COZAAR) TABLET PO SCH (21:19)
--- NOTE | 2021-11-12 06:12 | PM&R Progress Note ---
Subjective HPI/CC On Admission Date Seen by Provider: Nov 12, 2021 Time Seen by Provider: 12:30 Subjective/Events-last exam 11/12/2021: Dramatically improved We will extend stay until since is now partially blind and she will need to be more competent High risk for falls if discharged on Monday as planned Bowels are moving Pain is much improved 11/11/2021: Patient doing a lot better Slow recovery Pain is improving Bowels are moving Tried to reassure 11/10/2021: Pt is having a slow recovery Monday discharge date Improved night overall Oxycontin and Baclofen really helping 11/09/2021: Pt is doing a lot better Sleeping a lot Told her to minimize the Oxycodone Bowels haven't moved so will initiate more laxatives 11/08/2021: Pt is doing well Bowels moved 2 days ago Incontinence last night of bladder Just didn't have enough time to get to the bathroom Overall doing well otherwise 11/07/2021: Doing much better MTX and home meds restarted No pain at this time if she doesn't move BM large x 3 yesterday Voiding well after DC cath DC Urecholine 11/06/2021: Patient having a slow recovery Pain is intense Needs her home meds restarted Blood pressure still borderline low We will discontinue catheter today Bowels have not moved so starting more aggressive regimen Review of Systems General: Fatigue, Malaise Objective Exam Vital Signs Vital Signs Date Time Temp Pulse Resp B/P (MAP) Pulse Ox O2 Delivery O2 Flow Rate FiO2 11/12/21 21:00 93 Room Air 11/12/21 20:20 37.1 59 16 139/68 (91) 11/07/21 09:55 0.00 Capillary Refill : General Appearance: No Apparent Distress, WD/WN, Chronically ill HEENT: PERRL/EOMI, Normal ENT Inspection, Pharynx Normal Neck: Full Range of Motion, Normal Inspection, Non Tender, Supple, Carotid Bruit Respiratory: Chest Non Tender, Lungs Clear, Normal Breath Sounds, No Accessory Muscle Use, No Respiratory Distress Cardiovascular: Regular Rate, Rhythm, No Edema, No Gallop, No JVD, No Murmur, Normal Peripheral Pulses Gastrointestinal: Normal Bowel Sounds, No Organomegaly, No Pulsatile Mass, Non Tender, Soft Back: Normal Inspection, No CVA Tenderness, No Vertebral Tenderness Extremity: Normal Capillary Refill, Normal Inspection, Normal Range of Motion, Non Tender, No Calf Tenderness, No Pedal Edema Neurologic/Psychiatric: Alert, Oriented x3, No Motor/Sensory Deficits, senior cobol developer II- XII Norm as Tested, Abnormal Gait, Depressed Affect, Motor Weakness (left leg) Skin: Normal Color, Warm/Dry Lymphatic: No Adenopathy Results/Procedures Lab Laboratory Tests 11/12/21 06:48 Patient resulted labs reviewed. FIM Transfers Therapy Code Descriptions/Definitions Functional [place] Measure: 0=Not Assessed/NA 4=Minimal Assistance 1=Total Assistance 5=Supervision or Setup 2=Maximal Assistance 6=Modified [place] 3=Moderate Assistance 7=Complete IndependenceSCALE: Activities may be completed with or without assistive devices. 6-Xhxkpuzpdh-lroovxx completes the activity by him/herself with no assistance from a helper. 5-Set-up or Clean-up Assistance-helper sets up or cleans up; patient completes activity. [place] assists only prior to or following the activity. 4-Supervision or Touching Assistance-helper provides verbal cues and/or touching/steadying and/or contact guard assistance as patient completes activity. Assistance may be provided throughout the activity or intermittently. 3-Partial/Moderate Assistance-helper does LESS THAN HALF the effort. [place] lifts, holds or supports trunk or limbs, but provides less than half the effort. 2-Substantial/Maximal Assistance-helper does MORE THAN HALF the effort. [place] lifts or holds trunk or limbs and provides more than half the effort. 6-Xopkxswsr-qeohbz does ALL the effort. Patient does none of the effort to complete the activity. Or, the assistance of 2 or more helpers is required for the patient to complete the activity. If activity was not attempted, code reason: 7-Patient Refused. 9-Not Applicable-not attempted and the patient did not perform the activity before the current illness, exacerbation or injury. 10-Not Attempted due to Environmental Limitations-(lack of equipment, weather restraints, etc.). 88-Not Attempted due to Medical Conditions or Safety Concerns. Roll Left to Right (QC): 5 Sit to Lying (QC): 6 Sit to Stand (QC): 4 Chair/Edb-xh-Kjwvi Xfer(QC): 4 Car Transfer (QC): 88 Gait Training Does the Patient Walk?: Yes Distance: 60'x4 Walk 10 feet (QC): 4 Walk 50 ft with 2 Turns(QC): 4 Walk 150 ft (QC): 88 Walking 10ft/uneven surface-QC: 88 Gait Persons Needed: 1 Gait Assistive Device: FWW Wheelchair Training Does the Pt Use a Wheelchair?: Yes Wheel 50 ft with 2 turns (QC): 4 Wheel 150 ft (QC): 1 Type of Wheelchair: Manual Stair Training 1 Step (curb) (QC): 88 4 Steps (QC): 88 12 Steps (QC): 88 Balance Picking up an Object (QC): 88 ADL-Treatment Eating (QC): 6 Oral Hygiene (QC): 6 Shower/Bathe Self (QC): 3 Upper Body Dressing (QC): 5 Lower Body Dressing (QC): 3 On/Off Footwear (QC): 4 (OT donned juancarlos hose, pt able to don socks with use of sock aid and min verbal cues) Toileting Hygiene (QC): 4 Toilet Transfer (QC): 6 (from taller toilet (commode placed over)) Assessment/Plan Assessment and Plan Assess & Plan/Chief Complaint Assessment: Left total knee replacement Pacemaker HLP HTN Tremor essential type Urinary retention discontinue catheter 11/06 resolved Angulo cath in place discontinued 11/06 Postop constipation 11/06 resolved Plan: Urecholine PT OT BM regimen 11/06/2021: DC catheter Increased bowel regimen 11/07/2021: Voiding well Home meds restart 11/08/2021: BM regimen Restart MTX 11/09/2021: Minimize pain meds BM regimen 11/10/2021: Slow recovery Continue aggressive rehab 11/11/2021: Slow recovery Continue aggressive rehab 11/12/2021: Discharge plan for now Continue treatment (1) History of arthroplasty of left knee ROB TAPIA DO Nov 12, 2021 06:12
[2021-11-12] MEDS: MULTIVIT W/MINERALS TAB (THERAGRAN M) PO SCH (06:37)
[2021-11-12] MEDS: KCL 10 MEQ TAB (MICRO K) PO SCH ×3 (06:37→17:34)
[2021-11-12 07:00] LABS: BASOPHILS # (AUTO) 0.1 10^3/uL (0.0-0.1); BASOPHILS % (AUTO) 1 % (0-10); EOSINOPHILS # (AUTO) 0.3 10^3/uL (0.0-0.3); EOSINOPHILS % (AUTO) 4 % (0-10); HEMATOCRIT 31 % (35-52); HEMOGLOBIN 10.2 g/dL (11.5-16.0); LYMPHOCYTES # (AUTO) 1.9 10^3/uL (1.0-4.0); LYMPHOCYTES % (AUTO) 24 % (12-44); MEAN CORPUSCULAR HEMOGLOBIN 33 pg (25-34); MEAN CORPUSCULAR HGB CONC 33 g/dL (32-36); MEAN CORPUSCULAR VOLUME 101 fL (80-99); MEAN PLATELET VOLUME 10.1 fL (9.0-12.2); MONOCYTES % (AUTO) 13 % (0-12); NEUTROPHILS # (AUTO) 4.8 10^3/uL (1.8-7.8); NEUTROPHILS % (AUTO) 59 % (42-75); PLATELET COUNT 360 10^3/uL (130-400); WHITE BLOOD COUNT 8.1 10^3/uL (4.3-11.0)
--- NOTE | 2021-11-12 07:07 | Progress Note ---
Standard Progress Note Progress Notes/Assess & Plan Date Seen by a Provider: Nov 12, 2021 Time Seen by a Provider: 07:06 Progress/Assessment & Plan feeling better Vital Signs Date Time Temp Pulse Resp B/P (MAP) Pulse Ox O2 Delivery O2 Flow Rate FiO2 11/07/21 07:07 36.8 71 20 156/70 (98) 96 Room Air 11/06/21 20:15 Nasal Cannula 1.00 11/06/21 20:05 96 Room Air 11/06/21 19:49 37.2 79 18 144/70 (94) 96 Room Air 11/06/21 09:00 97 Nasal Cannula 2.00 Laboratory Tests Test 11/06/21 16:40 Range/Units LLE--incision clean and dry. No calf tenderness. Neg Karime's s/p LTKA PT/OT Final Diagnosis felling better reinforced working hard with PT and OT YAHIR CHÁVEZ MD Nov 12, 2021 07:06
[2021-11-12 07:24] LABS: ALBUMIN 2.9 GM/DL (3.2-4.5); POTASSIUM 4.6 MMOL/L (3.6-5.0)
[2021-11-12 07:25] LABS: CALCIUM 8.5 MG/DL (8.5-10.1)
[2021-11-12 07:26] LABS: TOTAL PROTEIN 5.8 GM/DL (6.4-8.2)
[2021-11-12 07:28] LABS: BILIRUBIN,TOTAL 0.5 MG/DL (0.1-1.0)
[2021-11-12 07:30] LABS: CREATININE SERUM 0.71 MG/DL (0.60-1.30)
[2021-11-12 07:52] VITALS: BP 135/64
[2021-11-12] MEDS: ENOXAPARIN INJECTION 30 MG/0.3 ML SYR SC SCH ×2 (08:08→20:35)
[2021-11-12] MEDS: FOLIC ACID 1 MG TAB PO SCH (08:08)
[2021-11-12] MEDS: DOCUSATE SODIUM 100 MG (COLACE) CAP PO SCH ×2 (08:09→20:41)
[2021-11-12] MEDS: PARoxetine 20 MG (PAXIL) TAB PO SCH (08:09)
[2021-11-12] MEDS: ASPIRIN E.C. 81 MG (ECOTRIN) TAB PO SCH (08:09)
[2021-11-12] MEDS: PROPRANOLOL ER 80 MG CAP (INDERAL LA) PO SCH ×2 (08:09→20:37)
[2021-11-12] MEDS: amLODIPine 5 MG (NORVASC) TAB PO SCH (08:09)
[2021-11-12] MEDS: SENNA W/DOCUSATE (SENOKOT S) TABLET PO SCH ×2 (08:09→20:41)
[2021-11-12] MEDS: CALCIUM CARBONATE 500 MG (TUMS) TAB.CHEW PO SCH ×2 (08:11→20:36)
[2021-11-12] MEDS ORDERED: METHOTREXATE 2.5 MG TAB PO SCH ×2 (09:00→21:00)
--- NOTE | 2021-11-12 09:45 | Occupational Ther Daily Note ---
OT Current Status-Daily Note Subjective Pt reports L knee pain as 5/10. Pain meds given at start of session. Appearance Pt left reclined in chair, all needs within reach at OT departure. Mental Status/Objective Patient Orientation: Person, Place Attachments: IV (port) ADL-Treatment Therapy Code Descriptions/Definitions Functional [place] Measure: 0=Not Assessed/NA 4=Minimal Assistance 1=Total Assistance 5=Supervision or Setup 2=Maximal Assistance 6=Modified [place] 3=Moderate Assistance 7=Complete IndependenceSCALE: Activities may be completed with or without assistive devices. 6-Ppxaqprbil-wipuxky completes the activity by him/herself with no assistance from a helper. 5-Set-up or Clean-up Assistance-helper sets up or cleans up; patient completes activity. [place] assists only prior to or following the activity. 4-Supervision or Touching Assistance-helper provides verbal cues and/or touching/steadying and/or contact guard assistance as patient completes activity. Assistance may be provided throughout the activity or intermittently. 3-Partial/Moderate Assistance-helper does LESS THAN HALF the effort. [place] lifts, holds or supports trunk or limbs, but provides less than half the effort. 2-Substantial/Maximal Assistance-helper does MORE THAN HALF the effort. [place] lifts or holds trunk or limbs and provides more than half the effort. 4-Fmqrfkzux-nfpmyf does ALL the effort. Patient does none of the effort to complete the activity. Or, the assistance of 2 or more helpers is required for the patient to complete the activity. If activity was not attempted, code reason: 7-Patient Refused. 9-Not Applicable-not attempted and the patient did not perform the activity before the current illness, exacerbation or injury. 10-Not Attempted due to Environmental Limitations-(lack of equipment, weather restraints, etc.). 88-Not Attempted due to Medical Conditions or Safety Concerns. Oral Hygiene (QC): 6 Shower/Bathe Self (QC): 4 Upper Body Dressing (QC): 5 Lower Body Dressing (QC): 4 On/Off Footwear: 4 Toileting Hygiene (QC): 4 Toilet Transfer (QC): 4 Shower performed; 100% completed in sitting. Port and dressing covered by OT prior to bathing. C/D/I post activity. Increased cues for attention, problem solving, and sequencing this date. Reminders on using LHS in order to reach feet. CGA for safety as she stood to wash buttocks/gaby area; unilateral UE support on grab bar when standing. Clothing donned seated in w/c. No physical assistance needed when threading feet into brief but max cues for election watcher use and attention to details. Pt often attempting to grasp pinchers vs handle on election watcher and attempted to thread foot with brief upside down. When standing, cues needed to initiate clothing management. CGA for safety when standing. Dependent to don juancarlos hose. Pt able to don socks with sock aid and min verbal cues. Extra time to complete grooming tasks seated at sink. Education OT Patient Education: Correct positioning, Energy conservation, Modified ADL techniques, Progress toward Goal/Update tx plan, Purpose of tx/functional activities, Reviewed precautions, Rehab process, Safety issues, Transfer techniques, Use of adapted equipment, W/C management Teaching Recipient: Patient, Family Teaching Methods: Demonstration, Discussion Response to Teaching: Verbalize Understanding, Return Demonstration, Michael nforcement Needed OT Short Term Goals Short Term Goals Time Frame: Nov 12, 2021 Eatin Oral hygiene: 5 Toileting hygiene: 3 Shower/bathe self: 3 Upper body dressin Lower body dressin Putting on/taking off footwear: 3 OT Care Home Goals Scientist Goals Time Frame: Nov 24, 2021 Eating (QC): 6 Oral Hygiene (QC): 6 Toileting Hygiene (QC): 6 Shower/Bathe Self (QC): 5 Upper Body Dressing (QC): 5 Lower Body Dressing (QC): 5 On/Off Footwear (QC): 4 1=Demonstrate adherence to instructed precautions during ADL tasks. 2=Patient will verbalize/demonstrate understanding of assistive devices/modifications for ADL. 3=Patient will improve strength/tolerance for activity to enable patient to perform ADL's. OT Education/Plan Problem List/Assessment Assessment: Decreased Activ Tolerance, Decreased Safety Aware, Decreased UE Strength, Impaired Cognition, Impaired Funct Balance, Impaired I ADL's, Impaired Self-Care Skills Discharge Recommendations Plan/Recommendations: Continue POC Therapy Discharge Recommendati: Post Acute OT Equpiment Recommendations-D/C: Insurance Sales Producer, Sock Aide Treatment Plan/Plan of Care Treatment,Training & Education: Yes Patient would benefit from OT for education, treatment and training to promote independence in ADL's, mobility, safety and/or upper extremity function for ADL's. Plan of Care: ADL Retraining, Caregiver Training, Concurrent Therapy, Functional Mobility, Group Exercise/Act as Ind, UE Funct Exercise/Act Treatment Duration: Nov 24, 2021 Frequency: At least 5 of 7 days/Wk (IRF) Estimated Hrs Per Day: 1.5 hours per day (75-90 min/day ) Agreement: Yes Rehab Potential: Fair Time/GCodes Start Time: 08:15 Stop Time: 09:45 Total Time Billed (hr/min): 90 Billed Treatment Time 1 visit ADL x6 Itzel Lopez OT Nov 12, 2021 09:45
[2021-11-12] MEDS: LACTULOSE SYRUP 10GM/15ML (ENULOSE) 30ML UDC PO SCH ×2 (10:04→20:41)
[2021-11-12] MEDS: polyethylene glycoL POWDER 17 GM (MIRALAX) PACK PO SCH ×2 (10:05→20:41)
[2021-11-12] MEDS: BACLOFEN 10 MG (LIORESAL) TAB PO PRN (11:54)
--- NOTE | 2021-11-12 12:06 | Physical Therapy Daily Note ---
PT Daily Note-Current Subjective Pt. agrees to Rx. Initially pt. states her pain is better at 4/10 but by end of Rx she reports 8/10 and requests pain meds. Pain Numeric Pain Scale: 8 Location: Left Location Body Site: Knee Pain Description: Ache Mental Status Patient Orientation: Normal For Age Transfers SCALE: Activities may be completed with or without assistive devices. 7-Srizfbhdda-rgxroco completes the activity by him/herself with no assistance from a helper. 5-Set-up or Clean-up Assistance-helper sets up or cleans up; patient completes activity. [place] assists only prior to or following the activity. 4-Supervision or Touching Assistance-helper provides verbal cues and/or touching/steadying and/or contact guard assistance as patient completes activity. Assistance may be provided throughout the activity or intermittently. 3-Partial/Moderate Assistance-helper does LESS THAN HALF the effort. [place] lifts, holds or supports trunk or limbs, but provides less than half the effort. 2-Substantial/Maximal Assistance-helper does MORE THAN HALF the effort. [place] lifts or holds trunk or limbs and provides more than half the effort. 2-Rgpazchgx-dcjayo does ALL the effort. Patient does none of the effort to complete the activity. Or, the assistance of 2 or more helpers is required for the patient to complete the activity. If activity was not attempted, code reason: 7-Patient Refused. 9-Not Applicable-not attempted and the patient did not perform the activity before the current illness, exacerbation or injury. 10-Not Attempted due to Environmental Limitations-(lack of equipment, weather restraints, etc.). 88-Not Attempted due to Medical Conditions or Safety Concerns. in out bed min asst into bed, sit to stand CGA, stand to sit min to CGA and instruction for safe technique Weight Bearing Left Lower Extremity: Left Weight Bearing/Tolerated Gait Training Does the Patient Walk?: Yes Walk 10 feet (QC): 4 Walk 50 ft with 2 Turns(QC): 4 Gait Persons Needed: 1 Gait Assistive Device: FWW 75ftx2, 50 ft x 2 FWW CGA, initially improved with better clearance but after pain c/o began poor to no heelstrike and shuffles in step to pattern heavy wt bearing on FWW Wheelchair Training Does the Pt Use a Wheelchair?: Yes Wheel 50 ft with 2 turns (QC): 4 Exercises Supine Ex: Ankle pumps, Quad Set, Glut sets, Heel Slides (assisted), Short Arc Quads, Straight leg raise (assisted) Supine Reps: 20 NuStep Minutes: 10 NuStep Workload: 2 Treatments TRFs, gait, sup and sit and nustep ex. Assessment Current Status: Fair Progress pain limits Rx, in bed after Rx with polar pack insitu PT Short Term Goals Short Term Goals Time Frame: Nov 12, 2021 Roll Left & Right: 3 (Yovani) Sit to lyin (Yovani) Lying to sitting on side of be: 3 (Yovani) Sit to stand: 4 (CGA) Chair/lpy-xa-qimch transfer: 4 (CGA) Walk 10 feet: 4 (CGA) Walk 50 feet with two turns: 4 (CGA) PT Detention Goals Insulation Installer Goals PT Insulation Installer Goals Time Frame: Nov 26, 2021 Roll Left & Right (QC): 4 (SBA) Sit to Lying (QC): 4 (SBA) Lying-Sitting on Side/Bed(QC): 4 (SBA) Sit to Stand (QC): 4 (SBA) Chair/Mcq-bw-Lxbdz Xfer(QC): 4 (SBA) Toilet Transfer (QC): 4 (SBA) Car Transfer (QC): 3 (Yovani) Does the Patient Walk: Yes Walk 10 feet (QC): 4 (SBA) Walk 50ft with 2 Turns (QC): 4 (SBA) Walk 150 ft (QC): 4 (SBA) Walking 10ft on Uneven Surface: 4 (SBA) 1 Step (curb) (QC): 3 (Yovani) 4 Steps (QC): 3 (Yovani) 12 Steps (QC): 88 Picking up an Object (QC): 4 (SBA) Wheel 50 feet with 2 turns (QC: 9 Wheel 150 feet: 9 PT Plan Treatment/Plan Treatment Plan: Continue Plan of Care Treatment Plan: Bed Mobility, Education, Functional Activity Anya, Functional Strength, Group Therapy, Gait, Safety, Therapeutic Exercise, Transfers Treatment Duration: Nov 26, 2021 Frequency: At least 5 of 7 days/Wk (IRF) Estimated Hrs Per Day: 1.5 hours per day Patient and/or Family Agrees t: Yes Safety Risks/Education Patient Education: Gait Training, Transfer Techniques, Correct Positioning, W/C Management, Disease Process, Safety Issues Teaching Recipient: Patient Teaching Methods: Demonstration, Discussion Response to Teaching: Verbalize Understanding, Return Demonstration, Reinforcement Needed Time/GCodes Time In: 1100 Time Out: 1200 Total Billed Treatment Time: 60 Total Billed Treatment 1,EX30m,GT25m DELTA BERRY TRANSFORMER INSPECTOR Nov 12, 2021 12:06
[2021-11-12 13:44] VITALS: BP 134/58
--- NOTE | 2021-11-12 14:38 | Physical Therapy Daily Note ---
PT Daily Note-Current Subjective Pt. agrees to Rx. Friends present who are responsible and and kind enough to give visually impaired his rides here to see daily. They all express concern for being responsible for getting pt. into the house and for transporting her to appointments etc. SW states she will make arrangements for [facility] to take pt home etc Pt. c/o pain in left thigh at 7/10 Pain Numeric Pain Scale: 7 Location: Left Location Body Site: Thigh Pain Description: Ache Mental Status Patient Orientation: Normal For Age Transfers SCALE: Activities may be completed with or without assistive devices. 8-Vdvyysuhvs-zbmfcdi completes the activity by him/herself with no assistance from a helper. 5-Set-up or Clean-up Assistance-helper sets up or cleans up; patient completes activity. [place] assists only prior to or following the activity. 4-Supervision or Touching Assistance-helper provides verbal cues and/or touching/steadying and/or contact guard assistance as patient completes activity. Assistance may be provided throughout the activity or intermittently. 3-Partial/Moderate Assistance-helper does LESS THAN HALF the effort. [place] lifts, holds or supports trunk or limbs, but provides less than half the effort. 2-Substantial/Maximal Assistance-helper does MORE THAN HALF the effort. [place] lifts or holds trunk or limbs and provides more than half the effort. 1-Ekbndnhmh-mjzdso does ALL the effort. Patient does none of the effort to complete the activity. Or, the assistance of 2 or more helpers is required for the patient to complete the activity. If activity was not attempted, code reason: 7-Patient Refused. 9-Not Applicable-not attempted and the patient did not perform the activity before the current illness, exacerbation or injury. 10-Not Attempted due to Environmental Limitations-(lack of equipment, weather restraints, etc.). 88-Not Attempted due to Medical Conditions or Safety Concerns. in out bed and toilet and chair CGA Weight Bearing Left Lower Extremity: Left Weight Bearing/Tolerated Gait Training Does the Patient Walk?: Yes Gait Assistive Device: FWW 30 ft x 2 FWW CGA and cues for safe approaches to chair and toilet Exercises Supine Ex: Ankle pumps, Quad Set, Glut sets, Heel Slides, Short Arc Quads, Scooting, Straight leg raise, Hip abd/add Supine Reps: 15 Assessment Current Status: Fair Progress pain still limits function PT Short Term Goals Short Term Goals Time Frame: Nov 12, 2021 Roll Left & Right: 3 (Yovani) Sit to lyin (Yovani) Lying to sitting on side of be: 3 (Yovani) Sit to stand: 4 (CGA) Chair/fof-ah-erbxl transfer: 4 (CGA) Walk 10 feet: 4 (CGA) Walk 50 feet with two turns: 4 (CGA) PT Webfocus Developer Goals Mcc Goals PT Webfocus Developer Goals Time Frame: Nov 26, 2021 Roll Left & Right (QC): 4 (SBA) Sit to Lying (QC): 4 (SBA) Lying-Sitting on Side/Bed(QC): 4 (SBA) Sit to Stand (QC): 4 (SBA) Chair/Atn-rl-Strmy Xfer(QC): 4 (SBA) Toilet Transfer (QC): 4 (SBA) Car Transfer (QC): 3 (Yovani) Does the Patient Walk: Yes Walk 10 feet (QC): 4 (SBA) Walk 50ft with 2 Turns (QC): 4 (SBA) Walk 150 ft (QC): 4 (SBA) Walking 10ft on Uneven Surface: 4 (SBA) 1 Step (curb) (QC): 3 (Yovani) 4 Steps (QC): 3 (Yovani) 12 Steps (QC): 88 Picking up an Object (QC): 4 (SBA) Wheel 50 feet with 2 turns (QC: 9 Wheel 150 feet: 9 PT Plan Treatment/Plan Treatment Plan: Continue Plan of Care Treatment Plan: Bed Mobility, Education, Functional Activity Anya, Functional Strength, Group Therapy, Gait, Safety, Therapeutic Exercise, Transfers Treatment Duration: Nov 26, 2021 Frequency: At least 5 of 7 days/Wk (IRF) Estimated Hrs Per Day: 1.5 hours per day Patient and/or Family Agrees t: Yes Safety Risks/Education Patient Education: Gait Training, Transfer Techniques, Correct Positioning Response to Teaching: Reinforcement Needed Time/GCodes Time In: 1345 Time Out: 1415 Total Billed Treatment Time: 30 Total Billed Treatment 1,FA10m,EX20m DELTA BERYR VAMP MARKER Nov 12, 2021 14:38
[2021-11-12 20:20] VITALS: BP 139/68
[2021-11-12] MEDS: LOSARTAN 100 MG (COZAAR) TABLET PO SCH (20:37)
[2021-11-12] MEDS: PRIMIDONE 50 MG TAB (MYSOLINE) PO SCH (20:37)
[2021-11-13] MEDS: BACLOFEN 10 MG (LIORESAL) TAB PO PRN ×2 (04:37→18:14)
[2021-11-13] MEDS: MULTIVIT W/MINERALS TAB (THERAGRAN M) PO SCH (06:26)
[2021-11-13] MEDS: KCL 10 MEQ TAB (MICRO K) PO SCH ×3 (06:26→17:42)
--- NOTE | 2021-11-13 06:36 | PM&R Progress Note ---
Subjective HPI/CC On Admission Date Seen by Provider: Nov 13, 2021 Time Seen by Provider: 12:00 Subjective/Events-last exam 11/13/2021: Patient doing well Knee does not appear to be healing well per Dr. Guzman They are still asking if they should go to [facility] but if she has a standard course she should be good to go home from here Will reach out to Dr. Guzman 11/12/2021: Dramatically improved We will extend stay until since is now partially blind and she will need to be more competent High risk for falls if discharged on Monday as planned Bowels are moving Pain is much improved 11/11/2021: Patient doing a lot better Slow recovery Pain is improving Bowels are moving Tried to reassure 11/10/2021: Pt is having a slow recovery Monday discharge date Improved night overall Oxycontin and Baclofen really helping 11/09/2021: Pt is doing a lot better Sleeping a lot Told her to minimize the Oxycodone Bowels haven't moved so will initiate more laxatives 11/08/2021: Pt is doing well Bowels moved 2 days ago Incontinence last night of bladder Just didn't have enough time to get to the bathroom Overall doing well otherwise 11/07/2021: Doing much better MTX and home meds restarted No pain at this time if she doesn't move BM large x 3 yesterday Voiding well after DC cath DC Urecholine 11/06/2021: Patient having a slow recovery Pain is intense Needs her home meds restarted Blood pressure still borderline low We will discontinue catheter today Bowels have not moved so starting more aggressive regimen Review of Systems Musculoskeletal: leg pain Objective Exam Vital Signs Vital Signs Date Time Temp Pulse Resp B/P (MAP) Pulse Ox O2 Delivery O2 Flow Rate FiO2 11/13/21 07:22 37.2 62 18 140/65 (90) 94 Room Air 11/07/21 09:55 0.00 Capillary Refill : General Appearance: No Apparent Distress, WD/WN, Chronically ill HEENT: PERRL/EOMI, Normal ENT Inspection, Pharynx Normal Neck: Full Range of Motion, Normal Inspection, Non Tender, Supple, Carotid Bruit Respiratory: Chest Non Tender, Lungs Clear, Normal Breath Sounds, No Accessory Muscle Use, No Respiratory Distress Cardiovascular: Regular Rate, Rhythm, No Edema, No Gallop, No JVD, No Murmur, Normal Peripheral Pulses Gastrointestinal: Normal Bowel Sounds, No Organomegaly, No Pulsatile Mass, Non Tender, Soft Back: Normal Inspection, No CVA Tenderness, No Vertebral Tenderness Extremity: Normal Capillary Refill, Normal Inspection, Normal Range of Motion, Non Tender, No Calf Tenderness, No Pedal Edema Neurologic/Psychiatric: Alert, Oriented x3, No Motor/Sensory Deficits, family coach II- XII Norm as Tested, Abnormal Gait, Depressed Affect, Motor Weakness (left leg) Skin: Normal Color, Warm/Dry Lymphatic: No Adenopathy Results/Procedures Lab Patient resulted labs reviewed. FIM Transfers Therapy Code Descriptions/Definitions Functional [place] Measure: 0=Not Assessed/NA 4=Minimal Assistance 1=Total Assistance 5=Supervision or Setup 2=Maximal Assistance 6=Modified [place] 3=Moderate Assistance 7=Complete IndependenceSCALE: Activities may be completed with or without assistive devices. 1-Lnkvtmdvyn-rrltqxl completes the activity by him/herself with no assistance from a helper. 5-Set-up or Clean-up Assistance-helper sets up or cleans up; patient completes activity. [place] assists only prior to or following the activity. 4-Supervision or Touching Assistance-helper provides verbal cues and/or touching/steadying and/or contact guard assistance as patient completes activity. Assistance may be provided throughout the activity or intermittently. 3-Partial/Moderate Assistance-helper does LESS THAN HALF the effort. [place] lifts, holds or supports trunk or limbs, but provides less than half the effort. 2-Substantial/Maximal Assistance-helper does MORE THAN HALF the effort. [place] lifts or holds trunk or limbs and provides more than half the effort. 1-Aqccczptn-pqhizg does ALL the effort. Patient does none of the effort to complete the activity. Or, the assistance of 2 or more helpers is required for the patient to complete the activity. If activity was not attempted, code reason: 7-Patient Refused. 9-Not Applicable-not attempted and the patient did not perform the activity before the current illness, exacerbation or injury. 10-Not Attempted due to Environmental Limitations-(lack of equipment, weather restraints, etc.). 88-Not Attempted due to Medical Conditions or Safety Concerns. Roll Left to Right (QC): 5 Sit to Lying (QC): 6 Sit to Stand (QC): 4 Chair/Aea-fu-Qtljn Xfer(QC): 4 Car Transfer (QC): 88 Gait Training Does the Patient Walk?: Yes Distance: 60'x4 Walk 10 feet (QC): 4 Walk 50 ft with 2 Turns(QC): 4 Walk 150 ft (QC): 88 Walking 10ft/uneven surface-QC: 88 Gait Persons Needed: 1 Gait Assistive Device: FWW Wheelchair Training Does the Pt Use a Wheelchair?: Yes Wheel 50 ft with 2 turns (QC): 4 Wheel 150 ft (QC): 1 Type of Wheelchair: Manual Stair Training 1 Step (curb) (QC): 88 4 Steps (QC): 88 12 Steps (QC): 88 Balance Picking up an Object (QC): 88 ADL-Treatment Eating (QC): 6 Oral Hygiene (QC): 6 Shower/Bathe Self (QC): 4 Upper Body Dressing (QC): 5 Lower Body Dressing (QC): 4 On/Off Footwear (QC): 4 Toileting Hygiene (QC): 4 Toilet Transfer (QC): 4 Assessment/Plan Assessment and Plan Assess & Plan/Chief Complaint Assessment: Left total knee replacement Pacemaker HLP HTN Tremor essential type Urinary retention discontinue catheter 11/06 resolved Angulo cath in place discontinued 11/06 Postop constipation 11/06 resolved Plan: Urecholine PT OT BM regimen 11/06/2021: DC catheter Increased bowel regimen 11/07/2021: Voiding well Home meds restart 11/08/2021: BM regimen Restart MTX 11/09/2021: Minimize pain meds BM regimen 11/10/2021: Slow recovery Continue aggressive rehab 11/11/2021: Slow recovery Continue aggressive rehab 11/12/2021: Discharge plan for now Continue treatment 11/13/2021: Reach out to Dr. Guzman about knee healing time and concern for going to half-way (1) History of arthroplasty of left knee ROB TAPIA DO Nov 13, 2021 06:36
[2021-11-13 07:22] VITALS: BP 140/65
[2021-11-13] MEDS: PROPRANOLOL ER 80 MG CAP (INDERAL LA) PO SCH ×2 (09:24→20:41)
[2021-11-13] MEDS: PARoxetine 20 MG (PAXIL) TAB PO SCH (09:24)
[2021-11-13] MEDS: amLODIPine 5 MG (NORVASC) TAB PO SCH (09:24)
[2021-11-13] MEDS: ASPIRIN E.C. 81 MG (ECOTRIN) TAB PO SCH (09:24)
[2021-11-13] MEDS: FOLIC ACID 1 MG TAB PO SCH (09:24)
[2021-11-13] MEDS: CALCIUM CARBONATE 500 MG (TUMS) TAB.CHEW PO SCH ×2 (09:24→20:42)
[2021-11-13] MEDS: ENOXAPARIN INJECTION 30 MG/0.3 ML SYR SC SCH ×2 (09:29→20:41)
[2021-11-13] MEDS: SENNA W/DOCUSATE (SENOKOT S) TABLET PO SCH ×2 (09:34→20:42)
[2021-11-13] MEDS: DOCUSATE SODIUM 100 MG (COLACE) CAP PO SCH ×2 (09:34→20:42)
[2021-11-13] MEDS: LACTULOSE SYRUP 10GM/15ML (ENULOSE) 30ML UDC PO SCH ×2 (09:45→20:40)
[2021-11-13] MEDS: polyethylene glycoL POWDER 17 GM (MIRALAX) PACK PO SCH ×2 (09:46→20:40)
--- NOTE | 2021-11-13 10:31 | Physical Therapy Daily Note ---
PT Daily Note-Current Subjective Pt sitting in recliner with B feet reclined. Sp present. Pt agrees to PT after morning meds given. Pain Numeric Pain Scale: 8 Location: Incisional, Left Location Body Site: Knee Pain Description: Tightness Mental Status Patient Orientation: Person, Place, Time, Situation Attachments: Polar Pack Transfers SCALE: Activities may be completed with or without assistive devices. 2-Heuyoeqyik-yryndzw completes the activity by him/herself with no assistance from a helper. 5-Set-up or Clean-up Assistance-helper sets up or cleans up; patient completes activity. [place] assists only prior to or following the activity. 4-Supervision or Touching Assistance-helper provides verbal cues and/or touching/steadying and/or contact guard assistance as patient completes activity. Assistance may be provided throughout the activity or intermittently. 3-Partial/Moderate Assistance-helper does LESS THAN HALF the effort. [place] lifts, holds or supports trunk or limbs, but provides less than half the effort. 2-Substantial/Maximal Assistance-helper does MORE THAN HALF the effort. [place] lifts or holds trunk or limbs and provides more than half the effort. 9-Ngtchcdre-kyhbyg does ALL the effort. Patient does none of the effort to complete the activity. Or, the assistance of 2 or more helpers is required for the patient to complete the activity. If activity was not attempted, code reason: 7-Patient Refused. 9-Not Applicable-not attempted and the patient did not perform the activity before the current illness, exacerbation or injury. 10-Not Attempted due to Environmental Limitations-(lack of equipment, weather restraints, etc.). 88-Not Attempted due to Medical Conditions or Safety Concerns. Sit to Stand (QC): 3 Weight Bearing Left Lower Extremity: Left Weight Bearing/Tolerated Gait Training Does the Patient Walk?: Yes Distance: 50' x2 Walk 10 feet (QC): 4 Walk 50 ft with 2 Turns(QC): 4 Gait Persons Needed: 1 Gait Assistive Device: FWW Pt walks with antalgic gait pattern, L knee flexed & shuffles or scoots R foot in shorter step compared to L LE. ASSET MANAGEMENT ANALYST encourages pt to increase WB from UE to LE. Exercises Supine Ex: Ankle pumps Treatments TF to standing and amb. in hallway before resting in chair in hallway. After RB, pt amb. back to room. Pt asks to return to bed to don polar pack and rest. TF to Supine in bed, polar pack donned and ASSET MANAGEMENT ANALYST gives AP stretch activity using gait belt. All needs met, call light in hand. Assessment Current Status: Fair Progress Pt still favors L LE during ambulation even with instruction daily and encouragement from ASSET MANAGEMENT ANALYST. PT Short Term Goals Short Term Goals Time Frame: Nov 12, 2021 Roll Left & Right: 3 (Yovani) Sit to lyin (Yovani) Lying to sitting on side of be: 3 (Yovani) Sit to stand: 4 (CGA) Chair/iuw-rd-putng transfer: 4 (CGA) Walk 10 feet: 4 (CGA) Walk 50 feet with two turns: 4 (CGA) PT Nursing Home Goals Operating Room Manager Goals PT Operating Room Manager Goals Time Frame: Nov 26, 2021 Roll Left & Right (QC): 4 (SBA) Sit to Lying (QC): 4 (SBA) Lying-Sitting on Side/Bed(QC): 4 (SBA) Sit to Stand (QC): 4 (SBA) Chair/Srf-ax-Sdgrc Xfer(QC): 4 (SBA) Toilet Transfer (QC): 4 (SBA) Car Transfer (QC): 3 (Yovani) Does the Patient Walk: Yes Walk 10 feet (QC): 4 (SBA) Walk 50ft with 2 Turns (QC): 4 (SBA) Walk 150 ft (QC): 4 (SBA) Walking 10ft on Uneven Surface: 4 (SBA) 1 Step (curb) (QC): 3 (Yovani) 4 Steps (QC): 3 (Yovani) 12 Steps (QC): 88 Picking up an Object (QC): 4 (SBA) Wheel 50 feet with 2 turns (QC: 9 Wheel 150 feet: 9 PT Plan Problem List Problem List: Activity Tolerance, Functional Strength, Gait Treatment/Plan Treatment Plan: Continue Plan of Care Treatment Plan: Bed Mobility, Education, Functional Activity Anya, Functional Strength, Group Therapy, Gait, Safety, Therapeutic Exercise, Transfers Treatment Duration: Nov 26, 2021 Frequency: At least 5 of 7 days/Wk (IRF) Estimated Hrs Per Day: 1.5 hours per day Patient and/or Family Agrees t: Yes Safety Risks/Education Patient Education: Gait Training, Transfer Techniques, Correct Positioning, Safety Issues Teaching Recipient: Patient Teaching Methods: Demonstration, Discussion Response to Teaching: Verbalize Understanding, Return Demonstration Time/GCodes Time In: 940 Time Out: 1010 Total Billed Treatment Time: 30 Total Billed Treatment 1, GT (20m) & FA (10m) CLAUDIA DWYER ASSET MANAGEMENT ANALYST Nov 13, 2021 10:31
--- NOTE | 2021-11-13 11:24 | Progress Note ---
Standard Progress Note Progress Notes/Assess & Plan Date Seen by a Provider: Nov 13, 2021 Time Seen by a Provider: 11:23 Progress/Assessment & Plan feeling better Vital Signs Date Time Temp Pulse Resp B/P (MAP) Pulse Ox O2 Delivery O2 Flow Rate FiO2 11/07/21 07:07 36.8 71 20 156/70 (98) 96 Room Air 11/06/21 20:15 Nasal Cannula 1.00 11/06/21 20:05 96 Room Air 11/06/21 19:49 37.2 79 18 144/70 (94) 96 Room Air 11/06/21 09:00 97 Nasal Cannula 2.00 Laboratory Tests Test 11/06/21 16:40 Range/Units LLE--incision clean and dry. No calf tenderness. Neg Karime's s/p LTKA PT/OT Final Diagnosis improving LLE no calf tenderness. Neg Karime's S/P LTKA continue mobilizing YAHIR CHÁVEZ MD Nov 13, 2021 11:24
[2021-11-13 20:26] VITALS: BP 134/60
[2021-11-13] MEDS: PRIMIDONE 50 MG TAB (MYSOLINE) PO SCH (20:41)
[2021-11-13] MEDS: LOSARTAN 100 MG (COZAAR) TABLET PO SCH (20:42)
[2021-11-14] MEDS: BACLOFEN 10 MG (LIORESAL) TAB PO PRN ×3 (01:23→23:11)
[2021-11-14] MEDS: MULTIVIT W/MINERALS TAB (THERAGRAN M) PO SCH (06:23)
[2021-11-14] MEDS: KCL 10 MEQ TAB (MICRO K) PO SCH ×3 (06:24→17:33)
[2021-11-14 07:30] VITALS: BP 135/62
--- NOTE | 2021-11-14 07:38 | PM&R Progress Note ---
Subjective HPI/CC On Admission Date Seen by Provider: Nov 14, 2021 Time Seen by Provider: 12:00 Subjective/Events-last exam 11/14/2021: Much improved status today I talked to Dr. Guzman about [facility] placement Fear of falling is a concern Supportive care will continue 11/13/2021: Patient doing well Knee does not appear to be healing well per Dr. Guzman They are still asking if they should go to [facility] but if she has a standard course she should be good to go home from here Will reach out to Dr. Guzman 11/12/2021: Dramatically improved We will extend stay until since is now partially blind and she will need to be more competent High risk for falls if discharged on Monday as planned Bowels are moving Pain is much improved 11/11/2021: Patient doing a lot better Slow recovery Pain is improving Bowels are moving Tried to reassure 11/10/2021: Pt is having a slow recovery Monday discharge date Improved night overall Oxycontin and Baclofen really helping 11/09/2021: Pt is doing a lot better Sleeping a lot Told her to minimize the Oxycodone Bowels haven't moved so will initiate more laxatives 11/08/2021: Pt is doing well Bowels moved 2 days ago Incontinence last night of bladder Just didn't have enough time to get to the bathroom Overall doing well otherwise 11/07/2021: Doing much better MTX and home meds restarted No pain at this time if she doesn't move BM large x 3 yesterday Voiding well after DC cath DC Urecholine 11/06/2021: Patient having a slow recovery Pain is intense Needs her home meds restarted Blood pressure still borderline low We will discontinue catheter today Bowels have not moved so starting more aggressive regimen Review of Systems General: Fatigue, Malaise Objective Exam Vital Signs Vital Signs Date Time Temp Pulse Resp B/P (MAP) Pulse Ox O2 Delivery O2 Flow Rate FiO2 11/14/21 09:51 92 Room Air 11/14/21 07:30 36.8 64 18 135/62 (86) Capillary Refill : General Appearance: No Apparent Distress, WD/WN, Chronically ill HEENT: PERRL/EOMI, Normal ENT Inspection, Pharynx Normal Neck: Full Range of Motion, Normal Inspection, Non Tender, Supple, Carotid Bruit Respiratory: Chest Non Tender, Lungs Clear, Normal Breath Sounds, No Accessory Muscle Use, No Respiratory Distress Cardiovascular: Regular Rate, Rhythm, No Edema, No Gallop, No JVD, No Murmur, Normal Peripheral Pulses Gastrointestinal: Normal Bowel Sounds, No Organomegaly, No Pulsatile Mass, Non Tender, Soft Back: Normal Inspection, No CVA Tenderness, No Vertebral Tenderness Extremity: Normal Capillary Refill, Normal Inspection, Normal Range of Motion, Non Tender, No Calf Tenderness, No Pedal Edema Neurologic/Psychiatric: Alert, Oriented x3, No Motor/Sensory Deficits, life scientists II- XII Norm as Tested, Abnormal Gait, Depressed Affect, Motor Weakness (left leg) Skin: Normal Color, Warm/Dry Lymphatic: No Adenopathy Results/Procedures Lab Patient resulted labs reviewed. FIM Transfers Therapy Code Descriptions/Definitions Functional [place] Measure: 0=Not Assessed/NA 4=Minimal Assistance 1=Total Assistance 5=Supervision or Setup 2=Maximal Assistance 6=Modified [place] 3=Moderate Assistance 7=Complete IndependenceSCALE: Activities may be completed with or without assistive devices. 6-Odjypuzmln-jjspqhs completes the activity by him/herself with no assistance from a helper. 5-Set-up or Clean-up Assistance-helper sets up or cleans up; patient completes activity. [place] assists only prior to or following the activity. 4-Supervision or Touching Assistance-helper provides verbal cues and/or touching/steadying and/or contact guard assistance as patient completes act ivity. Assistance may be provided throughout the activity or intermittently. 3-Partial/Moderate Assistance-helper does LESS THAN HALF the effort. [place] lifts, holds or supports trunk or limbs, but provides less than half the effort. 2-Substantial/Maximal Assistance-helper does MORE THAN HALF the effort. [place] lifts or holds trunk or limbs and provides more than half the effort. 1-Itbbblrde-epatni does ALL the effort. Patient does none of the effort to complete the activity. Or, the assistance of 2 or more helpers is required for the patient to complete the activity. If activity was not attempted, code reason: 7-Patient Refused. 9-Not Applicable-not attempted and the patient did not perform the activity before the current illness, exacerbation or injury. 10-Not Attempted due to Environmental Limitations-(lack of equipment, weather restraints, etc.). 88-Not Attempted due to Medical Conditions or Safety Concerns. Roll Left to Right (QC): 5 Sit to Lying (QC): 6 Sit to Stand (QC): 3 Chair/Lzz-yd-Txyjh Xfer(QC): 4 Car Transfer (QC): 88 Gait Training Does the Patient Walk?: Yes Distance: 50' x2 Walk 10 feet (QC): 4 Walk 50 ft with 2 Turns(QC): 4 Walk 150 ft (QC): 88 Walking 10ft/uneven surface-QC: 88 Gait Persons Needed: 1 Gait Assistive Device: FWW Wheelchair Training Does the Pt Use a Wheelchair?: Yes Wheel 50 ft with 2 turns (QC): 4 Wheel 150 ft (QC): 1 Type of Wheelchair: Manual Stair Training 1 Step (curb) (QC): 88 4 Steps (QC): 88 12 Steps (QC): 88 Balance Picking up an Object (QC): 88 ADL-Treatment Eating (QC): 6 Oral Hygiene (QC): 6 Shower/Bathe Self (QC): 4 Upper Body Dressing (QC): 5 Lower Body Dressing (QC): 4 On/Off Footwear (QC): 4 Toileting Hygiene (QC): 4 Toilet Transfer (QC): 4 Assessment/Plan Assessment and Plan Assess & Plan/Chief Complaint Assessment: Left total knee replacement Pacemaker HLP HTN Tremor essential type Urinary retention discontinue catheter 11/06 resolved Angulo cath in place discontinued 11/06 Postop constipation 11/06 resolved Plan: Urecholine PT OT BM regimen 11/06/2021: DC catheter Increased bowel regimen 11/07/2021: Voiding well Home meds restart 11/08/2021: BM regimen Restart MTX 11/09/2021: Minimize pain meds BM regimen 11/10/2021: Slow recovery Continue aggressive rehab 11/11/2021: Slow recovery Continue aggressive rehab 11/12/2021: Discharge plan for now Continue treatment 11/13/2021: Reach out to Dr. Guzman about knee healing time and concern for going to [facility] 11/14/2021: Discussed with team to try to prevent [facility] placement (1) History of arthroplasty of left knee ROB TAPIA DO Nov 14, 2021 07:37
[2021-11-14] MEDS: FOLIC ACID 1 MG TAB PO SCH (08:57)
[2021-11-14] MEDS: ASPIRIN E.C. 81 MG (ECOTRIN) TAB PO SCH (08:57)
[2021-11-14] MEDS: CALCIUM CARBONATE 500 MG (TUMS) TAB.CHEW PO SCH ×2 (08:57→20:10)
[2021-11-14] MEDS: SENNA W/DOCUSATE (SENOKOT S) TABLET PO SCH ×2 (08:57→20:10)
[2021-11-14] MEDS: PROPRANOLOL ER 80 MG CAP (INDERAL LA) PO SCH ×2 (08:57→20:10)
[2021-11-14] MEDS: PARoxetine 20 MG (PAXIL) TAB PO SCH (08:57)
[2021-11-14] MEDS: DOCUSATE SODIUM 100 MG (COLACE) CAP PO SCH ×2 (08:57→20:10)
[2021-11-14] MEDS: ENOXAPARIN INJECTION 30 MG/0.3 ML SYR SC SCH ×2 (08:57→20:09)
[2021-11-14] MEDS: amLODIPine 5 MG (NORVASC) TAB PO SCH (08:57)
[2021-11-14] MEDS: LACTULOSE SYRUP 10GM/15ML (ENULOSE) 30ML UDC PO SCH ×2 (09:32→20:10)
[2021-11-14] MEDS: polyethylene glycoL POWDER 17 GM (MIRALAX) PACK PO SCH ×2 (09:32→20:10)
[2021-11-14] MEDS: LOSARTAN 100 MG (COZAAR) TABLET PO SCH (20:09)
[2021-11-14] MEDS: PRIMIDONE 50 MG TAB (MYSOLINE) PO SCH (20:11)
[2021-11-14 20:37] VITALS: BP 110/52
[2021-11-15] MEDS: ALPRAZolam 0.25 MG (XANAX) TAB PO PRN (02:58)
[2021-11-15] MEDS: MULTIVIT W/MINERALS TAB (THERAGRAN M) PO SCH (05:29)
[2021-11-15] MEDS: KCL 10 MEQ TAB (MICRO K) PO SCH ×3 (05:30→18:49)
[2021-11-15 05:50] LABS: BASOPHILS # (AUTO) 0.1 10^3/uL (0.0-0.1); BASOPHILS % (AUTO) 1 % (0-10); EOSINOPHILS # (AUTO) 0.2 10^3/uL (0.0-0.3); EOSINOPHILS % (AUTO) 3 % (0-10); HEMATOCRIT 29 % (35-52); HEMOGLOBIN 9.7 g/dL (11.5-16.0); LYMPHOCYTES # (AUTO) 1.9 10^3/uL (1.0-4.0); LYMPHOCYTES % (AUTO) 22 % (12-44); MEAN CORPUSCULAR HEMOGLOBIN 33 pg (25-34); MEAN CORPUSCULAR HGB CONC 33 g/dL (32-36); MEAN CORPUSCULAR VOLUME 100 fL (80-99); MEAN PLATELET VOLUME 10.1 fL (9.0-12.2); MONOCYTES # (AUTO) 0.8 10^3/uL (0.0-1.0); MONOCYTES % (AUTO) 9 % (0-12); NEUTROPHILS # (AUTO) 5.6 10^3/uL (1.8-7.8); NEUTROPHILS % (AUTO) 65 % (42-75); PLATELET COUNT 418 10^3/uL (130-400); WHITE BLOOD COUNT 8.7 10^3/uL (4.3-11.0)
--- NOTE | 2021-11-15 05:50 | PM&R Progress Note ---
Subjective HPI/CC On Admission Date Seen by Provider: Nov 15, 2021 Time Seen by Provider: 09:30 Subjective/Events-last exam 11/15/2021: Doing well Needs SNF Pain controlled Khoa, PT really worked with her and she can't bear weight on the knee which leads her to fall risk Slow recovery 11/14/2021: Much improved status today I talked to Dr. Guzman about skilled nursing placement Fear of falling is a concern Supportive care will continue 11/13/2021: Patient doing well Knee does not appear to be healing well per Dr. Guzman They are still asking if they should go to [facility] but if she has a standard course she should be good to go home from here Will reach out to Dr. Guzman 11/12/2021: Dramatically improved We will extend stay until since is now partially blind and she will need to be more competent High risk for falls if discharged on Monday as planned Bowels are moving Pain is much improved 11/11/2021: Patient doing a lot better Slow recovery Pain is improving Bowels are moving Tried to reassure 11/10/2021: Pt is having a slow recovery Monday discharge date Improved night overall Oxycontin and Baclofen really helping 11/09/2021: Pt is doing a lot better Sleeping a lot Told her to minimize the Oxycodone Bowels haven't moved so will initiate more laxatives 11/08/2021: Pt is doing well Bowels moved 2 days ago Incontinence last night of bladder Just didn't have enough time to get to the bathroom Overall doing well otherwise 11/07/2021: Doing much better MTX and home meds restarted No pain at this time if she doesn't move BM large x 3 yesterday Voiding well after DC cath DC Urecholine 11/06/2021: Patient having a slow recovery Pain is intense Needs her home meds restarted Blood pressure still borderline low We will discontinue catheter today Bowels have not moved so starting more aggressive regimen Review of Systems General: Fatigue, Malaise Musculoskeletal: leg pain Objective Exam Vital Signs Vital Signs Date Time Temp Pulse Resp B/P (MAP) Pulse Ox O2 Delivery O2 Flow Rate FiO2 11/15/21 21:55 Room Air 11/15/21 20:40 36.6 81 24 126/59 (81) 94 Capillary Refill : General Appearance: No Apparent Distress, WD/WN, Chronically ill HEENT: PERRL/EOMI, Normal ENT Inspection, Pharynx Normal Neck: Full Range of Motion, Normal Inspection, Non Tender, Supple, Carotid Bruit Respiratory: Chest Non Tender, Lungs Clear, Normal Breath Sounds, No Accessory Muscle Use, No Respiratory Distress Cardiovascular: Regular Rate, Rhythm, No Edema, No Gallop, No JVD, No Murmur, Normal Peripheral Pulses Gastrointestinal: Normal Bowel Sounds, No Organomegaly, No Pulsatile Mass, Non Tender, Soft Back: Normal Inspection, No CVA Tenderness, No Vertebral Tenderness Extremity: Normal Capillary Refill, Normal Inspection, Normal Range of Motion, Non Tender, No Calf Tenderness, No Pedal Edema Neurologic/Psychiatric: Alert, Oriented x3, No Motor/Sensory Deficits, clinic administrator II-X II Norm as Tested, Abnormal Gait, Depressed Affect, Motor Weakness (left leg) Skin: Normal Color, Warm/Dry Lymphatic: No Adenopathy Results/Procedures Lab Patient resulted labs reviewed. FIM Transfers Therapy Code Descriptions/Definitions Functional [place] Measure: 0=Not Assessed/NA 4=Minimal Assistance 1=Total Assistance 5=Supervision or Setup 2=Maximal Assistance 6=Modified [place] 3=Moderate Assistance 7=Complete IndependenceSCALE: Activities may be completed with or without assistive devices. 9-Ojpemtbuhl-pdpajtz completes the activity by him/herself with no assistance from a helper. 5-Set-up or Clean-up Assistance-helper sets up or cleans up; patient completes activity. [place] assists only prior to or following the activity. 4-Supervision or Touching Assistance-helper provides verbal cues and/or touching/steadying and/or contact guard assistance as patient completes activity. Assistance may be provided throughout the activity or intermittently. 3-Partial/Moderate Assistance-helper does LESS THAN HALF the effort. [place] lifts, holds or supports trunk or limbs, but provides less than half the effort. 2-Substantial/Maximal Assistance-helper does MORE THAN HALF the effort. [place] lifts or holds trunk or limbs and provides more than half the effort. 2-Cenzwdakn-sixzep does ALL the effort. Patient does none of the effort to complete the activity. Or, the assistance of 2 or more helpers is required for the patient to complete the activity. If activity was not attempted, code reason: 7-Patient Refused. 9-Not Applicable-not attempted and the patient did not perform the activity before the current illness, exacerbation or injury. 10-Not Attempted due to Environmental Limitations-(lack of equipment, weather restraints, etc.). 88-Not Attempted due to Medical Conditions or Safety Concerns. Roll Left to Right (QC): 5 Sit to Lying (QC): 6 Sit to Stand (QC): 3 Chair/Lak-oh-Alkyd Xfer(QC): 4 Car Transfer (QC): 88 Gait Training Does the Patient Walk?: Yes Distance: 50' x2 Walk 10 feet (QC): 4 Walk 50 ft with 2 Turns(QC): 4 Walk 150 ft (QC): 88 Walking 10ft/uneven surface-QC: 88 Gait Persons Needed: 1 Gait Assistive Device: FWW Wheelchair Training Does the Pt Use a Wheelchair?: Yes Wheel 50 ft with 2 turns (QC): 4 Wheel 150 ft (QC): 1 Type of Wheelchair: Manual Stair Training 1 Step (curb) (QC): 88 4 Steps (QC): 88 12 Steps (QC): 88 Balance Picking up an Object (QC): 88 ADL-Treatment Eating (QC): 6 Oral Hygiene (QC): 6 Shower/Bathe Self (QC): 4 Upper Body Dressing (QC): 5 Lower Body Dressing (QC): 4 On/Off Footwear (QC): 4 Toileting Hygiene (QC): 4 Toilet Transfer (QC): 4 Assessment/Plan Assessment and Plan Assess & Plan/Chief Complaint Assessment: Left total knee replacement Pacemaker HLP HTN Tremor essential type Urinary retention discontinue catheter 11/06 resolved Angulo cath in place discontinued 11/06 Postop constipation 11/06 resolved Plan: Urecholine PT OT BM regimen 11/06/2021: DC catheter Increased bowel regimen 11/07/2021: Voiding well Home meds restart 11/08/2021: BM regimen Restart MTX 11/09/2021: Minimize pain meds BM regimen 11/10/2021: Slow recovery Continue aggressive rehab 11/11/2021: Slow recovery Continue aggressive rehab 11/12/2021: Discharge plan for now Continue treatment 11/13/2021: Reach out to Dr. Guzman about knee healing time and concern for going to skilled nursing 11/14/2021: Discussed with team to try to prevent skilled nursing placement 11/15/2021: Needs skilled (1) History of arthroplasty of left knee ROB TAPIA DO Nov 15, 2021 05:50
[2021-11-15 06:11] LABS: ALBUMIN 2.9 GM/DL (3.2-4.5); POTASSIUM 4.4 MMOL/L (3.6-5.0)
[2021-11-15 06:12] LABS: CALCIUM 8.5 MG/DL (8.5-10.1)
[2021-11-15 06:15] LABS: BILIRUBIN,TOTAL 0.5 MG/DL (0.1-1.0)
[2021-11-15 06:17] LABS: CREATININE SERUM 0.85 MG/DL (0.60-1.30)
[2021-11-15 07:45] VITALS: BP 126/60
[2021-11-15] MEDS: PROPRANOLOL ER 80 MG CAP (INDERAL LA) PO SCH ×2 (09:28→21:58)
[2021-11-15] MEDS: PARoxetine 20 MG (PAXIL) TAB PO SCH (09:28)
[2021-11-15] MEDS: amLODIPine 5 MG (NORVASC) TAB PO SCH (09:28)
[2021-11-15] MEDS: FOLIC ACID 1 MG TAB PO SCH (09:28)
[2021-11-15] MEDS: DOCUSATE SODIUM 100 MG (COLACE) CAP PO SCH ×2 (09:28→21:58)
[2021-11-15] MEDS: ASPIRIN E.C. 81 MG (ECOTRIN) TAB PO SCH (09:28)
[2021-11-15] MEDS: ENOXAPARIN INJECTION 30 MG/0.3 ML SYR SC SCH ×2 (09:29→21:58)
[2021-11-15] MEDS: CALCIUM CARBONATE 500 MG (TUMS) TAB.CHEW PO SCH ×2 (09:29→22:05)
[2021-11-15] MEDS: BACLOFEN 10 MG (LIORESAL) TAB PO PRN (09:29)
[2021-11-15] MEDS: LACTULOSE SYRUP 10GM/15ML (ENULOSE) 30ML UDC PO SCH ×2 (09:58→22:05)
[2021-11-15] MEDS: SENNA W/DOCUSATE (SENOKOT S) TABLET PO SCH ×2 (09:58→21:58)
[2021-11-15] MEDS: polyethylene glycoL POWDER 17 GM (MIRALAX) PACK PO SCH ×2 (09:58→21:59)
--- NOTE | 2021-11-15 11:43 | Physical Therapy Daily Note ---
PT Daily Note-Current Subjective Patient sitting in chair upon PT arrival, agreeable to treatment. Rates pain in left knee at 8/10 at rest. Reports that the left knee hurt much worse last night and she is unsure as to why. Mental Status Patient Orientation: Person, Place, Time, Situation Transfers SCALE: Activities may be completed with or without assistive devices. 5-Xcprmgztdw-zhfrglh completes the activity by him/herself with no assistance from a helper. 5-Set-up or Clean-up Assistance-helper sets up or cleans up; patient completes activity. [place] assists only prior to or following the activity. 4-Supervision or Touching Assistance-helper provides verbal cues and/or touching/steadying and/or contact guard assistance as patient completes activity. Assistance may be provided throughout the activity or intermittently. 3-Partial/Moderate Assistance-helper does LESS THAN HALF the effort. [place] l ifts, holds or supports trunk or limbs, but provides less than half the effort. 2-Substantial/Maximal Assistance-helper does MORE THAN HALF the effort. [place] lifts or holds trunk or limbs and provides more than half the effort. 3-Qaqhgpxfy-cenfjn does ALL the effort. Patient does none of the effort to complete the activity. Or, the assistance of 2 or more helpers is required for t he patient to complete the activity. If activity was not attempted, code reason: 7-Patient Refused. 9-Not Applicable-not attempted and the patient did not perform the activity before the current illness, exacerbation or injury. 10-Not Attempted due to Environmental Limitations-(lack of equipment, weather restraints, etc.). 88-Not Attempted due to Medical Conditions or Safety Concerns. Roll Left & Right (QC): 5 Sit to Lying (QC): 6 Lying to Sitting/Side of Bed(Q: 5 Sit to Stand (QC): 4 Chair/Lfj-lq-Joztq Xfer(QC): 4 Toilet Transfer (QC): 4 Weight Bearing Left Lower Extremity: Left Weight Bearing/Tolerated Gait Training Does the Patient Walk?: Yes Distance: 100', 50', 50' Walk 10 feet (QC): 6 Walk 50 ft with 2 Turns(QC): 4 Walk 150 ft (QC): 88 Walking 10ft/uneven surface-QC: 4 Gait Persons Needed: 1 Gait Assistive Device: FWW Wheelchair Training Does the Pt Use a Wheelchair?: No Wheel 50 ft with 2 turns (QC): 88 Wheel 150 ft (QC): 88 Stair Training #of Steps: 0 1 Step (curb) (QC): 88 4 Steps (QC): 88 12 Steps (QC): 88 Exercises Supine Ex: Ankle pumps, Quad Set, Glut sets, Heel Slides, Short Arc Quads, Hip abd/add NuStep Minutes: 10 NuStep Workload: 5 Assessment Current Status: Fair Progress Patient performs LE therapeutic exercise while sitting in the recliner with leg rest elevated. Patient ambulates to the BR with nurse, with FWW. Patient ambulates 100 feet with FWW, with SBA and verbal cues for proper gait including heel first strike with left LE, attempting to obtain left TKE and keeping feet far enough apart during swing phase to allow proper LE forward movement. Patient demonstrates left hip adduction, with flexion and internal rotation which is accentuated during stance phase on the left LE. This prevents the right LE from swinging through properly during right LE swing phase. When prompted to accentuate left TKE during stance phase, patient is unable to safely maintain left LE weight bearing which leads to 2-3 near falls during gait training, requiring mod/max A from PT for patient to avoid falling. Patient is able to ambulate short distances, ie less than 20 feet, with SBA relatively safely with FWW. However, longer distance or gait that involves any type of prolonged standing on the left LE places her at an increased fall risk. At this time it is recommended that the patient not return home as her is unable to care for her due to his own medical concerns. Patient in chair post treatment with all needs met, nursing notified, call light in reach. PT Short Term Goals Short Term Goals Time Frame: Nov 12, 2021 Roll Left & Right: 3 (Yovani) Sit to lyin (Yovani) Lying to sitting on side of be: 3 (Yovani) Sit to stand: 4 (CGA) Chair/tns-gw-gyqza transfer: 4 (CGA) Walk 10 feet: 4 (CGA) Walk 50 feet with two turns: 4 (CGA) PT Fpc Goals Fpc Goals PT Fpc Goals Time Frame: Nov 26, 2021 Roll Left & Right (QC): 4 (SBA) Sit to Lying (QC): 4 (SBA) Lying-Sitting on Side/Bed(QC): 4 (SBA) Sit to Stand (QC): 4 (SBA) Chair/Cnr-bv-Uztpj Xfer(QC): 4 (SBA) Toilet Transfer (QC): 4 (SBA) Car Transfer (QC): 3 (Yovani) Does the Patient Walk: Yes Walk 10 feet (QC): 4 (SBA) Walk 50ft with 2 Turns (QC): 4 (SBA) Walk 150 ft (QC): 4 (SBA) Walking 10ft on Uneven Surface: 4 (SBA) 1 Step (curb) (QC): 3 (Yovani) 4 Steps (QC): 3 (Yovani) 12 Steps (QC): 88 Picking up an Object (QC): 4 (SBA) Wheel 50 feet with 2 turns (QC: 9 Wheel 150 feet: 9 PT Plan Treatment/Plan Treatment Plan: Continue Plan of Care Treatment Plan: Bed Mobility, Education, Functional Activity Anya, Functional Strength, Group Therapy, Gait, Safety, Therapeutic Exercise, Transfers Treatment Duration: Nov 26, 2021 Frequency: At least 5 of 7 days/Wk (IRF) Estimated Hrs Per Day: 1.5 hours per day Patient and/or Family Agrees t: Yes Safety Risks/Education Patient Education: Gait Training, Transfer Techniques, Reviewed Precautions, Safety Issues Teaching Recipient: Patient Teaching Methods: Demonstration, Discussion Response to Teaching: Reinforcement Needed Time/GCodes Time In: 900 Time Out: 1000 Total Billed Treatment Time: 60 Total Billed Treatment Visit, Gait (30) Ex (30) AURORA TORRES PT Nov 15, 2021 11:43
--- NOTE | 2021-11-15 11:45 | Occupational Ther Daily Note ---
OT Current Status-Daily Note Mental Status/Objective Patient Orientation: Person, Confused, Place Attachments: IV (port) ADL-Treatment Therapy Code Descriptions/Definitions Functional [place] Measure: 0=Not Assessed/NA 4=Minimal Assistance 1=Total Assistance 5=Supervision or Setup 2=Maximal Assistance 6=Modified [place] 3=Moderate Assistance 7=Complete IndependenceSCALE: Activities may be completed with or without assistive devices. 5-Aoycsbzxwg-hzmheqn completes the activity by him/herself with no assistance from a helper. 5-Set-up or Clean-up Assistance-helper sets up or cleans up; patient completes activity. [place] assists only prior to or following the activity. 4-Supervision or Touching Assistance-helper provides verbal cues and/or touching/steadying and/or contact guard assistance as patient completes activity. Assistance may be provided throughout the activity or intermittently. 3-Partial/Moderate Assistance-helper does LESS THAN HALF the effort. [place] lifts, holds or supports trunk or limbs, but provides less than half the effort. 2-Substantial/Maximal Assistance-helper does MORE THAN HALF the effort. [place] lifts or holds trunk or limbs and provides more than half the effort. 8-Smpipdxpq-qykfiy does ALL the effort. Patient does none of the effort to complete the activity. Or, the assistance of 2 or more helpers is required for the patient to complete the activity. If activity was not attempted, code reason: 7-Patient Refused. 9-Not Applicable-not attempted and the patient did not perform the activity before the current illness, exacerbation or injury. 10-Not Attempted due to Environmental Limitations-(lack of equipment, weather restraints, etc.). 88-Not Attempted due to Medical Conditions or Safety Concerns. Oral Hygiene (QC): 6 Upper Body Dressing (QC): 5 Lower Body Dressing (QC): 4 On/Off Footwear: 4 Toileting Hygiene (QC): 4 Toilet Transfer (QC): 4 Dressing tasks performed seated on toilet. Pt continues to need several cues for correct use of industry consultant, however no physical assistance required to thread feet. Extra time and cues to lift L heel off floor when threading pant leg. Intermittent CGA for safety as she stood to manage clothing over her hips. Dependent to don BENSON hose. Pt able to don socks with use of sock aid and min verbal cues for use. All grooming tasks performed independently seated at sink. Pt continues to need cues to bear weight through LLE with all gait as well as cues to square hips prior to sitting. Pt moves slowly with all adls and functional mobility. Education OT Patient Education: Correct positioning, Energy conservation, Modified ADL techniques, Progress toward Goal/Update tx plan, Purpose of tx/functional activities, Reviewed precautions, Rehab process, Safety issues, Transfer techniques, Use of adapted equipment Teaching Recipient: Patient Teaching Methods: Demonstration, Discussion Response to Teaching: Verbalize Understanding OT Short Term Goals Short Term Goals Time Frame: Nov 12, 2021 Eatin Oral hygiene: 5 Toileting hygiene: 3 Shower/bathe self: 3 Upper body dressin Lower body dressin Putting on/taking off footwear: 3 OT Halfway Goals Halfway Goals Time Frame: Nov 24, 2021 Eating (QC): 6 Oral Hygiene (QC): 6 Toileting Hygiene (QC): 6 Shower/Bathe Self (QC): 5 Upper Body Dressing (QC): 5 Lower Body Dressing (QC): 5 On/Off Footwear (QC): 4 1=Demonstrate adherence to instructed precautions during ADL tasks. 2=Patient will verbalize/demonstrate understanding of assistive devices/modifications for ADL. 3=Patient will improve strength/tolerance for activity to enable patient to perform ADL's. OT Education/Plan Problem List/Assessment Assessment: Decreased Activ Tolerance, Decreased Safety Aware, Decreased UE Strength, Edema, Impaired Cognition, Impaired Funct Balance, Impaired Self-Care Skills Discharge Recommendations Plan/Recommendations: Continue POC Therapy Discharge Recommendati: Post Acute OT Equpiment Recommendations-D/C: Ceramic Tile Installer, Sock Aide Treatment Plan/Plan of Care Treatment,Training & Education: Yes Patient would benefit from OT for education, treatment and training to promote independence in ADL's, mobility, safety and/or upper extremity function for ADL's. Plan of Care: ADL Retraining, Caregiver Training, Concurrent Therapy, Functional Mobility, Group Exercise/Act as Ind, UE Funct Exercise/Act Treatment Duration: Nov 24, 2021 Frequency: At least 5 of 7 days/Wk (IRF) Estimated Hrs Per Day: 1.5 hours per day (75-90 min/day ) Agreement: Yes Rehab Potential: Fair Time/GCodes Start Time: 11:00 Stop Time: 12:00 Total Time Billed (hr/min): 60 Billed Treatment Time 1 visit ADL x4 Itzel Lopez OT Nov 15, 2021 11:45
--- NOTE | 2021-11-15 14:30 | Therapy Group Daily Note ---
Therapy Daily Group Note Patient Education Topic Exercises, Other List Below (Pain management) Exercises LE Seated Exercise, UE Exercise Session Ratio (pt:therapist): 3:1 Goal of Session: Education on ARU Expectations, UE/LE Strengthing, Other (list) (pain management) Goal Met for this Session: Yes Pt Benefit of Group: Contributions to Others, F/U Use of Strategies @Home, Increased Functional Safety, Increased Functional Strength, Improved Cognition, Recognition of Peers, Socialization Other/Notes Pt ambulated using FWW to [facility] for OT/PT group. Group consisted of introductions (name, place living), socialization, B UE/LE seated exercises, education on pain management and exercise. Pt introduced self appropriately and actively listened to peers. Pt tolerated B UE/LE seated exercises. Pt acknowledged understanding of educational topics by engaging in conversation, giving personal examples and actively listening to topic. After therapy, pt sitting in recliner with call light/phone in reach. All needs met in room. Start Time: 13:00 Stop Time: 14:00 Total Billed Treatment Time: 60 Total Billed Treatment 1-GRP TONNY STAFFORD Nov 15, 2021 14:30
[2021-11-15 20:40] VITALS: BP 126/59
[2021-11-15] MEDS: PRIMIDONE 50 MG TAB (MYSOLINE) PO SCH (21:58)
[2021-11-15] MEDS: LOSARTAN 100 MG (COZAAR) TABLET PO SCH (21:58)
[2021-11-16] MEDS: BACLOFEN 10 MG (LIORESAL) TAB PO PRN (00:42)
--- NOTE | 2021-11-16 06:26 | PM&R Progress Note ---
Subjective HPI/CC On Admission Date Seen by Provider: Nov 16, 2021 Time Seen by Provider: 09:00 Subjective/Events-last exam 11/16/2021: No issues Set to go to [facility] tomorrow No new issues Pain issues 11/15/2021: Doing well Needs SNF Pain controlled Khoa, PT really worked with her and she can't bear weight on the knee which leads her to fall risk Slow recovery 11/14/2021: Much improved status today I talked to Dr. Guzman about senior care placement Fear of falling is a concern Supportive care will continue 11/13/2021: Patient doing well Knee does not appear to be healing well per Dr. Guzman They are still asking if they should go to [facility] but if she has a standard course she should be good to go home from here Will reach out to Dr. Guzman 11/12/2021: Dramatically improved We will extend stay until since is now partially blind and she will need to be more competent High risk for falls if discharged on Monday as planned Bowels are moving Pain is much improved 11/11/2021: Patient doing a lot better Slow recovery Pain is improving Bowels are moving Tried to reassure 11/10/2021: Pt is having a slow recovery Monday discharge date Improved night overall Oxycontin and Baclofen really helping 11/09/2021: Pt is doing a lot better Sleeping a lot Told her to minimize the Oxycodone Bowels haven't moved so will initiate more laxatives 11/08/2021: Pt is doing well Bowels moved 2 days ago Incontinence last night of bladder Just didn't have enough time to get to the bathroom Overall doing well otherwise 11/07/2021: Doing much better MTX and home meds restarted No pain at this time if she doesn't move BM large x 3 yesterday Voiding well after DC cath DC Urecholine 11/06/2021: Patient having a slow recovery Pain is intense Needs her home meds restarted Blood pressure still borderline low We will discontinue catheter today Bowels have not moved so starting more aggressive regimen Review of Systems Musculoskeletal: leg pain Objective Exam Vital Signs Vital Signs Date Time Temp Pulse Resp B/P (MAP) Pulse Ox O2 Delivery O2 Flow Rate FiO2 11/16/21 20:15 37.1 62 18 147/63 (91) 95 Room Air Capillary Refill : General Appearance: No Apparent Distress, WD/WN, Chronically ill HEENT: PERRL/EOMI, Normal ENT Inspection, Pharynx Normal Neck: Full Range of Motion, Normal Inspection, Non Tender, Supple, Carotid Bruit Respiratory: Chest Non Tender, Lungs Clear, Normal Breath Sounds, No Accessory Muscle Use, No Respiratory Distress Cardiovascular: Regular Rate, Rhythm, No Edema, No Gallop, No JVD, No Murmur, Normal Peripheral Pulses Gastrointestinal: Normal Bowel Sounds, No Organomegaly, No Pulsatile Mass, Non Tender, Soft Back: Normal Inspection, No CVA Tenderness, No Vertebral Tenderness Extremity: Normal Capillary Refill, Normal Inspection, Normal Range of Motion, Non Tender, No Calf Tenderness, No Pedal Edema Neurologic/Psychiatric: Alert, Oriented x3, No Motor/Sensory Deficits, microsoft crm developer II- XII Norm as Tested, Abnormal Gait, Depressed Affect, Motor Weakness (left leg) Skin: Normal Color, Warm/Dry Lymphatic: No Adenopathy Results/Procedures Lab Patient resulted labs reviewed. FIM Transfers Therapy Code Descriptions/Definitions Functional [place] Measure: 0=Not Assessed/NA 4=Minimal Assistance 1=Total Assistance 5=Supervision or Setup 2=Maximal Assistance 6=Modified [place] 3=Moderate Assistance 7=Complete IndependenceSCALE: Activities may be completed with or without assistive devices. 9-Jocbzdcmxq-bwnkfsc completes the activity by him/herself with no assistance from a helper. 5-Set-up or Clean-up Assistance-helper sets up or cleans up; patient completes activity. [place] assists only prior to or following the activity. 4-Supervision or Touching Assistance-helper provides verbal cues and/or touching/steadying and/or contact guard assistance as patient completes activity. Assistance may be provided throughout the activity or intermittently. 3-Partial/Moderate Assistance-helper does LESS THAN HALF the effort. [place] lifts, holds or supports trunk or limbs, but provides less than half the effort. 2-Substantial/Maximal Assistance-helper does MORE THAN HALF the effort. [place] lifts or holds trunk or limbs and provides more than half the effort. 4-Frnmqicic-ftutfv does ALL the effort. Patient does none of the effort to complete the activity. Or, the assistance of 2 or more helpers is required for the patient to complete the activity. If activity was not attempted, code reason: 7-Patient Refused. 9-Not Applicable-not attempted and the patient did not perform the activity before the current illness, exacerbation or injury. 10-Not Attempted due to Environmental Limitations-(lack of equipment, weather restraints, etc.). 88-Not Attempted due to Medical Conditions or Safety Concerns. Roll Left to Right (QC): 5 Sit to Lying (QC): 6 Sit to Stand (QC): 4 Chair/Epf-uv-Ndvpq Xfer(QC): 4 Car Transfer (QC): 88 Gait Training Does the Patient Walk?: Yes Distance: 100', 50', 50' Walk 10 feet (QC): 6 Walk 50 ft with 2 Turns(QC): 4 Walk 150 ft (QC): 88 Walking 10ft/uneven surface-QC: 4 Gait Persons Needed: 1 Gait Assistive Device: FWW Wheelchair Training Does the Pt Use a Wheelchair?: No Wheel 50 ft with 2 turns (QC): 88 Wheel 150 ft (QC): 88 Type of Wheelchair: Manual Stair Training #of Steps: 0 1 Step (curb) (QC): 88 4 Steps (QC): 88 12 Steps (QC): 88 Balance Picking up an Object (QC): 88 ADL-Treatment Eating (QC): 6 Oral Hygiene (QC): 6 Shower/Bathe Self (QC): 4 Upper Body Dressing (QC): 5 Lower Body Dressing (QC): 4 On/Off Footwear (QC): 4 Toileting Hygiene (QC): 4 Toilet Transfer (QC): 4 Assessment/Plan Assessment and Plan Assess & Plan/Chief Complaint Assessment: Left total knee replacement Pacemaker HLP HTN Tremor essential type Urinary retention discontinue catheter 11/06 resolved Angulo cath in place discontinued 11/06 Postop constipation 11/06 resolved Plan: Urecholine PT OT BM regimen 11/06/2021: DC catheter Increased bowel regimen 11/07/2021: Voiding well Home meds restart 11/08/2021: BM regimen Restart MTX 11/09/2021: Minimize pain meds BM regimen 11/10/2021: Slow recovery Continue aggressive rehab 11/11/2021: Slow recovery Continue aggressive rehab 11/12/2021: Discharge plan for now Continue treatment 11/13/2021: Reach out to Dr. Guzman about knee healing time and concern for going to senior care 11/14/2021: Discussed with team to try to prevent senior care placement 11/15/2021: Needs skilled 11/16/2021: Monitor closely (1) History of arthroplasty of left knee ROB TAPIA DO Nov 16, 2021 06:26
[2021-11-16] MEDS: MULTIVIT W/MINERALS TAB (THERAGRAN M) PO SCH (06:55)
[2021-11-16] MEDS: KCL 10 MEQ TAB (MICRO K) PO SCH ×3 (06:55→18:26)
[2021-11-16 07:51] VITALS: BP 133/62
--- NOTE | 2021-11-16 08:45 | Occupational Ther Daily Note ---
OT Current Status-Daily Note Subjective Pt reports L knee pain as 5/10. Agreeable to shower. Appearance Pt returned to sitting in recliner, BLE's elevated, ice applied. All needs within reach at OT departure. Mental Status/Objective Patient Orientation: Person, Confused, Place, Situation Attachments: IV (port) ADL-Treatment Therapy Code Descriptions/Definitions Functional [place] Measure: 0=Not Assessed/NA 4=Minimal Assistance 1=Total Assistance 5=Supervision or Setup 2=Maximal Assistance 6=Modified [place] 3=Moderate Assistance 7=Complete IndependenceSCALE: Activities may be completed with or without assistive devices. 5-Spmrvofhme-clnxfno completes the activity by him/herself with no assistance from a helper. 5-Set-up or Clean-up Assistance-helper sets up or cleans up; patient completes activity. [place] assists only prior to or following the activity. 4-Supervision or Touching Assistance-helper provides verbal cues and/or touching/steadying and/or contact guard assistance as patient completes activity. Assistance may be provided throughout the activity or intermittently. 3-Partial/Moderate Assistance-helper does LESS THAN HALF the effort. [place] lifts, holds or supports trunk or limbs, but provides less than half the effort. 2-Substantial/Maximal Assistance-helper does MORE THAN HALF the effort. [place] lifts or holds trunk or limbs and provides more than half the effort. 7-Cpwqtfrhc-aahrpr does ALL the effort. Patient does none of the effort to complete the activity. Or, the assistance of 2 or more helpers is required for the patient to complete the activity. If activity was not attempted, code reason: 7-Patient Refused. 9-Not Applicable-not attempted and the patient did not perform the activity before the current illness, exacerbation or injury. 10-Not Attempted due to Environmental Limitations-(lack of equipment, weather restraints, etc.). 88-Not Attempted due to Medical Conditions or Safety Concerns. Eating (QC): 6 Oral Hygiene (QC): 6 Shower/Bathe Self (QC): 4 Upper Body Dressing (QC): 5 Lower Body Dressing (QC): 4 On/Off Footwear: 4 Toileting Hygiene (QC): 4 Toilet Transfer (QC): 4 Shower performed; 100% completed in sitting. Port and dressing covered by OT prior to bathing. C/D/I post activity. Reminders on using LHS in order to reach feet. Buttocks washed with lateral pelvic leans post cues to initiate. Clothing donned seated in w/c. No physical assistance needed when threading feet into brief but min cues for tug boat engineer use and attention to correct orientation. Close Supervision for safety when standing. Dependent to don juancarlos hose. Pt able to don socks with sock aid and min verbal cues. Extra time to complete grooming tasks seated at sink. Toilet transfer x3 this session as pt reports constipation. Unsuccessful with having BM during treatment. On last toilet transfer, pt needed max cues on positioning, safety, and sequencing. Education OT Patient Education: Correct positioning, Energy conservation, Modified ADL techniques, Progress toward Goal/Update tx plan, Purpose of tx/functional activities, Reviewed precautions, Rehab process, Safety issues, Transfer xavier hniques, Use of adapted equipment, W/C management Teaching Recipient: Patient Teaching Methods: Demonstration, Discussion Response to Teaching: Verbalize Understanding, Return Demonstration, Reinforcement Needed OT Short Term Goals Short Term Goals Time Frame: Nov 12, 2021 Eatin Oral hygiene: 5 Toileting hygiene: 3 Shower/bathe self: 3 Upper body dressin Lower body dressin Putting on/taking off footwear: 3 OT Title I Paraprofessional Goals Usp Goals Time Frame: Nov 24, 2021 Eating (QC): 6 Oral Hygiene (QC): 6 Toileting Hygiene (QC): 6 Shower/Bathe Self (QC): 5 Upper Body Dressing (QC): 5 Lower Body Dressing (QC): 5 On/Off Footwear (QC): 4 1=Demonstrate adherence to instructed precautions during ADL tasks. 2=Patient will verbalize/demonstrate understanding of assistive devices/modifications for ADL. 3=Patient will improve strength/tolerance for activity to enable patient to perform ADL's. OT Education/Plan Problem List/Assessment Assessment: Decreased Activ Tolerance, Decreased Safety Aware, Decreased UE Str ength, Edema, Impaired Cognition, Impaired Funct Balance, Impaired Self-Care Skills Discharge Recommendations Plan/Recommendations: Continue POC Therapy Discharge Recommendati: Post Acute OT Equpiment Recommendations-D/C: Battery Tester And Repairer, Sock Aide, [place] Treatment Plan/Plan of Care Treatment,Training & Education: Yes Patient would benefit from OT for education, treatment and training to promote independence in ADL's, mobility, safety and/or upper extremity function for ADL's. Plan of Care: ADL Retraining, Caregiver Training, Concurrent Therapy, Functional Mobility, Group Exercise/Act as Ind, UE Funct Exercise/Act Treatment Duration: Nov 24, 2021 Frequency: At least 5 of 7 days/Wk (IRF) Estimated Hrs Per Day: 1.5 hours per day (75-90 min/day ) Agreement: Yes Rehab Potential: Fair Time/GCodes Start Time: 07:25 Stop Time: 08:55 Total Time Billed (hr/min): 90 Billed Treatment Time 1 visit ADL x6 Itzel Lopez OT Nov 16, 2021 08:45
[2021-11-16] MEDS: PROPRANOLOL ER 80 MG CAP (INDERAL LA) PO SCH ×2 (09:56→20:06)
[2021-11-16] MEDS: CALCIUM CARBONATE 500 MG (TUMS) TAB.CHEW PO SCH ×2 (09:56→20:07)
[2021-11-16] MEDS: SENNA W/DOCUSATE (SENOKOT S) TABLET PO SCH ×2 (09:56→20:07)
[2021-11-16] MEDS: amLODIPine 5 MG (NORVASC) TAB PO SCH (09:56)
[2021-11-16] MEDS: ASPIRIN E.C. 81 MG (ECOTRIN) TAB PO SCH (09:56)
[2021-11-16] MEDS: PARoxetine 20 MG (PAXIL) TAB PO SCH (09:56)
[2021-11-16] MEDS: DOCUSATE SODIUM 100 MG (COLACE) CAP PO SCH ×2 (09:56→20:07)
[2021-11-16] MEDS: FOLIC ACID 1 MG TAB PO SCH (09:56)
[2021-11-16] MEDS: ENOXAPARIN INJECTION 30 MG/0.3 ML SYR SC SCH ×2 (09:57→20:05)
[2021-11-16] MEDS: LACTULOSE SYRUP 10GM/15ML (ENULOSE) 30ML UDC PO SCH ×2 (09:59→20:06)
[2021-11-16] MEDS: polyethylene glycoL POWDER 17 GM (MIRALAX) PACK PO SCH ×2 (10:00→20:07)
--- NOTE | 2021-11-16 11:15 | Physical Therapy Daily Note ---
PT Daily Note-Current Subjective Patient in recliner pre tx, agrees to PT, has 6-7/10 pain in left knee. Patient needs to use the restroom, she is able to manage her pants and wipe without assist. Appearance Patient in recliner post tx with nurse call, phone, tray, all needs met. Mental Status Patient Orientation: Person, Place, Situation Attachments: [place] Transfers SCALE: Activities may be completed with or without assistive devices. 5-Snhambcyys-cmtjamv completes the activity by him/herself with no assistance from a helper. 5-Set-up or Clean-up Assistance-helper sets up or cleans up; patient completes activity. [place] assists only prior to or following the activity. 4-Supervision or Touching Assistance-helper provides verbal cues and/or touching/steadying and/or contact guard assistance as patient completes activity. Assistance may be provided throughout the activity or intermittently. 3-Partial/Moderate Assistance-helper does LESS THAN HALF the effort. [place] lifts, holds or supports trunk or limbs, but provides less than half the effort. 2-Substantial/Maximal Assistance-helper does MORE THAN HALF the effort. [place] lifts or holds trunk or limbs and provides more than half the effort. 6-Tiypwwqos-miiseo does ALL the effort. Patient does none of the effort to complete the activity. Or, the assistance of 2 or more helpers is required for the patient to complete the activity. If activity was not attempted, code reason: 7-Patient Refused. 9-Not Applicable-not attempted and the patient did not perform the activity before the current illness, exacerbation or injury. 10-Not Attempted due to Environmental Limitations-(lack of equipment, weather restraints, etc.). 88-Not Attempted due to Medical Conditions or Safety Concerns. Roll Left & Right (QC): 4 Sit to Lying (QC): 4 Lying to Sitting/Side of Bed(Q: 4 Sit to Stand (QC): 4 Chair/Zbi-fw-Xtwgt Xfer(QC): 4 SBA, cues for positioning and hand placement Weight Bearing Left Lower Extremity: Left Weight Bearing/Tolerated Gait Training Distance: 60'x4 Walk 10 feet (QC): 4 Walk 50 ft with 2 Turns(QC): 4 Gait Persons Needed: 1 Gait Assistive Device: FWW SBA, very slow ambulation, cues to do step-through gait pattern, ambulates with a flexed left knee and has trouble bearing weight on it. Exercises Supine Ex: Ankle pumps, Quad Set, Glut sets, Heel Slides, Short Arc Quads, Straight leg raise Supine Reps: 20 (LLE, AAROM on HS and SLR) Patient has left knee flexion of 75 degrees and extension of +13 degrees Treatments bed mobility and transfers, ambulation, LE knee protocol Assessment Current Status: Poor Progress Patient has a lot of trouble activating her left quadricep PT Short Term Goals Short Term Goals Time Frame: Nov 12, 2021 Roll Left & Right: 3 (Yovani) Sit to lyin (Yovani) Lying to sitting on side of be: 3 (Yovani) Sit to stand: 4 (CGA) Chair/pqa-gc-ywiyb transfer: 4 (CGA) Walk 10 feet: 4 (CGA) Walk 50 feet with two turns: 4 (CGA) PT Retirement Goals Osteologist Goals PT Retirement Goals Time Frame: Nov 26, 2021 Roll Left & Right (QC): 4 (SBA) Sit to Lying (QC): 4 (SBA) Lying-Sitting on Side/Bed(QC): 4 (SBA) Sit to Stand (QC): 4 (SBA) Chair/Xnf-fh-Gxqxc Xfer(QC): 4 (SBA) Toilet Transfer (QC): 4 (SBA) Car Transfer (QC): 3 (Yovani) Does the Patient Walk: Yes Walk 10 feet (QC): 4 (SBA) Walk 50ft with 2 Turns (QC): 4 (SBA) Walk 150 ft (QC): 4 (SBA) Walking 10ft on Uneven Surface: 4 (SBA) 1 Step (curb) (QC): 3 (Yovani) 4 Steps (QC): 3 (Yovani) 12 Steps (QC): 88 Picking up an Object (QC): 4 (SBA) Wheel 50 feet with 2 turns (QC: 9 Wheel 150 feet: 9 PT Plan Problem List Problem List: Activity Tolerance, Functional Strength, Safety, Balance, Gait, Transfer, Bed Mobility, ROM Treatment/Plan Treatment Plan: Continue Plan of Care Treatment Plan: Bed Mobility, Education, Functional Activity Anya, Functional Strength, Group Therapy, Gait, Safety, Therapeutic Exercise, Transfers Treatment Duration: Nov 26, 2021 Frequency: At least 5 of 7 days/Wk (IRF) Estimated Hrs Per Day: 1.5 hours per day Patient and/or Family Agrees t: Yes Safety Risks/Education Patient Education: Gait Training, Transfer Techniques, Correct Positioning, Safety Issues Teaching Recipient: Patient Teaching Methods: Demonstration, Discussion Response to Teaching: Reinforcement Needed Time/GCodes Time In: 1015 Time Out: 1115 Total Billed Treatment Time: 60 Total Billed Treatment 1 visit EX 15' FA 45' SCOTT MARRERO PT Nov 16, 2021 11:15
--- NOTE | 2021-11-16 13:25 | Physical Therapy Daily Note ---
PT Daily Note-Current Subjective Patient in recliner pre tx, agrees to PT, has 6/10 pain in left knee Appearance Patient in bed post tx with nurse call, phone, tray, all needs met. Mental Status Patient Orientation: Person, Place, Situation Attachments: [place] Transfers SCALE: Activities may be completed with or without assistive devices. 0-Xssnifctzs-pshpnnk completes the activity by him/herself with no assistance from a helper. 5-Set-up or Clean-up Assistance-helper sets up or cleans up; patient completes activity. [place] assists only prior to or following the activity. 4-Supervision or Touching Assistance-helper provides verbal cues and/or touching/steadying and/or contact guard assistance as patient completes activity. Assistance may be provided throughout the activity or intermittently. 3-Partial/Moderate Assistance-helper does LESS THAN HALF the effort. [place] lifts, holds or supports trunk or limbs, but provides less than half the effort. 2-Substantial/Maximal Assistance-helper does MORE THAN HALF the effort. [place] lifts or holds trunk or limbs and provides more than half the effort. 9-Tppmiquef-vqjxbu does ALL the effort. Patient does none of the effort to complete the activity. Or, the assistance of 2 or more helpers is required for the patient to complete the activity. If activity was not attempted, code reason: 7-Patient Refused. 9-Not Applicable-not attempted and the patient did not perform the activity before the current illness, exacerbation or injury. 10-Not Attempted due to Environmental Limitations-(lack of equipment, weather restraints, etc.). 88-Not Attempted due to Medical Conditions or Safety Concerns. Roll Left & Right (QC): 6 Sit to Lying (QC): 4 Sit to Stand (QC): 4 Chair/Gzo-zj-Rggyn Xfer(QC): 4 Weight Bearing Left Lower Extremity: Left Weight Bearing/Tolerated Gait Training Distance: 10' Walking 10ft/uneven surface-QC: 4 Gait Persons Needed: 1 Gait Assistive Device: FWW CGA, steadying assist, cues for safety Stair Training Stair Training: Handrails/: uses walker #of Steps: 1 1 Step (curb) (QC): 4 Stairs: Pattern: Step to Balance Picking up an Object (QC): 4 (CGA with manager hotel) Treatments bed mobility and transfers, ambulation, stair training Assessment Current Status: Fair Progress patient mostly CGA/SBA with mobility PT Short Term Goals Short Term Goals Time Frame: Nov 12, 2021 Roll Left & Right: 3 (Yovani) Sit to lyin (Yovani) Lying to sitting on side of be: 3 (Yovani) Sit to stand: 4 (CGA) Chair/por-gu-uyvls transfer: 4 (CGA) Walk 10 feet: 4 (CGA) Walk 50 feet with two turns: 4 (CGA) PT Custodial Goals I&C Technician Goals PT I&C Technician Goals Time Frame: Nov 26, 2021 Roll Left & Right (QC): 4 (SBA) Sit to Lying (QC): 4 (SBA) Lying-Sitting on Side/Bed(QC): 4 (SBA) Sit to Stand (QC): 4 (SBA) Chair/Ois-ft-Fnrvy Xfer(QC): 4 (SBA) Toilet Transfer (QC): 4 (SBA) Car Transfer (QC): 3 (Yovani) Does the Patient Walk: Yes Walk 10 feet (QC): 4 (SBA) Walk 50ft with 2 Turns (QC): 4 (SBA) Walk 150 ft (QC): 4 (SBA) Walking 10ft on Uneven Surface: 4 (SBA) 1 Step (curb) (QC): 3 (Yovani) 4 Steps (QC): 3 (Yovani) 12 Steps (QC): 88 Picking up an Object (QC): 4 (SBA) Wheel 50 feet with 2 turns (QC: 9 Wheel 150 feet: 9 PT Plan Problem List Problem List: Activity Tolerance, Functional Strength, Safety, Balance, Gait, Transfer, Bed Mobility, ROM Treatment/Plan Treatment Plan: Continue Plan of Care Treatment Plan: Bed Mobility, Education, Functional Activity Anya, Functional Strength, Group Therapy, Gait, Safety, Therapeutic Exercise, Transfers Treatment Duration: Nov 26, 2021 Frequency: At least 5 of 7 days/Wk (IRF) Estimated Hrs Per Day: 1.5 hours per day Patient and/or Family Agrees t: Yes Safety Risks/Education Patient Education: Gait Training, Transfer Techniques, Steps, Correct Positioning, Safety Issues Teaching Recipient: Patient Teaching Methods: Demonstration, Discussion Response to Teaching: Reinforcement Needed Time/GCodes Time In: 1300 Time Out: 1330 Total Billed Treatment Time: 30 Total Billed Treatment 1 visit FA 30' SCOTT MARRERO PT Nov 16, 2021 13:25
[2021-11-16] MEDS: LOSARTAN 100 MG (COZAAR) TABLET PO SCH (20:05)
[2021-11-16] MEDS: PRIMIDONE 50 MG TAB (MYSOLINE) PO SCH (20:06)
[2021-11-16 20:15] VITALS: BP 147/63
[2021-11-17] MEDS: BACLOFEN 10 MG (LIORESAL) TAB PO PRN (02:50)
[2021-11-17] MEDS ORDERED: ALPR.25T PO (06:21)
[2021-11-17] MEDS ORDERED: PRIM50TA33 PO (06:21)
[2021-11-17] MEDS ORDERED: PROP80TA3 PO (06:21)
[2021-11-17] MEDS ORDERED: LOSA100T57 PO (06:21)
[2021-11-17] MEDS ORDERED: OXC5T PO (06:21)
[2021-11-17] MEDS ORDERED: ACET325T49 PO (06:21)
[2021-11-17] MEDS ORDERED: ASPI-1238 PO (06:21)
[2021-11-17] MEDS ORDERED: SENN1TAB76 PO (06:21)
[2021-11-17] MEDS ORDERED: FLAX100032 PO (06:21)
[2021-11-17] MEDS ORDERED: VITA1CAP PO (06:21)
[2021-11-17] MEDS ORDERED: LACT20SO2 PO (06:21)
[2021-11-17] MEDS ORDERED: PARO40TA3 PO (06:21)
[2021-11-17] MEDS ORDERED: FOLI1TAB33 PO (06:21)
[2021-11-17] MEDS ORDERED: ENXP30I.3 SC (06:21)
[2021-11-17] MEDS ORDERED: AMLO-250 PO (06:21)
[2021-11-17] MEDS ORDERED: BACL10TA PO (06:21)
[2021-11-17] MEDS ORDERED: METH2.5T PO (06:21)
[2021-11-17] MEDS ORDERED: POTA-160 PO (06:21)
[2021-11-17] MEDS ORDERED: CALC200T40 PO (06:21)
--- NOTE | 2021-11-17 06:23 | Discharge Inst-Skilled Nursing ---
Discharge Inst-Skilled NF Reconcile Patient Problems Problems Reviewed?: Yes Patient Instructions Patient Problems: Left knee replacement RA Consult/Follow Up/Orders Follow Up Appt.: Dr Garcia/Renuka Ramos for [place] rounds Skilled NF Admit to: [facility] ([facility]) I certify that SNF services are required to be given on an inpatient basis because of the above named patient's need for mcc care on a continuing basis for the conditions(s) for which he/she was receiving inpatient hospital services prior to his/her transfer to the [facility]. Shelter Facility Order: Nursing Services, Billet Inspector-Evaluate & Treat, Physical Therapy-Evaluate & Treat Oxygen Delivery Method: Room Air Discharge Diet: No Restrictions Resuscitation Status: Full Code New & Resume Previous Orders New Medications: Acetaminophen (Acetaminophen) 325 Mg Tablet 650 MG PO Q6H PRN for PAIN-MILD (1-4), #30 TAB ALPRAZolam (Xanax Tablet) 0.25 Mg Tab 0.25 MG PO Q8H PRN for ANXIETY, #20 TAB Aspirin (Aspirin EC) 81 Mg Tablet.dr 81 MG PO DAILY, #30 TAB Baclofen (Baclofen) 10 Mg Tablet 10 MG PO TID PRN for MUSCLE SPASMS, #30 TAB Calcium Carbonate (Calcium Antacid) 200 Mg Calcium (500 Mg) Tab.chew 1000 MG PO BID, #60 TAB Enoxaparin Sodium (Lovenox) 30 Mg/0.3 Ml Syringe 30 MG SC Q12H, #30 SYRINGE Lactulose (Lactulose) 20 Gram/30 Ml Solution 10 GM PO BID PRN for CONSTIPATION-2ND LINE, #120 EA Oxycodone Hcl (Oxyir Tablet) 5 Mg Tab 5-10 MG PO Q4H PRN for PAIN-SEVERE (8-10), #30 TAB Potassium Chloride (Klor-Con 10) 10 Meq Tablet.er 10 MEQ PO DAILY@0700, #30 TAB Sennosides/Docusate Sodium (Stool Softener-Laxative Tablet) 8.6 Mg-50 Mg Tablet 1 EA PO BID, #60 TAB Continued Medications: Amlodipine Besylate (Amlodipine Besylate) 5 Mg Tablet 5 MG PO DAILY, #30 TAB (This prescription has been renewed) Flaxseed Oil (Flaxseed) 1,000 Mg Capsule 1000 MG PO BID, #30 CAP (This prescription has been renewed) Folic Acid (Folic Acid) 1 Mg Tablet 1 MG PO DAILY, #30 TAB (This prescription has been renewed) Losartan Potassium (Losartan Potassium) 100 Mg Tablet 100 MG PO HS, #30 TAB (This prescription has been renewed) Methotrexate Sodium (Methotrexate) 2.5 Mg Tablet 10 MG PO BID ON MONDAY, #40 TAB (This prescription has been renewed) TAKES 4 (2.5MG) TABS TWICE DAILY ON MONDAY Paroxetine HCl (Paroxetine HCl) 40 Mg Tablet 40 MG PO DAILY, #30 TAB (This prescription has been renewed) Primidone (Mysoline) 50 Mg Tablet 200 MG PO HS, #30 TAB (This prescription has been renewed) TAKES 4 (50MG) TABS Propranolol HCl (Propranolol HCl) 80 Mg Tablet 160 MG PO BID, #60 TAB (This prescription has been renewed) TAKES 2 (80MG) TABS Vitamin B Complex (Vitamin B Complex) 1 Each Capsule 1 EACH PO DAILY, #30 CAP (This prescription has been renewed) Discontinued Medications: Calcium Carbonate (Calcium) 500 Mg Calcium (1250 Mg) Tab.chew 1000 MG PO BID, TAB Aminta Garcia Nov 17, 2021 06:22 AMINTA GARCIA DO Nov 17, 2021 06:23
--- NOTE | 2021-11-17 06:23 | Discharge Summary ---
Diagnosis/Chief Complaint Date of Admission Nov 05, 2021 at 09:45 Date of Discharge Discharge Date: Nov 17, 2021 Discharge Diagnosis Assessment: Left total knee replacement Pacemaker HLP HTN Tremor essential type Urinary retention discontinue catheter 11/06 resolved Angulo cath in place discontinued 11/06 Postop constipation 11/06 resolved Plan: Urecholine PT OT BM regimen 11/06/2021: DC catheter Increased bowel regimen 11/07/2021: Voiding well Home meds restart 11/08/2021: BM regimen Restart MTX 11/09/2021: Minimize pain meds BM regimen 11/10/2021: Slow recovery Continue aggressive rehab 11/11/2021: Slow recovery Continue aggressive rehab 11/12/2021: Discharge plan for now Continue treatment 11/13/2021: Reach out to Dr. Guzman about knee healing time and concern for going to [facility] 11/14/2021: Discussed with team to try to prevent [facility] placement 11/15/2021: Needs skilled (1) History of arthroplasty of left knee Discharge Summary Discharge Physical Examination Allergies: Coded Allergies: cefazolin (Verified Allergy, Unknown, TONGUE SWELLING, 10/27/21) latex (Verified Allergy, Unknown, RASH, 10/27/21) Vitals & I&Os Vital Signs Date Time Temp Pulse Resp B/P (MAP) Pulse Ox O2 Delivery O2 Flow Rate FiO2 11/17/21 13:30 36.4 90 18 140/66 97 Room Air Hospital Course Was the Problem List Reviewed?: Yes Standard course after left hip replacement but had multiple issues along with slow recovery during her ARU stay. Urinary retention resolved with meds and constipation resolved with meds. Participation with therapy was good but her RA history caused her to have a slower recovery than expected and ultimately she required skilled care at [facility] [place] instead of home for a few weeks prior to DC home. Labs (last 24 hrs) Laboratory Tests 11/06/21 07:09: White Blood Count 9.7, Red Blood Count 3.05L, Hemoglobin 10.2L, Hematocrit 31L, Mean Corpuscular Volume 103H, Mean Corpuscular Hemoglobin 33, Mean Corpuscular Hemoglobin Concent 33, Red Cell Distribution Width 14.1, Platelet Count 207, Mean Platelet Volume 10.7, Immature Granulocyte % (Auto) 0, Neutrophils (%) (Auto) 80H, Lymphocytes (%) (Auto) 8L, Monocytes (%) (Auto) 10, Eosinophils (%) (Auto) 1, Basophils (%) (Auto) 0, Neutrophils # (Auto) 7.8, Lymphocytes # (Auto) 0.8L, Monocytes # (Auto) 1.0, Eosinophils # (Auto) 0.1, Basophils # (Auto) 0.0, Immature Granulocyte # (Auto) 0.0, Sodium Level 138, Potassium Level 3.2L, Chloride Level 106, Carbon Dioxide Level 21, Anion Gap 11, Blood Urea Nitrogen 13, Creatinine 0.76, Estimat Glomerular Filtration Rate 80, BUN/Creatinine Ratio 17, Glucose Level 130H, Calcium Level 8.2L, Corrected Calcium 8.8, Total Bilirubin 0.8, Aspartate Amino Transf (AST/SGOT) 26, Alanine Aminotransferase (ALT/SGPT) 31, Alkaline Phosphatase 58, Total Protein 6.5, Albumin 3.3 11/06/21 16:40: Iron Level 19L, Vitamin B12 Level 1510H 11/12/21 06:48: White Blood Count 8.1, Red Blood Count 3.07L, Hemoglobin 10.2L, Hematocrit 31L, Mean Corpuscular Volume 101H, Mean Corpuscular Hemoglobin 33, Mean Corpuscular Hemoglobin Concent 33, Red Cell Distribution Width 14.4, Platelet Count 360, Mean Platelet Volume 10.1, Immature Granulocyte % (Auto) 1, Neutrophils (%) (Auto) 59, Lymphocytes (%) (Auto) 24, Monocytes (%) (Auto) 13H, Eosinophils (%) (Auto) 4, Basophils (%) (Auto) 1, Neutrophils # (Auto) 4.8, Lymphocytes # (Auto) 1.9, Monocytes # (Auto) 1.0, Eosinophils # (Auto) 0.3, Basophils # (Auto) 0.1, Immature Granulocyte # (Auto) 0.1, Sodium Level 140, Potassium Level 4.6, Chloride Level 102, Carbon Dioxide Level 29, Anion Gap 9, Blood Urea Nitrogen 12, Creatinine 0.71, Estimat Glomerular Filtration Rate 87, BUN/Creatinine Ratio 17, Glucose Level 99, Calcium Level 8.5, Corrected Calcium 9.4, Total Bilirubin 0.5, Aspartate Amino Transf (AST/SGOT) 20, Alanine Aminotransferase (ALT/SGPT) 23, Alkaline Phosphatase 55, Total Protein 5.8L, Albumin 2.9L 11/15/21 05:30: White Blood Count 8.7, Red Blood Count 2.91L, Hemoglobin 9.7L, Hematocrit 29L, Mean Corpuscular Volume 100H, Mean Corpuscular Hemoglobin 33, Mean Corpuscular Hemoglobin Concent 33, Red Cell Distribution Width 13.8, Platelet Count 418H, Mean Platelet Volume 10.1, Immature Granulocyte % (Auto) 1, Neutrophils (%) (Auto) 65, Lymphocytes (%) (Auto) 22, Monocytes (%) (Auto) 9, Eosinophils (%) (Auto) 3, Basophils (%) (Auto) 1, Neutrophils # (Auto) 5.6, Lymphocytes # (Auto) 1.9, Monocytes # (Auto) 0.8, Eosinophils # (Auto) 0.2, Basophils # (Auto) 0.1, Immature Granulocyte # (Auto) 0.0, Sodium Level 139, Potassium Level 4.4, Chloride Level 103, Carbon Dioxide Level 26, Anion Gap 10, Blood Urea Nitrogen 15, Creatinine 0.85, Estimat Glomerular Filtration Rate 70, BUN/Creatinine Ratio 18, Glucose Level 106H, Calcium Level 8.5, Corrected Calcium 9.4, Total Bilirubin 0.5, Aspartate Amino Transf (AST/SGOT) 23, Alanine Aminotransferase (ALT/SGPT) 24, Alkaline Phosphatase 55, Total Protein 6.0L, Albumin 2.9L Pending Labs Laboratory Tests 11/06/21 07:09: White Blood Count 9.7, Red Blood Count 3.05, Hemoglobin 10.2, Hematocrit 31, Mean Corpuscular Volume 103, Mean Corpuscular Hemoglobin 33, Mean Corpuscular Hemoglobin Concent 33, Red Cell Distribution Width 14.1, Platelet Count 207, Mean Platelet Volume 10.7, Immature Granulocyte % (Auto) 0, Neutrophils (%) (Auto) 80, Lymphocytes (%) (Auto) 8, Monocytes (%) (Auto) 10, Eosinophils (%) (Auto) 1, Basophils (%) (Auto) 0, Neutrophils # (Auto) 7.8, Lymphocytes # (Auto) 0.8, Monocytes # (Auto) 1.0, Eosinophils # (Auto) 0.1, Basophils # (Auto) 0.0, Immature Granulocyte # (Auto) 0.0, Sodium Level 138, Potassium Level 3.2, Chloride Level 106, Carbon Dioxide Level 21, Anion Gap 11, Blood Urea Nitrogen 1 3, Creatinine 0.76, Estimat Glomerular Filtration Rate 80, BUN/Creatinine Ratio 17, Glucose Level 130, Calcium Level 8.2, Corrected Calcium 8.8, Total Bilirubin 0.8, Aspartate Amino Transf (AST/SGOT) 26, Alanine Aminotransferase (ALT/SGPT) 31, Alkaline Phosphatase 58, Total Protein 6.5, Albumin 3.3 11/06/21 16:40: Iron Level 19, Vitamin B12 Level 1510 11/12/21 06:48: White Blood Count 8.1, Red Blood Count 3.07, Hemoglobin 10.2, Hematocrit 31, Mean Corpuscular Volume 101, Mean Corpuscular Hemoglobin 33, Mean Corpuscular Hemoglobin Concent 33, Red Cell Distribution Width 14.4, Platelet Count 360, Mean Platelet Volume 10.1, Immature Granulocyte % (Auto) 1, Neutrophils (%) (Auto) 59, Lymphocytes (%) (Auto) 24, Monocytes (%) (Auto) 13, Eosinophils (%) (Auto) 4, Basophils (%) (Auto) 1, Neutrophils # (Auto) 4.8, Lymphocytes # (Auto) 1.9, Monocytes # (Auto) 1.0, Eosinophils # (Auto) 0.3, Basophils # (Auto) 0.1, Immature Granulocyte # (Auto) 0.1, Sodium Level 140, Potassium Level 4.6, Chloride Level 102, Carbon Dioxide Level 29, Anion Gap 9, Blood Urea Nitrogen 12, Creatinine 0.71, Estimat Glomerular Filtration Rate 87, BUN/Creatinine Ratio 17, Glucose Level 99, Calcium Level 8.5, Corrected Calcium 9.4, Total Bilirubin 0.5, Aspartate Amino Transf (AST/SGOT) 20, Alanine Aminotransferase (ALT/SGPT) 23, Alkaline Phosphatase 55, Total Protein 5.8, Albumin 2.9 11/15/21 05:30: White Blood Count 8.7, Red Blood Count 2.91, Hemoglobin 9.7, Hematocrit 29, Mean Corpuscular Volume 100, Mean Corpuscular Hemoglobin 33, Mean Corpuscular Hemoglobin Concent 33, Red Cell Distribution Width 13.8, Platelet Count 418, Mean Platelet Volume 10.1, Immature Granulocyte % (Auto) 1, Neutrophils (%) (Auto) 65, Lymphocytes (%) (Auto) 22, Monocytes (%) (Auto) 9, Eosinophils (%) (Auto) 3, Basophils (%) (Auto) 1, Neutrophils # (Auto) 5.6, Lymphocytes # (Auto) 1.9, Monocytes # (Auto) 0.8, Eosinophils # (Auto) 0.2, Basophils # (Auto) 0.1, Immature Granulocyte # (Auto) 0.0, Sodium Level 139, Potassium Level 4.4, Chloride Level 103, Carbon Dioxide Level 26, Anion Gap 10, Blood Urea Nitrogen 15, Creatinine 0.85, Estimat Glomerular Filtration Rate 70, BUN/Creatinine Ratio 18, Glucose Level 106, Calcium Level 8.5, Corrected Calcium 9.4, Total Bilirubin 0.5, Aspartate Amino Transf (AST/SGOT) 23, Alanine Aminotransferase (ALT/SGPT) 24, Alkaline Phosphatase 55, Total Protein 6.0, Albumin 2.9 Discharge Home Medications: Active Scripts Active Stool Softener-Laxative Tablet (Sennosides/Docusate Sodium) 8.6 Mg-50 Mg Tablet 1 Ea PO BID Klor-Con 10 (Potassium Chloride) 10 Meq Tablet.er 10 Meq PO DAILY@0700 Calcium Antacid (Calcium Carbonate) 200 Mg Calcium (500 Mg) Tab.chew 1,000 Mg PO BID Lactulose 20 Gram/30 Ml Solution 10 Gm PO BID PRN Xanax Tablet (Alprazolam) 0.25 Mg Tab 0.25 Mg PO Q8H PRN Acetaminophen 325 Mg Tablet 650 Mg PO Q6H PRN Oxyir Tablet (Oxycodone HCl) 5 Mg Tab 5-10 Mg PO Q4H PRN Aspirin EC (Aspirin) 81 Mg Tablet.dr 81 Mg PO DAILY Lovenox (Enoxaparin Sodium) 30 Mg/0.3 Ml Syringe 30 Mg SC Q12H Baclofen 10 Mg Tablet 10 Mg PO TID PRN Vitamin B Complex 1 Each Capsule 1 Each PO DAILY Mysoline (Primidone) 50 Mg Tablet 200 Mg PO HS TAKES 4 (50MG) TABS Methotrexate (Methotrexate Sodium) 2.5 Mg Tablet 10 Mg PO BID ON MONDAY TAKES 4 (2.5MG) TABS TWICE DAILY ON MONDAY Paroxetine HCl 40 Mg Tablet 40 Mg PO DAILY Losartan Potassium 100 Mg Tablet 100 Mg PO HS Propranolol HCl 80 Mg Tablet 160 Mg PO BID TAKES 2 (80MG) TABS Folic Acid 1 Mg Tablet 1 Mg PO DAILY Flaxseed (Flaxseed Oil) 1,000 Mg Capsule 1,000 Mg PO BID Amlodipine Besylate 5 Mg Tablet 5 Mg PO DAILY Instructions to patient/family Please see electronic discharge instructions given to patient. Diagnosis/Problems Diagnosis/Problems (1) History of arthroplasty of left knee ROB TAPIA DO Nov 17, 2021 06:23
[2021-11-17] MEDS: KCL 10 MEQ TAB (MICRO K) PO SCH ×2 (07:38→09:22)
[2021-11-17] MEDS: MULTIVIT W/MINERALS TAB (THERAGRAN M) PO SCH (07:38)
[2021-11-17 07:45] VITALS: BP 140/66
[2021-11-17] MEDS: ASPIRIN E.C. 81 MG (ECOTRIN) TAB PO SCH (09:22)
[2021-11-17] MEDS: FOLIC ACID 1 MG TAB PO SCH (09:22)
[2021-11-17] MEDS: amLODIPine 5 MG (NORVASC) TAB PO SCH (09:22)
[2021-11-17] MEDS: CALCIUM CARBONATE 500 MG (TUMS) TAB.CHEW PO SCH (09:23)
[2021-11-17] MEDS: PROPRANOLOL ER 80 MG CAP (INDERAL LA) PO SCH (09:23)
[2021-11-17] MEDS: PARoxetine 20 MG (PAXIL) TAB PO SCH (09:23)
[2021-11-17] MEDS: ENOXAPARIN INJECTION 30 MG/0.3 ML SYR SC SCH (09:24)
[2021-11-17] MEDS: DOCUSATE SODIUM 100 MG (COLACE) CAP PO SCH (09:34)
[2021-11-17] MEDS: SENNA W/DOCUSATE (SENOKOT S) TABLET PO SCH (09:34)
--- NOTE | 2021-11-17 10:48 | Therapy Team Discharge Summary ---
Therapy Discharge Summary Discharge Recommendations Date of Discharge Physical Therapy Patient came to rehab following a left TKA. Upon evaluation patient can perform rolling and supine <-> sit mod assist, sit <-> stand and transfers min assist, ambulate 6' with a rolling walker with min assist, dependent for WC mobility. Patient has been performing bed mobility and transfer training, balance and endurance training, functional strengthening, stair training, gait training, and education. Patient has made some progress but has not met her care home goals for picking up an object from the floor, stairs, and walking over an uneven surface. Now, patient performs rolling with independence, supine <-> sit SBA, sit <-> stand and transfers SBA, car transfer SBA, ambulates 60' with a rolling walker with SBA (including 50' with at least 2 turns of 90 degrees but needs CGA for 10' over an uneven surface), can go up and down 1 step using a rolling walk er with CGA, and can pharmacy picking tech an object from the floor with CGA using a teacher nursery [employer]. Patient is being discharged from this facility today and will be discharged from PT at this time. Roll Left to Right (QC): 6 Sit to Lying (QC): 4 Lying to Sitting/Side of Bed(Q: 4 Sit to Stand (QC): 4 Chair/Rby-pb-Kbaxu Xfer(QC): 4 Toilet Transfer (QC): 4 Car Transfer (QC): 88 Does the Patient Walk: Yes Mode of Locomotion: Both Anticipated Mode of Locomotion: Walk Walk 10 feet (QC): 4 Walk 50 ft with 2 Turns(QC): 4 Walk 150 ft (QC): 88 Walking 10ft on uneven surface: 4 Distance: 6' Gait Assistive Device: FWW Does the Pt Use a Wheelchair: No Wheel 50 ft with 2 turns (QC): 88 Wheel 150 ft (QC): 88 Type of Wheelchair: Manual #of Steps: 1 1 Step (curb) (QC): 4 4 Steps (QC): 88 12 Steps (QC): 88 Balance Sitting Static: Fair Balance Sitting Dynamic: Fair Balance-Standing Static: Fair Picking up an Object (QC): 4 (CGA with teacher nursery school) Occupational Therapy Decreased Activ Tolerance, Decreased Safety Aware, Decreased UE Strength, Edema, Impaired Cognition, Impaired Funct Balance, Impaired Self-Care Skills Eating (QC): 6 Oral Hygiene (QC): 6 Shower/Bathe Self (QC): 4 Upper Body Dressing (QC): 5 Lower Body Dressing (QC): 4 On/Off Footwear (QC): 4 Toileting Hygiene (QC): 4 PT Group Home Goals [employer] Goals PT Group Home Goals Time Frame: Nov 26, 2021 Roll Left to Right (QC): 4 (SBA) Sit to Lying (QC): 4 (SBA) Lying-Sitting on Side/Bed(QC): 4 (SBA) Sit to Stand (QC): 4 (SBA) Chair/Tba-cj-Cropm Xfer(QC): 4 (SBA) Car Transfer (QC): 3 (Yovani) Does the Patient Walk: Yes Walk 10 feet (QC): 4 (SBA) Walk 10ft-Uneven Surface(QC): 4 (SBA) Walk 50ft with 2 Turns (QC): 4 (SBA) Walk 150 ft (QC): 4 (SBA) Wheel 50 feet with 2 turns (QC: 9 1 Step (curb) (QC): 3 (Yovani) 4 Steps (QC): 3 (Yovani) 12 Steps (QC): 88 Picking up an Object (QC): 4 (SBA) OT [employer] Goals Group Home Goals Time Frame: Nov 24, 2021 Eating (QC): 6 Oral Hygiene (QC): 6 Shower/Bathe Self (QC): 5 Upper Body Dressing (QC): 5 Lower Body Dressing (QC): 5 On/Off Footwear (QC): 4 Toileting Hygiene (QC): 6 Toilet/Commode Transfer (QC): 4 (SBA) 1=Demonstrate adherence to instructed precautions during ADL tasks. 2=Patient will verbalize/demonstrate understanding of assistive devices/modifications for ADL. 3=Patient will improve strength/tolerance for activity to enable patient to perform ADL's. SCOTT MARRERO PT Nov 17, 2021 10:48
--- NOTE | 2021-11-17 11:30 | Therapy Team Discharge Summary ---
Therapy Discharge Summary Discharge Recommendations Date of Discharge Therapy D/C Recommendations: Longterm (TCU/NH) Physical Therapy Roll Left to Right (QC): 6 Sit to Lying (QC): 4 Lying to Sitting/Side of Bed(Q: 4 Sit to Stand (QC): 4 Chair/Qkl-gu-Kudjf Xfer(QC): 4 Toilet Transfer (QC): 4 Car Transfer (QC): 88 Does the Patient Walk: Yes Mode of Locomotion: Both Anticipated Mode of Locomotion: Walk Walk 10 feet (QC): 4 Walk 50 ft with 2 Turns(QC): 4 Walk 150 ft (QC): 88 Walking 10ft on uneven surface: 4 Distance: 6' Gait Assistive Device: FWW Does the Pt Use a Wheelchair: No Wheel 50 ft with 2 turns (QC): 88 Wheel 150 ft (QC): 88 Type of Wheelchair: Manual #of Steps: 1 1 Step (curb) (QC): 4 4 Steps (QC): 88 12 Steps (QC): 88 Balance Sitting Static: Fair Balance Sitting Dynamic: Fair Balance-Standing Static: Fair Picking up an Object (QC): 4 (CGA with heavy equipment sales manager) Occupational Therapy Pt admitted to ARU s/p L TKA. At time of evaluation, pt was dependent for toileting and footwear, max assist for LB dressing, mod assist for bathing, SBA for UB dressing and oral care, and set up for eating. During her rehab stay, OT focused on balance, endurance, strengthening, AE, compensatory strategies, energy conservation, and cognitive skills in order to improve performance and independence in ADLs and functional mobility. Pt made fair progress but did not meet all of her tank terminal gauger goals. Goals not met included toileting, bathing, and LB dressing as pt required supervision/cga for safety. See below for current levels of assistance. Pt will be discharging from this facility today and will be discharged from OT at this time. Decreased Activ Tolerance, Decreased Safety Aware, Decreased UE Strength, Edema, Impaired Cognition, Impaired Funct Balance, Impaired Self-Care Skills Eating (QC): 6 Oral Hygiene (QC): 6 Shower/Bathe Self (QC): 4 Upper Body Dressing (QC): 5 Lower Body Dressing (QC): 4 On/Off Footwear (QC): 4 Toileting Hygiene (QC): 4 PT [facility] Goals [facility] Goals PT [facility] Goals Time Frame: Nov 26, 2021 Roll Left to Right (QC): 4 (SBA) Sit to Lying (QC): 4 (SBA) Lying-Sitting on Side/Bed(QC): 4 (SBA) Sit to Stand (QC): 4 (SBA) Chair/Lsu-ie-Cchua Xfer(QC): 4 (SBA) Car Transfer (QC): 3 (Yovani) Does the Patient Walk: Yes Walk 10 feet (QC): 4 (SBA) Walk 10ft-Uneven Surface(QC): 4 (SBA) Walk 50ft with 2 Turns (QC): 4 (SBA) Walk 150 ft (QC): 4 (SBA) Wheel 50 feet with 2 turns (QC: 9 1 Step (curb) (QC): 3 (Yovani) 4 Steps (QC): 3 (Yovani) 12 Steps (QC): 88 Picking up an Object (QC): 4 (SBA) OT Line Appliance Assembler Goals Line Appliance Assembler Goals Time Frame: Nov 24, 2021 Eating (QC): 6 (met) Oral Hygiene (QC): 6 (met) Shower/Bathe Self (QC): 5 (not met) Upper Body Dressing (QC): 5 (met) Lower Body Dressing (QC): 5 (not met) On/Off Footwear (QC): 4 (met) Toileting Hygiene (QC): 6 (not met) Toilet/Commode Transfer (QC): 4 (SBA) 1=Demonstrate adherence to instructed precautions during ADL tasks. 2=Patient will verbalize/demonstrate understanding of assistive devices/modifica tions for ADL. 3=Patient will improve strength/tolerance for activity to enable patient to perform ADL's. Itzel Lopez OT Nov 17, 2021 11:30
[2021-11-17] MEDS: LACTULOSE SYRUP 10GM/15ML (ENULOSE) 30ML UDC PO SCH (12:10)
[2021-11-17] MEDS: polyethylene glycoL POWDER 17 GM (MIRALAX) PACK PO SCH (12:10)
[2021-11-17 13:30] VITALS: BP 140/66
== END 2021-11-17 13:30 | DRG 561 ==
PROVIDERS: ADMIT Internal Medicine; ATTEND Internal Medicine
DX: Z47.1 Aftercare following joint replacement surgery (principal); Z96.652 Presence of left artificial knee joint; I10 Essential (primary) hypertension; M10.9 Gout, unspecified; I25.10 Atherosclerotic heart disease of native coronary artery without angina pectoris; M06.9 Rheumatoid arthritis, unspecified; R33.9 Retention of urine, unspecified; E78.5 Hyperlipidemia, unspecified; G25.0 Essential tremor; M19.90 Unspecified osteoarthritis, unspecified site; F41.9 Anxiety disorder, unspecified; M81.0 Age-related osteoporosis without current pathological fracture; K59.09 Other constipation; Z95.0 Presence of cardiac pacemaker; Z87.891 Personal history of nicotine dependence; Z79.82 Long term (current) use of aspirin; Z79.899 Other long term (current) drug therapy; Z91.040 Latex allergy status
CPT/HCPCS: 36415; 80053; 82607; 83540; 85025

== ENCOUNTER → 2021-11-29 | Outpatient (CLI) | payer MEDICARE, OTHER ==
[~2021-11-29] MED LIST changes: +ACET325T49 PO; +ACETAMINOPHEN 325 MG TABLET PO ONE; -ACETAMINOPHEN 325 MG TABLET PO PRN; +ALPR.25T PO; +ASPI-1238 PO; +BACL10TA PO; -BISACODYL 10 MG SUPP (DULCOLAX) PR PRN; +CALC200T40 PO; -CALCIUM CARBONATE 500 MG (TUMS) TAB.CHEW PO PRN; -DOCUSATE SODIUM 100 MG (COLACE) CAP PO PRN; +ENXP30I.3 SC; +EPINEPHrine INJECTION 1 MG/ML AMP SC PRN; -FLEET ENEMA ADULT 1 EA BTL PR PRN; +LACT20SO2 PO; -LACTULOSE SYRUP 10GM/15ML (ENULOSE) 30ML UDC PO PRN; -LOPERAMIDE 2 MG (IMODIUM) TABLET PO PRN; -MELATONIN 3 MG TABLET PO PRN; -ONDANSETRON 4 MG (ZOFRAN) ORAL DISSOLVE TAB PO PRN; +OXC5T PO; +POTA-160 PO; +SENN1TAB76 PO; -SENNA W/DOCUSATE (SENOKOT S) TABLET PO SCH; +diphenhydrAMINE 25 MG TAB (BENADRYL) PO ONE; -diphenhydrAMINE 25 MG TAB (BENADRYL) PO PRN; +diphenhydrAMINE 50 MG/ML INJ (BENADRYL) IV PRN; -guaiFENesin/CODEINE (ROBITUSSIN AC) 10ML UDC PO PRN; +inFLIXimab 500 MG/NS 250 ML (EXCEL) IV SCH; +methylPREDNISolone 125 MG (Solu-MEDROL) VIAL IV PRN
[2021-11-29 10:20] VITALS: BP 130/67
[2021-11-29 13:24] LABS: BASOPHILS % (AUTO) 0 % (0-10); EOSINOPHILS # (AUTO) 0.2 10^3/uL (0.0-0.3); EOSINOPHILS % (AUTO) 3 % (0-10); HEMATOCRIT 34 % (35-52); HEMOGLOBIN 11.1 g/dL (11.5-16.0); LYMPHOCYTES # (AUTO) 1.6 10^3/uL (1.0-4.0); LYMPHOCYTES % (AUTO) 23 % (12-44); MEAN CORPUSCULAR HEMOGLOBIN 33 pg (25-34); MEAN CORPUSCULAR HGB CONC 33 g/dL (32-36); MEAN CORPUSCULAR VOLUME 98 fL (80-99); MONOCYTES # (AUTO) 0.5 10^3/uL (0.0-1.0); MONOCYTES % (AUTO) 8 % (0-12); NEUTROPHILS # (AUTO) 4.6 10^3/uL (1.8-7.8); NEUTROPHILS % (AUTO) 66 % (42-75); PLATELET COUNT 289 10^3/uL (130-400); WHITE BLOOD COUNT 6.9 10^3/uL (4.3-11.0)
[2021-11-29 13:47] LABS: ALBUMIN 3.3 GM/DL (3.2-4.5); BILIRUBIN,TOTAL 0.3 MG/DL (0.1-1.0); CALCIUM 8.5 MG/DL (8.5-10.1); CREATININE SERUM 0.72 MG/DL (0.60-1.30); POTASSIUM 3.8 MMOL/L (3.6-5.0); TOTAL PROTEIN 6.6 GM/DL (6.4-8.2)
== END ==
LOC: SDC 09:54
PROVIDERS: ATTEND Internal Medicine Rheumatology
DX: Z51.81 Encounter for therapeutic drug level monitoring (principal); L40.50 Arthropathic psoriasis, unspecified
CPT/HCPCS: 36415; 80053; 85025; 86141; 96365; 96366

== ENCOUNTER 2021-12-16 15:51 | Outpatient (RCR) | payer MEDICARE, OTHER ==
[~2021-12-16 15:51] MED LIST changes: -ACETAMINOPHEN 325 MG TABLET PO ONE; -EPINEPHrine INJECTION 1 MG/ML AMP SC PRN; -diphenhydrAMINE 25 MG TAB (BENADRYL) PO ONE; -diphenhydrAMINE 50 MG/ML INJ (BENADRYL) IV PRN; -inFLIXimab 500 MG/NS 250 ML (EXCEL) IV SCH; -methylPREDNISolone 125 MG (Solu-MEDROL) VIAL IV PRN
== END 2021-12-17 | disposition home or self-care (01) ==
PROVIDERS: ATTEND Internal Medicine
DX: Z47.1 Aftercare following joint replacement surgery (principal); R53.1 Weakness; Z96.652 Presence of left artificial knee joint

== ENCOUNTER → 2022-01-17 | Outpatient (RCR) | payer MEDICARE, OTHER | END | disposition home or self-care (01) | PROVIDERS: ATTEND Internal Medicine | DX: Z47.1 Aftercare following joint replacement surgery (principal); R53.1 Weakness; I10 Essential (primary) hypertension; Z96.652 Presence of left artificial knee joint ==

== ENCOUNTER → 2022-01-26 | Outpatient (CLI) | payer MEDICARE, OTHER ==
[~2022-01-26] MED LIST changes: +EPINEPHrine INJECTION 1 MG/ML AMP IM PRN; +diphenhydrAMINE 50 MG/ML INJ (BENADRYL) IVP PRN; +inFLIXimab FOR IV 500 MG in NORMAL SALINE 250 ML IV SCH; +methylPREDNISolone 125 MG (Solu-MEDROL) VIAL IVP PRN
[2022-01-26 10:15] VITALS: BP 155/82
[2022-01-26 10:35] LABS: BASOPHILS % (AUTO) 1 % (0-10); EOSINOPHILS # (AUTO) 0.2 10^3/uL (0.0-0.3); EOSINOPHILS % (AUTO) 3 % (0-10); HEMATOCRIT 35 % (35-52); HEMOGLOBIN 11.7 g/dL (11.5-16.0); LYMPHOCYTES # (AUTO) 1.9 10^3/uL (1.0-4.0); LYMPHOCYTES % (AUTO) 36 % (12-44); MEAN CORPUSCULAR HEMOGLOBIN 32 pg (25-34); MEAN CORPUSCULAR HGB CONC 33 g/dL (32-36); MEAN CORPUSCULAR VOLUME 96 fL (80-99); MEAN PLATELET VOLUME 10.2 fL (9.0-12.2); MONOCYTES # (AUTO) 0.4 10^3/uL (0.0-1.0); MONOCYTES % (AUTO) 8 % (0-12); NEUTROPHILS # (AUTO) 2.7 10^3/uL (1.8-7.8); NEUTROPHILS % (AUTO) 52 % (42-75); PLATELET COUNT 269 10^3/uL (130-400); WHITE BLOOD COUNT 5.2 10^3/uL (4.3-11.0)
[2022-01-26 10:57] LABS: ALBUMIN 3.5 GM/DL (3.2-4.5); BILIRUBIN,TOTAL 0.4 MG/DL (0.1-1.0); CALCIUM 8.1 MG/DL (8.5-10.1); CREATININE SERUM 0.79 MG/DL (0.60-1.30); POTASSIUM 4.2 MMOL/L (3.6-5.0); TOTAL PROTEIN 6.2 GM/DL (6.4-8.2)
== END ==
LOC: SDC 01-24 10:12
PROVIDERS: ATTEND Internal Medicine Rheumatology
DX: Z51.81 Encounter for therapeutic drug level monitoring (principal); L40.50 Arthropathic psoriasis, unspecified
CPT/HCPCS: 36415; 80053; 85025; 86141; 96365; 96366; 96523

== ENCOUNTER → 2022-02-03 | Outpatient (CLI) | payer MEDICARE, OTHER ==
[~2022-02-03] MED LIST changes: -EPINEPHrine INJECTION 1 MG/ML AMP IM PRN; -diphenhydrAMINE 50 MG/ML INJ (BENADRYL) IVP PRN; -inFLIXimab FOR IV 500 MG in NORMAL SALINE 250 ML IV SCH; -methylPREDNISolone 125 MG (Solu-MEDROL) VIAL IVP PRN
--- NOTE | 2022-02-04 12:21 | Diagnostic Imaging Report ---
Indication: Routine screening. Comparison is made with prior mammogram 01/27/2021 and 01/15/2020. 2-D and 3-D bilateral screening mammography was performed with CAD. CAD is utilized. The current study was also evaluated with a Computer Aided Detection (CAD) system. Scattered fibroglandular densities are identified bilaterally. A benign nodules outer left breast is again noted and appears stable. Marker clip in the central left breast is again seen. There is pacemaker battery pack in the right axilla. There are occasional benign calcifications. No spiculated mass or malignant-appearing microcalcifications are seen. IMPRESSION: BI-RADS Category 2 No mammographic features suspicious for malignancy are identified. ACR BI-RADS Category 2: Benign findings. Result letter will be mailed to the patient. Note: At least 10% of breast cancer is not imaged by mammography. Dictated by: Dictated on workstation # [id number]
== END ==
LOC: RAD 14:08
PROVIDERS: ATTEND Internal Medicine
DX: Z12.31 Encounter for screening mammogram for malignant neoplasm of breast (principal)
CPT/HCPCS: 77063; 77067

== ENCOUNTER 2022-02-07 14:59 | Outpatient (RCR) | payer MEDICARE, OTHER | END 2022-02-16 | disposition home or self-care (01) | PROVIDERS: ATTEND Internal Medicine | DX: Z47.1 Aftercare following joint replacement surgery (principal); R53.1 Weakness; I10 Essential (primary) hypertension; Z96.652 Presence of left artificial knee joint ==

== ENCOUNTER 2022-03-07 14:24 | Outpatient (RCR) | payer MEDICARE, OTHER | END 2022-03-19 | disposition home or self-care (01) | PROVIDERS: ATTEND Internal Medicine | DX: Z47.1 Aftercare following joint replacement surgery (principal); R53.1 Weakness; Z96.652 Presence of left artificial knee joint ==

== ENCOUNTER → 2022-03-23 | Outpatient (CLI) | payer MEDICARE, OTHER ==
[~2022-03-23] VITALS: Ht 162 cm; Wt 90.4 kg
[~2022-03-23] MED LIST changes: +ACETAMINOPHEN 325 MG TABLET PO ONE; +diphenhydrAMINE 25 MG TAB (BENADRYL) PO ONE; +inFLIXimab FOR IV 500 MG in NORMAL SALINE 250 ML IV SCH
[2022-03-23 10:28] VITALS: BP 144/75
[2022-03-23 10:31] LABS: BASOPHILS % (AUTO) 1 % (0-10); EOSINOPHILS # (AUTO) 0.2 10^3/uL (0.0-0.3); EOSINOPHILS % (AUTO) 4 % (0-10); HEMATOCRIT 36 % (35-52); HEMOGLOBIN 12.3 g/dL (11.5-16.0); LYMPHOCYTES # (AUTO) 1.5 10^3/uL (1.0-4.0); LYMPHOCYTES % (AUTO) 27 % (12-44); MEAN CORPUSCULAR HEMOGLOBIN 32 pg (25-34); MEAN CORPUSCULAR HGB CONC 34 g/dL (32-36); MEAN CORPUSCULAR VOLUME 96 fL (80-99); MEAN PLATELET VOLUME 9.7 fL (9.0-12.2); MONOCYTES # (AUTO) 0.4 10^3/uL (0.0-1.0); MONOCYTES % (AUTO) 7 % (0-12); NEUTROPHILS # (AUTO) 3.4 10^3/uL (1.8-7.8); NEUTROPHILS % (AUTO) 61 % (42-75); PLATELET COUNT 271 10^3/uL (130-400); WHITE BLOOD COUNT 5.7 10^3/uL (4.3-11.0)
[2022-03-23 10:47] LABS: ALBUMIN 3.6 GM/DL (3.2-4.5); POTASSIUM 3.9 MMOL/L (3.6-5.0)
[2022-03-23 10:48] LABS: CALCIUM 8.4 MG/DL (8.5-10.1)
[2022-03-23 10:50] LABS: TOTAL PROTEIN 6.5 GM/DL (6.4-8.2)
[2022-03-23 10:51] LABS: BILIRUBIN,TOTAL 0.5 MG/DL (0.1-1.0)
[2022-03-23 10:53] LABS: CREATININE SERUM 0.73 MG/DL (0.60-1.30)
== END ==
LOC: SDC 09:45
PROVIDERS: ATTEND Internal Medicine Rheumatology
DX: Z51.81 Encounter for therapeutic drug level monitoring (principal); L40.50 Arthropathic psoriasis, unspecified
CPT/HCPCS: 36415; 36591; 80053; 85025; 86141; 96365; 96366

== ENCOUNTER 2022-04-15 14:52 | Outpatient (RCR) | payer MEDICARE, OTHER ==
[~2022-04-15 14:52] MED LIST changes: -ACETAMINOPHEN 325 MG TABLET PO ONE; -diphenhydrAMINE 25 MG TAB (BENADRYL) PO ONE; -inFLIXimab FOR IV 500 MG in NORMAL SALINE 250 ML IV SCH
== END 2022-04-19 | disposition home or self-care (01) ==
PROVIDERS: ATTEND Internal Medicine
DX: Z47.1 Aftercare following joint replacement surgery (principal); R53.1 Weakness; Z96.652 Presence of left artificial knee joint

== ENCOUNTER 2022-04-22 14:46 | Outpatient (RCR) | payer MEDICARE, OTHER | END 2022-05-17 | disposition home or self-care (01) | PROVIDERS: ATTEND Internal Medicine | DX: Z47.1 Aftercare following joint replacement surgery (principal); R53.1 Weakness; I10 Essential (primary) hypertension; Z96.652 Presence of left artificial knee joint ==

== ENCOUNTER → 2022-04-26 | Outpatient (CLI) | payer MEDICARE, OTHER | LOC: CARD 13:40 | PROVIDERS: ATTEND Internal Medicine Cardiovascular Disease | DX: I11.9 Hypertensive heart disease without heart failure (principal); I25.10 Atherosclerotic heart disease of native coronary artery without angina pectoris | CPT/HCPCS: 93306 ==

== ENCOUNTER 2022-05-18 09:48 | Outpatient (RCR) | payer MEDICARE, OTHER ==
[~2022-05-18] VITALS: Wt 90.4 kg
[2022-05-18] MEDS ORDERED: inFLIXimab FOR IV 500 MG in NORMAL SALINE 250 ML IV SCH (10:15)
[2022-05-18] MEDS ORDERED: diphenhydrAMINE 25 MG TAB (BENADRYL) PO ONE (10:15)
[2022-05-18] MEDS ORDERED: ACETAMINOPHEN 325 MG TABLET PO ONE (10:15)
[2022-05-18] MEDS ORDERED: methylPREDNISolone 125 MG (Solu-MEDROL) VIAL ONE (10:38)
[2022-05-18 10:47] LABS: BASOPHILS # (AUTO) 0.1 10^3/uL (0.0-0.1); BASOPHILS % (AUTO) 1 % (0-10); EOSINOPHILS # (AUTO) 0.2 10^3/uL (0.0-0.3); EOSINOPHILS % (AUTO) 3 % (0-10); HEMATOCRIT 35 % (35-52); HEMOGLOBIN 11.8 g/dL (11.5-16.0); LYMPHOCYTES # (AUTO) 1.9 10^3/uL (1.0-4.0); LYMPHOCYTES % (AUTO) 30 % (12-44); MEAN CORPUSCULAR HEMOGLOBIN 34 pg (25-34); MEAN CORPUSCULAR HGB CONC 34 g/dL (32-36); MEAN CORPUSCULAR VOLUME 99 fL (80-99); MEAN PLATELET VOLUME 10.1 fL (9.0-12.2); MONOCYTES # (AUTO) 0.5 10^3/uL (0.0-1.0); MONOCYTES % (AUTO) 7 % (0-12); NEUTROPHILS # (AUTO) 3.7 10^3/uL (1.8-7.8); NEUTROPHILS % (AUTO) 59 % (42-75); PLATELET COUNT 247 10^3/uL (130-400); WHITE BLOOD COUNT 6.2 10^3/uL (4.3-11.0)
[2022-05-18 11:00] VITALS: BP 135/78
[2022-05-18] MEDS ORDERED: methylPREDNISolone 125 MG (Solu-MEDROL) VIAL IVP ONE (11:00)
[2022-05-18 11:03] LABS: ALBUMIN 3.6 GM/DL (3.2-4.5); BILIRUBIN,TOTAL 0.5 MG/DL (0.1-1.0); CALCIUM 8.7 MG/DL (8.5-10.1); CREATININE SERUM 0.72 MG/DL (0.60-1.30); POTASSIUM 3.8 MMOL/L (3.6-5.0); TOTAL PROTEIN 6.4 GM/DL (6.4-8.2)
== END 2022-05-18 13:53 | disposition home or self-care (01) ==
LOC: SDC 09:48
PROVIDERS: ATTEND Internal Medicine Rheumatology
DX: Z51.81 Encounter for therapeutic drug level monitoring (principal); L40.50 Arthropathic psoriasis, unspecified
CPT/HCPCS: 36415; 80053; 85025; 86141; 96365; 96366

== ENCOUNTER → 2022-07-14 | Outpatient (CLI) | payer MEDICARE, OTHER ==
[~2022-07-14] VITALS: Wt 90.4 kg
[~2022-07-14] MED LIST changes: +ACETAMINOPHEN 325 MG TABLET PO ONE; +SENN-271 PO; -SENN1TAB76 PO; +diphenhydrAMINE 25 MG TAB (BENADRYL) PO ONE; +inFLIXimab 300 MG/NS 250 ML (EXCEL) IV SCH; +inFLIXimab FOR IV 500 MG in NORMAL SALINE 250 ML IV SCH
[2022-07-14 10:10] LABS: HEMATOCRIT 37 % (35-52); HEMOGLOBIN 12.7 g/dL (11.5-16.0); MEAN CORPUSCULAR HEMOGLOBIN 34 pg (25-34); MEAN CORPUSCULAR HGB CONC 35 g/dL (32-36); MEAN CORPUSCULAR VOLUME 98 fL (80-99); PLATELET COUNT 218 10^3/uL (130-400); WHITE BLOOD COUNT 5.5 10^3/uL (4.3-11.0)
[2022-07-14 10:37] LABS: ALBUMIN 3.8 GM/DL (3.2-4.5); BILIRUBIN,TOTAL 0.5 MG/DL (0.1-1.0); CALCIUM 8.5 MG/DL (8.5-10.1); CREATININE SERUM 0.76 MG/DL (0.60-1.30); POTASSIUM 3.7 MMOL/L (3.6-5.0); TOTAL PROTEIN 6.7 GM/DL (6.4-8.2)
[2022-07-14 11:11] VITALS: BP 145/80
== END ==
LOC: SDC 09:40
PROVIDERS: ATTEND Internal Medicine Rheumatology
DX: Z51.81 Encounter for therapeutic drug level monitoring (principal); L40.50 Arthropathic psoriasis, unspecified
CPT/HCPCS: 36415; 80053; 85027; 86141; 96365

== ENCOUNTER → 2022-09-08 | Outpatient (CLI) | payer MEDICARE, OTHER ==
[~2022-09-08] MED LIST changes: +ACETAMINOPHEN 325 MG TABLET ONE; -LOSA100T57 PO; +LOSA100T58 PO; -inFLIXimab 300 MG/NS 250 ML (EXCEL) IV SCH
[2022-09-08 11:05] VITALS: BP 144/69
[2022-09-08 14:39] LABS: BASOPHILS # (AUTO) 0.1 10^3/uL (0.0-0.1); BASOPHILS % (AUTO) 1 % (0-10); EOSINOPHILS # (AUTO) 0.2 10^3/uL (0.0-0.3); EOSINOPHILS % (AUTO) 3 % (0-10); HEMATOCRIT 37 % (35-52); HEMOGLOBIN 12.3 g/dL (11.5-16.0); LYMPHOCYTES # (AUTO) 1.5 10^3/uL (1.0-4.0); LYMPHOCYTES % (AUTO) 30 % (12-44); MEAN CORPUSCULAR HEMOGLOBIN 33 pg (25-34); MEAN CORPUSCULAR HGB CONC 33 g/dL (32-36); MEAN CORPUSCULAR VOLUME 100 fL (80-99); MONOCYTES # (AUTO) 0.5 10^3/uL (0.0-1.0); MONOCYTES % (AUTO) 10 % (0-12); NEUTROPHILS # (AUTO) 2.9 10^3/uL (1.8-7.8); NEUTROPHILS % (AUTO) 56 % (42-75); PLATELET COUNT 199 10^3/uL (130-400); WHITE BLOOD COUNT 5.1 10^3/uL (4.3-11.0)
[2022-09-08 14:46] LABS: ALBUMIN 3.6 GM/DL (3.2-4.5); POTASSIUM 3.8 MMOL/L (3.6-5.0)
[2022-09-08 14:48] LABS: CALCIUM 8.3 MG/DL (8.5-10.1)
[2022-09-08 14:49] LABS: TOTAL PROTEIN 6.3 GM/DL (6.4-8.2)
[2022-09-08 14:51] LABS: BILIRUBIN,TOTAL 0.4 MG/DL (0.1-1.0)
[2022-09-08 14:53] LABS: CREATININE SERUM 0.71 MG/DL (0.60-1.30)
== END ==
LOC: SDC 10:48
PROVIDERS: ATTEND Internal Medicine Rheumatology
DX: L40.50 Arthropathic psoriasis, unspecified (principal)
CPT/HCPCS: 36415; 80053; 85025; 86141; 96365; 96366

== ENCOUNTER → 2022-11-03 | Outpatient (CLI) | payer MEDICARE, OTHER ==
[~2022-11-03] VITALS: Ht 162.6 cm; Wt 94.0 kg
[~2022-11-03] MED LIST changes: -ACETAMINOPHEN 325 MG TABLET ONE; +INFLIXIMAB FOR IV ONE; +INFLIXIMAB FOR IV SCH; +NORMAL SALINE IV ONE; +NORMAL SALINE IV SCH; -diphenhydrAMINE 25 MG TAB (BENADRYL) PO ONE; +diphenhydrAMINE 25 MG TABLET PO ONE; -inFLIXimab FOR IV 500 MG in NORMAL SALINE 250 ML IV SCH
[2022-11-03 14:44] LABS: BASOPHILS # (AUTO) 0.1 10^3/uL (0.0-0.1); BASOPHILS % (AUTO) 1 % (0-10); EOSINOPHILS # (AUTO) 0.1 10^3/uL (0.0-0.3); EOSINOPHILS % (AUTO) 2 % (0-10); HEMATOCRIT 38 % (35-52); HEMOGLOBIN 13.1 g/dL (11.5-16.0); LYMPHOCYTES # (AUTO) 1.4 10^3/uL (1.0-4.0); LYMPHOCYTES % (AUTO) 23 % (12-44); MEAN CORPUSCULAR HEMOGLOBIN 33 pg (25-34); MEAN CORPUSCULAR HGB CONC 34 g/dL (32-36); MEAN CORPUSCULAR VOLUME 98 fL (80-99); MONOCYTES # (AUTO) 0.8 10^3/uL (0.0-1.0); MONOCYTES % (AUTO) 13 % (0-12); NEUTROPHILS # (AUTO) 3.7 10^3/uL (1.8-7.8); NEUTROPHILS % (AUTO) 61 % (42-75); PLATELET COUNT 246 10^3/uL (130-400); WHITE BLOOD COUNT 6.1 10^3/uL (4.3-11.0)
[2022-11-03 15:01] LABS: ALBUMIN 3.8 GM/DL (3.2-4.5); BILIRUBIN,TOTAL 0.4 MG/DL (0.1-1.0); CALCIUM 8.4 MG/DL (8.5-10.1); CREATININE SERUM 0.77 MG/DL (0.60-1.30); POTASSIUM 4.2 MMOL/L (3.6-5.0); TOTAL PROTEIN 6.5 GM/DL (6.4-8.2)
[2022-11-03 17:20] VITALS: BP 138/81
== END ==
LOC: SDC 13:54
PROVIDERS: ATTEND Internal Medicine Rheumatology
DX: L40.50 Arthropathic psoriasis, unspecified (principal)
CPT/HCPCS: 36415; 80053; 85025; 86141; 96365; 96366

== ENCOUNTER 2022-11-14 14:18 | Outpatient (RCR) | payer MEDICARE, OTHER ==
[~2022-11-14 14:18] MED LIST changes: -ACETAMINOPHEN 325 MG TABLET PO ONE; -INFLIXIMAB FOR IV ONE; -INFLIXIMAB FOR IV SCH; -NORMAL SALINE IV ONE; -NORMAL SALINE IV SCH; -diphenhydrAMINE 25 MG TABLET PO ONE
== END 2022-11-17 | disposition home or self-care (01) ==
PROVIDERS: ATTEND Orthopaedic Surgery
DX: M54.32 Sciatica, left side (principal); I10 Essential (primary) hypertension

== ENCOUNTER 2022-12-05 13:39 | Emergency (ER) | payer MEDICARE, OTHER ==
[~2022-12-05] VITALS: Ht 160 cm; Wt 100.0 kg
[2022-12-05] MEDS ORDERED: fentaNYL INJECTION 100 MCG/2 ML VIAL IVP STA ×2 (13:52→15:47)
[2022-12-05 14:13] LABS: BASOPHILS % (AUTO) 0 % (0-10); EOSINOPHILS # (AUTO) 0.1 10^3/uL (0.0-0.3); EOSINOPHILS % (AUTO) 1 % (0-10); HEMATOCRIT 38 % (35-52); HEMOGLOBIN 12.9 g/dL (11.5-16.0); LYMPHOCYTES # (AUTO) 1.2 10^3/uL (1.0-4.0); LYMPHOCYTES % (AUTO) 15 % (12-44); MEAN CORPUSCULAR HEMOGLOBIN 34 pg (25-34); MEAN CORPUSCULAR HGB CONC 34 g/dL (32-36); MEAN CORPUSCULAR VOLUME 100 fL (80-99); MEAN PLATELET VOLUME 10.4 fL (9.0-12.2); MONOCYTES # (AUTO) 0.4 10^3/uL (0.0-1.0); MONOCYTES % (AUTO) 5 % (0-12); NEUTROPHILS # (AUTO) 6.6 10^3/uL (1.8-7.8); NEUTROPHILS % (AUTO) 79 % (42-75); PLATELET COUNT 239 10^3/uL (130-400); WHITE BLOOD COUNT 8.3 10^3/uL (4.3-11.0)
[2022-12-05 14:23] LABS: ALBUMIN 3.8 GM/DL (3.2-4.5)
[2022-12-05 14:24] LABS: CALCIUM 8.8 MG/DL (8.5-10.1)
[2022-12-05 14:25] LABS: TOTAL PROTEIN 6.7 GM/DL (6.4-8.2)
[2022-12-05 14:27] LABS: BILIRUBIN,TOTAL 0.5 MG/DL (0.1-1.0)
[2022-12-05 14:29] LABS: CREATININE SERUM 0.81 MG/DL (0.60-1.30)
[2022-12-05 14:39] LABS: PROTHROMBIN TIME PATIENT 13.2 SEC (12.2-14.7)
[2022-12-05] MEDS ORDERED: HOLD METFORMIN - RECEIVED CONTRAST 20 ML VIAL IV SCH (14:45)
[2022-12-05] MEDS ORDERED: NS 100 ML (IVPB) BAG IV ONE (14:45)
[2022-12-05] MEDS ORDERED: IOHEXOL 350 MG/ML 100 ML (OMNIPAQUE 350) VIAL IV ONE (14:45)
[2022-12-05 14:48] LABS: CLARITY,URINE CLEAR; COLOR,URINE YELLOW; PH,URINE 6.5 (5-9); PROTEIN,URINE 1+ (NEGATIVE)
[2022-12-05 14:49] LABS: BACTERIA,URINE FEW /HPF; BILIRUBIN,URINE NEGATIVE (NEGATIVE); GLUCOSE, URINE (UA) NEGATIVE (NEGATIVE); KETONES,URINE TRACE (NEGATIVE); LEUKOCYTE ESTERASE ,URINE NEGATIVE (NEGATIVE); NITRITE,URINE NEGATIVE (NEGATIVE); WAXY CASTS,URINE RARE /LPF; WBC,URINE 0-2 /HPF; YEAST,URINE FEW /HPF
--- NOTE | 2022-12-05 15:17 | Diagnostic Imaging Report ---
INDICATION: Fall, with pelvic and right hip pain. AP view of the pelvis is obtained with coned AP and frog-leg views of right hip. FINDINGS: There is no evidence of acute fracture or malalignment. Note is made of contrast opacification of the urinary tract. Enthesophytes are seen along the hip regions. There is an old fracture deformity involving the right inferior ischial ramus. IMPRESSION: No evidence of acute abnormality. Dictated by: Dictated on workstation # [id number]
--- NOTE | 2022-12-05 15:20 | ED Fall/Injury ---
General Chief Complaint: Trauma-Non Activation Stated Complaint: FALL | RT SIDE INJ Nursing Triage Note: PATIENT STATES SHE WAS WALKING TO FAST AND TRIPPED AND FELL ONTO HER R SIDE 0930. HAVING R HIP AND RIB PAIN. DID NOT HIT HEAD OR LOC. Source: patient (HARD OF HEARING) History of Present Illness Date Seen by Provider: Dec 05, 2022 Time Seen by Provider: 13:44 Initial Comments PT ARRIVES VIA POV WITH , NEEDS WHEELCHAIR ON ARRIVAL PT STATES THAT AROUND NOON TODAY, SHE SLIPPED AND FELL ON A TILE FLOOR, LANDING ON HER RIGHT HIP AND BUTTOCK AREA AND RIGHT SIDE OF BODY DID NOT HIT HER HEAD OR HAVE LOSS OF CONSCIOUSNESS NO NECK PAIN NO HEADACHE NO CHEST PAIN NO SHORTNESS OF BREATH OR PAIN WITH BREATHING NO NAUSEA/VOMITING NO PARESTHESIAS OR MOTOR DEFICITS. PT IS NOT ON ASPIRIN OR BLOOD THINNERS. PCP: DR. TAPIA Allergies and Home Medications Allergies Coded Allergies: cefazolin (Verified Allergy, Unknown, TONGUE SWELLING, 10/27/21) latex (Verified Allergy, Unknown, RASH, 10/27/21) Patient Home Medication List Home Medication List Reviewed: Yes ALPRAZolam (Xanax Tablet) 0.25 Mg Tab, 0.25 MG PO Q8H PRN for ANXIETY Prescribed by: ROB TAPIA on 11/17/21621 Acetaminophen (Acetaminophen) 325 Mg Tablet, 650 MG PO Q6H PRN for PAIN-MILD (1- 4) Prescribed by: ROB TAPIA on 11/17/21620 Amlodipine Besylate (Amlodipine Besylate) 5 Mg Tablet, 5 MG PO DAILY Prescribed by: ROB TAPIA on 11/17/21620 Aspirin (Aspirin EC) 81 Mg Tablet.dr, 81 MG PO DAILY Prescribed by: ROB TAPIA on 11/17/21620 Baclofen (Baclofen) 10 Mg Tablet, 10 MG PO TID PRN for MUSCLE SPASMS Prescribed by: ROB TAPIA on 11/17/21620 Calcium Carbonate (Calcium Antacid) 200 Mg Calcium (500 Mg) Tab.chew, 1,000 MG PO BID Prescribed by: ROB TAPIA on 11/17/21620 Enoxaparin Sodium (Lovenox) 30 Mg/0.3 Ml Syringe, 30 MG SC Q12H Prescribed by: ROB TAPIA on 11/17/21620 Flaxseed Oil (Flaxseed) 1,000 Mg Capsule, 1,000 MG PO BID Prescribed by: ROB TAPIA on 11/17/21620 Folic Acid (Folic Acid) 1 Mg Tablet, 1 MG PO DAILY Prescribed by: ROB TAPIA on 11/17/21620 Hydrocodone/Acetaminophen (Hydrocodone-Acetamin 5-325 mg) 5 Mg-325 Mg Tablet, 1 EACH PO Q4-6 HOURS PRN for PAIN Prescribed by: LYNN BENITEZ on 12/05/22 1549 Lactulose (Lactulose) 20 Gram/30 Ml Solution, 10 GM PO BID PRN for CONSTIPATION- 2ND LINE Prescribed by: ROB TAPIA on 11/17/21620 Losartan Potassium (Losartan Potassium) 100 Mg Tablet, 100 MG PO HS Prescribed by: ROB TAPIA on 11/17/21620 Methotrexate Sodium (Methotrexate) 2.5 Mg Tablet, 10 MG PO BID ON MONDAY Prescribed by: ROB TAPIA on 11/17/21620 Oxycodone Hcl (Oxyir Tablet) 5 Mg Tab, 5-10 MG PO Q4H PRN for PAIN-SEVERE (8-10) Prescribed by: ROB TAPIA on 11/17/21621 Paroxetine HCl (Paroxetine HCl) 40 Mg Tablet, 40 MG PO DAILY Prescribed by: ROB TAPIA on 11/17/21620 Potassium Chloride (Klor-Con 10) 10 Meq Tablet.er, 10 MEQ PO DAILY@0700 Prescribed by: ROB TAPIA on 11/17/21620 Primidone (Mysoline) 50 Mg Tablet, 200 MG PO HS Prescribed by: ROB TAPIA on 11/17/21620 Propranolol HCl (Propranolol HCl) 80 Mg Tablet, 160 MG PO BID Prescribed by: ROB TAPIA on 11/17/21620 Sennosides/Docusate Sodium (Stool Softener-Laxative Tablet) 8.6 Mg-50 Mg Tablet, 1 EA PO BID Prescribed by: ROB TAPIA on 11/17/21620 Vitamin B Complex (Vitamin B Complex) 1 Each Capsule, 1 EACH PO DAILY Prescribed by: ROB TAPIA on 11/17/21620 Review of Systems Review of Systems Constitutional: no symptoms reported Eyes: No Symptoms Reported Ears, Nose, Mouth, Throat: no symptoms reported Respiratory: no symptoms reported Cardiovascular: see HPI Gastrointestinal: no symptoms reported Genitourinary: no symptoms reported Musculoskeletal: see HPI Skin: no symptoms reported Psychiatric/Neurological: No Symptoms Reported Past Jbmmhvk-Nnkhym-Ryagrk Hx Patient Social History Tobacco Use?: No Use of E-Cig and/or Vaping dev: No Substance use?: No Alcohol Use?: No Pt feels they are or have been: No Immunizations Up To Date Tetanus Booster (TDap): Unknown PED Vaccines UTD: Yes First/Initial COVID19 Vaccinat: 06/2020 Second COVID19 Vaccination [place]: 06/2020 Third COVID19 Vaccination Date: 2020 Seasonal Allergies Seasonal Allergies: No Past Medical History Surgery/Hospitalization HX: KNEE REPLACEMENT, PORT PLACEMENT, DEEP BRAIN STIMULATOR, HTN, Surgeries: Yes (SEE BELOW BUNIONECTOMY RIGHT) Appendectomy, Breast, Gallbladder, Hysterectomy, Oophorectomy, Orthopedic, Pac emaker, Parathyroidectomy, Thyroidectomy Respiratory: No Currently Using CPAP: No Currently Using BIPAP: No Cardiac: Yes (PACEMAKER--NOT SURE WHY--IHSS PER PMH) Coronary Artery Disease, Heart Murmur, Hypertension, Syncope Neurological: Yes (TREMORS--HAS BRAIN STIMULATOR IN PLACE FOR TREMORS) 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, Menopausal Sexually Transmitted Disease: No Genitourinary: No Gastrointestinal: Yes (MELANOSIS COLI) Chronic Constipation, Diverticulosis, Gall Bladder Disease Musculoskeletal: Yes (RHEUMATOID AND PSORIATIC ARTHRITIS-REMICADE INFUSIONS Q 6 WEEKS) Arthritis, Rheumatoid Arthritis Endocrine: Yes Parathyroid Disease HEENT: No Loss of Vision: Denies Hearing Impairment: Denies Cancer: No Psychosocial: Yes Anxiety Integumentary: Yes (TAKES INFUSIONS) Psoriasis Blood Disorders: No Adverse Reaction/Blood Tranf: No Family Medical History No Pertinent Family Hx PSH: -PACEMAKER FOR SYNCOPE -PORT RIGHT CHEST FOR REMICADE INFUSIONS -RIGHT BUNIONECTOMY X 3 -PARTIAL PARATHYROIDECTOMY -THYROIDECTOMY -STEREOTACTIC LEFT BREAST BIOPSY -LAPAROSCOPIC CHOLECYSTECTOMY -HYSTERECTOMY/BILATERAL SALPINGO-OOPHORECTOMY FOR FIBROIDS -APPENDECTOMY -COLONOSCOPIES--LAST ONE 02/2012-DR. PABLO -MULTIPLE ORTHOPEDIC SURGERIES: --RIGHT KNEE SCOPE WITH PARTIAL LATERAL MENISCECTOMY/CHONDROPLASTY 03/2011 --LEFT KNEE SCOPE WITH PARTIAL LATERAL MENISCECTOMY/CHONDROPLASTY 01/2011 --LEFT SHOULDER ROTATOR CUFF REPAIR 09/2007--DR. CHÁVEZ --RIGHT ELBOW CUBITAL TUNNEL/ULNAR NERVE TRANSPOSITION SURGERY 02/[address] CHÁVEZ -DEEP BRAIN STIMULATOR FOR TREMORS Physical Exam Vital Signs Vital Signs - First Documented 12/05/22 13:46 Temp 36.6 Pulse 70 Resp 20 Pulse Ox 96 O2 Delivery Room Air Capillary Refill : Less Than 3 Seconds Height, Weight, BMI Height: 5'4.00" Weight: 205lbs. 0oz. 92.204415hb; 39.00 BMI Method:Stated General Appearance: WD/WN, obese, other (ANXIOUS, CRYING; NEEDS 2 PERSON ASSIST TO TRANSFER FROM WHEELCHAIR TO ER CART) HEENT: other (HARD OF HEARING) Neck: non-tender, full range of motion, supple, normal inspection Cardiovascular: regular rate, rhythm, no murmur Respiratory: normal breath sounds, no respiratory distress, no accessory muscle use, other (RIGHT POSTERIOR AND LATERAL RIBS/CHEST WALL TENDERNESS, NO CREPITANC E OR DEFORMITIY OR SUB Q AIR) Gastrointestinal: normal bowel sounds, non tender, soft Back: decreased range of motion, other (TENDERNESS TO LOWER BACK, RIGHT ILIAC AREA, RIGHT BUTTOCKS AND RIGHT HIP AREA) Extremities: no pedal edema, no calf tenderness, normal capillary refill, other (RIGHT HIP AND GROIN TENDERNESS. NO SHORTENING OR ROTATION. MOTOR/SENSORY/VASCULAR INTACT. LIMITED ROM OF RIGHT HIP DUE TO PAIN. 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 ) Skin: normal color, warm/dry; No ecchymosis; other (NO EXTERNAL EVIDENCE OF TRAUMA) [place] Coma Score Best Eye Response: (4) Open Spontaneously Best Verbal Response: (5) Oriented Best Motor Response: (6) Obeys Commands [place] Total: 15 Progress/Results/Core Measures Results/Orders Lab Results Laboratory Tests Test 12/05/22 14:02 12/05/22 14:25 Range/Units White Blood Count 8.3 4.3-11.0 10^3/uL Red Blood Count 3.79 L 3.80-5.11 10^6/uL Hemoglobin 12.9 11.5-16.0 g/dL Hematocrit 38 35-52 % Mean Corpuscular Volume 100 H 80-99 fL Mean Corpuscular Hemoglobin 34 25-34 pg Mean Corpuscular Hemoglobin Concent 34 32-36 g/dL Red Cell Distribution Width 14.0 10.0-14.5 % Platelet Count 239 130-400 10^3/uL Mean Platelet Volume 10.4 9.0-12.2 fL Immature Granulocyte % (Auto) 0 % Neutrophils (%) (Auto) 79 H 42-75 % Lymphocytes (%) (Auto) 15 12-44 % Monocytes (%) (Auto) 5 0-12 % Eosinophils (%) (Auto) 1 0-10 % Basophils (%) (Auto) 0 0-10 % Neutrophils # (Auto) 6.6 1.8-7.8 10^3/uL Lymphocytes # (Auto) 1.2 1.0-4.0 10^3/uL Monocytes # (Auto) 0.4 0.0-1.0 10^3/uL Eosinophils # (Auto) 0.1 0.0-0.3 10^3/uL Basophils # (Auto) 0.0 0.0-0.1 10^3/uL Immature Granulocyte # (Auto) 0.0 0.0-0.1 10^3/uL Prothrombin Time 13.2 12.2-14.7 SEC INR Comment 1.0 0.8-1.4 Activated Partial Thromboplast Time 30 24-35 SEC Sodium Level 142 135-145 MMOL/L Potassium Level 4.0 3.6-5.0 MMOL/L Chloride Level 106 98-107 MMOL/L Carbon Dioxide Level 25 21-32 MMOL/L Anion Gap 11 5-14 MMOL/L Blood Urea Nitrogen 19 H 7-18 MG/DL Creatinine 0.81 0.60-1.30 MG/DL Estimat Glomerular Filtration Rate 74 BUN/Creatinine Ratio 23 Glucose Level 84 70-105 MG/DL Calcium Level 8.8 8.5-10.1 MG/DL Corrected Calcium 9.0 8.5-10.1 MG/DL Total Bilirubin 0.5 0.1-1.0 MG/DL Aspartate Amino Transf (AST/SGOT) 24 5-34 U/L Alanine Aminotransferase (ALT/SGPT) 21 0-55 U/L Alkaline Phosphatase 57 40-136 U/L Total Protein 6.7 6.4-8.2 GM/DL Albumin 3.8 3.2-4.5 GM/DL Urine Color YELLOW Urine Clarity CLEAR Urine pH 6.5 5-9 Urine Specific [place] 1.020 1.016-1.022 Urine Protein 1+ H NEGATIVE Urine Glucose (UA) NEGATIVE NEGATIVE Urine Ketones TRACE H NEGATIVE Urine Nitrite NEGATIVE NEGATIVE Urine Bilirubin NEGATIVE NEGATIVE Urine Urobilinogen 0.2 < = 1.0 MG/DL Urine Leukocyte Esterase NEGATIVE NEGATIVE Urine RBC (Auto) NEGATIVE NEGATIVE Urine RBC NONE /HPF Urine WBC 0-2 /HPF Urine Squamous Epithelial Cells 2-5 /HPF Urine Crystals NONE /LPF Urine Bacteria FEW H /HPF Urine Casts PRESENT /LPF Urine Waxy Casts RARE H /LPF Urine Mucus NEGATIVE /LPF Urine Yeast FEW H /HPF Urine Culture Indicated YES My Orders Orders - LYNN BENITEZ DO Ed Iv/Invasive Line Start (12/05/22 13:52) Monitor-Rhythm Ecg Trace Only (12/05/22 13:52) Ct Thoracic/Lumbar Spine Wo (12/05/22 13:52) Cbc With Automated Diff (12/05/22 13:52) Comprehensive Metabolic Panel (12/05/22 13:52) Protime With Inr (12/05/22 13:52) Partial Thromboplastin Time (12/05/22 13:52) Ua Culture If Indicated (12/05/22 13:52) Chest 1 View, Ap/Pa Only (12/05/22 13:52) Pelvis With Right Hip 2-3views (12/05/22 13:52) Ct Chest/Abdomen/Pelvis W (12/05/22 13:52) Fentanyl Injection (Fentanyl Injection (12/05/22 13:52) Iohexol Injection (Omnipaque 350 Mg/Ml 1 (12/05/22 14:45) Received Contrast (Hold Metformin- Contr (12/05/22 14:45) Ns (Ivpb) 100 Ml (Sodium Chloride 0.9% 1 (12/05/22 14:45) Urine Culture (12/05/22 14:25) Fentanyl Injection (Fentanyl Injection (12/05/22 15:47) Heparin (Central Iv Flush) (Heparin ([place] (12/05/22 16:15) Heparin (Central Iv Flush) (Heparin ([place] (12/05/22 16:06) Medications Given in ED Current Medications Medications Dose Ordered Sig/Swetha Route Start Time Stop Time Status Last Admin Dose Admin Heparin Sodium (Porcine) 500 unit ONCE ONCE IV 12/05/22 16:15 12/05/22 16:16 DC 12/05/22 16:07 500 UNIT Iohexol 100 ml ONCE ONCE IV 12/05/22 14:45 12/05/22 14:46 DC 12/05/22 14:55 80 ML Sodium Chloride 100 ml ONCE ONCE IV 12/05/22 14:45 12/05/22 14:46 DC 12/05/22 14:55 80 ML Vital Signs/I&O 12/05/22 13:46 Temp 36.6 Pulse 70 Resp 20 B/P (MAP) Pulse Ox 96 O2 Delivery Room Air Progress Progress Note : Progress Note VITALS ON ARRIVAL: TEMP 36.6=97.8, HR 70,RR 20, BP 150/75, O2 SAT 96% ON ROOM AIR GIVEN: -FENTANYL FOR PAIN CT SCANS OF SPINE AND CHEST/ABDOMEN/PELVIS DO NOT SHOW ANY ACUTE TRAUMATIC INJURY XRAYS DO NOT SHOW ANY ACUTE TRAUMATIC INJURY NO DETERIORATION IN PT'S CONDITION DURING ER STAY OFFERED TO ADMIT PT FOR PAIN CONTROL AND SHE WOULD LIKE TO GO HOME DISCUSSED TEST RESULTS, SYMPTOMATIC TREATMENT, ANTICIPATED COURSE, MEDICATIONS, NEED FOR FOLLOW UP AND RETURN PRECAUTIONS REVIEWED PRIOR RECORDS, INCLUDING ER VISITS, ADMITS/H&P'S/CONSULTS/DISCHARGE SUMMARIES, TESTS/PROCEDURES Diagnostic Imaging Comments ALL PER RADIOLOGIST REPORTS AT 1535 CXR-- FINDINGS: No lung contusion, pneumothorax, or hemothorax. Upper limits heart size and pacemaker device are stable from prior. A central line via a right IJ port is at the low SVC. There are old healed left rib fracture deformities. No acute appearing abnormality. IMPRESSION: No acute appearing abnormality. PELVIS/RIGHT HIP XRAYS-- FINDINGS: There is no evidence of acute fracture or malalignment. Note is made of contrast opacification of the urinary tract. Enthesophytes are seen along the hip regions. There is an old fracture deformity involving the right inferior ischial ramus. IMPRESSION: No evidence of acute abnormality. CT CHEST/ABDOMEN/PELVIS-- FINDINGS: CHEST: Aorta is intact. No pericardial or pleural hemorrhage. No pulmonary parenchymal laceration, contusion, or aspiration. There is a new small mass in the right lower lobe lung of 1.2 cm in long axis. Malignancy cannot be excluded and this requires further workup. Nonemergent outpatient metabolic PET/CT suggested as the next step. No other lung lesion. Aside from some trace scattered zones of partial atelectasis, no thoracic lymphadenopathy. There are aortic and coronary artery atherosclerotic vascular calcifications. No chest wall hematoma. Pacemakers are present bilaterally. No rib or chest fracture deformity identified. No pleural hematoma. No soft tissue chest wall gas. ABDOMEN AND PELVIS: There is no free fluid. There were no findings of hemoperitoneum. No retroperitoneal hemorrhage. No mesenteric or bowel wall hematoma. Unobstructed kidneys are nonacute with a punctate 2 mm right renal calculus, chronic. There are scattered hepatic cysts with no solid enhancing or suspicious liver lesion. No findings of liver laceration. Spleen is unremarkable. The adrenals and pancreas are negative. The aorta is atherosclerotic but patent, nonaneurysmal, and nonacute. There is a fatty umbilical hernia, noninflamed. No acute-appearing abdominal wall pathology. The bony pelvis showed old healed right superior and inferior pubic rami deformities, chronic. No acute or subacute fracture. There is T10 superior endplate concavity of its [id number] thirds well corticated and appearing chronic. Also, chronic-appearing L1 superior and inferior endplate concavities are likely Schmorl's nodes. No visible spinal fracture. IMPRESSION: 1. No posttraumatic abnormality in the chest, abdomen, or pelvis identified. 2. New small mass of 12 mm in the right lower lobe lung requires further workup. Outpatient metabolic PET imaging suggested. No findings to suggest its metastatic disease elsewhere. 3. Abdomen and pelvis shows no solid or hollow visceral injury, fracture, or hemoperitoneum. CT THORACIC/LUMBAR SPINE-- FINDINGS: Thoracic:No traumatic subluxation is present. No acute fracture within the thoracic spine. There are no sites of high-grade spinal canal stenosis. Posterior ribs are intact. Lumbar: No traumatic subluxation. There is grade 1 anterolisthesis of L4 on L5 due to facet osteoarthritis. No fracture within the lumbar spine. Schmorl's node is present in the superior endplate of L1. Facet osteoarthritis and disc bulging results in moderate spinal canal stenosis at L4-L5. IMPRESSION: 1. No acute fracture within the thoracic or lumbar spine. Reviewed: Reviewed by Sc Departure Communication (Admissions) [id number]--SPOKE WITH DR. TAPIA, SHE WILL ADMIT PT FOR PAIN CONTROL IF PT IS UNCOMFORTABLE GOING HOME. Impression Primary Impression: Fall from standing Additional Impressions: RIGHT HIP AND BUTTOCK CONTUSION Contusion of rib on right side Pulmonary nodule Disposition: HOME, SELF-CARE Condition: Stable Departure-Patient Inst. Decision time for Depature: 15:47 Referrals: YAHIR CHÁVEZ MD (PCP) Primary Care Physician ROB TAPIA DO Patient Instructions: Bruised Rib (DC), Contusion (DC), Preventing falls in adults Add. Discharge Instructions: ICE TO SORE AREAS AT 20 MINUTE INTERVALS USE YOUR WALKER AT ALL TIMES FOLLOW UP WITH YOUR DR IN 1 WEEK IF NO BETTER All discharge instructions reviewed with patient and/or family. Voiced understanding. Scripts Hydrocodone/Acetaminophen (Hydrocodone-Acetamin 5-325 mg) 5 Mg-325 Mg Tablet 1 EACH PO Q4-6 HOURS PRN for PAIN, #20 TAB Prov: LYNN BENITEZ DO 12/05/22 LYNN BENITEZ DO Dec 05, 2022 15:20
--- NOTE | 2022-12-05 15:27 | Diagnostic Imaging Report ---
PROCEDURE: CT chest, abdomen, and pelvis with contrast. TECHNIQUE: Multiple contiguous axial images were obtained through the chest, abdomen, and pelvis after the administration of intravenous contrast. Auto Exposure Controls were utilized during the CT exam to meet ALARA standards for radiation dose reduction. INDICATION: Fall, right-sided body wall pain, chest, abdomen, and pelvic injury. COMPARISON: Exam compared with chest CT of 05/31/2018. No previous abdominopelvic CT. FINDINGS: CHEST: Aorta is intact. No pericardial or pleural hemorrhage. No pulmonary parenchymal laceration, contusion, or aspiration. There is a new small mass in the right lower lobe lung of 1.2 cm in long axis. Malignancy cannot be excluded and this requires further workup. Nonemergent outpatient metabolic PET/CT suggested as the next step. No other lung lesion. Aside from some trace scattered zones of partial atelectasis, no thoracic lymphadenopathy. There are aortic and coronary artery atherosclerotic vascular calcifications. No chest wall hematoma. Pacemakers are present bilaterally. No rib or chest fracture deformity identified. No pleural hematoma. No soft tissue chest wall gas. ABDOMEN AND PELVIS: There is no free fluid. There were no findings of hemoperitoneum. No retroperitoneal hemorrhage. No mesenteric or bowel wall hematoma. Unobstructed kidneys are nonacute with a punctate 2 mm right renal calculus, chronic. There are scattered hepatic cysts with no solid enhancing or suspicious liver lesion. No findings of liver laceration. Spleen is unremarkable. The adrenals and pancreas are negative. The aorta is atherosclerotic but patent, nonaneurysmal, and nonacute. There is a fatty umbilical hernia, noninflamed. No acute-appearing abdominal wall pathology. The bony pelvis showed old healed right superior and inferior pubic rami deformities, chronic. No acute or subacute fracture. There is T10 superior endplate concavity of its [id number] thirds well corticated and appearing chronic. Also, chronic-appearing L1 superior and inferior endplate concavities are likely Schmorl's nodes. No visible spinal fracture. IMPRESSION: 1. No posttraumatic abnormality in the chest, abdomen, or pelvis identified. 2. New small mass of 12 mm in the right lower lobe lung requires further workup. Outpatient metabolic PET imaging suggested. No findings to suggest its metastatic disease elsewhere. 3. Abdomen and pelvis shows no solid or hollow visceral injury, fracture, or hemoperitoneum. Dictated by: Dictated on workstation # [id number]
--- NOTE | 2022-12-05 15:30 | Diagnostic Imaging Report ---
INDICATION: Fall. COMPARISON: 01/08/2017. FINDINGS: No lung contusion, pneumothorax, or hemothorax. Upper limits heart size and pacemaker device are stable from prior. A central line via a right IJ port is at the low SVC. There are old healed left rib fracture deformities. No acute appearing abnormality. IMPRESSION: No acute appearing abnormality. Dictated by: Dictated on workstation # [id number]
--- NOTE | 2022-12-05 15:33 | Diagnostic Imaging Report ---
CT THORACIC/LUMBAR SPINE WO INDICATION: Back pain following trauma. COMPARISON: CT chest, abdomen and pelvis performed concurrently. TECHNIQUE: CT imaging of the thoracic and lumbar spine was performed without contrast. Automatic exposure controls were utilized for dose optimization. FINDINGS: Thoracic:No traumatic subluxation is present. No acute fracture within the thoracic spine. There are no sites of high-grade spinal canal stenosis. Posterior ribs are intact. Lumbar: No traumatic subluxation. There is grade 1 anterolisthesis of L4 on L5 due to facet osteoarthritis. No fracture within the lumbar spine. Schmorl's node is present in the superior endplate of L1. Facet osteoarthritis and disc bulging results in moderate spinal canal stenosis at L4-L5. IMPRESSION: 1. No acute fracture within the thoracic or lumbar spine. Dictated by: Dictated on workstation # [id number]
[2022-12-05] MEDS ORDERED: ACHD5005 PO (15:49)
[2022-12-05] MEDS ORDERED: HEParin (CENTRAL IV FLUSH) 500 UNIT/5 ML SYR ONE (16:06)
[2022-12-05] MEDS ORDERED: HEParin (CENTRAL IV FLUSH) 500 UNIT/5 ML SYR IV ONE (16:15)
== END 2022-12-05 17:01 | disposition home or self-care (01) ==
LOC: EDUNIT# 13:39 → ER 13:42
DX: S20.211A Contusion of right front wall of thorax, initial encounter (principal); S70.01XA Contusion of right hip, initial encounter; S30.0XXA Contusion of lower back and pelvis, initial encounter; R91.1 Solitary pulmonary nodule; Z91.040 Latex allergy status; W01.0XXA Fall on same level from slipping, tripping and stumbling without subsequent striking against object, initial encounter
CPT/HCPCS: 36415; 71045; 71260; 72128; 72131; 74177; 80053; 81000; 85025; 85610; 85730; 87088; 93041

== ENCOUNTER 2022-12-14 15:00 | Outpatient (RCR) | payer MEDICARE, OTHER | END 2022-12-17 | disposition home or self-care (01) | PROVIDERS: ATTEND Orthopaedic Surgery | DX: M54.32 Sciatica, left side (principal); I10 Essential (primary) hypertension ==

== ENCOUNTER → 2022-12-26 | Outpatient (CLI) | payer MEDICARE, OTHER ==
--- NOTE | 2022-12-26 16:07 | Diagnostic Imaging Report ---
INDICATION: Right lower lobe lung mass, metabolic evaluation desired. A patient with blood glucose radiating of 194 received an intravenous dose of 10.5 mCi F-18 floor DEXA goes via the left forearm and after one hour, CT fusion PET calvarial vertex through the upper thighs performed. FINDINGS: Scalp calvarium and intracranial contents orbits and sinonasal spaces showed no suspicious asymmetric metabolic activity. Is a right-sided shunt tube no gaby-shunt hemorrhage no hydrocephalus. Mucosal spaces surfaces of the neck and the cervical lymph node stations symmetric and normal. Small nodule right lower lobe today measures about 11 mm in the right lung base just above the hemidiaphragm and this shows no perceptible metabolic activity favoring its benignity. No FDG avid lung mass and there is no enlarged or metabolically active thoracic lymph nodes. No chest effusion. No pneumothorax. No suspicious bony finding. The liver, spleen and adrenals negative. There is no mesenteric or retroperitoneal adenopathy. No ascites or omental infiltration. There us now apparent subtle fracture zone 1 right sacral ala lateral to the sacral foramen and parallel to the SI joint. This is metabolically active and is consistent with subacute or healing fracture. This did not appear pathologic. It is unclear if this was a nondisplaced injury, occult and sustained from the prior trauma, or if this is a stress type insufficiency injury. The remaining bony structures appeared unremarkable. IMPRESSION: 1. Right lower lobe lung mass is not FDG avid favoring benignity but follow-up anatomical CT of the chest in 3 months time suggested. 2. Uptake in the right sacral alar zone 1 is associated with a nondisplaced likely subacute fracture. This may be an insufficiency injury or previously occult injury. 3. No suspicious soft tissue uptake in the head, neck, chest, abdomen or pelvis. Dictated by: Dictated on workstation # [id number]
== END ==
LOC: RAD 09:32
PROVIDERS: ATTEND Internal Medicine
DX: C34.31 Malignant neoplasm of lower lobe, right bronchus or lung (principal)
CPT/HCPCS: 78815; 82947; A9552

== ENCOUNTER → 2022-12-29 | Outpatient (CLI) | payer MEDICARE, OTHER ==
[~2022-12-29] VITALS: Ht 162.6 cm; Wt 94.0 kg
[~2022-12-29] MED LIST changes: +ACETAMINOPHEN 325 MG TABLET PO ONE; +EPINEPHrine INJECTION 1 MG/ML AMP IM PRN; +INFLIXIMAB FOR IV SCH; +NORMAL SALINE IV SCH; +diphenhydrAMINE 25 MG TABLET PO ONE; +diphenhydrAMINE INJ 50 MG/ML VIAL IV PRN; +diphenhydrAMINE INJ 50 MG/ML VIAL IVP PRN; +methylPREDNISolone INJ 125 MG VIAL IVP PRN
[2022-12-29 09:50] VITALS: BP 142/81
[2022-12-29 10:05] LABS: BASOPHILS # (AUTO) 0.1 10^3/uL (0.0-0.1); BASOPHILS % (AUTO) 1 % (0-10); EOSINOPHILS # (AUTO) 0.3 10^3/uL (0.0-0.3); EOSINOPHILS % (AUTO) 5 % (0-10); HEMATOCRIT 39 % (35-52); LYMPHOCYTES # (AUTO) 1.4 10^3/uL (1.0-4.0); LYMPHOCYTES % (AUTO) 24 % (12-44); MEAN CORPUSCULAR HEMOGLOBIN 34 pg (25-34); MEAN CORPUSCULAR HGB CONC 34 g/dL (32-36); MEAN CORPUSCULAR VOLUME 100 fL (80-99); MEAN PLATELET VOLUME 9.8 fL (9.0-12.2); MONOCYTES # (AUTO) 0.6 10^3/uL (0.0-1.0); MONOCYTES % (AUTO) 10 % (0-12); NEUTROPHILS # (AUTO) 3.5 10^3/uL (1.8-7.8); NEUTROPHILS % (AUTO) 60 % (42-75); PLATELET COUNT 237 10^3/uL (130-400); WHITE BLOOD COUNT 5.8 10^3/uL (4.3-11.0)
[2022-12-29 10:22] LABS: ALBUMIN 3.7 GM/DL (3.2-4.5); BILIRUBIN,TOTAL 0.5 MG/DL (0.1-1.0); CALCIUM 8.8 MG/DL (8.5-10.1); CREATININE SERUM 0.81 MG/DL (0.60-1.30); POTASSIUM 4.2 MMOL/L (3.6-5.0); TOTAL PROTEIN 6.6 GM/DL (6.4-8.2)
== END ==
LOC: SDC 09:25
PROVIDERS: ATTEND Internal Medicine Rheumatology
DX: L40.50 Arthropathic psoriasis, unspecified (principal)
CPT/HCPCS: 36415; 80053; 85025; 86141; 96365; 96366

== ENCOUNTER 2023-01-13 15:00 | Outpatient (RCR) | payer MEDICARE, OTHER ==
[~2023-01-13 15:00] MED LIST changes: -ACETAMINOPHEN 325 MG TABLET PO ONE; -EPINEPHrine INJECTION 1 MG/ML AMP IM PRN; -INFLIXIMAB FOR IV SCH; -NORMAL SALINE IV SCH; -diphenhydrAMINE 25 MG TABLET PO ONE; -diphenhydrAMINE INJ 50 MG/ML VIAL IV PRN; -diphenhydrAMINE INJ 50 MG/ML VIAL IVP PRN; -methylPREDNISolone INJ 125 MG VIAL IVP PRN
== END 2023-01-17 | disposition home or self-care (01) ==
PROVIDERS: ATTEND Orthopaedic Surgery
DX: M54.32 Sciatica, left side (principal); I10 Essential (primary) hypertension; R53.1 Weakness; Z96.652 Presence of left artificial knee joint

== ENCOUNTER 2023-01-19 14:09 | Outpatient (RCR) | payer MEDICARE, OTHER | END 2023-01-19 15:45 | disposition home or self-care (01) | PROVIDERS: ATTEND Orthopaedic Surgery | DX: M54.12 Radiculopathy, cervical region (principal); I10 Essential (primary) hypertension; R53.1 Weakness; Z96.652 Presence of left artificial knee joint ==

== ENCOUNTER → 2023-02-07 | Outpatient (CLI) | payer MEDICARE ==
--- NOTE | 2023-02-07 19:11 | Diagnostic Imaging Report ---
Indication: Routine screening. Comparison is made with prior mammograms from 02/03/2022 and 01/27/2021. 2-D and 3-D bilateral screening mammography was performed with CAD. Scattered fibroglandular densities are identified bilaterally. A nodular density in the outer left breast is stable. A biopsy marker clip central left breast is again noted. Pacemaker battery packs overlie the axillae bilaterally. No spiculated mass or malignant-appearing microcalcifications are seen. IMPRESSION: BI-RADS Category 2. No mammographic features suspicious for malignancy are identified. ACR BI-RADS Category 2: Benign findings. Result letter will be mailed to the patient. Note: At least 10% of breast cancer is not imaged by mammography. Dictated by: Dictated on workstation # [id number]
== END ==
LOC: RAD 15:01
PROVIDERS: ATTEND Internal Medicine
DX: Z12.31 Encounter for screening mammogram for malignant neoplasm of breast (principal)
CPT/HCPCS: 77063; 77067

== ENCOUNTER → 2023-02-23 | Outpatient (CLI) | payer MEDICARE, OTHER ==
[~2023-02-23] MED LIST changes: +ACETAMINOPHEN 325 MG TABLET ONE; +ACETAMINOPHEN 325 MG TABLET PO ONE; +EPINEPHrine INJECTION 1 MG/ML AMP IM PRN; +INFLIXIMAB FOR IV SCH; +NORMAL SALINE IV SCH; +diphenhydrAMINE 25 MG TABLET PO ONE; +diphenhydrAMINE INJ 50 MG/ML VIAL IV PRN; +diphenhydrAMINE INJ 50 MG/ML VIAL IVP PRN; +methylPREDNISolone INJ 125 MG VIAL IVP PRN
[2023-02-23 09:50] VITALS: BP 141/81
[2023-02-23 10:18] LABS: BASOPHILS % (AUTO) 1 % (0-10); EOSINOPHILS # (AUTO) 0.1 10^3/uL (0.0-0.3); EOSINOPHILS % (AUTO) 3 % (0-10); HEMATOCRIT 37 % (35-52); HEMOGLOBIN 12.6 g/dL (11.5-16.0); LYMPHOCYTES # (AUTO) 1.5 10^3/uL (1.0-4.0); LYMPHOCYTES % (AUTO) 33 % (12-44); MEAN CORPUSCULAR HEMOGLOBIN 33 pg (25-34); MEAN CORPUSCULAR HGB CONC 34 g/dL (32-36); MEAN CORPUSCULAR VOLUME 98 fL (80-99); MEAN PLATELET VOLUME 10.3 fL (9.0-12.2); MONOCYTES # (AUTO) 0.5 10^3/uL (0.0-1.0); MONOCYTES % (AUTO) 10 % (0-12); NEUTROPHILS # (AUTO) 2.4 10^3/uL (1.8-7.8); NEUTROPHILS % (AUTO) 54 % (42-75); PLATELET COUNT 222 10^3/uL (130-400); WHITE BLOOD COUNT 4.5 10^3/uL (4.3-11.0)
[2023-02-23 10:41] LABS: ALBUMIN 3.6 GM/DL (3.2-4.5); BILIRUBIN,TOTAL 0.6 MG/DL (0.1-1.0); CALCIUM 8.8 MG/DL (8.5-10.1); CREATININE SERUM 0.8 MG/DL (0.60-1.30); POTASSIUM 4.2 MMOL/L (3.6-5.0); TOTAL PROTEIN 6.4 GM/DL (6.4-8.2)
== END ==
LOC: SDC 09:39
PROVIDERS: ATTEND Internal Medicine Rheumatology
DX: L40.50 Arthropathic psoriasis, unspecified (principal)
CPT/HCPCS: 36415; 80053; 85025; 86141; 96365; 96366